=== PATIENT | female | born 1940 | race Caucasian/White ===

== ENCOUNTER → 2016-11-13 | Outpatient (REF) | payer MEDICARE, MEDICAID ==
[~2016-11-13] MED LIST: ASPI81TA45 PO; CARV6.25 PO; CRES20TA PO; DOCQ100C PO; IRON65TA PO; LISI10TA4 PO; LORA10TA2 PO; METF1000 PO; NAPR500T2 PO; PANT40TA2 PO; PERCOCET PO; SERT50TA PO; TYLE325T5 PO; advair INH; albuterol INH; lantus insulin SC; vicodin OR
[2016-11-13 12:13] LABS: MEAN CORPUSCULAR HEMOGLOBIN 24.1 pg (27.0-33.0); MEAN CORPUSCULAR HGB CONC 30.7 g/dl (32.0-36.5); MEAN CORPUSCULAR VOLUME 78.6 fl (80.0-96.0); RED CELL DISTRIBUTION WIDTH 16.3 % (11.5-14.5); WHITE BLOOD COUNT 8.8 K/mm3 (4.0-10.0)
[2016-11-13 12:26] LABS: FOLATE > 24.0 NG/ML (>5.4); VITAMIN B12 LEVEL 852 PG/ML (247-911)
[2016-11-13 12:37] LABS: ALBUMIN 3.9 GM/DL (3.2-5.2); ALBUMIN/GLOBULIN RATIO 1.05 (1.00-1.93); ALKALINE PHOSPHATASE 55 U/L (45-117); ALT/SGPT 26 U/L (12-78); ANION GAP 7 MEQ/L (8-16); AST/SGOT 16 U/L (15-37); BILIRUBIN,TOTAL 0.3 MG/DL (0.2-1.0); BLOOD UREA NITROGEN 24 MG/DL (7-18); CARBON DIOXIDE LEVEL 30 MEQ/L (21-32); CHLORIDE LEVEL 104 MEQ/L (98-107); CHOLESTEROL LEVEL 314 MG/DL (<200); CREATININE FOR GFR 0.71 MG/DL (0.55-1.02); GLOMERULAR FILTRATION RATE > 60.0 (>39); GLUCOSE, FASTING 104 MG/DL (83-110); POTASSIUM SERUM 4.8 MEQ/L (3.5-5.1); SODIUM LEVEL 141 MEQ/L (136-145); TOTAL PROTEIN 7.6 GM/DL (6.4-8.2); TRIGLYCERIDES LEVEL 207 MG/DL (<150)
== END ==
LOC: M LABDRAW1 11:32
PROVIDERS: ATTEND Internal Medicine Cardiovascular Disease
DX: E78.5 Hyperlipidemia, unspecified (principal); K51.90 Ulcerative colitis, unspecified, without complications; E10.9 Type 1 diabetes mellitus without complications; I10 Essential (primary) hypertension

== ENCOUNTER → 2016-11-18 | Outpatient (REF) | payer MEDICARE, MEDICAID | LOC: M LABDRAW1 17:04 | PROVIDERS: ATTEND Internal Medicine Cardiovascular Disease | DX: E78.5 Hyperlipidemia, unspecified (principal); E11.9 Type 2 diabetes mellitus without complications; I10 Essential (primary) hypertension; N39.0 Urinary tract infection, site not specified; Z79.899 Other long term (current) drug therapy ==

== ENCOUNTER → 2016-11-23 | Outpatient (REF) | payer MEDICARE, MEDICAID | LOC: M LAB REF 17:05 | PROVIDERS: ATTEND Internal Medicine Cardiovascular Disease | DX: E78.5 Hyperlipidemia, unspecified (principal); I10 Essential (primary) hypertension; E11.9 Type 2 diabetes mellitus without complications; N39.0 Urinary tract infection, site not specified ==

== ENCOUNTER → 2017-02-04 | Outpatient (REF) | payer MEDICARE, MEDICAID ==
[~2017-02-04] MED LIST changes: -METF1000 PO; +METF10004 PO; -NAPR500T2 PO; +NAPR500T3 PO
[2017-02-04 14:03] LABS: MEAN CORPUSCULAR HEMOGLOBIN 24.4 pg (27.0-33.0); MEAN CORPUSCULAR VOLUME 76.3 fl (80.0-96.0); RED CELL DISTRIBUTION WIDTH 17.6 % (11.5-14.5); WHITE BLOOD COUNT 8.9 K/mm3 (4.0-10.0)
[2017-02-04 14:16] LABS: FOLATE > 24.0 NG/ML; VITAMIN B12 LEVEL 1339 PG/ML
[2017-02-04 16:01] LABS: ALBUMIN 4.1 GM/DL (3.2-5.2); ALBUMIN/GLOBULIN RATIO 1.28 (1.00-1.93); ALKALINE PHOSPHATASE 39 U/L (45-117); ALT/SGPT 14 U/L (12-78); ANION GAP 8 MEQ/L (8-16); AST/SGOT 19 U/L (15-37); BILIRUBIN,TOTAL 0.5 MG/DL (0.2-1.0); BLOOD UREA NITROGEN 22 MG/DL (7-18); CALCIUM LEVEL 8.8 MG/DL (8.8-10.2); CARBON DIOXIDE LEVEL 26 MEQ/L (21-32); CHLORIDE LEVEL 105 MEQ/L (98-107); CREATININE FOR GFR 0.81 MG/DL (0.55-1.02); FREE T4 1.24 NG/DL (0.76-1.46); GLOMERULAR FILTRATION RATE > 60.0 (>39); GLUCOSE, FASTING 70 MG/DL (83-110); POTASSIUM SERUM 4.7 MEQ/L (3.5-5.1); SODIUM LEVEL 139 MEQ/L (136-145); TOTAL PROTEIN 7.3 GM/DL (6.4-8.2)
[2017-02-10 00:09] LABS: Chitobioside Carbohydrat (ACCA 19 units (0-90); Laminaribioside Carbohyd (ALCA 4 units (0-60); Mannobioside Carbohydrat (AMCA 18 units (0-100); Saccharomyces cerevisiae IgG A 12 units (0-50)
== END ==
LOC: M LABDRAW1 13:27
PROVIDERS: ATTEND Internal Medicine Cardiovascular Disease
DX: D64.9 Anemia, unspecified (principal); J44.0 Chronic obstructive pulmonary disease with (acute) lower respiratory infection; K21.9 Gastro-esophageal reflux disease without esophagitis; I10 Essential (primary) hypertension; E11.9 Type 2 diabetes mellitus without complications; I25.10 Atherosclerotic heart disease of native coronary artery without angina pectoris

== ENCOUNTER → 2017-02-06 | Outpatient (REF) | payer MEDICARE, MEDICAID | LOC: M LAB REF 16:20 | PROVIDERS: ATTEND Internal Medicine Cardiovascular Disease | DX: D64.9 Anemia, unspecified (principal); J44.0 Chronic obstructive pulmonary disease with (acute) lower respiratory infection; K21.9 Gastro-esophageal reflux disease without esophagitis ==

== ENCOUNTER → 2017-02-08 | Outpatient (REF) | payer MEDICARE, MEDICAID | LOC: M LAB REF 16:17 | PROVIDERS: ATTEND Internal Medicine Cardiovascular Disease | DX: D64.9 Anemia, unspecified (principal); J44.0 Chronic obstructive pulmonary disease with (acute) lower respiratory infection; K21.9 Gastro-esophageal reflux disease without esophagitis ==

== ENCOUNTER → 2017-04-14 | Outpatient (CLI) | payer MEDICARE, MEDICAID ==
--- NOTE | 2017-04-14 14:10 | REP ---
UNILATERAL RIGHT RIBS, PA CHEST, FIVE VIEWS: HISTORY: Pain. COMPARISON: 06/10/2016. A minimal increase in interstitial markings is present in the lungs. Linear density is present in the left lower lobe consistent with scar. The heart is normal in size. The pulmonary vasculature is normal in appearance. The bony structure is intact. Surgical clips are present overlying the left lung apex. IMPRESSION: Findings consistent with COPD. Signed by Sean Gaines MD 04/14/2017 02:16 P
== END ==
LOC: M WUC 11:02
PROVIDERS: ATTEND Physician Assistant
DX: S29.011A Strain of muscle and tendon of front wall of thorax, initial encounter (principal); X58.XXXA Exposure to other specified factors, initial encounter; Y93.9 Activity, unspecified; Y92.9 Unspecified place or not applicable; Y99.8 Other external cause status; J44.9 Chronic obstructive pulmonary disease, unspecified

== ENCOUNTER → 2017-08-20 | Outpatient (CLI) | payer MEDICARE, MEDICAID ==
[2017-08-20 11:29] LABS: HEMATOCRIT 29.4 % (36.0-47.0); HEMOGLOBIN 8.8 g/dl (12.0-16.0); MEAN CORPUSCULAR HEMOGLOBIN 23.2 pg (27.0-33.0); MEAN CORPUSCULAR HGB CONC 29.9 g/dl (32.0-36.5); MEAN CORPUSCULAR VOLUME 77.4 fl (80.0-96.0); PLATELET COUNT, AUTOMATED 117 10^3/uL (150-450); RED CELL DISTRIBUTION WIDTH 18.5 % (11.5-14.5); WHITE BLOOD COUNT 7.9 10^3/uL (4.0-10.0)
[2017-08-20 11:35] LABS: INR 0.99; PROTHROMBIN TIME 13.2 SECONDS (12.4-14.5)
[2017-08-20 11:51] LABS: ALBUMIN 3.9 GM/DL (3.2-5.2); ALBUMIN/GLOBULIN RATIO 1.11 (1.00-1.93); ALKALINE PHOSPHATASE 40 U/L (45-117); ALT/SGPT 13 U/L (12-78); ANION GAP 8 MEQ/L (8-16); AST/SGOT 20 U/L (7-37); BILIRUBIN,TOTAL 0.6 MG/DL (0.2-1.0); BLOOD UREA NITROGEN 16 MG/DL (7-18); CALCIUM LEVEL 8.9 MG/DL (8.8-10.2); CARBON DIOXIDE LEVEL 27 MEQ/L (21-32); CHLORIDE LEVEL 107 MEQ/L (98-107); CREATININE FOR GFR 0.64 MG/DL (0.55-1.30); GLOMERULAR FILTRATION RATE > 60.0 (>39); GLUCOSE, FASTING 66 MG/DL (70-100); POTASSIUM SERUM 4.2 MEQ/L (3.5-5.1); SODIUM LEVEL 142 MEQ/L (136-145); TOTAL PROTEIN 7.4 GM/DL (6.4-8.2)
[2017-08-20 11:53] LABS: APPEARANCE, URINE MANUAL CLEAR (CLEAR); BILIRUBIN, URINE MANUAL NEGATIVE (NEGATIVE); BLOOD URINE MANUAL TRACE (NEGATIVE); COLOR, URINE MANUAL YELLOW (YELLOW); GLUCOSE, URINE (UA) MANUAL NEGATIVE (NEGATIVE); KETONE, URINE MANUAL NEGATIVE (NEGATIVE); LEUKOCYTE ESTERASE, URINE MAN TRACE (NEGATIVE); MICROSCOPIC INDICATED? MAN YES (NO); NITRITE, URINE MANUAL NEGATIVE (NEGATIVE); PROTEIN, URINE MANUAL 1+ mg/dL (NEGATIVE); SPECIFIC GRAVITY,URINE MANUAL 1.025 (1.002-1.035); UROBILINOGEN, URINE MANUAL NORMAL (NORMAL)
[2017-08-20 11:56] LABS: ERYTHROCYTE SEDIMENTATION RATE 59 mm/hr (0-30)
[2017-08-20 11:58] LABS: BACTERIA, URINE SMALL AMOUNT; HYALINE CAST, URINE NONE SEEN /lpf (0-1); MICROSCOPIC EXAM PERFORMED; RBC, URINE 0-1 /hpf (0-3); SQUAMOUS EPITHELIAL CELL URINE SMALL AMOUNT /hpf (SMALL AMT)
== END ==
LOC: M ADMPAT 09:13
DX: Z01.818 Encounter for other preprocedural examination (principal); M17.12 Unilateral primary osteoarthritis, left knee; I10 Essential (primary) hypertension; R01.1 Cardiac murmur, unspecified; E11.9 Type 2 diabetes mellitus without complications
CPT/HCPCS: 71046

== ENCOUNTER → 2017-09-23 | Outpatient (CLI) | payer MEDICARE, MEDICAID ==
[2017-09-23 14:10] LABS: HEMATOCRIT 31.4 % (36.0-47.0); HEMOGLOBIN 9.1 g/dl (12.0-16.0); MEAN CORPUSCULAR HEMOGLOBIN 23.2 pg (27.0-33.0); MEAN CORPUSCULAR VOLUME 79.9 fl (80.0-96.0); PLATELET COUNT, AUTOMATED 105 10^3/uL (150-450); RED BLOOD COUNT 3.93 10^6/uL (4.00-5.40); RED CELL DISTRIBUTION WIDTH 18.4 % (11.5-14.5); WHITE BLOOD COUNT 7.3 10^3/uL (4.0-10.0)
== END ==
LOC: M SMT 08:33
DX: Z01.82 Encounter for allergy testing (principal); M17.12 Unilateral primary osteoarthritis, left knee; Z79.899 Other long term (current) drug therapy
CPT/HCPCS: 85027

== ENCOUNTER → 2017-12-29 | Outpatient (CLI) | payer MEDICARE, MEDICAID ==
[2017-12-29 11:35] LABS: HEMATOCRIT 33.6 % (36.0-47.0); HEMOGLOBIN 10.2 g/dl (12.0-15.5); MEAN CORPUSCULAR HEMOGLOBIN 24.1 pg (27.0-33.0); MEAN CORPUSCULAR HGB CONC 30.4 g/dl (32.0-36.5); MEAN CORPUSCULAR VOLUME 79.2 fl (80.0-96.0); PLATELET COUNT, AUTOMATED 108 10^3/uL (150-450); RED BLOOD COUNT 4.24 10^6/uL (4.00-5.40); RED CELL DISTRIBUTION WIDTH 16.9 % (11.5-14.5); WHITE BLOOD COUNT 6.9 10^3/uL (4.0-10.0)
[2017-12-29 11:45] LABS: INR 0.88
[2017-12-29 12:04] LABS: ERYTHROCYTE SEDIMENTATION RATE 35 mm/hr (0-30)
[2017-12-29 12:33] LABS: ALBUMIN 3.9 GM/DL (3.2-5.2); ALBUMIN/GLOBULIN RATIO 1.08 (1.00-1.93); ALKALINE PHOSPHATASE 37 U/L (45-117); ALT/SGPT 14 U/L (12-78); ANION GAP 7 MEQ/L (8-16); AST/SGOT 19 U/L (7-37); BILIRUBIN,TOTAL 0.5 MG/DL (0.2-1.0); BLOOD UREA NITROGEN 16 MG/DL (7-18); CALCIUM LEVEL 9.2 MG/DL (8.8-10.2); CARBON DIOXIDE LEVEL 27 MEQ/L (21-32); CHLORIDE LEVEL 108 MEQ/L (98-107); CREATININE FOR GFR 0.77 MG/DL (0.55-1.30); GLOMERULAR FILTRATION RATE > 60.0 (>39); GLUCOSE, FASTING 114 MG/DL (70-100); POTASSIUM SERUM 4.8 MEQ/L (3.5-5.1); SODIUM LEVEL 142 MEQ/L (136-145); TOTAL PROTEIN 7.5 GM/DL (6.4-8.2)
== END ==
LOC: M ADMPAT 10:21
DX: M17.12 Unilateral primary osteoarthritis, left knee (principal); Z79.01 Long term (current) use of anticoagulants
CPT/HCPCS: 80053

== ENCOUNTER 2018-01-25 09:43 | Inpatient (IN) | payer MEDICARE, MEDICAID ==
[2018-01-25] MEDS ORDERED: LR 1,000 ML IV (10:00)
[2018-01-25 10:46] LABS: GLUCOSE, FASTING 79 MG/DL (70-100)
[2018-01-25] MEDS ORDERED: ACETAMINOPHEN 500 MG TAB As Ordered (10:50)
[2018-01-25 10:54] LABS: BEDSIDE GLUCOSE 74 MG/DL (83-110)
[2018-01-25] MEDS ORDERED: CARVedilol 6.25 MG TAB As Ordered (11:03)
[2018-01-25] MEDS: CARVedilol 6.25 MG TAB PO ×2 (11:08→21:28)
[2018-01-25] MEDS: ACETAMINOPHEN 500 MG TAB PO (11:08)
[2018-01-25] MEDS ORDERED: fentaNYL 100 MCG/2 ML INJECTION (J3010) As Ordered ×2 (11:40→12:36)
[2018-01-25] MEDS ORDERED: MIDAZOLAM INJ 2 MG/2 ML VIAL (J2250) As Ordered ×2 (11:40→12:36)
[2018-01-25] MEDS: MIDAZOLAM INJ 2 MG/2 ML VIAL (J2250) IV (11:49)
[2018-01-25] MEDS: fentaNYL 100 MCG/2 ML INJECTION (J3010) IV (11:49)
[2018-01-25] MEDS ORDERED: PROPOFOL 200 MG/20 ML VIAL As Ordered (12:36)
[2018-01-25] MEDS ORDERED: BUPIVACAINE/DEXTROSE 0.75% 2 ML AMP As Ordered (12:36)
[2018-01-25] MEDS: ceFAZolin 1GM INJ (J0690 PER 500MG) As Ordered (12:59)
[2018-01-25] MEDS: EPINEPHrine INJ 1 MG/ML 1ML AMP As Ordered (13:15)
[2018-01-25] MEDS: BUPIVACAINE LIPOSOME/PF 1.3% 20 ML VIAL (13.3MG/ML)(EXPAREL) As Ordered (13:15)
[2018-01-25] MEDS: BUPIVACAINE HCL 0.25% 10 ML VIAL As Ordered (13:15)
[2018-01-25] MEDS: TRANEXAMIC ACID 100 MG/ML 10ML VIAL As Ordered (13:15)
[2018-01-25] MEDS ORDERED: MORPHINE 1MG/ML IN 0.9% NACL 100ML IV BAG As Ordered (13:36)
[2018-01-25] MEDS ORDERED: MORPHINE 1MG/ML IN 0.9% NACL 100ML IV BAG IV (14:30)
[2018-01-25] MEDS ORDERED: diphenhydrAMINE INJ 50MG/ML VIAL (J1200) IV (14:30)
[2018-01-25] MEDS ORDERED: NALBUPHINE HCL 10 MG/ML AMP (J2300) IV (14:30)
[2018-01-25] MEDS ORDERED: ACETAMINOPHEN TAB 650MG DOSE (2X325MG) PO (14:30)
[2018-01-25] MEDS: LR 1,000 ML IV ×2 (14:30→15:30)
[2018-01-25] MEDS ORDERED: EPIDURAL/PCA KEYS XX (14:30)
[2018-01-25] MEDS ORDERED: FLEET ENEMA PR (14:30)
[2018-01-25] MEDS ORDERED: NALOXONE INJ 0.4 MG/1 ML VIAL (J2310) IV (14:30)
[2018-01-25] MEDS ORDERED: fentaNYL 100 MCG/2 ML INJECTION (J3010) IV (14:30)
[2018-01-25] MEDS: ONDANSETRON 4MG/2ML VIAL (J2405) IV ×2 (14:33→20:30)
[2018-01-25] MEDS ORDERED: EPINEPHrine INJ 1 MG/ML 1ML AMP (15:22)
[2018-01-25] MEDS ORDERED: ROPIvacaine 0.5% 30 ML INJECTION (J2795 PER 1MG) (15:22)
[2018-01-25] MEDS ORDERED: dexameTHASONE 10 MG/1 ML VIAL PRES.FREE (J1100) (15:22)
[2018-01-25 21:03] LABS: BEDSIDE GLUCOSE 167 MG/DL (83-110)
[2018-01-25] MEDS: LEVEMIR (INSULIN DETEMIR) 1 UNITS/0.01ML SC (21:28)
[2018-01-25] MEDS ORDERED: DEXTROSE 50% 50 ML SYRINGE IV (21:30)
[2018-01-25] MEDS ORDERED: GLUCAGON FOR INJ 1 MG VIAL (J1610) SC (21:30)
[2018-01-25] MEDS ORDERED: GLUCOSE 4 GM CHEW TABLET PO (21:30)
[2018-01-25] MEDS: ROSUVASTATIN 10 MG TAB (CRESTOR) PO (21:31)
[2018-01-25] MEDS: GABAPENTIN 300 MG CAP PO (21:31)
[2018-01-26] MEDS: LR 1,000 ML IV (04:14)
[2018-01-26 07:38] LABS: HEMATOCRIT 27.5 % (36.0-47.0); HEMOGLOBIN 8.4 g/dl (12.0-15.5); MEAN CORPUSCULAR HEMOGLOBIN 24.6 pg (27.0-33.0); MEAN CORPUSCULAR HGB CONC 30.5 g/dl (32.0-36.5); MEAN CORPUSCULAR VOLUME 80.6 fl (80.0-96.0); RED BLOOD COUNT 3.41 10^6/uL (4.00-5.40); RED CELL DISTRIBUTION WIDTH 16.5 % (11.5-14.5)
[2018-01-26 07:43] LABS: PLATELET COUNT, AUTOMATED 89 10^3/uL (150-450); POS COUNT POS FLAG; POSITIVE MORPH POS FLAG; WHITE BLOOD COUNT 36.1 10^3/uL (4.0-10.0)
[2018-01-26 07:44] LABS: IMMATURE PLATELET FRACTION % 14.5 % (0.0-9.6)
[2018-01-26 07:50] LABS: ANION GAP 6 MEQ/L (8-16); BLOOD UREA NITROGEN 18 MG/DL (7-18); CALCIUM LEVEL 8.1 MG/DL (8.8-10.2); CARBON DIOXIDE LEVEL 28 MEQ/L (21-32); CHLORIDE LEVEL 104 MEQ/L (98-107); CREATININE FOR GFR 0.69 MG/DL (0.55-1.30); GLOMERULAR FILTRATION RATE > 60.0 (>39); GLUCOSE, FASTING 163 MG/DL (70-100); POTASSIUM SERUM 4.1 MEQ/L (3.5-5.1); SODIUM LEVEL 138 MEQ/L (136-145)
[2018-01-26 08:17] LABS: HEMATOCRIT 26.7 % (36.0-47.0); HEMOGLOBIN 8.3 g/dl (12.0-15.5); MEAN CORPUSCULAR HEMOGLOBIN 24.6 pg (27.0-33.0); MEAN CORPUSCULAR HGB CONC 31.1 g/dl (32.0-36.5); MEAN CORPUSCULAR VOLUME 79.2 fl (80.0-96.0); RED BLOOD COUNT 3.37 10^6/uL (4.00-5.40); RED CELL DISTRIBUTION WIDTH 16.4 % (11.5-14.5)
[2018-01-26 08:25] LABS: PLATELET COUNT, AUTOMATED 96 10^3/uL (150-450); POS COUNT POS FLAG; POSITIVE MORPH POS FLAG; WHITE BLOOD COUNT 41.1 10^3/uL (4.0-10.0)
[2018-01-26] MEDS: MOM 30ML SUSPENSION UDC PO (08:36)
[2018-01-26] MEDS: SERTRALINE HCL 50 MG TAB PO (08:36)
[2018-01-26] MEDS: MIRALAX *UNIT DOSE* 17GM PACKET PO ×2 (08:36→09:00)
[2018-01-26] MEDS: SENOKOT S TAB PO ×2 (08:36→20:28)
[2018-01-26] MEDS: GABAPENTIN 300 MG CAP PO ×2 (08:39→20:28)
[2018-01-26] MEDS: CARVedilol 6.25 MG TAB PO ×2 (08:39→20:29)
[2018-01-26] MEDS: CYANOCOBALAMIN 500 MCG TAB PO (08:39)
[2018-01-26] MEDS: PERCOCET 5MG/325MG TAB PO ×3 (08:39→23:33)
[2018-01-26] MEDS: PANTOPRAZOLE 40MG TAB (PROTONIX) PO (08:39)
[2018-01-26] MEDS: HumaLOG INSULIN (NovoLOG) PER UNIT SC ×4 (08:40→20:29)
[2018-01-26] MEDS ORDERED: CARVedilol 6.25 MG TAB PO (09:00)
[2018-01-26 09:33] LABS: ERYTHROCYTE SEDIMENTATION RATE 49 mm/hr (0-30)
[2018-01-26 09:34] LABS: REASON FOR REVIEW WBC/LEUKEMIA/BLAST; SLIDE REVIEW Report; SOURCE PERIPHERAL SMEAR
[2018-01-26 10:25] LABS: INR 1.06; PARTIAL THROMBOPLASTIN TIME 27.6 SECONDS (25.4-37.6); PROTHROMBIN TIME 13.9 SECONDS (12.1-14.4)
[2018-01-26 10:29] LABS: C REACTIVE PROTEIN QUANTITATIV 5.58 MG/DL (0.00-0.30)
[2018-01-26 11:15] LABS: BEDSIDE GLUCOSE 129 MG/DL (83-110)
[2018-01-26 15:45] LABS: ERYTHROCYTE SEDIMENTATION RATE 53 mm/hr (0-30)
[2018-01-26 17:46] LABS: BEDSIDE GLUCOSE 144 MG/DL (83-110)
[2018-01-26] MEDS: RIVAROXABAN 10 MG TAB (XARELTO) PO (18:28)
[2018-01-26 20:25] LABS: BEDSIDE GLUCOSE 161 MG/DL (83-110)
[2018-01-26] MEDS: BACLOFEN 10 MG TAB PO (20:28)
[2018-01-26] MEDS: ROSUVASTATIN 10 MG TAB (CRESTOR) PO (20:28)
[2018-01-26] MEDS: LEVEMIR (INSULIN DETEMIR) 1 UNITS/0.01ML SC (20:29)
[2018-01-27] MEDS: HumaLOG INSULIN (NovoLOG) PER UNIT SC ×4 (07:30→21:00)
[2018-01-27 07:33] LABS: HEMATOCRIT 24.4 % (36.0-47.0); HEMOGLOBIN 7.5 g/dl (12.0-15.5); MEAN CORPUSCULAR HEMOGLOBIN 24.6 pg (27.0-33.0); MEAN CORPUSCULAR HGB CONC 30.7 g/dl (32.0-36.5); RED BLOOD COUNT 3.05 10^6/uL (4.00-5.40); RED CELL DISTRIBUTION WIDTH 16.3 % (11.5-14.5); WHITE BLOOD COUNT 29.5 10^3/uL (4.0-10.0)
[2018-01-27 07:40] LABS: ADD MANUAL DIFFER YES; DIFF SLIDE NUMBER 97; PLATELET COUNT, AUTOMATED 73 10^3/uL (150-450); POSITIVE DIFF POS FLAG; POSITIVE MORPH POS FLAG
[2018-01-27 07:41] LABS: IMMATURE PLATELET FRACTION % 12.8 % (0.0-9.6)
[2018-01-27 08:02] LABS: ALBUMIN 2.9 GM/DL (3.2-5.2); ALBUMIN/GLOBULIN RATIO 0.78 (1.00-1.93); ALKALINE PHOSPHATASE 40 U/L (45-117); ALT/SGPT 12 U/L (12-78); ANION GAP 7 MEQ/L (8-16); AST/SGOT 19 U/L (7-37); BILIRUBIN,TOTAL 0.6 MG/DL (0.2-1.0); BLOOD UREA NITROGEN 18 MG/DL (7-18); CALCIUM LEVEL 8.5 MG/DL (8.8-10.2); CARBON DIOXIDE LEVEL 29 MEQ/L (21-32); CHLORIDE LEVEL 102 MEQ/L (98-107); CREATININE FOR GFR 0.65 MG/DL (0.55-1.30); GLOMERULAR FILTRATION RATE > 60.0 (>39); GLUCOSE, FASTING 138 MG/DL (70-100); POTASSIUM SERUM 4.1 MEQ/L (3.5-5.1); SODIUM LEVEL 138 MEQ/L (136-145); TOTAL PROTEIN 6.6 GM/DL (6.4-8.2)
[2018-01-27] MEDS: ONDANSETRON 4 MG TAB (S0181) PO ×2 (08:30→17:08)
[2018-01-27] MEDS: GABAPENTIN 300 MG CAP PO ×2 (08:31→21:21)
[2018-01-27] MEDS: SENOKOT S TAB PO ×2 (08:31→21:21)
[2018-01-27] MEDS: CYANOCOBALAMIN 500 MCG TAB PO (08:31)
[2018-01-27] MEDS: CARVedilol 6.25 MG TAB PO ×2 (08:31→21:21)
[2018-01-27] MEDS: PANTOPRAZOLE 40MG TAB (PROTONIX) PO (08:31)
[2018-01-27 08:55] LABS: ATYPICAL LYMPH 7 % (0-5); BANDS 7 % (< 11); LYMPHOCYTES 14 % (16-52); MONOCYTES 17 % (0-8); NEUTROPHILS 55 % (35-75); PLATELET ESTIMATE DECREASED (NORMAL); POIKILOCYTOSIS 1+
[2018-01-27 08:56] LABS: ANISOCYTOSIS 1+; MICROCYTOSIS 1+
[2018-01-27] MEDS: SERTRALINE HCL 50 MG TAB PO (09:00)
[2018-01-27] MEDS: MIRALAX *UNIT DOSE* 17GM PACKET PO (09:00)
[2018-01-27] MEDS: MOM 30ML SUSPENSION UDC PO (09:00)
[2018-01-27 11:49] LABS: BEDSIDE GLUCOSE 129 MG/DL (83-110)
[2018-01-27] MEDS: FUROSEMIDE 20 MG/2 ML VIAL (J1940) IV (12:17)
[2018-01-27 13:06] LABS: APPEARANCE, URINE CLEAR (CLEAR); BACTERIA, URINE AUTO NEGATIVE (NEGATIVE); BILIRUBIN, URINE AUTO NEGATIVE (NEGATIVE); BLOOD, URINE BLOOD 1+ (NEGATIVE); COLOR, URINE YELLOW (YELLOW); GLUCOSE, URINE (UA) AUTO NEGATIVE (NEGATIVE); KETONE, URINE AUTO NEGATIVE (NEGATIVE); LEUKOCYTE ESTERASE, URINE AUTO NEGATIVE (NEGATIVE); MUCUS, URINE SMALL (NEGATIVE); NITRITE, URINE AUTO NEGATIVE (NEGATIVE); PROTEIN, URINE AUTO 1+ mg/dL (NEGATIVE); RBC, URINE AUTO 1 /HPF (0-3); SPECIFIC GRAVITY URINE AUTO 1.009 (1.002-1.035); SQUAMOUS EPITHELIAL CELL UR AU 0 /HPF (0-6); UROBILINOGEN, URINE AUTO 0.2 mg/dL (0.0-2.0); WBC, URINE AUTO 0 /HPF (0-3)
[2018-01-27 17:06] LABS: BEDSIDE GLUCOSE 123 MG/DL (83-110)
[2018-01-27] MEDS: RIVAROXABAN 10 MG TAB (XARELTO) PO (17:08)
[2018-01-27] MEDS: PERCOCET 5MG/325MG TAB PO ×2 (17:08→21:23)
[2018-01-27 20:33] LABS: BEDSIDE GLUCOSE 194 MG/DL (83-110)
[2018-01-27] MEDS: BACLOFEN 10 MG TAB PO (21:21)
[2018-01-27] MEDS: ROSUVASTATIN 10 MG TAB (CRESTOR) PO (21:21)
[2018-01-27] MEDS: LEVEMIR (INSULIN DETEMIR) 1 UNITS/0.01ML SC (21:22)
[2018-01-28] MEDS: PERCOCET 5MG/325MG TAB PO ×3 (05:38→20:40)
[2018-01-28 07:38] LABS: HEMOGLOBIN 7.2 g/dl (12.0-15.5); MEAN CORPUSCULAR HEMOGLOBIN 24.2 pg (27.0-33.0); MEAN CORPUSCULAR HGB CONC 31.3 g/dl (32.0-36.5); MEAN CORPUSCULAR VOLUME 77.2 fl (80.0-96.0); RED BLOOD COUNT 2.98 10^6/uL (4.00-5.40); RED CELL DISTRIBUTION WIDTH 16.2 % (11.5-14.5)
[2018-01-28 07:41] LABS: ADD MANUAL DIFFER YES; DIFF SLIDE NUMBER 58; PLATELET COUNT, AUTOMATED 74 10^3/uL (150-450); POSITIVE DIFF POS FLAG; POSITIVE MORPH POS FLAG
[2018-01-28 07:48] LABS: ALBUMIN 2.8 GM/DL (3.2-5.2); ALBUMIN/GLOBULIN RATIO 0.72 (1.00-1.93); ALKALINE PHOSPHATASE 44 U/L (45-117); ALT/SGPT 13 U/L (12-78); ANION GAP 7 MEQ/L (8-16); AST/SGOT 15 U/L (7-37); BILIRUBIN,TOTAL 0.8 MG/DL (0.2-1.0); BLOOD UREA NITROGEN 16 MG/DL (7-18); CALCIUM LEVEL 8.4 MG/DL (8.8-10.2); CARBON DIOXIDE LEVEL 32 MEQ/L (21-32); CHLORIDE LEVEL 104 MEQ/L (98-107); CREATININE FOR GFR 0.63 MG/DL (0.55-1.30); GLOMERULAR FILTRATION RATE > 60.0 (>39); GLUCOSE, FASTING 119 MG/DL (70-100); POTASSIUM SERUM 3.3 MEQ/L (3.5-5.1); SODIUM LEVEL 143 MEQ/L (136-145); TOTAL PROTEIN 6.7 GM/DL (6.4-8.2)
[2018-01-28] MEDS: HumaLOG INSULIN (NovoLOG) PER UNIT SC ×4 (08:01→20:38)
[2018-01-28] MEDS: SERTRALINE HCL 50 MG TAB PO (08:01)
[2018-01-28] MEDS: CARVedilol 6.25 MG TAB PO ×2 (08:02→20:39)
[2018-01-28] MEDS: CYANOCOBALAMIN 500 MCG TAB PO (08:02)
[2018-01-28] MEDS: PANTOPRAZOLE 40MG TAB (PROTONIX) PO (08:02)
[2018-01-28] MEDS: SENOKOT S TAB PO ×2 (08:02→20:38)
[2018-01-28] MEDS: MIRALAX *UNIT DOSE* 17GM PACKET PO (08:02)
[2018-01-28] MEDS: MOM 30ML SUSPENSION UDC PO (08:02)
[2018-01-28] MEDS: GABAPENTIN 300 MG CAP PO ×2 (08:02→20:38)
[2018-01-28 08:07] LABS: ANISOCYTOSIS 1+; LYMPHOCYTES 6 % (16-52); MONOCYTES 38 % (0-8); NEUTROPHILS 56 % (35-75); PLATELET ESTIMATE DECREASED (NORMAL); POIKILOCYTOSIS 1+
[2018-01-28 08:08] LABS: MICROCYTOSIS 1+; OVALOCYTES 1+
[2018-01-28] MEDS: POTASSIUM CHLORIDE 10 MEQ SR TABLET PO (09:33)
[2018-01-28 11:32] LABS: BEDSIDE GLUCOSE 169 MG/DL (83-110)
[2018-01-28 12:26] LABS: IMMEDIATE SPIN CROSSMATCH 1 1
[2018-01-28 16:56] LABS: BEDSIDE GLUCOSE 126 MG/DL (83-110)
[2018-01-28] MEDS: RIVAROXABAN 10 MG TAB (XARELTO) PO (17:35)
[2018-01-28 20:34] LABS: BEDSIDE GLUCOSE 143 MG/DL (83-110)
[2018-01-28] MEDS: BACLOFEN 10 MG TAB PO (20:37)
[2018-01-28] MEDS: ROSUVASTATIN 10 MG TAB (CRESTOR) PO (20:38)
[2018-01-28] MEDS: LEVEMIR (INSULIN DETEMIR) 1 UNITS/0.01ML SC (20:38)
[2018-01-29 06:46] LABS: BASO % 0.2 % (0.0-1.0); EOS % 0.1 % (0.0-3.0); HEMOGLOBIN 8.7 g/dl (12.0-15.5); IMMATURE GRANULOCYTE % 1.8 % (0-3.0); LYMPH % 5.9 % (24.0-44.0); MEAN CORPUSCULAR HEMOGLOBIN 24.8 pg (27.0-33.0); MEAN CORPUSCULAR HGB CONC 31.1 g/dl (32.0-36.5); MEAN CORPUSCULAR VOLUME 79.8 fl (80.0-96.0); MONO # 6.9 10^3/uL (0.0-0.8); MONO % 42.4 % (0.0-5.0); NEUTROPHILS # 8.1 10^3/uL (1.8-7.7); NEUTROPHILS % 49.6 % (36.0-66.0); PLATELET COUNT, AUTOMATED 84 10^3/uL (150-450); POSITIVE DIFF POS FLAG; RED BLOOD COUNT 3.51 10^6/uL (4.00-5.40); RED CELL DISTRIBUTION WIDTH 16.3 % (11.5-14.5); WHITE BLOOD COUNT 16.3 10^3/uL (4.0-10.0)
[2018-01-29 06:48] LABS: IMMATURE PLATELET FRACTION % 14.9 % (0.0-9.6)
[2018-01-29 07:09] LABS: ALBUMIN 2.8 GM/DL (3.2-5.2); ALBUMIN/GLOBULIN RATIO 0.67 (1.00-1.93); ALKALINE PHOSPHATASE 47 U/L (45-117); ALT/SGPT 14 U/L (12-78); ANION GAP 5 MEQ/L (8-16); AST/SGOT 19 U/L (7-37); BILIRUBIN,TOTAL 1.3 MG/DL (0.2-1.0); BLOOD UREA NITROGEN 15 MG/DL (7-18); CALCIUM LEVEL 8.6 MG/DL (8.8-10.2); CARBON DIOXIDE LEVEL 33 MEQ/L (21-32); CHLORIDE LEVEL 104 MEQ/L (98-107); CREATININE FOR GFR 0.56 MG/DL (0.55-1.30); GLOMERULAR FILTRATION RATE > 60.0 (>39); GLUCOSE, FASTING 123 MG/DL (70-100); SODIUM LEVEL 142 MEQ/L (136-145)
[2018-01-29] MEDS: PERCOCET 5MG/325MG TAB PO ×4 (08:40→22:28)
[2018-01-29] MEDS: HumaLOG INSULIN (NovoLOG) PER UNIT SC ×4 (08:40→21:00)
[2018-01-29] MEDS: CYANOCOBALAMIN 500 MCG TAB PO (09:07)
[2018-01-29] MEDS: SENOKOT S TAB PO ×2 (09:07→22:27)
[2018-01-29] MEDS: GABAPENTIN 300 MG CAP PO ×2 (09:07→22:26)
[2018-01-29] MEDS: MOM 30ML SUSPENSION UDC PO (09:07)
[2018-01-29] MEDS: SERTRALINE HCL 50 MG TAB PO (09:07)
[2018-01-29] MEDS: MIRALAX *UNIT DOSE* 17GM PACKET PO (09:07)
[2018-01-29] MEDS: PANTOPRAZOLE 40MG TAB (PROTONIX) PO (09:08)
[2018-01-29] MEDS: CARVedilol 6.25 MG TAB PO ×2 (09:08→22:27)
[2018-01-29] MEDS: FUROSEMIDE 40 MG/4 ML VIAL (J1940) IV (11:43)
[2018-01-29 11:53] LABS: BEDSIDE GLUCOSE 117 MG/DL (83-110)
[2018-01-29 16:52] LABS: BEDSIDE GLUCOSE 133 MG/DL (83-110)
[2018-01-29] MEDS: RIVAROXABAN 10 MG TAB (XARELTO) PO (17:16)
[2018-01-29] MEDS: FUROSEMIDE 20 MG/2 ML VIAL (J1940) IV (18:51)
[2018-01-29 21:48] LABS: BEDSIDE GLUCOSE 139 MG/DL (83-110)
[2018-01-29] MEDS: ROSUVASTATIN 10 MG TAB (CRESTOR) PO (22:26)
[2018-01-29] MEDS: BACLOFEN 10 MG TAB PO (22:27)
[2018-01-29] MEDS: LEVEMIR (INSULIN DETEMIR) 1 UNITS/0.01ML SC (22:28)
[2018-01-30] MEDS: PERCOCET 5MG/325MG TAB PO ×3 (05:55→21:28)
[2018-01-30 06:53] LABS: BASO % 0.1 % (0.0-1.0); EOS % 0.2 % (0.0-3.0); HEMATOCRIT 25.7 % (36.0-47.0); HEMOGLOBIN 8.1 g/dl (12.0-15.5); IMMATURE GRANULOCYTE % 1.3 % (0-3.0); LYMPH # 1.2 10^3/uL (1.5-4.5); LYMPH % 9.8 % (24.0-44.0); MEAN CORPUSCULAR HEMOGLOBIN 24.5 pg (27.0-33.0); MEAN CORPUSCULAR HGB CONC 31.5 g/dl (32.0-36.5); MEAN CORPUSCULAR VOLUME 77.9 fl (80.0-96.0); MONO % 46.2 % (0.0-5.0); NEUTROPHILS # 5.3 10^3/uL (1.8-7.7); NEUTROPHILS % 42.4 % (36.0-66.0); PLATELET COUNT, AUTOMATED 107 10^3/uL (150-450); RED CELL DISTRIBUTION WIDTH 16.2 % (11.5-14.5); WHITE BLOOD COUNT 12.5 10^3/uL (4.0-10.0)
[2018-01-30 07:08] LABS: ALBUMIN 2.7 GM/DL (3.2-5.2); ALBUMIN/GLOBULIN RATIO 0.64 (1.00-1.93); ALKALINE PHOSPHATASE 49 U/L (45-117); ALT/SGPT 18 U/L (12-78); ANION GAP 7 MEQ/L (8-16); AST/SGOT 24 U/L (7-37); BLOOD UREA NITROGEN 17 MG/DL (7-18); CALCIUM LEVEL 8.3 MG/DL (8.8-10.2); CARBON DIOXIDE LEVEL 33 MEQ/L (21-32); CHLORIDE LEVEL 100 MEQ/L (98-107); CREATININE FOR GFR 0.61 MG/DL (0.55-1.30); GLOMERULAR FILTRATION RATE > 60.0 (>39); GLUCOSE, FASTING 112 MG/DL (70-100); POTASSIUM SERUM 3.5 MEQ/L (3.5-5.1); SODIUM LEVEL 140 MEQ/L (136-145); TOTAL PROTEIN 6.9 GM/DL (6.4-8.2)
[2018-01-30 08:08] LABS: MONO # 5.8 10^3/uL (0.0-0.8); POSITIVE DIFF POS FLAG
[2018-01-30] MEDS: SERTRALINE HCL 50 MG TAB PO (08:50)
[2018-01-30] MEDS: CYANOCOBALAMIN 500 MCG TAB PO (08:50)
[2018-01-30] MEDS: MOM 30ML SUSPENSION UDC PO (08:50)
[2018-01-30] MEDS: SENOKOT S TAB PO ×2 (08:50→21:27)
[2018-01-30] MEDS: GABAPENTIN 300 MG CAP PO ×2 (08:51→21:27)
[2018-01-30] MEDS: CARVedilol 6.25 MG TAB PO ×2 (08:51→21:27)
[2018-01-30] MEDS: PANTOPRAZOLE 40MG TAB (PROTONIX) PO (08:51)
[2018-01-30] MEDS: FUROSEMIDE 40 MG/4 ML VIAL (J1940) IV ×2 (08:52→15:05)
[2018-01-30] MEDS: MIRALAX *UNIT DOSE* 17GM PACKET PO (08:53)
[2018-01-30] MEDS: HumaLOG INSULIN (NovoLOG) PER UNIT SC ×4 (08:53→21:00)
[2018-01-30 11:39] LABS: BEDSIDE GLUCOSE 161 MG/DL (83-110)
[2018-01-30 17:18] LABS: BEDSIDE GLUCOSE 105 MG/DL (83-110)
[2018-01-30] MEDS: RIVAROXABAN 10 MG TAB (XARELTO) PO (17:39)
[2018-01-30 21:04] LABS: BEDSIDE GLUCOSE 136 MG/DL (83-110)
[2018-01-30] MEDS: BACLOFEN 10 MG TAB PO (21:27)
[2018-01-30] MEDS: ROSUVASTATIN 10 MG TAB (CRESTOR) PO (21:27)
[2018-01-30] MEDS: LEVEMIR (INSULIN DETEMIR) 1 UNITS/0.01ML SC (21:36)
[2018-01-31] MEDS: PERCOCET 5MG/325MG TAB PO ×2 (05:19→10:14)
[2018-01-31 07:22] LABS: BASO % 0.1 % (0.0-1.0); EOS % 0.1 % (0.0-3.0); HEMATOCRIT 27.6 % (36.0-47.0); HEMOGLOBIN 8.6 g/dl (12.0-15.5); IMMATURE GRANULOCYTE % 1.3 % (0-3.0); LYMPH # 1.3 10^3/uL (1.5-4.5); LYMPH % 9.3 % (24.0-44.0); MEAN CORPUSCULAR HEMOGLOBIN 24.4 pg (27.0-33.0); MEAN CORPUSCULAR HGB CONC 31.2 g/dl (32.0-36.5); MEAN CORPUSCULAR VOLUME 78.4 fl (80.0-96.0); MONO % 56.5 % (0.0-5.0); NEUTROPHILS # 4.4 10^3/uL (1.8-7.7); NEUTROPHILS % 32.7 % (36.0-66.0); PLATELET COUNT, AUTOMATED 129 10^3/uL (150-450); RED BLOOD COUNT 3.52 10^6/uL (4.00-5.40); RED CELL DISTRIBUTION WIDTH 16.3 % (11.5-14.5); WHITE BLOOD COUNT 13.6 10^3/uL (4.0-10.0)
[2018-01-31 07:41] LABS: ALBUMIN 2.7 GM/DL (3.2-5.2); ALBUMIN/GLOBULIN RATIO 0.61 (1.00-1.93); ALKALINE PHOSPHATASE 50 U/L (45-117); ALT/SGPT 22 U/L (12-78); ANION GAP 7 MEQ/L (8-16); AST/SGOT 27 U/L (7-37); BILIRUBIN,TOTAL 0.8 MG/DL (0.2-1.0); BLOOD UREA NITROGEN 19 MG/DL (7-18); CALCIUM LEVEL 8.4 MG/DL (8.8-10.2); CARBON DIOXIDE LEVEL 36 MEQ/L (21-32); CHLORIDE LEVEL 98 MEQ/L (98-107); CREATININE FOR GFR 0.66 MG/DL (0.55-1.30); GLOMERULAR FILTRATION RATE > 60.0 (>39); GLUCOSE, FASTING 119 MG/DL (70-100); POTASSIUM SERUM 3.3 MEQ/L (3.5-5.1); SODIUM LEVEL 141 MEQ/L (136-145); TOTAL PROTEIN 7.1 GM/DL (6.4-8.2)
[2018-01-31 07:47] LABS: MONO # 7.7 10^3/uL (0.0-0.8); POSITIVE DIFF POS FLAG
[2018-01-31] MEDS: HumaLOG INSULIN (NovoLOG) PER UNIT SC ×2 (09:35→11:55)
[2018-01-31] MEDS: MOM 30ML SUSPENSION UDC PO (09:35)
[2018-01-31] MEDS: MIRALAX *UNIT DOSE* 17GM PACKET PO (09:36)
[2018-01-31] MEDS: POTASSIUM CHLORIDE 10 MEQ SR TABLET PO (09:37)
[2018-01-31] MEDS: GABAPENTIN 300 MG CAP PO (09:38)
[2018-01-31] MEDS: SERTRALINE HCL 50 MG TAB PO (09:38)
[2018-01-31] MEDS: CARVedilol 6.25 MG TAB PO (09:38)
[2018-01-31] MEDS: SENOKOT S TAB PO (09:39)
[2018-01-31] MEDS: PANTOPRAZOLE 40MG TAB (PROTONIX) PO (09:39)
[2018-01-31] MEDS: CYANOCOBALAMIN 500 MCG TAB PO (09:39)
[2018-01-31 11:43] LABS: BEDSIDE GLUCOSE 158 MG/DL (83-110)
== END 2018-01-31 13:50 | disposition home health service (06) | DRG 470 ==
LOC: M OR 09:43 → M MS5PR 15:19
PROVIDERS: Orthopaedic Surgery
PROC: 0SRD0J9 Replacement of Left Knee Joint with Synthetic Substitute, Cemented, Open Approach (ICD-10-PCS; principal; 2018-01-25 12:05)
PROC: 30233N1 Transfusion of Nonautologous Red Blood Cells into Peripheral Vein, Percutaneous Approach (ICD-10-PCS; 2018-01-25 12:05)
DX: M17.12 Unilateral primary osteoarthritis, left knee (principal); I50.20 Unspecified systolic (congestive) heart failure; E11.40 Type 2 diabetes mellitus with diabetic neuropathy, unspecified; D50.9 Iron deficiency anemia, unspecified; F32.9 Major depressive disorder, single episode, unspecified; R09.02 Hypoxemia; D72.829 Elevated white blood cell count, unspecified; I25.10 Atherosclerotic heart disease of native coronary artery without angina pectoris; I11.0 Hypertensive heart disease with heart failure; E78.5 Hyperlipidemia, unspecified; Z96.651 Presence of right artificial knee joint; Z87.891 Personal history of nicotine dependence; Z79.4 Long term (current) use of insulin; Z79.899 Other long term (current) drug therapy; Z95.9 Presence of cardiac and vascular implant and graft, unspecified; Z90.49 Acquired absence of other specified parts of digestive tract; Z98.62 Peripheral vascular angioplasty status

== ENCOUNTER → 2018-06-07 | Outpatient (CLI) | payer MEDICARE, MEDICAID | LOC: M WUC 14:29 | DX: S20.212A Contusion of left front wall of thorax, initial encounter (principal); X58.XXXA Exposure to other specified factors, initial encounter; Y92.9 Unspecified place or not applicable; Y93.9 Activity, unspecified; Y99.9 Unspecified external cause status | CPT/HCPCS: 71101 ==

== ENCOUNTER 2018-07-06 05:54 | Day surgery (SDC) | payer MEDICARE, MEDICAID ==
[2018-07-06] MEDS ORDERED: ACETAMINOPHEN 325 MG TAB PO (06:00)
[2018-07-06] MEDS: LIDOCAINE 3.5 % 1ML OPHTH TOPICAL GEL OU (06:25)
[2018-07-06] MEDS: OFLOXACIN 0.3 % (OCUFLOX) OPTH SOL 5ML OS (06:30)
[2018-07-06] MEDS: CYCLOPENTOLATE 2% OPHTH SOLN 2ML BTL OS (06:30)
[2018-07-06] MEDS: TROPICAMIDE 1% OPHTH SOLN 2ML OS (06:30)
[2018-07-06] MEDS: PHENYLEPHRINE 2.5% OPHTH SOL 2ML OS (06:30)
[2018-07-06] MEDS ORDERED: ACETYLCHOLINE OPHTH SOLN 1% 2ML (MIOCHOL-E) As Ordered (06:52)
[2018-07-06] MEDS ORDERED: PHENYLEPHRINE HCL 10 % OPHTH. SOL 5ML OS (07:00)
[2018-07-06] MEDS ORDERED: PROPARACAINE 0.5% OPHTH SOL 15ML OS (07:01)
[2018-07-06 07:09] LABS: BEDSIDE GLUCOSE 96 MG/DL (83-110)
[2018-07-06] MEDS ORDERED: fentaNYL 100 MCG/2 ML INJECTION (J3010) As Ordered (07:10)
[2018-07-06] MEDS ORDERED: MIDAZOLAM INJ 2 MG/2 ML VIAL (J2250) As Ordered (07:10)
[2018-07-06] MEDS: POVIDONE-IODINE 5% OPHTH PREP SOL 30ML As Ordered (07:47)
[2018-07-06] MEDS: LIDOCAINE 1% SDV 5 ML VIAL As Ordered (07:49)
[2018-07-06] MEDS: BALANCED SALT IRRIGATION SOLUTION 500ML BAG (FOR OR EYE MACHINE) As Ordered (07:50)
[2018-07-06] MEDS: CEFUROXIME 1MG/0.1ML INTRACAMERAL INJ As Ordered (07:50)
[2018-07-06] MEDS: HEALON DUET PRO(HEALON 10MG/ML 0.55ML & HEALON ENDOCOAT 30MG/ML 0.85ML) As Ordered (07:50)
[2018-07-06] MEDS ORDERED: AcetaZOLAMIDE 500 MG ER CAP As Ordered (08:19)
[2018-07-06] MEDS ORDERED: TRIMETHOBENZAMIDE 300 MG CAP PO (08:30)
[2018-07-06] MEDS: AcetaZOLAMIDE 500 MG ER CAP PO (08:30)
[2018-07-06] MEDS ORDERED: KETOROLAC 0.5% OPHTH SOLN OS (08:30)
== END 2018-07-06 08:40 | disposition home or self-care (01) ==
LOC: M SDC 05:54
DX: H25.12 Age-related nuclear cataract, left eye (principal); I10 Essential (primary) hypertension; E11.9 Type 2 diabetes mellitus without complications; E78.00 Pure hypercholesterolemia, unspecified; R01.1 Cardiac murmur, unspecified; K21.9 Gastro-esophageal reflux disease without esophagitis; M12.9 Arthropathy, unspecified; F41.9 Anxiety disorder, unspecified; I69.998 Other sequelae following unspecified cerebrovascular disease; J45.909 Unspecified asthma, uncomplicated; R06.83 Snoring; T88.59XD Other complications of anesthesia, subsequent encounter; Z79.899 Other long term (current) drug therapy; Z79.4 Long term (current) use of insulin; Z79.84 Long term (current) use of oral hypoglycemic drugs; Z90.710 Acquired absence of both cervix and uterus; Z78.0 Asymptomatic menopausal state; Z96.653 Presence of artificial knee joint, bilateral
CPT/HCPCS: 66984

== ENCOUNTER → 2018-08-10 | Outpatient (CLI) | payer MEDICARE, MEDICAID ==
[~2018-08-10] MED LIST changes: +BACL10TA2 PO; -DOCQ100C PO; +DOCQ100C5 PO; +EZET10TA; +FOLI20CA; +FOLI400T PO; +GABA-843; +LORA-243 PO; -LORA10TA2 PO; +MAGN1TAB25 PO; +NAPR-885 PO; -NAPR500T3 PO; -PANT40TA2 PO; +PANT40TA3 PO; +PERC5TAB12 PO; +ROSU10TA5; +SLOW142T PO; +TRAM50TA2; +TRES1INJ2 SC; +VITA10002 PO; +XARE10TA PO
--- NOTE | 2018-08-23 15:34 | REPMRS ---
Patient History The patient states she has not had a clinical breast exam in over a year. Family history of liver cancer at age 50 in mother. Digital Mammo Screening Bilat: August 10, 2018 - Exam #: [id number] Bilateral CC and MLO view(s) were taken. Technologist: Sravani Barfield, Technologist No prior studies available for comparison. FINDINGS: The breast tissue is heterogeneously dense. This may lower the sensitivity of mammography. There is no evidence of dominant mass, architectural distortion, or clustered microcalcification typical of malignancy. 3-D tomosynthesis shows no additional findings. Assessment: BI-RADS/ACR category 1 mammogram. Negative Mammogram. Recommendation Routine screening mammogram of both breasts in 1 year (for women over age 40). This patient's Lifetime Breast Cancer RIsk is estimated at 1.6 %. This mammogram was interpreted with the aid of an FDA-approved computer-aided dectection system. Electronically Signed By: Jasmeet Pablo MD 08/23/18 0660
== END ==
LOC: M RAD 13:57
PROVIDERS: ATTEND Internal Medicine Cardiovascular Disease
DX: Z12.31 Encounter for screening mammogram for malignant neoplasm of breast (principal); Z80.0 Family history of malignant neoplasm of digestive organs

== ENCOUNTER 2018-10-09 10:19 | Inpatient (IN) | payer MEDICARE, MEDICAID ==
[~2018-10-09] VITALS: Ht 144.8 cm; Wt 69.3 kg
[~2018-10-09 10:19] MED LIST changes: -EZET10TA; +EZET10TA PO; -GABA-843; +GABA-843 PO
[2018-10-09 11:09] LABS: BASO % 0.3 % (0.0-1.0); EOS % 0.1 % (0.0-3.0); HEMATOCRIT 32.8 % (36.0-47.0); HEMOGLOBIN 9.8 g/dl (12.0-15.5); LYMPH # 1.3 10^3/uL (1.5-4.5); LYMPH % 18.9 % (24.0-44.0); MEAN CORPUSCULAR HEMOGLOBIN 23.7 pg (27.0-33.0); MEAN CORPUSCULAR HGB CONC 29.9 g/dl (32.0-36.5); MEAN CORPUSCULAR VOLUME 79.2 fl (80.0-96.0); MONO % 45.6 % (0.0-5.0); NEUTROPHILS # 2.4 10^3/uL (1.8-7.7); NEUTROPHILS % 34.3 % (36.0-66.0); RED BLOOD COUNT 4.14 10^6/uL (4.00-5.40); WHITE BLOOD COUNT 7.1 10^3/uL (4.0-10.0)
[2018-10-09 11:19] LABS: INR 0.99; PROTHROMBIN TIME 13.2 SECONDS (12.1-14.4)
[2018-10-09 11:40] LABS: MONO # 3.2 10^3/uL (0.0-0.8); PLATELET COUNT, AUTOMATED 91 10^3/uL (150-450)
[2018-10-09 11:43] LABS: ALBUMIN 4.2 GM/DL (3.2-5.2); ALT/SGPT 13 U/L (12-78); BILIRUBIN,DIRECT 0.2 MG/DL (0.0-0.2); BLOOD UREA NITROGEN 26 MG/DL (7-18); CALCIUM LEVEL 8.8 MG/DL (8.8-10.2); CARBON DIOXIDE LEVEL 25 MEQ/L (21-32); CHLORIDE LEVEL 109 MEQ/L (98-107); CPK CREATINE PHOSPHOKINASE 94 U/L (26-192); CREATININE FOR GFR 0.87 MG/DL (0.55-1.30); GLOMERULAR FILTRATION RATE > 60.0 (>32); GLUCOSE, FASTING 80 MG/DL (70-100); MB/CK RELATIVE INDEX 1.81 (< OR =4); NT-PRO BNP 1147 PG/ML (<450); POTASSIUM SERUM 5.2 MEQ/L (3.5-5.1); SODIUM LEVEL 141 MEQ/L (136-145); TOTAL PROTEIN 7.4 GM/DL (6.4-8.2); TROPONIN I < 0.02 NG/ML (< 0.10)
[2018-10-09 11:45] LABS: INFLUENZA A AMPLIFICATION NEGATIVE (NEGATIVE); INFLUENZA B AMPLIFICATION NEGATIVE (NEGATIVE)
[2018-10-09] MEDS ORDERED: FUROSEMIDE 40 MG/4 ML VIAL (J1940) IV ONE (12:45)
[2018-10-09] MEDS ORDERED: ACETAMINOPHEN TAB 650MG DOSE (2X325MG) PO ONE (12:45)
[2018-10-09] MEDS ORDERED: ACET1TAB55 PO (12:58)
--- NOTE | 2018-10-09 13:35 | REP ---
CHEST, TWO VIES: Two views of the chest are performed and compared to a prior study of 08/20/2017 as well other prior exams. There is mild cardiomegaly. There is vascular congestion. There is interstitial edema with tiny effusions. There is calcification of the thoracic aorta. The mediastinal silhouette is unchanged. Multiple metallic clips are again seen overlying the left superior medial hemithorax. There are degenerative changes of the spine with an old compression deformity of a mid thoracic vertebral body. IMPRESSION: Findings compatible with cardiomegaly, CHF, interstitial edema and small effusions. Electronically Signed by Madhu Everett MD 10/09/2018 06:13 P
[2018-10-09] MEDS ORDERED: hydrALAZINE INJ 20 MG/ML VIAL IV STA (14:41)
[2018-10-09] MEDS ORDERED: DEXTROSE 50% 50 ML SYRINGE IV PRN (15:00)
[2018-10-09] MEDS ORDERED: amLODIPine 5 MG TAB PO SCH (15:00)
[2018-10-09] MEDS ORDERED: GLUCAGON FOR INJ 1 MG VIAL (J1610) SC PRN (15:00)
[2018-10-09] MEDS: BENAZEPRIL 5 MG TAB PO SCH (15:00)
[2018-10-09] MEDS ORDERED: GLUCOSE 4 GM CHEW TABLET PO PRN (15:00)
[2018-10-09 17:23] LABS: TROPONIN I < 0.02 NG/ML (< 0.10)
[2018-10-09 17:25] VITALS: BP 152/58
[2018-10-09] MEDS: HumaLOG INSULIN (NovoLOG) PER UNIT SC SCH ×2 (17:30→21:00)
--- NOTE | 2018-10-09 17:40 | HPE ---
DATE OF ADMISSION: 10/09/2018 CHIEF COMPLAINT: Shortness of breath. HISTORY OF PRESENT ILLNESS: This is an 78-year-old female with past medical history of diabetes, hypertension, hyperlipidemia, a systolic ejection murmur, who presents with chief complaint of shortness of breath for 3 days. Patient reports she has been feeling short of breath for the last 3 days, more so with exertion than at rest. She can hardly walk to the bathroom without feeling short of breath. She denies any chest pain at all. She denies any lower extremity. She denies any recent change in her medications. She does report that she has been taking her pressure with her lately and it has been elevated to the 170s. She came here for further evaluation of the shortness of breath. EMERGENCY (ER) COURSE: Patient in the ER was noted to have evidence of congestive heart failure (CHF). Her blood pressures were as high as 219/93 and she had evidence of overload on her chest x-ray as well as a BNP that was elevated to 1147. Patient was given one dose of Lasix 40 mg times one with improvement in her symptoms. She feels significantly better after receiving the Lasix. REVIEW OF SYSTEMS: Negative in 14 out of 14 systems except as noted above. PAST MEDICAL HISTORY: As noted above in history of present illness (HPI). PAST SURGICAL HISTORY: Patient's surgeries are she has had a tubular , gallbladder surgery, left carotid endarterectomy, right trigger finger surgery, right rotator cuff surgery, left carpal tunnel surgery, bilateral knee replacements, right carpal tunnel surgery, left knee meniscal surgery. MEDICATIONS: Patient's home medications are: - Tylenol as needed - metformin 1 gram twice a day - folic acid 400 mcg by mouth nightly - baclofen 10 mg by mouth at bedtime - Coreg 6.25 mg by mouth twice a day - vitamin B12 1000 mcg by mouth nightly - ezetimibe 10 mg by mouth nightly - gabapentin 300 mg by mouth twice a day - Protonix 40 mg by mouth daily - Crestor 20 mg by mouth nightly - sertraline 50 mg by mouth daily - Tresiba 30 units subcutaneous nightly ALLERGIES: No known drug allergies. SOCIAL HISTORY: Patient currently lives with her first who she but got back together with. She is retired. No smoking, alcohol, or drugs. She has one adult daughter who helps take care of her. FAMILY HISTORY: Her father had diabetes and had a heart attack at 68. Her mother of cancer in her 60s. PHYSICAL EXAMINATION: On exam, she is currently hypertensive with blood pressures up to 219/93. Her pulse is 69, respiratory rate 16, saturating 95% on 2 liters. Repeat blood pressure has improved to 174/77. GENERAL: She is no acute distress and breathing much more comfortably. She is a pleasant, elderly female. HEENT EXAM: Oropharynx clear. CARDIOVASCULAR: She is regular rate and rhythm. She has a loud systolic ejection murmur. LUNGS: Clear to auscultation bilaterally. ABDOMEN: Soft, nontender, nondistended. EXTREMITIES: No clubbing, cyanosis, or edema. NEUROLOGIC: She is alert and oriented times three, follows simple commands. No focal neurologic deficit. SKIN: Intact. PSYCHIATRIC: Mood stable. LABORATORY DATA: Reveal a potassium to 5.2, creatinine of 0.8. CBC shows a white count of 7, hemoglobin 9.8, platelets of 91. Patient had an elevated BNP to 1147 and her troponin was negative. TSH is elevated to 4.5. IMAGING: Reveals a chest x-ray with findings compatible with cardiomegaly, CHF, interstitial edema, and small effusions. ASSESSMENT AND PLAN: This is an 78-year-old female with past medical history of diabetes, hypertension, hyperlipidemia, systolic ejection murmur who presents with chief complaint of shortness of breath with findings consistent with congestive heart failure (CHF) likely secondary to hypertension. 1. Congestive heart failure exacerbation likely secondary to uncontrolled hypertension. At this time, it is unclear whether patient has any history of congestive heart failure (CHF). I do not see an echo in the system to see whether she has systolic or diastolic dysfunction. I am ordering an echo. I suspect that she has some evidence of overload secondary to her high blood pressures. I am giving her a one time dose of IV hydralazine now and starting her on benazepril 10 mg which would be beneficial for her anyway given she has a history of diabetes. This can be up titrated by the team tomorrow. I am also going to put her on Lasix 40 mg IV daily. She already received one dose in the emergency room (ER), so her next dose will be tomorrow. I suspect that hopefully she will not need to go home on diuretics once we control her pressures and if her echocardiogram is acceptable. We can also discuss the plan with her primary care physician, Dr. Ramirez, tomorrow. At this time, she feels significantly more improved after the Lasix she received in the emergency room (ER). We will place her on oxygen supplemental therapy and I will admit her to the progressive care unit (PCU) given she did have some quite elevated blood pressures. She will be placed on telemetry. I will check two more troponins. 2. Hypertensive emergency. She did have blood pressures up to systolics of 219. She obviously has some end organ damage from this given she is in heart failure. I am treating the high blood pressure by giving a one time dose of IV hydralazine and starting her on benazepril. We will add additional medications as needed. She will also receive Lasix 40 mg IV daily which should also help improve her pressures. 3. History of diabetes. She is on home Tresiba and I have converted that to Levemir. I have slightly reduced her dose from 30 units to 20 units given she may not be eating as well in the hospital. I have placed her on a sliding scale. I have held her home metformin for now. 4. History of hyperlipidemia. Continue her home Zetia. 5. Patient's thyroid stimulating hormone (TSH) is elevated to 4.5 so I will check a T4 and T3 tomorrow. 6. TCP- platelets to 91 appear to be near baseline. Outpatient followup/ 7. Deep venous thrombosis (DVT) prophylaxis. will hold given thrombocytopenia to 91. SCDs/TEDs MTDD
[2018-10-09] MEDS ORDERED: SLF 3 ML SYR IV PRN (18:15)
[2018-10-09 20:00] VITALS: BP 158/62
--- NOTE | 2018-10-09 20:02 | ECGEPIP ---
Stationary ECG Study [facility] - ED Test Date: 2018-10-09 Pat Name: BENSON NAZARIO Department: Room: - Gender: F Field Auditor: JT : 1940 Requested By: JERRY Diaz Order Number: [id number] Reading MD: Darnell Christina Measurements Intervals [place] Rate: 79 P: 54 CO: 169 QRS: 62 QRSD: 77 T: 25 QT: 359 QTc: 412 Interpretive Statements SINUS RHYTHM SIMILAR TO 08/20/17 Electronically Signed On 10-09-2018 20:01:51 EDT by Darnell Christina
[2018-10-09] MEDS: EZETIMIBE 10 MG TAB (ZETIA) PO SCH (20:42)
[2018-10-09] MEDS: BACLOFEN 10 MG TAB PO SCH (20:42)
[2018-10-09] MEDS: CYANOCOBALAMIN 500 MCG TAB PO SCH (20:42)
[2018-10-09] MEDS: ROSUVASTATIN 10 MG TAB (CRESTOR) PO SCH (20:42)
[2018-10-09] MEDS: GABAPENTIN 300 MG CAP PO SCH (20:43)
[2018-10-09] MEDS: CARVedilol 6.25 MG TAB PO SCH (20:43)
[2018-10-09 20:55] LABS: FREE T4 1.13 NG/DL (0.76-1.46)
[2018-10-09] MEDS ORDERED: HEPARIN SOD (PORCINE) 5000 UNITS/ML VIAL SC SCH (21:00)
[2018-10-09] MEDS: SLF 3 ML SYR IV SCH (21:57)
[2018-10-09] MEDS: LEVEMIR (INSULIN DETEMIR) 1 UNITS/0.01ML SC SCH (22:01)
[2018-10-09 23:59] VITALS: BP 147/65
[2018-10-10 04:00] VITALS: BP 121/52
[2018-10-10] MEDS: SLF 3 ML SYR IV SCH ×3 (06:00→21:11)
[2018-10-10 07:07] LABS: HEMATOCRIT 31.7 % (36.0-47.0); HEMOGLOBIN 9.6 g/dl (12.0-15.5); MEAN CORPUSCULAR HEMOGLOBIN 23.6 pg (27.0-33.0); MEAN CORPUSCULAR HGB CONC 30.3 g/dl (32.0-36.5); MEAN CORPUSCULAR VOLUME 78.1 fl (80.0-96.0); RED BLOOD COUNT 4.06 10^6/uL (4.00-5.40); WHITE BLOOD COUNT 7.9 10^3/uL (4.0-10.0)
[2018-10-10 07:13] LABS: PLATELET COUNT, AUTOMATED 99 10^3/uL (150-450)
[2018-10-10 07:29] LABS: CALCIUM LEVEL 9.3 MG/DL (8.8-10.2); CREATININE FOR GFR 0.96 MG/DL (0.55-1.30); GLOMERULAR FILTRATION RATE 59.5 (>32); POTASSIUM SERUM 4.4 MEQ/L (3.5-5.1)
[2018-10-10] MEDS: HumaLOG INSULIN (NovoLOG) PER UNIT SC SCH ×4 (07:34→20:58)
[2018-10-10 08:00] VITALS: BP 127/59
[2018-10-10] MEDS ORDERED: amLODIPine 5 MG TAB PO SCH (09:00)
[2018-10-10] MEDS ORDERED: FUROSEMIDE 40 MG/4 ML VIAL (J1940) IV SCH (09:00)
[2018-10-10] MEDS: GABAPENTIN 300 MG CAP PO SCH ×2 (09:03→21:12)
[2018-10-10] MEDS: PANTOPRAZOLE 40MG TAB (PROTONIX) PO SCH (09:03)
[2018-10-10] MEDS: SERTRALINE HCL 50 MG TAB PO SCH (09:03)
[2018-10-10] MEDS: CARVedilol 6.25 MG TAB PO SCH ×2 (09:03→21:28)
[2018-10-10] MEDS: BENAZEPRIL 5 MG TAB PO SCH (10:25)
[2018-10-10 10:35] LABS: TOTAL T3 109.3 NG/DL (60.0-181.0)
[2018-10-10 12:00] VITALS: BP 138/64
--- NOTE | 2018-10-10 12:55 | IPNPDOC ---
Date Seen The patient was seen on 10/10/18. Progress Note SUBJECTIVE: Patient tells me she is feeling better at this time she tells me that her shortness of breath is improved she doesn't she didn't P quite a bit yesterday she has no specific complaints at this time OBJECTIVE PHYSICAL EXAMINATION: VITAL SIGNS: Please see below. GENERAL: Pleasant elderly female sitting up in bed awake alert oriented 3 speaking in complete sentences HEENT: Cranial nerves II through XII grossly intact CARDIOVASCULAR: S1-S2 regular. Late peaking crescendo decrescendo 3/6 systolic ejection murmur RESPIRATORY: Scattered bibasilar rales. ABDOMINAL: Bowel sounds present abdomen soft and nontender EXTREMITIES: No clubbing cyanosis or edema LABORATORY DATA, IMAGING STUDIES, MICROBIOLOGY: Please see below. Echocardiogram: Ordered. DVT prophylaxis ordered?: teds and sequentials, no pharmacological agents secondary to thrombocytopenia ASSESSMENT AND PLAN: This is a 78 year-old female with decompensated congestive heart failure. PROBLEMS: 1. Decompensated congestive heart failure: My suspicion based on her physical exam is likely diastolic dysfunction we are awaiting an echocardiogram will continue with 40 of IV Lasix daily while monitoring her renal function and respiratory status continued monitor I's and O's and daily weights closely. We'll attempt to ensure her blood pressure is well-controlled she is currently on carvedilol and benazepril 2. Hypertensive emergency: Patient presented hypertensive tells me she had been compliant with all her medications however she tells me she has not been compliant with salt restricted diet.. We did speak at length regarding salt restricted diet and its importance and related to her diagnosis of congestive heart failure. She did present significantly hypertensive and in CHF myoclonus suspicion is that the pulmonary edema with the etiology for her hypertension which diuresis she did improve rather than vice versa 3. Dyslipidemia: Continue with Crestor and Zetia 4. Diabetes: Continue with insulin sliding scale and Neurontin 5. Mood disorder: Continue with Zoloft. 6. Vitamin B-12 deficiency: Continue with supplementation 7. Thrombocytopenia: This appears to be stable for the last 2 years she would benefit from further outpatient workup regarding it and continue monitoring while in hospital DISPOSITION: Pending echo and clinical improvement. VS, I&O, 24H, Fishbone Vital Signs/I&O Vital Signs Date Time Temp Pulse Resp B/P (MAP) Pulse Ox O2 Delivery O2 Flow Rate FiO2 10/10/18 12:15 2.0 10/10/18 12:00 96.7 63 17 138/64 (88) 95 10/09/18 16:15 Nasal Cannula I&O- Last 24 Hours up to 6 AM 10/10/18 06:00 Intake Total 180 ml Output Total 2350 ml Balance -2170 ml Laboratory Data 24H LABS Laboratory Tests 2 10/09/18 16:36: Troponin I < 0.02, Free Thyroxine 1.13 10/09/18 17:50: Bedside Glucose (Misc Panel) 88 10/09/18 21:55: Bedside Glucose (Misc Panel) 156H 10/09/18 23:00: Troponin I < 0.02 10/10/18 06:49: Nucleated Red Blood Cells % (auto) 0.0, Anion Gap 8, Glomerular Filtration Rate 59.5, Blood Urea Nitrogen 25H, Creatinine 0.96, Sodium Level 140, Potassium Level 4.4, Chloride Level 106, Carbon Dioxide Level 26, Calcium Level 9.3, FL-Zav-W-Type Natriuretic Peptide 1196H 10/10/18 11:29: Bedside Glucose (Misc Panel) 135H CBC/BMP Laboratory Tests 10/10/18 06:49 Red Blood Count 4.06, Mean Corpuscular Volume 78.1 L, Mean Corpuscular Hemoglobin 23.6 L, Mean Corpuscular Hemoglobin Concent 30.3 L, Red Cell Distribution Width 18.6 H, Calcium Level 9.3 JACITNO SOLANO MD Oct 10, 2018 12:55
[2018-10-10 16:10] VITALS: BP 115/56
--- NOTE | 2018-10-10 19:12 | ECHO ---
DATE OF PROCEDURE: 10/10/2018 REFERRING PHYSICIAN: Dr. Estephanie Townsend INDICATION: Dyspnea. Height 145 cm, weight 69 kg. DIMENSIONS: IVS: 1.2 LV: 3.7 LVPW: 1.2 LA: 3.8 Aorta: 2.6 IVC: 1.4 Mitral E wave velocity: 84 A-wave: 78 E prime septal: 5.2 E prime lateral: 8.6. Left atrial volume index: 45 FINDINGS: The study is of acceptable technical quality. The patient is in sinus rhythm. Left ventricle is of normal size and has normal systolic function, I estimate left ventricular ejection fraction (LVEF) 60-65%. Mild left ventricular hypertrophy is noted. Right ventricle does not appear grossly enlarged. Left atrium is severely enlarged. Right atrium is probably normal size based on fair visualization. Aortic valve is most likely trileaflet. It is heavily calcified and there is severe restriction of leaflet mobility. Based on 2D imaging, I assume at least moderately severe aortic stenosis. Mitral valve also exhibits degenerative abnormalities with mitral annular calcifications but mobility of mitral leaflets is preserved. Tricuspid valve appears normal. Pulmonic valve also appears normal. There is no pericardial effusion. Inferior vena cava is normal size and appropriately collapses with respiration indicative of normal central venous pressure. Aortic root is normal. Aortic arch and abdominal aorta were not well seen. Doppler interrogation of aortic valve reveals mild insufficiency and probably severe stenosis, mean gradient across the valve was 33 and peak gradient 61 mmHg with calculated aortic valve area 1.1 sq cm. There is mild mitral insufficiency and mild tricuspid insufficiency. Calculated pulmonary artery pressure is within normal limits. Mitral inflow pattern and tissue Doppler imaging of mitral annulus revealed grade 2 diastolic dysfunction. CONCLUSIONS: 1. Study is of acceptable technical quality. 2. Normal left ventricular (LV) size with mild left ventricular hypertrophy (LVH) and preserved LV systolic function. Grade 2 diastolic dysfunction. 3. Calcific aortic stenosis, very likely severe (mean gradient 33 mmHg, calculated aortic valve area 1.1sq cm). Calculated AARON likely underestimates its severity. 4. Mild mitral and tricuspid insufficiency. 5. Normal central venous pressure and likely normal pulmonary artery pressure. COMMENT: Subacute bacterial endocarditis (SBE) prophylaxis is not recommended. If the patient is very symptomatic, then consideration should be given to possibility of aortic valve replacement either surgically or percutaneously. [facility]
[2018-10-10 20:00] VITALS: BP 97/44
[2018-10-10] MEDS: BACLOFEN 10 MG TAB PO SCH (21:11)
[2018-10-10] MEDS: ROSUVASTATIN 10 MG TAB (CRESTOR) PO SCH (21:11)
[2018-10-10] MEDS: LEVEMIR (INSULIN DETEMIR) 1 UNITS/0.01ML SC SCH (21:11)
[2018-10-10] MEDS: EZETIMIBE 10 MG TAB (ZETIA) PO SCH (21:11)
[2018-10-10] MEDS: CYANOCOBALAMIN 500 MCG TAB PO SCH (21:12)
[2018-10-11] VITALS (11 sets, daily range): BP systolic 78–127; BP diastolic 44–78
[2018-10-11] MEDS: SLF 3 ML SYR IV SCH ×3 (05:23→20:30)
[2018-10-11 05:58] LABS: BASO % 0.2 % (0.0-1.0); EOS % 0.1 % (0.0-3.0); HEMOGLOBIN 8.8 g/dl (12.0-15.5); LYMPH # 2.2 10^3/uL (1.5-4.5); LYMPH % 24.1 % (24.0-44.0); MEAN CORPUSCULAR HEMOGLOBIN 23.8 pg (27.0-33.0); MEAN CORPUSCULAR HGB CONC 30.3 g/dl (32.0-36.5); MEAN CORPUSCULAR VOLUME 78.4 fl (80.0-96.0); MONO % 54.9 % (0.0-5.0); NEUTROPHILS # 1.9 10^3/uL (1.8-7.7); NEUTROPHILS % 20.3 % (36.0-66.0); WHITE BLOOD COUNT 9.2 10^3/uL (4.0-10.0)
[2018-10-11 05:59] LABS: MONO # 5.1 10^3/uL (0.0-0.8); PLATELET COUNT, AUTOMATED 93 10^3/uL (150-450)
[2018-10-11 06:17] LABS: CALCIUM LEVEL 8.6 MG/DL (8.8-10.2); CREATININE FOR GFR 2.68 MG/DL (0.55-1.30); GLOMERULAR FILTRATION RATE 18.2 (>32); MAGNESIUM LEVEL 2.3 MG/DL (1.8-2.4); POTASSIUM SERUM 4.5 MEQ/L (3.5-5.1)
[2018-10-11] MEDS ORDERED: FLUBLOK(EGG FREE)(QUAD)INFLUENZA VACC 0.5ML SYRINGE (90682)18YRS&OLDER IM ONE (09:00)
[2018-10-11] MEDS: SERTRALINE HCL 50 MG TAB PO SCH (09:29)
[2018-10-11] MEDS: PANTOPRAZOLE 40MG TAB (PROTONIX) PO SCH (09:29)
[2018-10-11] MEDS: HumaLOG INSULIN (NovoLOG) PER UNIT SC SCH ×4 (09:29→20:29)
[2018-10-11] MEDS: CARVedilol 6.25 MG TAB PO SCH ×2 (09:29→20:27)
[2018-10-11] MEDS: GABAPENTIN 300 MG CAP PO SCH ×2 (09:30→20:29)
[2018-10-11] MEDS ORDERED: NS 500 ML IV ONE ×3 (12:45→17:00)
[2018-10-11 13:04] LABS: CALCIUM LEVEL 8.7 MG/DL (8.8-10.2); CREATININE FOR GFR 2.75 MG/DL (0.55-1.30); GLOMERULAR FILTRATION RATE 17.7 (>32); POTASSIUM SERUM 4.8 MEQ/L (3.5-5.1)
--- NOTE | 2018-10-11 16:58 | IPNPDOC ---
Text Note Date of Service The patient was seen on 10/11/18. NOTE Subjective: Patient was seen and examined at the bedside. Patient reports that she experiences dizziness upon standing. She denies any chest pain or palpitations. Denies any significant shortness of breath or cough. She denies nausea, vomiting, abdominal pain, constipation, diarrhea or discomfort with urination. Patient has noted that her urine output has begun to decrease. Objective: Vitals (See below) General: Lying in bed, no acute distress, comfortable, AAOx3 HEENT: NC, AT CVS: RRR, +S1S2 Lungs: Fair air entry b/l, -w/r/r Abdomen: Soft, ND, NT Extremities: - Edema, - Calf tenderness Assessment and plan: s/p Decompensated Diastolic CHF - ECHO 10/10: Preserved LV systolic function, G2DD, calcified aortic stenosis - very likely severe, mild MR & TR - She has been diuresed; over the last 2 days patient has had an output of approximately 2000cc - Will discontinue diuresis - Will provide IV fluid hydration at this point Severe Aortic stenosis - Will avoid over diuresis / hypovolemia - Will continue with IV fluid hydration Acute kidney injury - possibly 2/2 pre-renal etiology, possibly 2/2 intra-renal etiology - Creatinine has spiked this morning - Will hold nephrotoxic medications - Will discontinue diuretics and provide IV fluid hydration Hypertensive emergency - Patient has indicated that she has been compliant with her medications; however may not have been compliant with her salt restrictions - BP appears well controlled - Will DC Benazapril - c/w Carvedilol; hold for SBP < 110 / HR < 60 DLP - c/w Rosuvastatin and Ezetimibe DM2 - c/w ISS Neuropathy - c/w Gabapentin Mood Disorder - c/w Sertraline B12 deficiency - c/w supplementation Thrombocytopenia - Review the record indicates the patient's low platelet count has been present since 2011 - No evidence of bleeding - Recommend outpatient follow-up with primary care provider GI prophylaxis - c/w Protonix DVT prophylaxis - c/w TEDs (re: Thrombocytopenia) VS,Fishbone, I+O VS, Fishbone, I+O Laboratory Tests 10/11/18 05:24 Red Blood Count 3.70 L, Mean Corpuscular Volume 78.4 L, Mean Corpuscular Hemoglobin 23.8 L, Mean Corpuscular Hemoglobin Concent 30.3 L, Red Cell Distribution Width 18.6 H, Neutrophils (%) (Auto) 20.3 L, Lymphocytes (%) (Auto) 24.1, Monocytes (%) (Auto) 54.9 H, Eosinophils (%) (Auto) 0.1, Basophils (%) (Auto) 0.2, Neutrophils # (Auto) 1.9, Lymphocytes # (Auto) 2.2, Monocytes # (Auto) 5.1 H, Eosinophils # (Auto) 0.0, Basophils # (Auto) 0.0, Calcium Level 8.6 L 10/11/18 12:24 Calcium Level 8.7 L Vital Signs Date Time Temp Pulse Resp B/P (MAP) Pulse Ox O2 Delivery O2 Flow Rate FiO2 10/11/18 16:07 69 102/58 (73) 69 90/60 (70) 74 102/50 (67) 10/11/18 15:57 97.4 16 95 1.0 10/09/18 16:15 Nasal Cannula I&O- Last 24 Hours up to 6 AM 10/11/18 06:00 Intake Total 1438 ml Output Total 1250 ml Balance 188 ml CHERYL KNOWLES MD Oct 11, 2018 16:58
[2018-10-11] MEDS: ROSUVASTATIN 10 MG TAB (CRESTOR) PO SCH (20:26)
[2018-10-11] MEDS: BACLOFEN 10 MG TAB PO SCH (20:27)
[2018-10-11] MEDS: ACETAMINOPHEN TAB 650MG DOSE (2X325MG) PO PRN (20:27)
[2018-10-11] MEDS: CYANOCOBALAMIN 500 MCG TAB PO SCH (20:29)
[2018-10-11] MEDS: EZETIMIBE 10 MG TAB (ZETIA) PO SCH (20:29)
[2018-10-11] MEDS: LEVEMIR (INSULIN DETEMIR) 1 UNITS/0.01ML SC SCH (20:31)
[2018-10-12] VITALS: BP 101/54
[2018-10-12 04:00] VITALS: BP 94/43
[2018-10-12] MEDS: SLF 3 ML SYR IV SCH ×3 (06:00→20:36)
[2018-10-12 06:14] LABS: EOS % 0.3 % (0.0-3.0); HEMATOCRIT 25.9 % (36.0-47.0); HEMOGLOBIN 7.8 g/dl (12.0-15.5); LYMPH # 1.6 10^3/uL (1.5-4.5); LYMPH % 23.6 % (24.0-44.0); MEAN CORPUSCULAR HEMOGLOBIN 23.9 pg (27.0-33.0); MEAN CORPUSCULAR HGB CONC 30.1 g/dl (32.0-36.5); MEAN CORPUSCULAR VOLUME 79.4 fl (80.0-96.0); MONO % 53.2 % (0.0-5.0); NEUTROPHILS # 1.6 10^3/uL (1.8-7.7); NEUTROPHILS % 22.5 % (36.0-66.0); RED BLOOD COUNT 3.26 10^6/uL (4.00-5.40); WHITE BLOOD COUNT 6.9 10^3/uL (4.0-10.0)
[2018-10-12 06:40] LABS: CALCIUM LEVEL 8.3 MG/DL (8.8-10.2); CREATININE FOR GFR 1.65 MG/DL (0.55-1.30); GLOMERULAR FILTRATION RATE 31.9 (>32); MAGNESIUM LEVEL 2.4 MG/DL (1.8-2.4); POTASSIUM SERUM 4.5 MEQ/L (3.5-5.1)
[2018-10-12 07:00] LABS: MONO # 3.7 10^3/uL (0.0-0.8); PLATELET COUNT, AUTOMATED 84 10^3/uL (150-450)
[2018-10-12 08:00] VITALS: BP 124/50
[2018-10-12] MEDS: HumaLOG INSULIN (NovoLOG) PER UNIT SC SCH ×5 (08:22→20:37)
[2018-10-12] MEDS: CARVedilol 6.25 MG TAB PO SCH ×2 (08:23→20:34)
[2018-10-12] MEDS: PANTOPRAZOLE 40MG TAB (PROTONIX) PO SCH (08:23)
[2018-10-12] MEDS: GABAPENTIN 300 MG CAP PO SCH ×2 (08:23→20:35)
[2018-10-12] MEDS: SERTRALINE HCL 50 MG TAB PO SCH (08:23)
[2018-10-12] MEDS ORDERED: FLUBLOK(EGG FREE)(QUAD)INFLUENZA VACC 0.5ML SYRINGE (90682)18YRS&OLDER IM ONE (09:00)
[2018-10-12] MEDS ORDERED: NS 500 ML IV ONE (09:00)
[2018-10-12 12:00] VITALS: BP 120/56
[2018-10-12 16:00] VITALS: BP 138/59
--- NOTE | 2018-10-12 17:56 | IPNPDOC ---
Text Note Date of Service The patient was seen on 10/12/18. NOTE Subjective: Patient was seen and examined at the bedside. Currently patient denies any CP, SOB, palpitations. No evidence of light-headedness. No N/V, abdominal pain, C/D, or dysuria. Objective: Vitals (See below) General: Lying in bed, no acute distress, comfortable, AAOx3 HEENT: NC, AT CVS: RRR, +S1S2 Lungs: Fair air entry b/l, no noticeable wheezing, rales or rhonchi Abdomen: Soft, no distention or tenderness Extremities: No evidence of edema, - Calf tenderness Assessment and plan: s/p Decompensated Diastolic CHF - ECHO 10/10: Preserved LV systolic function, G2DD, calcified aortic stenosis - very likely severe, mild MR & TR - She has been diuresed; over the last 2 days patient has had an output of approximately 2000cc - s/p Diuresis - s/p IV fluid hydration Severe Aortic stenosis - s/p diuresis / hypovolemia - s/p IV fluid hydration - Will consult Cardiology for further evaluation; possible TAVR evaluation as outpatient Acute kidney injury - possibly 2/2 pre-renal etiology, possibly 2/2 intra-renal etiology - Creatinine has spiked this morning - Will hold nephrotoxic medications - s/p Diuresis - Will provide 500cc IV fluid hydration today Hypertensive emergency - Patient has indicated that she has been compliant with her medications; however may not have been compliant with her salt restrictions - BP appears well controlled - Will DC Benazepril - c/w Carvedilol; hold for SBP < 110 / HR < 60 DLP - c/w Rosuvastatin and Ezetimibe DM2 - c/w ISS Neuropathy - c/w Gabapentin Mood Disorder - c/w Sertraline B12 deficiency - c/w supplementation Thrombocytopenia - Review the record indicates the patient's low platelet count has been present since 2011 - No evidence of bleeding - Recommend outpatient follow-up with primary care provider GI prophylaxis - c/w Protonix DVT prophylaxis - c/w TEDs (re: Thrombocytopenia) Disposition: - Awaiting Cardiology input - Awaiting renal function to normalize VS,Fishbone, I+O VS, Fishbone, I+O Laboratory Tests 10/12/18 05:55 Red Blood Count 3.26 L, Mean Corpuscular Volume 79.4 L, Mean Corpuscular Hemoglobin 23.9 L, Mean Corpuscular Hemoglobin Concent 30.1 L, Red Cell Distribution Width 18.6 H, Neutrophils (%) (Auto) 22.5 L, Lymphocytes (%) (Auto) 23.6 L, Monocytes (%) (Auto) 53.2 H, Eosinophils (%) (Auto) 0.3, Basophils (%) (Auto) 0.0, Neutrophils # (Auto) 1.6 L, Lymphocytes # (Auto) 1.6, Monocytes # (Auto) 3.7 H, Eosinophils # (Auto) 0.0, Basophils # (Auto) 0.0, Calcium Level 8.3 L Vital Signs Date Time Temp Pulse Resp B/P (MAP) Pulse Ox O2 Delivery O2 Flow Rate FiO2 10/12/18 16:00 1.0 10/12/18 16:00 97.6 66 16 138/59 (85) 98 10/09/18 16:15 Nasal Cannula I&O- Last 24 Hours up to 6 AM 10/12/18 05:59 Intake Total 2560 ml Output Total 1600 ml Balance 960 ml CHERYL KNOWLES MD Oct 12, 2018 17:56
[2018-10-12 20:00] VITALS: BP_SYST 157; BP_SYST 159; BP_DIAS 62; BP_DIAS 66
[2018-10-12] MEDS: ROSUVASTATIN 10 MG TAB (CRESTOR) PO SCH (20:32)
[2018-10-12] MEDS: CYANOCOBALAMIN 500 MCG TAB PO SCH (20:33)
[2018-10-12] MEDS: BACLOFEN 10 MG TAB PO SCH (20:34)
[2018-10-12] MEDS: EZETIMIBE 10 MG TAB (ZETIA) PO SCH (20:35)
[2018-10-12] MEDS: LEVEMIR (INSULIN DETEMIR) 1 UNITS/0.01ML SC SCH (20:36)
[2018-10-13] VITALS: BP 134/63
[2018-10-13 04:00] VITALS: BP 125/56
[2018-10-13] MEDS: SLF 3 ML SYR IV SCH ×3 (05:55→21:30)
[2018-10-13 06:11] LABS: BASO % 0.2 % (0.0-1.0); EOS % 0.3 % (0.0-3.0); HEMATOCRIT 26.3 % (36.0-47.0); HEMOGLOBIN 7.9 g/dl (12.0-15.5); LYMPH # 0.7 10^3/uL (1.5-4.5); MEAN CORPUSCULAR HEMOGLOBIN 24.2 pg (27.0-33.0); MEAN CORPUSCULAR VOLUME 80.7 fl (80.0-96.0); NEUTROPHILS # 1.9 10^3/uL (1.8-7.7); NEUTROPHILS % 30.5 % (36.0-66.0); RED BLOOD COUNT 3.26 10^6/uL (4.00-5.40); WHITE BLOOD COUNT 6.1 10^3/uL (4.0-10.0)
[2018-10-13 06:25] LABS: MAGNESIUM LEVEL 2.2 MG/DL (1.8-2.4)
[2018-10-13 06:36] LABS: MONO # 3.4 10^3/uL (0.0-0.8); PLATELET COUNT, AUTOMATED 79 10^3/uL (150-450)
[2018-10-13 07:59] LABS: BLOOD UREA NITROGEN 37 MG/DL (7-18); CARBON DIOXIDE LEVEL 25 MEQ/L (21-32); CHLORIDE LEVEL 111 MEQ/L (98-107); CREATININE FOR GFR 0.95 MG/DL (0.55-1.30); GLOMERULAR FILTRATION RATE > 60.0 (>32); GLUCOSE, FASTING 98 MG/DL (70-100); POTASSIUM SERUM 4.8 MEQ/L (3.5-5.1); SODIUM LEVEL 142 MEQ/L (136-145)
[2018-10-13 08:00] VITALS: BP 127/56
[2018-10-13] MEDS: SERTRALINE HCL 50 MG TAB PO SCH (08:49)
[2018-10-13] MEDS: PANTOPRAZOLE 40MG TAB (PROTONIX) PO SCH (08:49)
[2018-10-13] MEDS: GABAPENTIN 300 MG CAP PO SCH ×2 (08:49→21:30)
[2018-10-13] MEDS: CARVedilol 6.25 MG TAB PO SCH ×2 (08:49→21:30)
[2018-10-13] MEDS: HumaLOG INSULIN (NovoLOG) PER UNIT SC SCH ×3 (11:50→21:00)
[2018-10-13 12:00] VITALS: BP 121/56
--- NOTE | 2018-10-13 12:15 | IPNPDOC ---
Text Note Date of Service The patient was seen on 10/13/18. NOTE Subjective: Patient was seen and examined at the bedside. Patient has no complaints of CP, SOB or palpitations. She denies any recent history of passing out. Does report some light-headedness. Denies any N/V, abdominal pain, C/D or urinary discomfort. Objective: Vitals (See below) General: Lying in bed, no acute distress, comfortable, AAOx3 HEENT: NC, AT CVS: RRR, +S1S2 Lungs: Fair air entry b/l, auscultation without any wheezing, rhonchi or rales Abdomen: Soft, no evidence of distention or tenderness Extremities: Lower extremities are free of any edema, - Calf tenderness Assessment and plan: s/p Decompensated Diastolic CHF - ECHO 10/10: Preserved LV systolic function, G2DD, calcified aortic stenosis - very likely severe, mild MR & TR - She has been diuresed; over the last 2 days patient has had an output of approximately 2000cc - s/p Diuresis - s/p IV fluid hydration Severe Aortic stenosis - s/p diuresis / hypovolemia - s/p IV fluid hydration - Cardiology on consultation for further evaluation of possible TAVR; will discuss with cardiology about next steps s/p Acute kidney injury - possibly 2/2 pre-renal etiology, possibly 2/2 intra- renal etiology - Creatinine has spiked this morning - Will hold nephrotoxic medications - s/p Diuresis - s/p IV fluid hydration today Hypertensive emergency - Patient has indicated that she has been compliant with her medications; however may not have been compliant with her salt restrictions - BP appears well controlled - Will DC Benazepril - c/w Carvedilol; hold for SBP < 110 / HR < 60 DLP - c/w Rosuvastatin and Ezetimibe DM2 - c/w ISS Neuropathy - c/w Gabapentin Mood Disorder - c/w Sertraline B12 deficiency - c/w supplementation Thrombocytopenia - Review the record indicates the patient's low platelet count has been present since 2011 - No evidence of bleeding - Recommend outpatient follow-up with primary care provider GI prophylaxis - c/w Protonix DVT prophylaxis - c/w TEDs (re: Thrombocytopenia) Disposition: - Cardiology input for possible TAVR; transfer vs. outpatient followup - c/w PT VS,[place], I+O VS, Fishbone, I+O Laboratory Tests 10/13/18 05:16 Red Blood Count 3.26 L, Mean Corpuscular Volume 80.7, Mean Corpuscular Hemoglobin 24.2 L, Mean Corpuscular Hemoglobin Concent 30.0 L, Red Cell Distribution Width 18.6 H, Neutrophils (%) (Auto) 30.5 L, Lymphocytes (%) (Auto) 12.0 L, Monocytes (%) (Auto) 56.0 H, Eosinophils (%) (Auto) 0.3, Basophils (%) (Auto) 0.2, Neutrophils # (Auto) 1.9, Lymphocytes # (Auto) 0.7 L, Monocytes # (Auto) 3.4 H, Eosinophils # (Auto) 0.0, Basophils # (Auto) 0.0, Calcium Level 9.0 Vital Signs Date Time Temp Pulse Resp B/P (MAP) Pulse Ox O2 Delivery O2 Flow Rate FiO2 10/13/18 12:00 97.3 63 17 121/56 (77) 91 1.0 10/09/18 16:15 Nasal Cannula I&O- Last 24 Hours up to 6 AM 10/13/18 06:00 Intake Total 1390 ml Output Total 2550 ml Balance -1160 ml CHERYL KNOWLES MD Oct 13, 2018 12:13
[2018-10-13 16:00] VITALS: BP 169/68
[2018-10-13 20:00] VITALS: BP 178/74
[2018-10-13] MEDS: LEVEMIR (INSULIN DETEMIR) 1 UNITS/0.01ML SC SCH (21:29)
[2018-10-13] MEDS: EZETIMIBE 10 MG TAB (ZETIA) PO SCH (21:30)
[2018-10-13] MEDS: CYANOCOBALAMIN 500 MCG TAB PO SCH (21:30)
[2018-10-13] MEDS: BACLOFEN 10 MG TAB PO SCH (21:30)
[2018-10-13] MEDS: ROSUVASTATIN 10 MG TAB (CRESTOR) PO SCH (21:30)
[2018-10-14] VITALS (8 sets, daily range): BP systolic 138–198; BP diastolic 57–71
[2018-10-14] MEDS: SLF 3 ML SYR IV SCH ×3 (05:37→20:26)
[2018-10-14 05:48] LABS: BASO % 0.1 % (0.0-1.0); EOS % 0.3 % (0.0-3.0); HEMATOCRIT 25.8 % (36.0-47.0); HEMOGLOBIN 7.9 g/dl (12.0-15.5); LYMPH # 1.2 10^3/uL (1.5-4.5); LYMPH % 17.3 % (24.0-44.0); MEAN CORPUSCULAR HEMOGLOBIN 23.9 pg (27.0-33.0); MEAN CORPUSCULAR HGB CONC 30.6 g/dl (32.0-36.5); MEAN CORPUSCULAR VOLUME 77.9 fl (80.0-96.0); MONO % 61.9 % (0.0-5.0); NEUTROPHILS # 1.4 10^3/uL (1.8-7.7); NEUTROPHILS % 19.5 % (36.0-66.0); RED BLOOD COUNT 3.31 10^6/uL (4.00-5.40)
[2018-10-14 05:52] LABS: MONO # 4.4 10^3/uL (0.0-0.8); PLATELET COUNT, AUTOMATED 91 10^3/uL (150-450)
[2018-10-14 06:08] LABS: BLOOD UREA NITROGEN 29 MG/DL (7-18); CALCIUM LEVEL 8.9 MG/DL (8.8-10.2); CARBON DIOXIDE LEVEL 27 MEQ/L (21-32); CHLORIDE LEVEL 110 MEQ/L (98-107); CREATININE FOR GFR 0.87 MG/DL (0.55-1.30); GLOMERULAR FILTRATION RATE > 60.0 (>32); GLUCOSE, FASTING 101 MG/DL (70-100); MAGNESIUM LEVEL 1.8 MG/DL (1.8-2.4); POTASSIUM SERUM 4.5 MEQ/L (3.5-5.1); SODIUM LEVEL 144 MEQ/L (136-145)
[2018-10-14] MEDS: CARVedilol 6.25 MG TAB PO SCH ×2 (08:46→20:20)
[2018-10-14] MEDS: SERTRALINE HCL 50 MG TAB PO SCH (08:46)
[2018-10-14] MEDS: GABAPENTIN 300 MG CAP PO SCH ×2 (08:46→20:20)
[2018-10-14] MEDS: PANTOPRAZOLE 40MG TAB (PROTONIX) PO SCH (08:47)
[2018-10-14] MEDS: HumaLOG INSULIN (NovoLOG) PER UNIT SC SCH ×4 (08:47→20:22)
[2018-10-14] MEDS: ACETAMINOPHEN TAB 650MG DOSE (2X325MG) PO PRN ×2 (08:56→22:45)
[2018-10-14] MEDS ORDERED: amLODIPine 5 MG TAB PO ONE (10:00)
[2018-10-14 10:09] LABS: CPK CREATINE PHOSPHOKINASE 78 U/L (26-192); MB/CK RELATIVE INDEX 1.92 (< OR =4); TROPONIN I < 0.02 NG/ML (< 0.10)
[2018-10-14 12:14] LABS: CPK CREATINE PHOSPHOKINASE 72 U/L (26-192); MB/CK RELATIVE INDEX 1.53 (< OR =4); TROPONIN I < 0.02 NG/ML (< 0.10)
--- NOTE | 2018-10-14 14:11 | IPNPDOC ---
Text Note Date of Service The patient was seen on 10/14/18. NOTE Subjective: Patient was seen and examined at the bedside. Currently, patient reports that she has mild headache. She denies chest pain or shortness of breath. Denies palpitation. Denies any nausea, vomiting, abdominal pain, constipation, diarrhea or discomfort with urination. Patient denies any lower extremity swelling. Objective: Vitals (See below) General: Lying in bed, no acute distress, comfortable, AAOx3 HEENT: NC, AT CVS: RRR, +S1S2 Lungs: Fair air entry b/l, does not appear to be any wheezing, rhonchi or rales on auscultation Abdomen: Soft, without any distention or tenderness Extremities: No edema. Lower extremities, - Calf tenderness Assessment and plan: s/p Decompensated Diastolic CHF - ECHO 10/10: Preserved LV systolic function, G2DD, calcified aortic stenosis - very likely severe, mild MR & TR - She has been diuresed; over the last 2 days patient has had an output of approximately 2000cc - s/p Diuresis - s/p IV fluid hydration Severe Aortic stenosis - s/p diuresis / hypovolemia - s/p IV fluid hydration - Cardiology on consultation - discussed with Dr. Scanlon and Dr. Ramirez - will have outpatient f/u with Dr. Ramirez for TAVR referral s/p Acute kidney injury - possibly 2/2 pre-renal etiology, possibly 2/2 intra- renal etiology - Creatinine has spiked this morning - Will hold nephrotoxic medications - s/p Diuresis - s/p IV fluid hydration today Hypertensive emergency - Patient has indicated that she has been compliant with her medications; however may not have been compliant with her salt restrictions - BP appears well controlled - s/p Benazepril - c/w Carvedilol and Amlodipine; hold for SBP < 110 / HR < 60 DLP - c/w Rosuvastatin and Ezetimibe DM2 - c/w ISS Neuropathy - c/w Gabapentin Mood Disorder - c/w Sertraline B12 deficiency - c/w supplementation Thrombocytopenia - Review the record indicates the patient's low platelet count has been present since 2011 - No evidence of bleeding - Recommend outpatient follow-up with primary care provider GI prophylaxis - c/w Protonix DVT prophylaxis - c/w TEDs (re: Thrombocytopenia) Disposition: - Cardiology input for possible TAVR; Transfer vs. Outpatient followup - c/w PT VS,Lurdes, I+O VS, [place], I+O Laboratory Tests 10/14/18 05:03 Red Blood Count 3.31 L, Mean Corpuscular Volume 77.9 L, Mean Corpuscular Hemoglobin 23.9 L, Mean Corpuscular Hemoglobin Concent 30.6 L, Red Cell Distribution Width 18.9 H, Neutrophils (%) (Auto) 19.5 L, Lymphocytes (%) (Auto) 17.3 L, Monocytes (%) (Auto) 61.9 H, Eosinophils (%) (Auto) 0.3, Basophils (%) (Auto) 0.1, Neutrophils # (Auto) 1.4 L, Lymphocytes # (Auto) 1.2 L, Monocytes # (Auto) 4.4 H, Eosinophils # (Auto) 0.0, Basophils # (Auto) 0.0, Calcium Level 8.9, Total Creatine Kinase 78 Vital Signs Date Time Temp Pulse Resp B/P (MAP) Pulse Ox O2 Delivery O2 Flow Rate FiO2 10/14/18 12:00 98.0 66 16 140/58 (85) 94 10/13/18 12:00 1.0 10/09/18 16:15 Nasal Cannula I&O- Last 24 Hours up to 6 AM 10/14/18 06:00 Intake Total 600 ml Output Total 1825 ml Balance -1225 ml CHERYL KNOWLES MD Oct 14, 2018 14:11
[2018-10-14] MEDS: ROSUVASTATIN 10 MG TAB (CRESTOR) PO SCH (20:20)
[2018-10-14] MEDS: CYANOCOBALAMIN 500 MCG TAB PO SCH (20:20)
[2018-10-14] MEDS: BACLOFEN 10 MG TAB PO SCH (20:20)
[2018-10-14] MEDS: EZETIMIBE 10 MG TAB (ZETIA) PO SCH (20:21)
[2018-10-14] MEDS: LEVEMIR (INSULIN DETEMIR) 1 UNITS/0.01ML SC SCH (20:22)
[2018-10-15] VITALS: BP 158/72
[2018-10-15 04:35] VITALS: BP 115/61
[2018-10-15] MEDS: SLF 3 ML SYR IV SCH ×2 (05:24→13:27)
[2018-10-15 05:38] LABS: BASO % 0.1 % (0.0-1.0); EOS % 0.3 % (0.0-3.0); HEMATOCRIT 27.1 % (36.0-47.0); HEMOGLOBIN 8.1 g/dl (12.0-15.5); LYMPH # 1.4 10^3/uL (1.5-4.5); LYMPH % 20.7 % (24.0-44.0); MEAN CORPUSCULAR HEMOGLOBIN 23.5 pg (27.0-33.0); MEAN CORPUSCULAR HGB CONC 29.9 g/dl (32.0-36.5); MEAN CORPUSCULAR VOLUME 78.6 fl (80.0-96.0); MONO % 59.5 % (0.0-5.0); NEUTROPHILS # 1.2 10^3/uL (1.8-7.7); NEUTROPHILS % 17.9 % (36.0-66.0); RED BLOOD COUNT 3.45 10^6/uL (4.00-5.40); WHITE BLOOD COUNT 6.9 10^3/uL (4.0-10.0)
[2018-10-15 05:45] LABS: MONO # 4.1 10^3/uL (0.0-0.8); PLATELET COUNT, AUTOMATED 75 10^3/uL (150-450)
[2018-10-15 06:00] LABS: BLOOD UREA NITROGEN 30 MG/DL (7-18); CALCIUM LEVEL 9.3 MG/DL (8.8-10.2); CARBON DIOXIDE LEVEL 24 MEQ/L (21-32); CHLORIDE LEVEL 110 MEQ/L (98-107); CREATININE FOR GFR 0.71 MG/DL (0.55-1.30); GLOMERULAR FILTRATION RATE > 60.0 (>32); GLUCOSE, FASTING 107 MG/DL (70-100); MAGNESIUM LEVEL 1.7 MG/DL (1.8-2.4); POTASSIUM SERUM 4.1 MEQ/L (3.5-5.1); SODIUM LEVEL 143 MEQ/L (136-145)
--- NOTE | 2018-10-15 07:56 | CR ---
DATE OF CONSULTATION: 10/12/2018 REFERRING PROVIDER: Cady Carson MD REASON FOR CONSULTATION: Heart failure, aortic stenosis. PRIMARY EDITOR SOUND: Dr. Ramirez HISTORY OF PRESENT ILLNESS: 81-year-old woman with a history of heart failure, hypertension, hyperlipidemia, diabetes mellitus, peripheral artery disease, and also coronary artery disease, has been having shortness of breath with activities, got worse in the last three days prior to coming to the hospital. She was not having any shortness of breath at rest. She denies any chest pain. She has developed some increased pedal edema. She was checking her blood pressure at home and it was reading around 170-180 beats per minute. Because she was getting worse, she came to the emergency room for further evaluation and upon arrival her blood pressure was reported to be as high as 220/90. She was found to be in heart failure and admitted for further management and monitoring. She was started on IV furosemide/Lasix and for the congestive heart failure (CHF) and for blood pressure, she was started on an angiotension-converting enzyme (JAYY) inhibitor/benazepril. She developed deterioration in her kidney function and the JAYY inhibitor/benazepril was discontinued. She had an echocardiogram on 10/10/2018 and it revealed a normal global left ventricular systolic function, grade 2 left ventricular diastolic dysfunction and findings consistent with severe aortic stenosis. A cardiology consult was called in view of the aortic stenosis. When I saw Mrs. Jen Zepeda on the floor on 10/12/2018, she was laying supine in bed in no acute distress at rest and she stated that she feels much better. We have discussed about her diagnostic and to have a treatment plan. The case was also discussed with her hospitalist. She was not having any chest pain, orthopnea or paroxysmal nocturnal dyspnea (PND), or shortness of breath. Her pedal edema has improved significantly. Her blood pressure also has improved. She denies any bleeding. She was coughing prior to coming to the hospital with activities and this has improved. There is no focal manifestation. There is no dysuria, polyuria or hematuria. There is no active swelling or redness of the joints. PAST MEDICAL HISTORY: She has a past medical history positive for peripheral artery disease with history of left carotid end arterectomy, hypertension, hyperlipidemia, diabetes mellitus, coronary artery disease, which she could not elaborate and now diagnosed with severe aortic stenosis. She is also being treated for arthritis and anxiety/depression. There is no history of myocardial infarction, transient ischemic attack (TIA), cerebrovascular accident (CVA), thyroid disorders, cardiomyopathy or sudden cardiac . PAST SURGICAL HISTORY: Positive for ectopic tubular , cholecystectomy, left carotid endarterectomy, right trigger finger surgery, right rotator cuff surgery, left carpal tunnel surgery, bilateral knee replacement, left knee meniscal surgery, and right carpal tunnel surgery. FAMILY HISTORY: Noncontributory. MEDICATIONS AT HOME: - metformin 1 gram twice a day - folic acid 400 mg by mouth daily - Tylenol as needed - Coreg 6.25 mg by mouth twice a day - vitamin B12 1000 mcg by mouth daily - ezetimibe/Zetia 10 mg by mouth daily - gabapentin 300 mg by mouth twice a day - Protonix 40 mg by mouth daily - Crestor 20 mg by mouth daily - sertraline 50 mg by mouth daily - Tresiba 30 units subcu daily - baclofen 10 mg daily as needed q. hour of sleep CURRENT MEDICATIONS: - pantoprazole 40 mg by mouth daily - Tylenol 60 mg every 6 hours as needed for mild pain or fever - sertraline 50 mg by mouth daily - baclofen 10 mg by mouth q. hour of sleep - carvedilol 6.25 mg by mouth twice a day - vitamin B12 - gabapentin 300 mg by mouth twice a day - rosuvastatin 20 mg by mouth q. hour of sleep - Zetia 10 mg by mouth daily - regular insulin coverage - Levemir 20 units subcu q. hour of sleep She is also on D50, glucose tablets, glucagon subcu for episodes of hypoglycemia. SOCIAL HISTORY: Patient lives with her and she denies any smoking, EtOH abuse or illicit drugs. ALLERGIES: She has no known drug allergies. PHYSICAL EXAMINATION: Patient is alert and oriented, in no acute distress at rest. Vital signs when I saw her revealed a blood pressure of 138/59 with a pulse of 66, respirations 16 and her maximum temperature is 97.6 degrees Fahrenheit, with an oxygen saturation of 98% on 1 liter nasal cannula. She had a positive fluid balance for 1.2 liters for 10/11/2018. Examination of the head atraumatic. Neck is supple. No jugular venous distention (JVD) appreciated. The lungs did not reveal any wheezing or crackles. The heart examination revealed irregular heart sounds without gallops. The PMI is not displaced. There is no rub. There is a systolic murmur grade 2-3/6 over the precordium, loudest at the base of the heart/aortic valve area with some minimal radiation to the neck. Abdomen is unremarkable. Extremities reveal trace bilateral ankle edema. Neurological examination grossly is negative for focal deficit. LABS: CBC on 10/12/2018 revealed a WBC of 6.9, hemoglobin 7.8, hematocrit 25.9, and platelets 84,000. BMP revealed a sodium of 140, potassium 4.5, chloride 108, CO2 24, BUN 55, creatinine 1.65, GFR 31.9, fasting glucose 122, calcium 8.3, and magnesium 2.4. PT on admission was 13.2, with an INR of 0.99. BUN and creatinine on admission were 26 and 0.87, respectively. Hemoglobin and hematocrit on admission were 9.8 and 32.8 respectively with a platelet count of 91,000. Influenza A and B were negative. Electrocardiogram on admission revealed normal sinus rhythm and nonspecific STT abnormalities. Thought also to be similar to prior electrocardiogram on 08/20/2017. Echocardiogram on 10/10/2018 revealed a normal global left ventricular systolic function, estimated at 60-65% with grade 1 left ventricular diastolic dysfunction, severe calcific aortic stenosis, mild mitral and tricuspid regurgitation. Central venous pressure was normal. Chest x-ray on 10/09/2018 revealed findings compatible with congestive heart failure (CHF) and small effusions bilaterally. IMPRESSION: 1. Decompensated congestive heart failure, acute secondary to left ventricular diastolic dysfunction. 2. Aortic stenosis, severe. 3. History of coronary artery disease. Details are not available at his present time. 4. History of PAD with left carotid endarterectomy. 5. Hypertension. 6. Hyperlipidemia. 7. Diabetes mellitus. 8. Thrombocytopenia. 9. Status post acute kidney injury. Mrs. Jen Zepeda is doing much better, her heart failure has improved significantly. Her kidney function also after deteriorating has been improving. This was probably related to the combination of the furosemide and the JAYY inhibitor. We shall stay away at this present time from any JAYY inhibitor, particularly if we are planning to proceed with a cardiac catheterization. There is indication for aortic valve replacement. She was admitted with heart failure and this was discussed with her. This also was discussed with her hospitalist who will be in touch with Dr. Ramirez trying to get more information about her underlying CAD. Her blood pressure now seems to be stable and if needed, I will recommend to start her on amlodipine and it can be increased as needed in order to control her blood pressure. After talking to her, it seems that she is willing to proceed with aortic valve replacement, but as an outpatient. I believe her is planning to have abdominal surgery in the near future. It was a please to participate in the care of Mrs. Jen Zepeda for her underlying cardiac condition. I will continue to monitor along with you while in the hospital. Please do not hesitate to call if you have any questions.
[2018-10-15 08:00] VITALS: BP 182/72
[2018-10-15] MEDS: GABAPENTIN 300 MG CAP PO SCH (08:08)
[2018-10-15] MEDS: HumaLOG INSULIN (NovoLOG) PER UNIT SC SCH ×2 (08:08→13:12)
[2018-10-15] MEDS: PANTOPRAZOLE 40MG TAB (PROTONIX) PO SCH (08:09)
[2018-10-15] MEDS: SERTRALINE HCL 50 MG TAB PO SCH (08:09)
[2018-10-15] MEDS: ACETAMINOPHEN TAB 650MG DOSE (2X325MG) PO PRN (08:11)
[2018-10-15] MEDS: CARVedilol 6.25 MG TAB PO SCH (08:12)
[2018-10-15 08:13] VITALS: BP 182/72
[2018-10-15] MEDS ORDERED: MAG SULF 1GM/100ML (MAG RUN) 1 GM in APPROPRIATE DILUENT 1 EA IV ONE (09:00)
[2018-10-15] MEDS ORDERED: amLODIPine 5 MG TAB PO SCH ×2 (09:00)
[2018-10-15] MEDS ORDERED: AMLO5TAB6 PO (09:17)
--- NOTE | 2018-10-15 10:09 | ECGEPIP ---
Stationary ECG Study [facility] Test Date: 2018-10-14 Pat Name: BENSON NAZARIO Department: Room: [place] [address] Gender: F [employer] Att[employer]: MARCO : 1940 Requested By: CHERYL KNOWLES Order Number: [id number] Reading MD: Jorge Chu Measurements Intervals [place] Rate: 69 P: 72 SC: 175 QRS: 65 QRSD: 91 T: 45 QT: 381 QTc: 408 Interpretive Statements SINUS RHYTHM NO CHANGE SINCE 10/09/18 Electronically Signed On 10-15-2018 10:08:53 EDT by Jorge Chu
[2018-10-15 12:00] VITALS: BP 146/85
--- NOTE | 2018-10-15 13:30 | DS.PDOC ---
Discharge Summary General Date of Admission Oct 09, 2018 at 14:47 Date of Discharge 10/15/2018 Discharge Summary PROCEDURES PERFORMED DURING STAY: [None]. ADMITTING DIAGNOSES / DISCHARGE DIAGNOSES: s/p Decompensated Diastolic CHF Severe Aortic stenosis s/p Acute kidney injury - possibly 2/2 pre-renal etiology, possibly 2/2 intra- renal etiology Hypertensive emergency DLP DM2 Neuropathy Mood Disorder B12 deficiency Thrombocytopenia GI prophylaxis DVT prophylaxis COMPLICATIONS/CHIEF COMPLAINT: Elevated blood pressure and shortness of breath HISTORY OF PRESENT ILLNESS: Patient is an 78-year-old female with a PMHx of HTN, Diastolic CHF, DM2, DLP who presented to the ER with complaints of shortness of breath. In the emergency room, patient was found to have a significantly elevated systolic blood pressure of 200s. Patient was admitted to hospitalist service for suspected fluid overload from congestive heart failure and hypertensive urgency. HOSPITAL COURSE: s/p Decompensated Diastolic CHF - ECHO 10/10: Preserved LV systolic function, G2DD, calcified aortic stenosis - very likely severe, mild MR & TR - She has been diuresed; over the last 2 days patient has had an output of ap proximately 2000cc - s/p Diuresis - s/p IV fluid hydration Severe Aortic stenosis - s/p diuresis / hypovolemia - s/p IV fluid hydration - Cardiology on consultation; Dr. Scanlon - Discussed with Dr. Scanoln and Dr. Ramirez - will have outpatient f/u with Dr. Ramirez for TAVR referral s/p Acute kidney injury - possibly 2/2 pre-renal etiology, possibly 2/2 intra- renal etiology - Creatinine has spiked this morning - Will hold nephrotoxic medications - s/p Diuresis - s/p IV fluid hydration today Hypertensive emergency - Patient has indicated that she has been compliant with her medications; however may not have been compliant with her salt restrictions - BP appears well controlled with adjustment - s/p Benazepril - c/w Carvedilol and Amlodipine - will increase frequency for better blood pressure control - Will have outpatient follow-up with Dr. Ramirez for adjustment of blood pressure medications as required DLP - c/w Rosuvastatin and Ezetimibe DM2 - c/w ISS Neuropathy - c/w Gabapentin Mood Disorder - c/w Sertraline B12 deficiency - c/w supplementation Thrombocytopenia - Review the record indicates the patient's low platelet count has been present since 2011 - No evidence of bleeding - Recommend outpatient follow-up with primary care provider GI prophylaxis - c/w Protonix DVT prophylaxis - c/w TEDs (re: Thrombocytopenia) DISCHARGE MEDICATIONS: Please see below. ALLERGIES: Please see below. PHYSICAL EXAMINATION ON DISCHARGE: Vitals (See below) General: Lying in bed, no acute distress, comfortable, AAOx3 HEENT: NC, AT CVS: RRR, +S1S2 Lungs: Fair air entry b/l, no evidence of wheezing / rhonchi / rales Abdomen: Remains non-distended, non-tender, and soft Extremities: No evidence of LE edema, - Calf tenderness LABORATORY DATA: Please see below. ACTIVITY: [As tolerated]. DISCHARGE PLAN: Follow up with Dr. Ramirez within 7 days Remain compliant with treatment plan and medications Return to the ER if you experience any problems DISPOSITION: Home DISCHARGE CONDITION: [Stable]. TIME SPENT ON DISCHARGE: Greater than [25] minutes. Vital Signs/I&Os Vital Signs Date Time Temp Pulse Resp B/P (MAP) Pulse Ox O2 Delivery O2 Flow Rate FiO2 10/15/18 12:00 98.2 59 18 146/85 (105) 94 10/13/18 12:00 1.0 10/09/18 16:15 Nasal Cannula I&O- Last 24 Hours up to 6 AM 10/15/18 05:59 Intake Total 1200 ml Output Total 1325 ml Balance -125 ml Laboratory Data Labs 24H Laboratory Tests 2 10/14/18 18:12: Bedside Glucose (Misc Panel) 126H 10/14/18 20:06: Bedside Glucose (Misc Panel) 163H 10/15/18 05:11: Immature Granulocyte % (Auto) 1.5, White Blood Count 6.9, Red Blood Count 3.45L, Hemoglobin 8.1L, Hematocrit 27.1L, Mean Corpuscular Volume 78.6L, Mean C orpuscular Hemoglobin 23.5L, Mean Corpuscular Hemoglobin Concent 29.9L, Red Cell Distribution Width 18.7H, Platelet Count 75L, Neutrophils (%) (Auto) 17.9L, Lymphocytes (%) (Auto) 20.7L, Monocytes (%) (Auto) 59.5H, Eosinophils (%) (Auto) 0.3, Basophils (%) (Auto) 0.1, Neutrophils # (Auto) 1.2L, Lymphocytes # (Auto) 1.4L, Monocytes # (Auto) 4.1H, Eosinophils # (Auto) 0.0, Basophils # (Auto) 0.0, Nucleated Red Blood Cells % (auto) 0.0, Immature Platelet Fraction 7.9, Anion Gap 9, Glomerular Filtration Rate > 60.0, Blood Urea Nitrogen 30H, Creatinine 0.71, Sodium Level 143, Potassium Level 4.1, Chloride Level 110H, Carbon Dioxide Level 24, Calcium Level 9.3, Magnesium Level 1.7L 10/15/18 12:12: Bedside Glucose (Misc Panel) 102 CBC/BMP Laboratory Tests 10/15/18 05:11 Red Blood Count 3.45 L, Mean Corpuscular Volume 78.6 L, Mean Corpuscular Hemoglobin 23.5 L, Mean Corpuscular Hemoglobin Concent 29.9 L, Red Cell Distribution Width 18.7 H, Neutrophils (%) (Auto) 17.9 L, Lymphocytes (%) (Auto) 20.7 L, Monocytes (%) (Auto) 59.5 H, Eosinophils (%) (Auto) 0.3, Basophils (%) (Auto) 0.1, Neutrophils # (Auto) 1.2 L, Lymphocytes # (Auto) 1.4 L, Monocytes # (Auto) 4.1 H, Eosinophils # (Auto) 0.0, Basophils # (Auto) 0.0, Calcium Level 9.3 FSBS Laboratory Tests Test 10/14/18 18:12 10/14/18 20:06 10/15/18 12:12 Range/Units Bedside Glucose (Misc Panel) 126 163 102 83-110 MG/DL Discharge Medications Scheduled (Tresiba Flextouch) 100 Unit/Ml Inj, 30 UNIT SC QHS, (Reported) Amlodipine Besylate (Amlodipine Besylate) 5 Mg Tab, 5 MG PO BID Baclofen (Baclofen) 10 Mg Tab, 10 MG PO QHS, (Reported) Carvedilol (Carvedilol) 6.25 Mg Tab, 6.25 MG PO BID, (Reported) Cyanocobalamin (Vitamin B-12) 1,000 Mcg Tab, 1,000 MCG PO QHS, (Reported) Ezetimibe (Ezetimibe) 10 Mg Tab, 10 MG PO QHS, (Reported) Folic Acid (Folic Acid) 400 Mcg Tab, 400 MCG PO QHS, (Reported) Gabapentin (Gabapentin) 300 Mg Cap, 300 MG PO BID, (Reported) Metformin Hydrochloride (Metformin HCl) 1,000 Mg Tab, 1,000 MG PO BID, (Reported) Pantoprazole Sodium (Pantoprazole Sodium) 40 Mg Tab, 40 MG PO DAILY, (Reported) Rosuvastatin Calcium (Crestor) 20 Mg Tab, 20 MG PO QHS, (Reported) Sertraline Hcl (Sertraline HCl) 50 Mg Tab, 50 MG PO DAILY, (Reported) Scheduled PRN Acetaminophen (Acetaminophen) 325 Mg Tab, 650 MG PO Q4H PRN for PAIN, (Reported) Allergies Coded Allergies: No Known Allergies (Unverified , 06/27/18) CHERYL KNOWLES MD Oct 15, 2018 13:29
== END 2018-10-15 13:31 | disposition home or self-care (01) | DRG 292 ==
LOC: M ED 10:19 → M ED INP 14:47 → M PCU 17:23
PROVIDERS: ADMIT Internal Medicine; ATTEND Internal Medicine
DX: I11.0 Hypertensive heart disease with heart failure (principal); I16.1 Hypertensive emergency; N17.9 Acute kidney failure, unspecified; I50.33 Acute on chronic diastolic (congestive) heart failure; E11.40 Type 2 diabetes mellitus with diabetic neuropathy, unspecified; E78.5 Hyperlipidemia, unspecified; F39 Unspecified mood [affective] disorder; D69.6 Thrombocytopenia, unspecified; I35.0 Nonrheumatic aortic (valve) stenosis; E53.8 Deficiency of other specified B group vitamins; E11.51 Type 2 diabetes mellitus with diabetic peripheral angiopathy without gangrene; I25.10 Atherosclerotic heart disease of native coronary artery without angina pectoris; Z96.653 Presence of artificial knee joint, bilateral; Z90.49 Acquired absence of other specified parts of digestive tract; Z79.4 Long term (current) use of insulin; Z79.899 Other long term (current) drug therapy

== ENCOUNTER 2018-12-31 09:12 | Inpatient (IN) | payer MEDICARE, MEDICAID ==
[~2018-12-31] VITALS: Ht 144.8 cm; Wt 58.1 kg
[~2018-12-31 09:12] MED LIST changes: +ACET1TAB55 PO; +AMLO5TAB6 PO; -CRES20TA PO; +CRES20TA2 PO; -EZET10TA PO; +EZET10TA21 PO; -MAGN1TAB25 PO; +MAGN1TAB26 PO; +SERT-141 PO; -SERT50TA PO
[2018-12-31 10:28] LABS: BASO % 0.1 % (0.0-1.0); EOS % 0.1 % (0.0-3.0); HEMATOCRIT 26.7 % (36.0-47.0); HEMOGLOBIN 8.2 g/dl (12.0-15.5); LYMPH # 0.5 10^3/uL (1.5-4.5); LYMPH % 3.5 % (24.0-44.0); MEAN CORPUSCULAR HEMOGLOBIN 26.8 pg (27.0-33.0); MEAN CORPUSCULAR HGB CONC 30.7 g/dl (32.0-36.5); MEAN CORPUSCULAR VOLUME 87.3 fl (80.0-96.0); MONO % 49.9 % (0.0-5.0); NEUTROPHILS # 6.9 10^3/uL (1.8-7.7); NEUTROPHILS % 45.2 % (36.0-66.0); RED BLOOD COUNT 3.06 10^6/uL (4.00-5.40); WHITE BLOOD COUNT 15.2 10^3/uL (4.0-10.0)
[2018-12-31 10:40] LABS: INR 1.82; PROTHROMBIN TIME 21.4 SECONDS (12.1-14.4)
[2018-12-31 10:41] LABS: PARTIAL THROMBOPLASTIN TIME 22.4 SECONDS (25.4-37.6)
--- NOTE | 2018-12-31 10:43 | REP ---
CHEST, PORTABLE: AP portable view of the chest is performed and compared to a prior study of the 10/09/2018. There is cardiomegaly. There is vascular congestion and interstitial edema. Small bilateral pleural effusions are seen right greater than left with mild adjacent bibasilar atelectasis/infiltrate. There is calcification of the thoracic aorta. Multiple metallic clips are seen overlying the left superior thorax. There are new sternal wires present. There is a prosthetic heart valve. Electronically Signed by Madhu Everett MD 12/31/2018 07:25 P
[2018-12-31 11:03] LABS: CALCIUM LEVEL 8.7 MG/DL (8.8-10.2); CK-MB VALUE MASS 1.2 NG/ML (<3.6); CREATININE FOR GFR 1.03 MG/DL (0.55-1.30); GLOMERULAR FILTRATION RATE 54.9 (>32); MAGNESIUM LEVEL 1.5 MG/DL (1.8-2.4); MB/CK RELATIVE INDEX 1.56 (< OR =4); POTASSIUM SERUM 3.4 MEQ/L (3.5-5.1); THYROID STIMULATING HORMONE 5.15 uIU/ML (0.358-3.740); TROPONIN I 0.03 NG/ML (< 0.10)
[2018-12-31 11:25] LABS: PLATELET COUNT, AUTOMATED 83 10^3/uL (150-450)
[2018-12-31 11:26] LABS: MONO # 7.6 10^3/uL (0.0-0.8)
[2018-12-31] MEDS ORDERED: ASPI81TA26 PO (11:29)
[2018-12-31] MEDS ORDERED: HYDR-3713 PO (11:29)
[2018-12-31] MEDS ORDERED: VITA500T9 PO (11:29)
[2018-12-31] MEDS ORDERED: MAGN250T6 PO (11:29)
[2018-12-31] MEDS ORDERED: AMIO200T PO (11:29)
[2018-12-31] MEDS ORDERED: WARF4TAB51 PO (11:29)
[2018-12-31] MEDS ORDERED: FURO40TA2 PO (11:29)
[2018-12-31] MEDS ORDERED: METO1TAB87 PO (11:29)
[2018-12-31] MEDS ORDERED: FERR32TA PO (11:29)
[2018-12-31] MEDS ORDERED: POTA1TAB23 PO (11:29)
[2018-12-31] MEDS ORDERED: FUROSEMIDE 40 MG/4 ML VIAL (J1940) IV ONE (12:00)
[2018-12-31] MEDS ORDERED: DOCU100C17 PO (12:28)
[2018-12-31] MEDS ORDERED: DAILTAB51 PO (12:28)
[2018-12-31] MEDS ORDERED: POTASSIUM CHLORIDE 10 MEQ SR TABLET PO ONE (12:30)
[2018-12-31] MEDS ORDERED: MAG SULF 1GM/100ML (MAG RUN) 1 GM in APPROPRIATE DILUENT 1 EA IV ONE (12:30)
[2018-12-31] MEDS ORDERED: B-121TAB3 PO (12:53)
[2018-12-31] MEDS ORDERED: cefTRIAXone SOD 1 GM in D5W MINI-BAG PLUS 50 ML IV ONE (13:15)
[2018-12-31 14:05] VITALS: BP 112/54
--- NOTE | 2018-12-31 14:22 | REP ---
CT CHEST WITHOUT IV CONTRAST: CT CHEST was performed without IV contrast. Sagittal and coronal reconstruction images are performed. There is mild cardiomegaly. There appears to have been recent anterior sternotomy and thoracotomy with mild edema in the anterior mediastinum. There is no pericardial effusion. There is a mild to moderate right effusion and a mild left effusion. There is patchy bibasilar atelectasis / infiltrate right greater than left. There appear to be mild diffuse interstitial edema. I do not see a significant axillary or mediastinal adenopathy. There is moderate atherosclerotic calcification of the thoracic aorta without aneurysm. There are degenerative changes of the spine. Adrenal glands are normal. There are degenerative changes of the spine with a compression deformity of a mid thoracic vertebral body, which has undergone prior kyphoplasty, stable. IMPRESSION: Cardiomegaly with findings compatible with CHF and interstitial edema. Mild to moderate right effusion. Mild left effusion. Bibasilar atelectasis /infiltrate right greater than left. Electronically Signed by Madhu Everett MD 12/31/2018 07:39 P
[2018-12-31] MEDS: cefTRIAXone SOD 1 GM in D5W MINI-BAG PLUS 50 ML IV SCH (14:58)
[2018-12-31] MEDS ORDERED: GLUCOSE 4 GM CHEW TABLET PO PRN (15:30)
[2018-12-31] MEDS ORDERED: GLUCAGON FOR INJ 1 MG VIAL (J1610) SC PRN (15:30)
[2018-12-31] MEDS ORDERED: DEXTROSE 50% 50 ML SYRINGE IV PRN (15:30)
--- NOTE | 2018-12-31 15:40 | HPEPDOC ---
General Date of Admission Dec 31, 2018 at 12:50 Date of Service: Dec 31, 2018 Chief Complaint The patient is a 78-year-old female admitted with a reason for visit of CHF. History of Present Illness 78-year-old female with past medical history of hypertension, dyslipidemia, diabetes mellitus, peripheral neuropathy, atrial fibrillation, chronic myelomonocytic leukemia, grade 2 diastolic congestive heart failure, aortic stenosis status post recent aortic valve replacement, and right carotid artery stenosis status post carotid enterectomy at [facility] on 12/08/18. The patient's hospital course as [facility] was complicated by recurrent pleural effusions requiring multiple thoracentesis. The patient was recently discharged from [facility] on 12/26/18 after being readmitted on 12/23/18 from [facility]. At this time, the patient presented to the ER with a chief complaint of increased cough productive of yellowish sputum, and associated shortness of breath. The patient states that her symptoms started 3 days ago, and she followed up with her local endless bed drum sander Dr. Ramirez, who prescribed her antitussives and increased her Lasix dose to 40 mg by mouth twice a day. The patient states that her symptoms did not improve and she subsequently came to the ER for further evaluation and management. During this time, she denies any fevers, chills, chest pain, palpitations, abdominal pain, or any nausea/vomiting/diarrhea. Of note, the patient did state that she has several family members who have been having similar symptoms of cough. She denies any worsening of her lower extremity edema, PND, orthopnea. In the ER, chest x-ray/CT chest imaging was notable for bilateral pleural effusions suggestive of decompensated congestive heart failure. In addition, the patient was also noted to have patchy infiltrates at the bases suggestive of possible pneumonia. The patient will be admitted under the hospitalist service for further evaluation and management. Home Medications Scheduled Amiodarone HCl (Amiodarone HCl) 200 Mg Tablet, 200 MG PO BID, (Reported) Ascorbic Acid (Vitamin C) 500 Mg Tablet, 500 MG PO DAILY, (Reported) Aspirin (Aspirin EC) 81 Mg Tablet.dr, 81 MG PO DAILY, (Reported) Baclofen (Baclofen) 10 Mg Tab, 10 MG PO QHS, (Reported) Cyanocobalamin (Vitamin B-12) (B-12) 500 Mcg Tablet, 500 MCG PO BID, (Reported) Ezetimibe (Ezetimibe) 10 Mg Tab, 10 MG PO QHS, (Reported) Ferrous Gluconate (Ferrous Gluconate) 324 Mg Tablet, 324 MG PO BID, (Reported) Folic Acid (Folic Acid) 400 Mcg Tab, 400 MCG PO QHS, (Reported) Furosemide (Furosemide) 40 Mg Tablet, 40 MG PO BID, (Reported) Gabapentin (Gabapentin) 300 Mg Cap, 300 MG PO BID, (Reported) Magnesium Oxide (Magnesium Oxide) 250 Mg Tablet, 250 MG PO QHS, (Reported) Metformin HCl (Metformin HCl) 1,000 Mg Tab, 1,000 MG PO BID, (Reported) Metoprolol Tartrate (Metoprolol Tartrate) 25 Mg Tablet, 25 MG PO BID, (Reported) Multivitamin (Daily Octavia) 1 Each Tablet, 1 TAB PO DAILY, (Reported) Pantoprazole Sodium (Pantoprazole Sodium) 40 Mg Tab, 40 MG PO DAILY, (Reported) Potassium Chloride (Potassium Chloride) 10 Meq Tablet.er, 10 MEQ PO BID, (Reported) Rosuvastatin Calcium (Crestor) 20 Mg Tab, 20 MG PO QHS, (Reported) Sertraline Hcl (Sertraline HCl) 50 Mg Tab, 50 MG PO QPM, (Reported) Warfarin Sodium (Warfarin Sodium) 2 Mg Tablet, 2 MG PO QPM, (Reported) Scheduled PRN Docusate Sodium (Docusate Sodium) 100 Mg Capsule, 100 MG PO BID PRN for CONSTIPATION, (Reported) Hydrocodone/Acetaminophen (Hydrocodone-Acetamin 5-325 mg) 1 Each Tablet, 1 TAB PO Q4H PRN for PAIN, (Reported) Allergies Coded Allergies: No Known Allergies (Unverified , 06/27/18) Past Medical History Medical History As noted in HPI. Surgical History Appendectomy, breast biopsy in 1972, cardiac catheterization in October 2018, aortic valve replacement in November 2018, right sided carotid endarterectomy in November 2018, bilateral carpal tunnel release, cataract surgery, cholecystectomy, bilateral knee replacement, right rotator cuff repair Review of Systems Other systems 10 point review of systems negative unless otherwise specified in HPI. Physical Examination General Exam: Positive: Alert, Cooperative, No Acute Distress ENT Exam: Positive: Atraumatic, Mucous membr. moist/pink Neck Exam: Positive: Other (CEA scar noted on the right side of the neck. Clean, dry, and intact) Chest Exam: Positive: Rales (bibasilar rales noted on auscultation), Diminished Heart Exam: Positive: Rate Normal, Normal S1, Normal S2 Abdomen Exam: Positive: Soft; Negative: Tenderness Extremity Exam: Positive: Edema (2+ pitting edema of the lower extremity's bilaterally); Negative: Tenderness Skin Exam: Positive: Other skin issue (sternotomy scar noted. Clean, dry, and intact with no erythema, drainage noted.) Psych Exam: Positive: Oriented x 3 Vital Signs Vital Signs Date Time Temp Pulse Resp B/P (MAP) Pulse Ox O2 Delivery O2 Flow Rate FiO2 12/31/18 14:05 99.0 93 22 112/54 (73) 97 4.0 12/31/18 13:46 Nasal Cannula Laboratory Data Labs 24H Laboratory Tests 2 12/31/18 10:09: Immature Granulocyte % (Auto) 1.2, White Blood Count 15.2H, Red Blood Count 3.06L, Hemoglobin 8.2L, Hematocrit 26.7L, Mean Corpuscular Volume 87.3, Mean Corpuscular Hemoglobin 26.8L, Mean Corpuscular Hemoglobin Concent 30.7L, Red Cell Distribution Width 21.8H, Platelet Count 83L, Neutrophils (%) (Auto) 45.2, Lymphocytes (%) (Auto) 3.5L, Monocytes (%) (Auto) 49.9H, Eosinophils (%) (Auto) 0.1, Basophils (%) (Auto) 0.1, Neutrophils # (Auto) 6.9, Lymphocytes # (Auto) 0.5L, Monocytes # (Auto) 7.6H, Eosinophils # (Auto) 0.0, Basophils # (Auto) 0.0, Nucleated Red Blood Cells % (auto) 0.0, Immature Platelet Fraction 11.7H, Prothrombin Time 21.4H, Prothromb Time International Ratio 1.82, Activated Partial Thromboplast Time 22.4L, Anion Gap 6L, Glomerular Filtration Rate 54.9, Lactic Acid Level 2.3*H, Blood Urea Nitrogen 19H, Creatinine 1.03, Sodium Level 139, Potassium Level 3.4L, Chloride Level 95L, Carbon Dioxide Level 38H, Calcium Level 8.7L, Total Creatine Kinase 77, Magnesium Level 1.5L, Creatine Kinase MB 1.2, Creatine Kinase MB Relative Index 1.56, Troponin I 0.03, FM-Iuc-U-Type Natriuretic Peptide 7677H, Thyroid Stimulating Hormone (TSH) 5.150H 12/31/18 14:44: Lactic Acid Followup at 4 Hours 2.4*H CBC/BMP Laboratory Tests 12/31/18 10:09 Red Blood Count 3.06 L, Mean Corpuscular Volume 87.3, Mean Corpuscular Hemoglobin 26.8 L, Mean Corpuscular Hemoglobin Concent 30.7 L, Red Cell Distribution Width 21.8 H, Neutrophils (%) (Auto) 45.2, Lymphocytes (%) (Auto) 3.5 L, Monocytes (%) (Auto) 49.9 H, Eosinophils (%) (Auto) 0.1, Basophils (%) (Auto) 0.1, Neutrophils # (Auto) 6.9, Lymphocytes # (Auto) 0.5 L, Monocytes # (Auto) 7.6 H, Eosinophils # (Auto) 0.0, Basophils # (Auto) 0.0, Calcium Level 8.7 L, Total Creatine Kinase 77 Microbiology Microbiology 12/31/18 Blood Culture, Received Pending 12/31/18 Blood Culture, Received Pending 12/31/18 Gram Stain, Received Pending 12/31/18 Sputum Culture, Received Pending 12/31/18 Respiratory Virus Panel (PCR) (DAMARI), Received Pending Plan / VTE VTE Prophylaxis Ordered?: Yes Plan Plan Dyspnea 2/2 Decompensated Diastolic CHF, PNA CXR/CT Chest noted Sputum Culture, Procalcitonin level ordered Rocephin ordered IV Lasix 40mg BID Monitor I/Os Fluid restriction Daily Weights We will cont to monitor the patients volume/respiratory status Hypoxia 2/2 Above We will continue to down titrate supplemental oxygen as tolerated Aortic Stenosis s/p AVR, Right Carotid Artery Stenosis s/p CEA on 12/08/18 Cont ASA, Metoprolol, Statin Follow-up with cardiology/cardiothoracic surgery as an outpatient for monitoring Atrial Fibrillation Cont Metoprolol, Amiodarone, Coumadin Chronic myelomonocytic leukemia Diagnosed at [facility] on most recent admission Patient scheduled to f/u with Dr. Baldwin of Heme/Onc as an outpatient Diabetes Mellitus ISS ordered Peripheral neuropathy Continue gabapentin Iron deficiency anemia Continue ferrous gluconate Dyslipidemia Continue statin Anxiety/depression Continue Zoloft GERD Continue PPI DVT prophylaxis On Coumadin CODE STATUS: DNR/DNI--goals of care discussed with patient and daughterChelsea at the bedside. MOLST form signed, dated, and placed in the chart. RIVER JORDAN MD Dec 31, 2018 15:39
[2018-12-31 16:00] VITALS: BP 116/54
[2018-12-31] MEDS ORDERED: WARFARIN SOD 2 MG TAB PO SCH (17:00)
[2018-12-31 17:23] VITALS: BP 139/61
[2018-12-31] MEDS: FUROSEMIDE 40 MG/4 ML VIAL (J1940) IV SCH (17:30)
[2018-12-31] MEDS: ACETAMINOPHEN TAB 650MG DOSE (2X325MG) PO PRN (17:31)
[2018-12-31] MEDS: HumaLOG INSULIN (NovoLOG) PER UNIT SC SCH ×2 (18:29→21:00)
[2018-12-31 20:00] VITALS: BP 109/50
[2018-12-31] MEDS: GABAPENTIN 300 MG CAP PO SCH (20:24)
[2018-12-31] MEDS: SERTRALINE HCL 50 MG TAB PO SCH (20:24)
[2018-12-31] MEDS: ROSUVASTATIN 10 MG TAB (CRESTOR) PO SCH (20:24)
[2018-12-31] MEDS: FOLIC ACID 1 MG TAB PO SCH (20:25)
[2018-12-31] MEDS: BACLOFEN 10 MG TAB PO SCH (20:25)
[2018-12-31] MEDS: FERROUS GLUCONATE 324 MG TAB PO SCH (20:25)
[2018-12-31] MEDS: POTASSIUM CHLORIDE 10 MEQ SR TABLET PO SCH (20:25)
[2018-12-31] MEDS: METOPROLOL TART 25 MG TABLET PO SCH (20:29)
[2018-12-31] MEDS: AMIODARONE 200 MG TAB (PACERONE) PO SCH (20:29)
[2018-12-31 23:59] VITALS: BP 117/57
[2019-01-01 04:00] VITALS: BP 144/63
[2019-01-01] MEDS ORDERED: FUROSEMIDE 40 MG/4 ML VIAL (J1940) IV ONE (05:00)
[2019-01-01 06:20] LABS: BASO % 0.1 % (0.0-1.0); EOS % 0.1 % (0.0-3.0); HEMATOCRIT 28.1 % (36.0-47.0); HEMOGLOBIN 8.3 g/dl (12.0-15.5); LYMPH # 0.7 10^3/uL (1.5-4.5); LYMPH % 5.1 % (24.0-44.0); MEAN CORPUSCULAR HEMOGLOBIN 25.9 pg (27.0-33.0); MEAN CORPUSCULAR HGB CONC 29.5 g/dl (32.0-36.5); MEAN CORPUSCULAR VOLUME 87.8 fl (80.0-96.0); MONO % 52.6 % (0.0-5.0); NEUTROPHILS # 5.9 10^3/uL (1.8-7.7); WHITE BLOOD COUNT 14.4 10^3/uL (4.0-10.0)
[2019-01-01 06:37] LABS: INR 2.42; PROTHROMBIN TIME 26.8 SECONDS (12.1-14.4)
[2019-01-01 06:39] LABS: BLOOD UREA NITROGEN 19 MG/DL (7-18); CALCIUM LEVEL 8.6 MG/DL (8.8-10.2); CARBON DIOXIDE LEVEL 39 MEQ/L (21-32); CHLORIDE LEVEL 95 MEQ/L (98-107); CREATININE FOR GFR 0.88 MG/DL (0.55-1.30); GLOMERULAR FILTRATION RATE > 60.0 (>32); GLUCOSE, FASTING 120 MG/DL (70-100); MAGNESIUM LEVEL 1.7 MG/DL (1.8-2.4); POTASSIUM SERUM 3.3 MEQ/L (3.5-5.1); SODIUM LEVEL 142 MEQ/L (136-145)
[2019-01-01 07:08] LABS: PLATELET COUNT, AUTOMATED 84 10^3/uL (150-450)
[2019-01-01 07:09] LABS: MONO # 7.6 10^3/uL (0.0-0.8)
[2019-01-01] MEDS ORDERED: POTASSIUM CHLORIDE 10 MEQ SR TABLET PO ONE (07:45)
[2019-01-01] MEDS ORDERED: MAGNESIUM OXIDE 400 MG TAB (MAG-OX) PO ONE (07:45)
[2019-01-01 08:00] VITALS: BP 145/65
[2019-01-01] MEDS: HumaLOG INSULIN (NovoLOG) PER UNIT SC SCH ×4 (08:42→20:32)
[2019-01-01] MEDS: FUROSEMIDE 40 MG/4 ML VIAL (J1940) IV SCH ×2 (08:43→17:31)
[2019-01-01] MEDS: AMIODARONE 200 MG TAB (PACERONE) PO SCH ×2 (08:43→21:05)
[2019-01-01] MEDS: ASPIRIN 81 MG ENTERIC TAB PO SCH (08:43)
[2019-01-01] MEDS: POTASSIUM CHLORIDE 10 MEQ SR TABLET PO SCH ×2 (08:44→21:04)
[2019-01-01] MEDS: FERROUS GLUCONATE 324 MG TAB PO SCH ×2 (08:44→21:05)
[2019-01-01] MEDS: GABAPENTIN 300 MG CAP PO SCH ×2 (08:45→21:05)
[2019-01-01] MEDS: PANTOPRAZOLE 40MG TAB (PROTONIX) PO SCH (08:45)
[2019-01-01] MEDS: MULTIVITAMINS/MINERALS THERAP 1 TAB PO SCH (08:46)
[2019-01-01] MEDS: METOPROLOL TART 25 MG TABLET PO SCH ×2 (08:46→21:04)
[2019-01-01] MEDS ORDERED: PREVNAR 13 VACCINE SYRINGE (CPT CODE:90670) IM ONE (09:00)
[2019-01-01] MEDS: MAGNESIUM OXIDE 400 MG TAB (MAG-OX) PO SCH (10:09)
[2019-01-01] MEDS: DOCUSATE SODIUM 100 MG CAP PO PRN (10:10)
[2019-01-01] MEDS ORDERED: SLF 3 ML SYR IV PRN (10:30)
[2019-01-01 12:00] VITALS: BP 135/61
[2019-01-01] MEDS: SLF 3 ML SYR IV SCH ×2 (13:06→21:05)
--- NOTE | 2019-01-01 13:35 | IPNPDOC ---
Subjective Date Seen The patient was seen on 01/01/19. Subjective Chief Complaint/HPI Patient seen and examined at the bedside. Patient reports that she still has some shortness of breath, and was given a dose of IV Lasix this morning. Imaging consistent with a right sided pleural effusion. Patient denies any worsening of her shortness of breath. Objective Physical Examination General Exam: Positive: Alert, Cooperative, No Acute Distress ENT Exam: Positive: Atraumatic, Mucous membr. moist/pink Neck Exam: Positive: Other (CEA scar noted on the right side of the neck. Clean, dry, and intact) Chest Exam: Positive: Rales (bibasilar rales noted on auscultation), Diminished Heart Exam: Positive: Rate Normal, Normal S1, Normal S2 Abdomen Exam: Positive: Soft; Negative: Tenderness Extremity Exam: Positive: Edema (2+ pitting edema of the lower extremity's bilaterally); Negative: Tenderness Skin Exam: Positive: Other skin issue (sternotomy scar noted. Clean, dry, and intact with no erythema, drainage noted.) Psych Exam: Positive: Oriented x 3 Assessment /Plan Plan/VTE VTE Prophylaxis Ordered?: Yes Plan Dyspnea 2/2 Decompensated Diastolic CHF, PNA CXR/CT Chest noted Sputum Culture, Procalcitonin level pending Cont Rocephin Cont IV Lasix 40mg BID Monitor I/Os Fluid restriction Daily Weights We will cont to monitor the patients volume/respiratory status The patient has had a net negative of 2 L of fluid balance since starting IV diuretic therapy We will consider a thoracentesis tomorrow if the patient's volume status does not significantly improve, or if her renal function does not tolerate continue diuresis Hypoxia 2/2 Above We will continue to down titrate supplemental oxygen as tolerated Aortic Stenosis s/p AVR, Right Carotid Artery Stenosis s/p CEA on 12/08/18 Cont ASA, Metoprolol, Statin Follow-up with cardiology/cardiothoracic surgery as an outpatient for monitoring Atrial Fibrillation Cont Metoprolol, Amiodarone, Coumadin Chronic myelomonocytic leukemia Diagnosed at [facility] on most recent admission Patient scheduled to f/u with Dr. Baldwin of Heme/Onc as an outpatient Diabetes Mellitus ISS ordered Peripheral neuropathy Continue gabapentin Iron deficiency anemia Continue ferrous gluconate Dyslipidemia Continue statin Anxiety/depression Continue Zoloft GERD Continue PPI DVT prophylaxis On Coumadin CODE STATUS: DNR/DNI Disposition--pending continued clinical improvement. VS, I&O, 24H, [place] Vital Signs/I&O Vital Signs Date Time Temp Pulse Resp B/P (MAP) Pulse Ox O2 Delivery O2 Flow Rate FiO2 01/01/19 12:00 4.0 01/01/19 08:46 98 145/65 01/01/19 08:00 99.0 22 95 12/31/18 13:46 Nasal Cannula I&O- Last 24 Hours up to 6 AM 01/01/19 06:00 Intake Total 400 ml Output Total 2375 ml Balance -1975 ml Laboratory Data 24H LABS Laboratory Tests 2 12/31/18 14:44: Lactic Acid Followup at 4 Hours 2.4*H 12/31/18 16:51: Bedside Glucose (Misc Panel) 121H 12/31/18 20:22: Bedside Glucose (Misc Panel) 125H 12/31/18 21:06: Lactic Acid Level 1.5 01/01/19 05:54: Immature Granulocyte % (Auto) 1.1, White Blood Count 14.4H, Red Blood Count 3.20L, Hemoglobin 8.3L, Hematocrit 28.1L, Mean Corpuscular Volume 87.8, Mean Corpuscular Hemoglobin 25.9L, Mean Corpuscular Hemoglobin Concent 29.5L, Red Cell Distribution Width 21.4H, Platelet Count 84L, Neutrophils (%) (Auto) 41.0, Lymphocytes (%) (Auto) 5.1L, Monocytes (%) (Auto) 52.6H, Eosinophils (%) (Auto) 0.1, Basophils (%) (Auto) 0.1, Neutrophils # (Auto) 5.9, Lymphocytes # (Auto) 0.7L, Monocytes # (Auto) 7.6H, Eosinophils # (Auto) 0.0, Basophils # (Auto) 0.0, Nucleated Red Blood Cells % (auto) 0.0, Prothrombin Time 26.8H, Prothromb Time International Ratio 2.42, Anion Gap 8, Glomerular Filtration Rate > 60.0, Blood Urea Nitrogen 19H, Creatinine 0.88, Sodium Level 142, Potassium Level 3.3L, Chloride Level 95L, Carbon Dioxide Level 39H, Calcium Level 8.6L, Magnesium Level 1.7L 01/01/19 11:38: Bedside Glucose (Misc Panel) 132H CBC/BMP Laboratory Tests 01/01/19 05:54 Red Blood Count 3.20 L, Mean Corpuscular Volume 87.8, Mean Corpuscular Hemoglobin 25.9 L, Mean Corpuscular Hemoglobin Concent 29.5 L, Red Cell Distribution Width 21.4 H, Neutrophils (%) (Auto) 41.0, Lymphocytes (%) (Auto) 5.1 L, Monocytes (%) (Auto) 52.6 H, Eosinophils (%) (Auto) 0.1, Basophils (%) (Auto) 0.1, Neutrophils # (Auto) 5.9, Lymphocytes # (Auto) 0.7 L, Monocytes # (Auto) 7.6 H, Eosinophils # (Auto) 0.0, Basophils # (Auto) 0.0, Calcium Level 8.6 L Microbiology Microbiology 12/31/18 Blood Culture - Preliminary, Resulted No growth after 24 hours . All specim... 12/31/18 Blood Culture - Preliminary, Resulted No growth after 24 hours . All specim... 12/31/18 Gram Stain - Final, Resulted 12/31/18 Sputum Culture, Resulted Pending 12/31/18 Respiratory Virus Panel (PCR) (DAMARI) - Final, Complete RIVER JORDAN MD Jan 01, 2019 13:35
[2019-01-01] MEDS: cefTRIAXone SOD 1 GM in D5W MINI-BAG PLUS 50 ML IV SCH (15:43)
[2019-01-01] MEDS: NORCO, ANEXSIA 5/325MG TABLET (HYDROcodone/ACETAMINOPHEN) PO PRN (15:46)
[2019-01-01 16:00] VITALS: BP 111/55
--- NOTE | 2019-01-01 18:45 | ECGEPIP ---
[facility] - ED Test Date: 2018-12-31 Pat Name: BENSON NAZARIO Department: Room: [place] [address] Gender: Female Legislators: JUDI : 1940 Requested By: Darnell Peterson Order Number: [id number] Reading MD: Denisa Gil Measurements Intervals [place] Rate: 90 P: IN: -1 QRS: 44 QRSD: 86 T: 240 QT: 352 QTc: 432 Interpretive Statements ATRIAL FIBRILLATION NONSPECIFIC ST & T-WAVE ABNORMALITY 10/14/18 SINUS RHYTHM Electronically Signed on 01-01-2019 18:44:51 EDT by Denisa Gil
[2019-01-01 20:00] VITALS: BP 122/54
[2019-01-01] MEDS: ROSUVASTATIN 10 MG TAB (CRESTOR) PO SCH (21:04)
[2019-01-01] MEDS: SERTRALINE HCL 50 MG TAB PO SCH (21:04)
[2019-01-01] MEDS: BACLOFEN 10 MG TAB PO SCH (21:04)
[2019-01-01] MEDS: FOLIC ACID 1 MG TAB PO SCH (21:04)
[2019-01-01 23:59] VITALS: BP 135/59
[2019-01-02] VITALS (7 sets, daily range): BP systolic 110–137; BP diastolic 53–74
[2019-01-02 04:31] LABS: BASO % 0.1 % (0.0-1.0); EOS % 0.1 % (0.0-3.0); HEMATOCRIT 25.1 % (36.0-47.0); HEMOGLOBIN 7.5 g/dl (12.0-15.5); LYMPH # 0.6 10^3/uL (1.5-4.5); LYMPH % 3.5 % (24.0-44.0); MEAN CORPUSCULAR HEMOGLOBIN 26.2 pg (27.0-33.0); MEAN CORPUSCULAR HGB CONC 29.9 g/dl (32.0-36.5); MEAN CORPUSCULAR VOLUME 87.8 fl (80.0-96.0); NEUTROPHILS # 6.6 10^3/uL (1.8-7.7); NEUTROPHILS % 42.1 % (36.0-66.0); RED BLOOD COUNT 2.86 10^6/uL (4.00-5.40); WHITE BLOOD COUNT 15.6 10^3/uL (4.0-10.0)
[2019-01-02 04:39] LABS: INR 2.38; PROTHROMBIN TIME 26.5 SECONDS (12.1-14.4)
[2019-01-02 04:40] LABS: CALCIUM LEVEL 8.7 MG/DL (8.8-10.2); CREATININE FOR GFR 0.99 MG/DL (0.55-1.30); GLOMERULAR FILTRATION RATE 57.5 (>32); POTASSIUM SERUM 3.9 MEQ/L (3.5-5.1)
[2019-01-02 04:51] LABS: MONO # 8.2 10^3/uL (0.0-0.8); PLATELET COUNT, AUTOMATED 71 10^3/uL (150-450)
[2019-01-02] MEDS: NORCO, ANEXSIA 5/325MG TABLET (HYDROcodone/ACETAMINOPHEN) PO PRN ×2 (05:11→20:38)
[2019-01-02] MEDS: SLF 3 ML SYR IV SCH ×3 (06:00→20:40)
--- NOTE | 2019-01-02 07:21 | REP ---
CHEST, TWO VIEWS: Two views of the chest are performed and are compared to prior study of 12/31/2018. There is cardiomegaly and there is interstitial edema which appears essentially unchanged. Bilateral effusions and bibasilar atelectasis/infiltrate is also stable. There is cardiomegaly. There mediastinal silhouette is unchanged. IMPRESSION: No significant changes compared to prior study. Electronically Signed by Madhu Everett MD 01/02/2019 08:29 A
[2019-01-02] MEDS: POTASSIUM CHLORIDE 10 MEQ SR TABLET PO SCH ×2 (08:17→20:39)
[2019-01-02] MEDS: FERROUS GLUCONATE 324 MG TAB PO SCH ×2 (08:17→20:39)
[2019-01-02] MEDS: ASPIRIN 81 MG ENTERIC TAB PO SCH (08:17)
[2019-01-02] MEDS: GABAPENTIN 300 MG CAP PO SCH ×2 (08:17→20:39)
[2019-01-02] MEDS: FUROSEMIDE 40 MG/4 ML VIAL (J1940) IV SCH ×2 (08:17→18:06)
[2019-01-02] MEDS: MULTIVITAMINS/MINERALS THERAP 1 TAB PO SCH (08:17)
[2019-01-02] MEDS: AMIODARONE 200 MG TAB (PACERONE) PO SCH ×2 (08:18→20:39)
[2019-01-02] MEDS: PANTOPRAZOLE 40MG TAB (PROTONIX) PO SCH (08:18)
[2019-01-02] MEDS: MAGNESIUM OXIDE 400 MG TAB (MAG-OX) PO SCH (08:18)
[2019-01-02] MEDS: METOPROLOL TART 25 MG TABLET PO SCH ×2 (08:20→20:39)
[2019-01-02] MEDS: HumaLOG INSULIN (NovoLOG) PER UNIT SC SCH ×4 (08:21→21:00)
[2019-01-02 08:55] LABS: FERRITIN 241 NG/ML (8-252); IRON (FE) 18 UG/DL (50-170); PERCENT SATURATION 5.5 % (13.2-45.0); TOTAL IRON BINDING CAPACITY 330 UG/DL (250-450)
[2019-01-02 09:04] LABS: FOLATE > 24.0 NG/ML (>5.4)
[2019-01-02 09:28] LABS: VITAMIN B12 LEVEL 1010 PG/ML (247-911)
--- NOTE | 2019-01-02 11:05 | IPNPDOC ---
Subjective Date Seen The patient was seen on 01/02/19. Subjective Chief Complaint/HPI Patient seen and examined at the bedside. Reports that her respiratory status is slowly improving. She has diuresed a net -3.6 L since admission. Otherwise, denies any acute complaints of chest pain, palpitations, abdominal pain, or nausea/vomiting/diarrhea. Objective Physical Examination General Exam: Positive: Alert, Cooperative, No Acute Distress ENT Exam: Positive: Atraumatic, Mucous membr. moist/pink Neck Exam: Positive: Other (CEA scar noted on the right side of the neck. Clean, dry, and intact) Chest Exam: Positive: Rales (Rales greater on right vs left), Diminished Heart Exam: Positive: Rate Normal, Normal S1, Normal S2 Abdomen Exam: Positive: Soft; Negative: Tenderness Extremity Exam: Positive: Edema (2+ pitting edema of the lower extremity's juan manuel aterally); Negative: Tenderness Skin Exam: Positive: Other skin issue (sternotomy scar noted. Clean, dry, and intact with no erythema, drainage noted.) Psych Exam: Positive: Oriented x 3 Assessment /Plan Plan/VTE VTE Prophylaxis Ordered?: Yes Plan Dyspnea 2/2 Decompensated Diastolic CHF, PNA CXR/CT Chest noted Sputum Culture notable for Klebsiella--Cont Rocephin Cont IV Lasix 40mg BID Monitor I/Os Fluid restriction Daily Weights We will cont to monitor the patients volume/respiratory status The patient has had a net negative of 3.6 L of fluid balance since starting IV diuretic therapy--and has been diuresing quite adequately The patient may be a candidate for another thoracentesis if her volume status does not continue to improve. However, her INR will need to be 1.5 or less for that (currently 2.3). Will continue to hold Coumadin at this time, in case she needs thoracentesis. Hypoxia 2/2 Above We will continue to down titrate supplemental oxygen as tolerated Aortic Stenosis s/p AVR, Right Carotid Artery Stenosis s/p CEA on 12/08/18 Cont ASA, Metoprolol, Statin Follow-up with cardiology/cardiothoracic surgery as an outpatient for monitoring Atrial Fibrillation Cont Metoprolol, Amiodarone, Coumadin Chronic myelomonocytic leukemia Hgb noted to be 7.5 this AM--no active/overt bleeding. We will repeat H&H this afternoon and transfuse for a Hgb <8.0 Diagnosed with above at [facility] on most recent admission Patient scheduled to f/u with Dr. Baldwin of Heme/Onc as an outpatient Diabetes Mellitus ISS ordered Peripheral neuropathy Continue gabapentin Iron deficiency anemia Continue ferrous gluconate Dyslipidemia Continue statin Anxiety/depression Continue Zoloft GERD Continue PPI DVT prophylaxis On Coumadin CODE STATUS: DNR/DNI Disposition--pending continued clinical improvement. VS, I&O, 24H, Fishbone Vital Signs/I&O Vital Signs Date Time Temp Pulse Resp B/P (MAP) Pulse Ox O2 Delivery O2 Flow Rate FiO2 01/02/19 08:24 120/60 (80) 01/02/19 08:20 89 01/02/19 08:00 97.7 18 96 4.0 12/31/18 13:46 Nasal Cannula I&O- Last 24 Hours up to 6 AM 01/02/19 06:00 Intake Total 830 ml Output Total 2275 ml Balance -1445 ml Laboratory Data 24H LABS Laboratory Tests 2 01/01/19 11:38: Bedside Glucose (Misc Panel) 132H 01/01/19 17:38: Bedside Glucose (Misc Panel) 105 01/01/19 20:18: Bedside Glucose (Misc Panel) 144H 01/02/19 03:49: Immature Granulocyte % (Auto) 1.2, White Blood Count 15.6H, Red Blood Count 2.86L, Hemoglobin 7.5L, Hematocrit 25.1L, Mean Corpuscular Volume 87.8, Mean Corpuscular Hemoglobin 26.2L, Mean Corpuscular Hemoglobin Concent 29.9L, Red Cell Distribution Width 21.1H, Platelet Count 71L, Neutrophils (%) (Auto) 42.1, Lymphocytes (%) (Auto) 3.5L, Monocytes (%) (Auto) 53.0H, Eosinophils (%) (Auto) 0.1, Basophils (%) (Auto) 0.1, Neutrophils # (Auto) 6.6, Lymphocytes # (Auto) 0.6L, Monocytes # (Auto) 8.2H, Eosinophils # (Auto) 0.0, Basophils # (Auto) 0.0, Nucleated Red Blood Cells % (auto) 0.1H, Immature Platelet Fraction 12.4H, Prothrombin Time 26.5H, Prothromb Time International Ratio 2.38, Anion Gap 4L, Glomerular Filtration Rate 57.5, Blood Urea Nitrogen 25H, Creatinine 0.99, Sodium Level 140, Potassium Level 3.9, Chloride Level 96L, Carbon Dioxide Level 40H, Calcium Level 8.7L 01/02/19 08:10: Iron Level 18L, Total Iron Binding Capacity 330, Transferrin % Saturation 5.5L, Ferritin 241, Vitamin B12 Level 1010H, Folate > 24.0 CBC/BMP Laboratory Tests 01/02/19 03:49 Red Blood Count 2.86 L, Mean Corpuscular Volume 87.8, Mean Corpuscular Hemoglobin 26.2 L, Mean Corpuscular Hemoglobin Concent 29.9 L, Red Cell Distribution Width 21.1 H, Neutrophils (%) (Auto) 42.1, Lymphocytes (%) (Auto) 3.5 L, Monocytes (%) (Auto) 53.0 H, Eosinophils (%) (Auto) 0.1, Basophils (%) (Auto) 0.1, Neutrophils # (Auto) 6.6, Lymphocytes # (Auto) 0.6 L, Monocytes # (Auto) 8.2 H, Eosinophils # (Auto) 0.0, Basophils # (Auto) 0.0, Calcium Level 8.7 L Microbiology Microbiology 12/31/18 Blood Culture - Preliminary, Resulted No Growth after 48 hours. All Specime... 12/31/18 Blood Culture - Preliminary, Resulted No Growth after 48 hours. All Specime... 12/31/18 Gram Stain - Final, Complete 12/31/18 Sputum Culture - Final, Complete Klebsiella Pneumoniae 12/31/18 Respiratory Virus Panel (PCR) (DAMARI) - Final, Complete RIVER JORDAN MD Jan 02, 2019 11:05
[2019-01-02 12:20] LABS: HEMATOCRIT 25.1 % (36.0-47.0); HEMOGLOBIN 7.5 g/dl (12.0-15.5)
[2019-01-02] MEDS: DOCUSATE SODIUM 100 MG CAP PO PRN (12:59)
[2019-01-02] MEDS ORDERED: ALBUTEROL SULFATE 2.5 MG/0.5 ML INH NEB SOLN NEB ONE (16:15)
[2019-01-02] MEDS: cefTRIAXone SOD 1 GM in D5W MINI-BAG PLUS 50 ML IV SCH (18:06)
[2019-01-02] MEDS: FOLIC ACID 1 MG TAB PO SCH (20:39)
[2019-01-02] MEDS: ROSUVASTATIN 10 MG TAB (CRESTOR) PO SCH (20:39)
[2019-01-02] MEDS: BACLOFEN 10 MG TAB PO SCH (20:39)
[2019-01-02] MEDS: SERTRALINE HCL 50 MG TAB PO SCH (20:39)
[2019-01-03 04:00] VITALS: BP 142/70
[2019-01-03] MEDS: SLF 3 ML SYR IV SCH ×3 (04:10→22:28)
[2019-01-03 05:55] LABS: BASO % 0.1 % (0.0-1.0); EOS % 0.2 % (0.0-3.0); HEMATOCRIT 27.2 % (36.0-47.0); HEMOGLOBIN 8.2 g/dl (12.0-15.5); LYMPH # 0.7 10^3/uL (1.5-4.5); LYMPH % 6.1 % (24.0-44.0); MEAN CORPUSCULAR HEMOGLOBIN 26.6 pg (27.0-33.0); MEAN CORPUSCULAR HGB CONC 30.1 g/dl (32.0-36.5); MEAN CORPUSCULAR VOLUME 88.3 fl (80.0-96.0); MONO % 52.3 % (0.0-5.0); NEUTROPHILS # 4.3 10^3/uL (1.8-7.7); NEUTROPHILS % 40.2 % (36.0-66.0); RED BLOOD COUNT 3.08 10^6/uL (4.00-5.40); WHITE BLOOD COUNT 10.6 10^3/uL (4.0-10.0)
[2019-01-03 05:58] LABS: MONO # 5.5 10^3/uL (0.0-0.8); PLATELET COUNT, AUTOMATED 64 10^3/uL (150-450)
[2019-01-03 06:03] LABS: INR 2.24; PROTHROMBIN TIME 25.2 SECONDS (12.1-14.4)
[2019-01-03 06:13] LABS: BLOOD UREA NITROGEN 25 MG/DL (7-18); CALCIUM LEVEL 8.8 MG/DL (8.8-10.2); CARBON DIOXIDE LEVEL 40 MEQ/L (21-32); CHLORIDE LEVEL 96 MEQ/L (98-107); CREATININE FOR GFR 0.75 MG/DL (0.55-1.30); GLOMERULAR FILTRATION RATE > 60.0 (>32); GLUCOSE, FASTING 111 MG/DL (70-100); POTASSIUM SERUM 3.2 MEQ/L (3.5-5.1); SODIUM LEVEL 140 MEQ/L (136-145)
[2019-01-03 08:00] VITALS: BP 126/59
[2019-01-03] MEDS: HumaLOG INSULIN (NovoLOG) PER UNIT SC SCH ×4 (08:06→21:00)
[2019-01-03] MEDS: AMIODARONE 200 MG TAB (PACERONE) PO SCH ×2 (08:06→20:41)
[2019-01-03] MEDS: FERROUS GLUCONATE 324 MG TAB PO SCH ×2 (08:06→20:41)
[2019-01-03] MEDS: FUROSEMIDE 40 MG/4 ML VIAL (J1940) IV SCH ×2 (08:06→18:06)
[2019-01-03] MEDS: MULTIVITAMINS/MINERALS THERAP 1 TAB PO SCH (08:07)
[2019-01-03] MEDS: MAGNESIUM OXIDE 400 MG TAB (MAG-OX) PO SCH (08:07)
[2019-01-03] MEDS: PANTOPRAZOLE 40MG TAB (PROTONIX) PO SCH (08:07)
[2019-01-03] MEDS: POTASSIUM CHLORIDE 10 MEQ SR TABLET PO SCH ×2 (08:07→20:41)
[2019-01-03] MEDS: METOPROLOL TART 25 MG TABLET PO SCH ×2 (08:07→20:42)
[2019-01-03] MEDS: GABAPENTIN 300 MG CAP PO SCH ×2 (08:07→20:40)
[2019-01-03] MEDS: ASPIRIN 81 MG ENTERIC TAB PO SCH (08:08)
[2019-01-03] MEDS: NORCO, ANEXSIA 5/325MG TABLET (HYDROcodone/ACETAMINOPHEN) PO PRN ×2 (08:12→20:43)
[2019-01-03] MEDS ORDERED: POTASSIUM CHLORIDE 10 MEQ SR TABLET PO ONE (10:00)
[2019-01-03 12:00] VITALS: BP 122/58
[2019-01-03] MEDS ORDERED: PILL CUTTER 1 EACH XX PRN ×2 (12:45→13:15)
[2019-01-03] MEDS ORDERED: PHYTONADIONE 2.5 MG **1/2 TAB PO ONE (13:00)
[2019-01-03] MEDS: cefTRIAXone SOD 1 GM in D5W MINI-BAG PLUS 50 ML IV SCH (15:26)
[2019-01-03 16:00] VITALS: BP 148/65
--- NOTE | 2019-01-03 19:20 | IPNPDOC ---
Text Note Date of Service The patient was seen on 01/03/19. NOTE Subjective: This is an 78-year-old female admitted with acute on chronic resp iratory failure. She is quite frail. She complains of shortness of breath. She is currently on O2 at 4 L/m. She does have a right-sided pleural effusion. Patient relates she has undergone multiple thoracentesis procedures in the past. The patient is also noted to have presence of infiltrate consistent with pneumonia. Subjective: The patient is afebrile. Systolic blood pressures range from 122-148 . O2 sats are 92-95% on 4 L/m. HENT: Her neck is supple, her dentition is moderately poor, her oral mucosa is tacky. Cardiovascular: Heart rhythm is irregular, rate is generally controlled. Respiratory: Patient has bilateral coarse breath sounds, she has intermittent cough productive of thick, discolored sputum. Abdomen: Her abdomen is soft with moderate central obesity, but is otherwise benign to exam. Extremities: The patient does have 1-2+ pitting edema to her feet. Neuro exam. She has not exhibited focal neuromotor or sensory deficit. Psych: The patient does demonstrate mild depression. Assessment/plan: 1. Atrial fibrillation-patient's rate is reasonably controlled. She is normally anticoagulated with Coumadin. Her INR today is 2.24. We continue to hold her Coumadin. We will need to partially reverse it in order for her to be able to undergo thoracentesis. 2. Right pleural effusion-the patient has recurrent right pleural effusion. She's undergone multiple thoracentesis procedures. She feels strongly that she needs thoracentesis again to get respiratory relief. We will arrange to have this done once we have reverse her Coumadin sufficiently with vitamin K. 3. Probable pneumonia-the patient appears to have some other adjacent infiltrate as well to her pleural effusion. Concern is raised for pneumonia. Sputum cultures positive for Klebsiella. Patient is currently on empiric IV antibiotics, but could be transitioned to oral Ceftin or Levaquin per sensitivities. 4. The patient has CML. This is to be managed by her curtain mender/oncologist. VS,Fishbone, I+O VS, Fishbone, I+O Laboratory Tests 01/03/19 05:32 Red Blood Count 3.08 L, Mean Corpuscular Volume 88.3, Mean Corpuscular Hemoglobin 26.6 L, Mean Corpuscular Hemoglobin Concent 30.1 L, Red Cell Distribution Width 19.5 H, Neutrophils (%) (Auto) 40.2, Lymphocytes (%) (Auto) 6.1 L, Monocytes (%) (Auto) 52.3 H, Eosinophils (%) (Auto) 0.2, Basophils (%) (Auto) 0.1, Neutrophils # (Auto) 4.3, Lymphocytes # (Auto) 0.7 L, Monocytes # (Auto) 5.5 H, Eosinophils # (Auto) 0.0, Basophils # (Auto) 0.0, Calcium Level 8.8 Vital Signs Date Time Temp Pulse Resp B/P (MAP) Pulse Ox O2 Delivery O2 Flow Rate FiO2 01/03/19 16:00 97.6 87 18 148/65 (92) 98 4.0 12/31/18 13:46 Nasal Cannula I&O- Last 24 Hours up to 6 AM 01/03/19 05:59 Intake Total 1040 ml Output Total 2100 ml Balance -1060 ml NGUYEN WYATT MD Jan 03, 2019 19:20
[2019-01-03 20:00] VITALS: BP 138/64
[2019-01-03] MEDS: ROSUVASTATIN 10 MG TAB (CRESTOR) PO SCH (20:41)
[2019-01-03] MEDS: SERTRALINE HCL 50 MG TAB PO SCH (20:41)
[2019-01-03] MEDS: FOLIC ACID 1 MG TAB PO SCH (20:41)
[2019-01-03] MEDS: BACLOFEN 10 MG TAB PO SCH (20:41)
[2019-01-03 23:59] VITALS: BP 111/79
[2019-01-04] VITALS (7 sets, daily range): BP systolic 109–144; BP diastolic 55–66
[2019-01-04] MEDS: SLF 3 ML SYR IV SCH ×3 (05:20→22:00)
[2019-01-04 06:18] LABS: HEMATOCRIT 27.1 % (36.0-47.0); HEMOGLOBIN 8.3 g/dl (12.0-15.5); MEAN CORPUSCULAR HEMOGLOBIN 26.9 pg (27.0-33.0); MEAN CORPUSCULAR HGB CONC 30.6 g/dl (32.0-36.5); RED BLOOD COUNT 3.08 10^6/uL (4.00-5.40)
[2019-01-04 06:20] LABS: PLATELET COUNT, AUTOMATED 68 10^3/uL (150-450)
[2019-01-04 06:27] LABS: BLOOD UREA NITROGEN 26 MG/DL (7-18); CALCIUM LEVEL 8.3 MG/DL (8.8-10.2); CARBON DIOXIDE LEVEL 38 MEQ/L (21-32); CHLORIDE LEVEL 98 MEQ/L (98-107); CREATININE FOR GFR 0.85 MG/DL (0.55-1.30); GLOMERULAR FILTRATION RATE > 60.0 (>32); GLUCOSE, FASTING 99 MG/DL (70-100); POTASSIUM SERUM 3.7 MEQ/L (3.5-5.1); SODIUM LEVEL 140 MEQ/L (136-145)
[2019-01-04 06:28] LABS: INR 1.55; PROTHROMBIN TIME 18.8 SECONDS (12.1-14.4)
[2019-01-04 06:39] LABS: EOSINOPHILS 1 % (0-5); LYMPHOCYTES 23 % (16-52); MONOCYTES 25 % (0-8); NEUTROPHILS 51 % (35-75); PLATELET ESTIMATE MARKED DECREASE (NORMAL)
[2019-01-04] MEDS: HumaLOG INSULIN (NovoLOG) PER UNIT SC SCH ×4 (07:30→21:00)
[2019-01-04] MEDS: MAGNESIUM OXIDE 400 MG TAB (MAG-OX) PO SCH (08:33)
[2019-01-04] MEDS: METOPROLOL TART 25 MG TABLET PO SCH ×2 (08:34→20:41)
[2019-01-04] MEDS: ASPIRIN 81 MG ENTERIC TAB PO SCH (08:35)
[2019-01-04] MEDS: FERROUS GLUCONATE 324 MG TAB PO SCH ×2 (08:35→20:40)
[2019-01-04] MEDS: GABAPENTIN 300 MG CAP PO SCH ×2 (08:35→20:41)
[2019-01-04] MEDS: NORCO, ANEXSIA 5/325MG TABLET (HYDROcodone/ACETAMINOPHEN) PO PRN ×2 (08:35→20:43)
[2019-01-04] MEDS: MULTIVITAMINS/MINERALS THERAP 1 TAB PO SCH (08:36)
[2019-01-04] MEDS: FUROSEMIDE 40 MG/4 ML VIAL (J1940) IV SCH ×2 (08:36→17:13)
[2019-01-04] MEDS: AMIODARONE 200 MG TAB (PACERONE) PO SCH ×2 (08:36→20:40)
[2019-01-04] MEDS: POTASSIUM CHLORIDE 10 MEQ SR TABLET PO SCH ×2 (08:36→20:40)
[2019-01-04] MEDS: PANTOPRAZOLE 40MG TAB (PROTONIX) PO SCH (08:36)
[2019-01-04] MEDS: cefTRIAXone SOD 1 GM in D5W MINI-BAG PLUS 50 ML IV SCH (16:01)
--- NOTE | 2019-01-04 16:50 | REP ---
Ultrasound-guided thoracentesis The procedure was performed by BIJAN Smith, under the personal supervision of Dr. Everett. The risks and benefits of the procedure were explained to the patient and informed consent was obtained both verbally and written. Directly prior to the start of the procedure, a formal timeout was completed in the exam room. Pleural fluid in the right lung zone was localized using ultrasound guidance. The skin was prepped and draped in a sterile fashion. 14 ml of 1% lidocaine was used as a local anesthetic. Using ultrasound guidance, an 8-Vietnamese multiphase side-hole catheter was inserted and advanced into the fluid. 490 ml of blood tinged colored fluid was withdrawn and discarded. The patient tolerated the procedure well and there were no immediate complications. Reviewed by BIJAN Mora 01/04/2019 04:13 P Electronically Signed by Madhu Everett MD 01/04/2019 04:42 P
--- NOTE | 2019-01-04 18:40 | REP ---
Chest x-ray: Two views. History: Post thoracentesis evaluation. Comparison is made with chest CT findings from December 31, 2018 and chest x-ray from January 01, 2019. The patient is status post right thoracentesis procedure. Findings: There is no evidence of pneumothorax or other complication. The right pleural effusion is improved compared to the prior study. Cardiomegaly persists and the lungs overall are hyperinflated. The patient is status post aortic valve replacement. A wedge compression deformity is seen in the mid thoracic spine as before. Impression: Improved right pleural effusion. Electronically Signed by Ton Pablo MD 01/05/2019 10:05 A
--- NOTE | 2019-01-04 18:56 | IPNPDOC ---
Text Note Date of Service The patient was seen on 01/04/19. NOTE SUBJECTIVE: This is an 78-year-old female with acute on chronic respiratory failure. She is quite frail with shortness of breath. She continues on oxygen at 4 L/m. She has a recurrent right-sided pleural effusion. She has undergone multiple thoracentesis procedures in the past and we have made arrangements for her to undergo this today. We have held her Coumadin and she received a dose of vitamin K yesterday to bring her INR down to procedure range. OBJECTIVE: HENT: Her neck is supple, her dentition is moderately poor, her oral mucosa is tacky. Cardiovascular: Heart rhythm is irregular, rate is generally controlled. Respiratory: Patient has bilateral coarse breath sounds, she has intermittent cough productive of thick, discolored sputum. Abdomen: Her abdomen is soft with moderate central obesity, but is otherwise benign to exam. Extremities: The patient does have 1-2+ pitting edema to her feet. Neuro exam. She has not exhibited focal neuromotor or sensory deficit. Psych: The patient does demonstrate mild depression. ASSESSMENT/PLAN: 1. Atrial fibrillation--the patient's rate remains controlled. We have gotten her INR down to 1.55 today in preparation for thoracentesis. We can resume her Coumadin afterwards. 2. Right pleural effusion--the patient has recurrent right pleural effusion. She is feeling. She again needs thoracentesis to obtain respiratory relief. Patient received vitamin K to partially reverse her Coumadin so that she can have thor acentesis. She is expected of it today. 3. Probable pneumonia--on radiological review the patient also has other adjacent infiltrate consistent with pneumonia. Sputum cultures are positive for Klebsiella. The organism is fairly pansensitive except to ampicillin. The patient is on empiric IV antibiotics; ideally could be transitioned to oral Ceftin or Levaquin. 4. 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 She does not have an acute need during this hospital stay. VS,Fishbone, I+O VS, Fishbone, I+O Laboratory Tests 01/04/19 05:55 Red Blood Count 3.08 L, Mean Corpuscular Volume 88.0, Mean Corpuscular Hemoglobin 26.9 L, Mean Corpuscular Hemoglobin Concent 30.6 L, Red Cell Distribution Width 19.9 H, Monocytes # (Auto) , Calcium Level 8.3 L Vital Signs Date Time Temp Pulse Resp B/P (MAP) Pulse Ox O2 Delivery O2 Flow Rate FiO2 01/04/19 16:30 98.0 101 20 119/59 (79) 96 4.0 12/31/18 13:46 Nasal Cannula I&O- Last 24 Hours up to 6 AM 01/04/19 05:59 Intake Total 990 ml Output Total 1450 ml Balance -460 ml NGUYEN WYATT MD Jan 04, 2019 18:56
[2019-01-04] MEDS: FOLIC ACID 1 MG TAB PO SCH (20:40)
[2019-01-04] MEDS: SERTRALINE HCL 50 MG TAB PO SCH (20:40)
[2019-01-04] MEDS: ROSUVASTATIN 10 MG TAB (CRESTOR) PO SCH (20:41)
[2019-01-04] MEDS: BACLOFEN 10 MG TAB PO SCH (20:41)
[2019-01-05 04:00] VITALS: BP 126/60
[2019-01-05 05:18] LABS: BASO % 0.2 % (0.0-1.0); EOS % 0.4 % (0.0-3.0); HEMATOCRIT 29.4 % (36.0-47.0); HEMOGLOBIN 8.9 g/dl (12.0-15.5); LYMPH # 0.8 10^3/uL (1.5-4.5); LYMPH % 7.1 % (24.0-44.0); MEAN CORPUSCULAR HGB CONC 30.3 g/dl (32.0-36.5); MEAN CORPUSCULAR VOLUME 89.1 fl (80.0-96.0); MONO % 49.9 % (0.0-5.0); NEUTROPHILS # 4.4 10^3/uL (1.8-7.7); NEUTROPHILS % 41.6 % (36.0-66.0); WHITE BLOOD COUNT 10.6 10^3/uL (4.0-10.0)
[2019-01-05 05:29] LABS: INR 1.37; PROTHROMBIN TIME 16.6 SECONDS (11.8-14.0)
[2019-01-05 05:37] LABS: BLOOD UREA NITROGEN 28 MG/DL (7-18); CALCIUM LEVEL 8.8 MG/DL (8.8-10.2); CARBON DIOXIDE LEVEL 38 MEQ/L (21-32); CHLORIDE LEVEL 96 MEQ/L (98-107); CREATININE FOR GFR 0.87 MG/DL (0.55-1.30); GLOMERULAR FILTRATION RATE > 60.0 (>32); GLUCOSE, FASTING 100 MG/DL (70-100); POTASSIUM SERUM 3.4 MEQ/L (3.5-5.1); SODIUM LEVEL 140 MEQ/L (136-145)
[2019-01-05 06:06] LABS: MONO # 5.3 10^3/uL (0.0-0.8); PLATELET COUNT, AUTOMATED 78 10^3/uL (150-450)
[2019-01-05] MEDS: SLF 3 ML SYR IV SCH ×3 (06:18→20:11)
[2019-01-05] MEDS: HumaLOG INSULIN (NovoLOG) PER UNIT SC SCH ×4 (07:30→19:48)
[2019-01-05 08:00] VITALS: BP 133/94
[2019-01-05] MEDS: FUROSEMIDE 40 MG/4 ML VIAL (J1940) IV SCH ×2 (09:05→16:58)
[2019-01-05] MEDS: GABAPENTIN 300 MG CAP PO SCH ×2 (09:06→20:09)
[2019-01-05] MEDS: POTASSIUM CHLORIDE 10 MEQ SR TABLET PO SCH ×2 (09:07→20:11)
[2019-01-05] MEDS: MULTIVITAMINS/MINERALS THERAP 1 TAB PO SCH (09:07)
[2019-01-05] MEDS: METOPROLOL TART 25 MG TABLET PO SCH ×2 (09:07→20:10)
[2019-01-05] MEDS: PANTOPRAZOLE 40MG TAB (PROTONIX) PO SCH (09:08)
[2019-01-05] MEDS: FERROUS GLUCONATE 324 MG TAB PO SCH ×2 (09:08→20:10)
[2019-01-05] MEDS: MAGNESIUM OXIDE 400 MG TAB (MAG-OX) PO SCH (09:08)
[2019-01-05] MEDS: ASPIRIN 81 MG ENTERIC TAB PO SCH (09:08)
[2019-01-05] MEDS: AMIODARONE 200 MG TAB (PACERONE) PO SCH ×2 (09:08→20:11)
[2019-01-05] MEDS: DOCUSATE SODIUM 100 MG CAP PO PRN (09:10)
[2019-01-05] MEDS: NORCO, ANEXSIA 5/325MG TABLET (HYDROcodone/ACETAMINOPHEN) PO PRN ×2 (10:34→23:22)
[2019-01-05] MEDS: guaiFENesin SYRUP 200 MG/10 ML UDC PO PRN ×2 (11:43→20:09)
[2019-01-05 12:00] VITALS: BP 108/60
--- NOTE | 2019-01-05 14:54 | IPNPDOC ---
Text Note Date of Service The patient was seen on 01/05/19. NOTE SUBJECTIVE: This is an 78-year-old female with acute on chronic respiratory failure. She has been on O2 at 4 L/m. She has a recurrent right-sided pleural effusion. She has had it intermittently since undergoing valve replacement surgery in November. She has again undergone thoracentesis with removal of 490 mL. She is breathing much better and is intolerant to ambulation. Her FiO2 has been weaned down to 3 L/m. Of interest, at baseline, she is not on oxygen at home at all. OBJECTIVE: HENT: Her neck is supple, her dentition is moderately poor, her oral mucosa is moist. Cardiovascular: Heart rhythm is irregular, rate is generally controlled. Respiratory: Patient course breath sounds on the left, but minimal coarse breath sounds with good air movement on the right, she has minimally productive cough. Abdomen: Her abdomen is soft with moderate central obesity, but is otherwise benign to exam. Extremities: The patient does have 1-2+ pitting edema to her feet. Neuro exam. She has not exhibited focal neuromotor or sensory deficit, she has been ambulatory Psych: The patient does demonstrate mild depression. ASSESSMENT/PLAN: 1. Atrial fibrillation--the patient's rate remains controlled. We have gotten her INR down to 1.55 today in preparation for thoracentesis. We can resume her Coumadin afterwards. 2. Right pleural effusion--the patient has recurrent right pleural effusion. She again needed thoracentesis to obtain respiratory relief. 490 mL was removed. As this is a recurrent event. Postoperatively, patient may need other interventions such as chest tube, Pleurx catheter, or pleurodesis. Recommendations are that she return to her cardiothoracic surgeon to address this issue. 3. Probable pneumonia--on radiological review the patient also has other adjacent infiltrate consistent with pneumonia. Sputum cultures are positive for Klebsiella. The organism is fairly pansensitive except to ampicillin. The patient is on empiric IV antibiotics; ideally could be transitioned to oral Ceftin or Levaquin. 4. The patient has CML--this is being managed by her slasher operator/oncologist. She does not have an acute need during this hospital stay. 5. Patient does have persistent hypoxemia--patient will need assessment for home O2 prior to discharge. VS,Fishbone, I+O VS, Fishbone, I+O Laboratory Tests 01/05/19 04:49 Red Blood Count 3.30 L, Mean Corpuscular Volume 89.1, Mean Corpuscular Hemoglobin 27.0, Mean Corpuscular Hemoglobin Concent 30.3 L, Red Cell Distribution Width 20.0 H, Neutrophils (%) (Auto) 41.6, Lymphocytes (%) (Auto) 7.1 L, Monocytes (%) (Auto) 49.9 H, Eosinophils (%) (Auto) 0.4, Basophils (%) (Auto) 0.2, Neutrophils # (Auto) 4.4, Lymphocytes # (Auto) 0.8 L, Monocytes # (Auto) 5.3 H, Eosinophils # (Auto) 0.0, Basophils # (Auto) 0.0, Calcium Level 8.8 Vital Signs Date Time Temp Pulse Resp B/P (MAP) Pulse Ox O2 Delivery O2 Flow Rate FiO2 01/05/19 12:00 98.1 76 16 108/60 (76) 94 01/05/19 11:05 3.0 12/31/18 13:46 Nasal Cannula I&O- Last 24 Hours up to 6 AM 01/05/19 06:00 Intake Total 1740 ml Output Total 1400 ml Balance 340 ml NGUYEN WYATT MD Jan 05, 2019 14:54
[2019-01-05] MEDS: cefTRIAXone SOD 1 GM in D5W MINI-BAG PLUS 50 ML IV SCH (15:00)
[2019-01-05 16:00] VITALS: BP 112/62
[2019-01-05] MEDS ORDERED: WARFARIN SOD 2 MG TAB PO SCH (17:00)
[2019-01-05 20:00] VITALS: BP 139/65
[2019-01-05] MEDS: ROSUVASTATIN 10 MG TAB (CRESTOR) PO SCH (20:09)
[2019-01-05] MEDS: BACLOFEN 10 MG TAB PO SCH (20:10)
[2019-01-05] MEDS: FOLIC ACID 1 MG TAB PO SCH (20:10)
[2019-01-05] MEDS: SERTRALINE HCL 50 MG TAB PO SCH (20:11)
[2019-01-05 23:17] VITALS: BP 131/60
[2019-01-06] VITALS (11 sets, daily range): BP systolic 112–142; BP diastolic 54–67
[2019-01-06] MEDS: SLF 3 ML SYR IV SCH ×3 (05:25→21:46)
[2019-01-06 06:13] LABS: BASO % 0.1 % (0.0-1.0); EOS % 0.3 % (0.0-3.0); HEMATOCRIT 24.5 % (36.0-47.0); HEMOGLOBIN 7.6 g/dl (12.0-15.5); LYMPH # 0.7 10^3/uL (1.5-4.5); LYMPH % 7.5 % (24.0-44.0); MEAN CORPUSCULAR HEMOGLOBIN 26.6 pg (27.0-33.0); MEAN CORPUSCULAR VOLUME 85.7 fl (80.0-96.0); NEUTROPHILS # 3.7 10^3/uL (1.8-7.7); NEUTROPHILS % 42.5 % (36.0-66.0); RED BLOOD COUNT 2.86 10^6/uL (4.00-5.40); WHITE BLOOD COUNT 8.8 10^3/uL (4.0-10.0)
[2019-01-06 06:28] LABS: INR 1.41
[2019-01-06 06:32] LABS: BLOOD UREA NITROGEN 26 MG/DL (7-18); CALCIUM LEVEL 8.4 MG/DL (8.8-10.2); CARBON DIOXIDE LEVEL 37 MEQ/L (21-32); CHLORIDE LEVEL 96 MEQ/L (98-107); CREATININE FOR GFR 0.81 MG/DL (0.55-1.30); GLOMERULAR FILTRATION RATE > 60.0 (>32); GLUCOSE, FASTING 100 MG/DL (70-100); SODIUM LEVEL 141 MEQ/L (136-145)
[2019-01-06 06:52] LABS: MONO # 4.3 10^3/uL (0.0-0.8); MONO % 48.9 % (0.0-5.0); PLATELET COUNT, AUTOMATED 77 10^3/uL (150-450)
[2019-01-06] MEDS: HumaLOG INSULIN (NovoLOG) PER UNIT SC SCH ×4 (07:30→21:00)
[2019-01-06] MEDS ORDERED: NS 1,000 ML IV SCH (07:45)
[2019-01-06] MEDS ORDERED: FUROSEMIDE 40 MG/4 ML VIAL (J1940) IV ONE (07:45)
[2019-01-06] MEDS ORDERED: POTASSIUM CHLORIDE 10 MEQ SR TABLET PO ONE (08:00)
[2019-01-06] MEDS: PANTOPRAZOLE 40MG TAB (PROTONIX) PO SCH (08:25)
[2019-01-06] MEDS: METOPROLOL TART 25 MG TABLET PO SCH ×2 (08:26→21:31)
[2019-01-06] MEDS: POTASSIUM CHLORIDE 10 MEQ SR TABLET PO SCH ×2 (08:26→21:30)
[2019-01-06] MEDS: AMIODARONE 200 MG TAB (PACERONE) PO SCH ×2 (08:27→21:30)
[2019-01-06] MEDS: GABAPENTIN 300 MG CAP PO SCH ×2 (08:27→21:30)
[2019-01-06] MEDS: FERROUS GLUCONATE 324 MG TAB PO SCH ×2 (08:27→21:31)
[2019-01-06] MEDS: MULTIVITAMINS/MINERALS THERAP 1 TAB PO SCH (08:27)
[2019-01-06] MEDS: MAGNESIUM OXIDE 400 MG TAB (MAG-OX) PO SCH (08:27)
[2019-01-06] MEDS: ASPIRIN 81 MG ENTERIC TAB PO SCH (08:28)
[2019-01-06] MEDS: FUROSEMIDE 40 MG/4 ML VIAL (J1940) IV SCH ×2 (08:29→17:34)
[2019-01-06 13:47] LABS: HEMATOCRIT 31.7 % (36.0-47.0); HEMOGLOBIN 9.9 g/dl (12.0-15.5)
[2019-01-06] MEDS: guaiFENesin SYRUP 200 MG/10 ML UDC PO PRN ×2 (15:25→21:37)
--- NOTE | 2019-01-06 16:25 | IPNPDOC ---
Text Note Date of Service The patient was seen on 01/06/19. NOTE SUBJECTIVE: Ms. Zepeda continues to do well. She is status post thoracentesis of a right-sided pleural effusion. 490 mL were removed. She has increased tolerance for ambulation and her FiO2 has been weaned down to 3 L/m. She was admitted with acute respiratory failure. She has had recent valve replacement surgery and right carotid endarterectomy. She has had recurrent right pleural effusion requiring thoracentesis since then. OBJECTIVE: HENT: Her neck is supple, her dentition is moderately poor, her oral mucosa is moist. Cardiovascular: Heart rhythm is irregular, rate is generally controlled. Respiratory: Patient course breath sounds on the left, but minimal coarse breath sounds with good air movement on the right, she has minimally productive cough. Abdomen: Her abdomen is soft with moderate central obesity, but is otherwise benign to exam. Extremities: The patient does have 1+ pitting edema to her feet. Neuro exam. She has not exhibited focal neuromotor or sensory deficit, she has been ambulatory Psych: The patient does demonstrate mild depression. ASSESSMENT/PLAN: 1. Atrial fibrillation--the patient's rate remains controlled. We have gotten her INR down to 1.55 today in preparation for thoracentesis. We can resume her Coumadin afterwards. 2. Right pleural effusion--the patient has recurrent right pleural effusion. She again needed thoracentesis to obtain respiratory relief. 490 mL was removed. As this is a recurrent event since her aortic valve replacement one month ago this is considered a postop complication. Patient may need other interventions such as chest tube, Pleurx catheter, or pleurodesis. Recommendations from our cardiothoracic surgery service are that she return to her cardiothoracic surgeon to address this issue. 3. Probable pneumonia--on radiological review the patient also has other adjacent infiltrate consistent with pneumonia. Sputum cultures are positive for Klebsiella. The organism is fairly pansensitive except to ampicillin. The patient was on empiric IV antibiotics; she has been transitioned to oral Ceftin. 4. The patient has CML--this is being managed by her breast worker/oncologist. She does not have an acute need during this hospital stay. 5. Patient does have persistent hypoxemia--patient will need assessment for home O2 prior to discharge. 6. Patient's hemoglobin today is now down to 7.6. I have decided to transfuse her with 1 unit of packed red blood cells given her persistent hypoxia. 7. In the process of preparing this note I received notification that the patient has developed mild nose bleeding. She does not require packing at this time. Patient had been restored to her aspirin and Coumadin after her thoracentesis. Although she has coronary artery disease, vascular disease and recent valve replacement, I am concerned about doing this in the presence of her CML with chronic thrombocytopenia. These medications are now back on hold. VS,Fishbone, I+O VS, Fishbone, I+O Laboratory Tests 01/06/19 05:43 Red Blood Count 2.86 L, Mean Corpuscular Volume 85.7, Mean Corpuscular Hemoglobin 26.6 L, Mean Corpuscular Hemoglobin Concent 31.0 L, Red Cell Distribution Width 19.9 H, Neutrophils (%) (Auto) 42.5, Lymphocytes (%) (Auto) 7.5 L, Monocytes (%) (Auto) 48.9 H, Eosinophils (%) (Auto) 0.3, Basophils (%) (Auto) 0.1, Neutrophils # (Auto) 3.7, Lymphocytes # (Auto) 0.7 L, Monocytes # (Auto) 4.3 H, Eosinophils # (Auto) 0.0, Basophils # (Auto) 0.0, Calcium Level 8.4 L 01/06/19 13:25 Vital Signs Date Time Temp Pulse Resp B/P (MAP) Pulse Ox O2 Delivery O2 Flow Rate FiO2 01/06/19 12:00 2.0 01/06/19 11:50 97.1 75 16 112/56 (74) 93 12/31/18 13:46 Nasal Cannula I&O- Last 24 Hours up to 6 AM 01/06/19 06:00 Intake Total 380 ml Output Total 1925 ml Balance -1545 ml NGUYEN WYATT MD Jan 06, 2019 16:24
[2019-01-06] MEDS: OXYMETAZOLINE NASAL SPRAY (AFRIN) SCH (17:36)
[2019-01-06] MEDS: ONDANSETRON 4MG/2ML VIAL (J2405) IV PRN (18:40)
[2019-01-06] MEDS: NS 1,000 ML IV SCH (19:15)
[2019-01-06] MEDS ORDERED: PHYTONADIONE 1.25 MG 1/4 TAB PO ONE (19:30)
[2019-01-06] MEDS ORDERED: OXYMETAZOLINE NASAL SPRAY (AFRIN) SCH (21:00)
[2019-01-06] MEDS: BACLOFEN 10 MG TAB PO SCH (21:30)
[2019-01-06] MEDS: CEFUROXIME 250 MG TAB PO SCH (21:30)
[2019-01-06] MEDS: ROSUVASTATIN 10 MG TAB (CRESTOR) PO SCH (21:30)
[2019-01-06] MEDS: FOLIC ACID 1 MG TAB PO SCH (21:30)
[2019-01-06] MEDS: SERTRALINE HCL 50 MG TAB PO SCH (21:31)
[2019-01-06] MEDS ORDERED: FUROSEMIDE 20 MG/2 ML VIAL (J1940) IV ONE (22:00)
[2019-01-06] MEDS ORDERED: DEXTROMETHORPHAN 5 ML SYRUP (ROBITUSSIN PEDIATRIC COUGH) PO PRN (23:00)
[2019-01-07] VITALS (23 sets, daily range): BP systolic 105–143; BP diastolic 55–69; O2SAT 85–98
[2019-01-07] MEDS ORDERED: FUROSEMIDE 40 MG/4 ML VIAL (J1940) IV ONE (03:30)
[2019-01-07] MEDS: SLF 3 ML SYR IV SCH ×3 (04:28→21:48)
[2019-01-07 05:54] LABS: BASO % 0.1 % (0.0-1.0); EOS % 0.4 % (0.0-3.0); HEMATOCRIT 28.3 % (36.0-47.0); HEMOGLOBIN 8.9 g/dl (12.0-15.5); LYMPH # 1.1 10^3/uL (1.5-4.5); LYMPH % 9.8 % (24.0-44.0); MEAN CORPUSCULAR HGB CONC 31.4 g/dl (32.0-36.5); MEAN CORPUSCULAR VOLUME 85.8 fl (80.0-96.0); MONO % 46.1 % (0.0-5.0); NEUTROPHILS # 4.6 10^3/uL (1.8-7.7); NEUTROPHILS % 42.5 % (36.0-66.0); WHITE BLOOD COUNT 10.8 10^3/uL (4.0-10.0)
[2019-01-07 05:59] LABS: PLATELET COUNT, AUTOMATED 78 10^3/uL (150-450)
[2019-01-07 06:06] LABS: INR 1.23; PROTHROMBIN TIME 15.2 SECONDS (11.8-14.0)
[2019-01-07 06:23] LABS: BLOOD UREA NITROGEN 21 MG/DL (7-18); CALCIUM LEVEL 8.8 MG/DL (8.8-10.2); CARBON DIOXIDE LEVEL 39 MEQ/L (21-32); CHLORIDE LEVEL 96 MEQ/L (98-107); CREATININE FOR GFR 0.78 MG/DL (0.55-1.30); GLOMERULAR FILTRATION RATE > 60.0 (>32); GLUCOSE, FASTING 109 MG/DL (70-100); POTASSIUM SERUM 3.3 MEQ/L (3.5-5.1); SODIUM LEVEL 140 MEQ/L (136-145)
[2019-01-07] MEDS: HumaLOG INSULIN (NovoLOG) PER UNIT SC SCH ×4 (08:27→21:00)
[2019-01-07] MEDS: FUROSEMIDE 40 MG/4 ML VIAL (J1940) IV SCH ×2 (08:27→18:48)
[2019-01-07] MEDS: FERROUS GLUCONATE 324 MG TAB PO SCH ×2 (08:28→21:45)
[2019-01-07] MEDS: PANTOPRAZOLE 40MG TAB (PROTONIX) PO SCH (08:28)
[2019-01-07] MEDS: AMIODARONE 200 MG TAB (PACERONE) PO SCH ×2 (08:28→21:44)
[2019-01-07] MEDS: MULTIVITAMINS/MINERALS THERAP 1 TAB PO SCH (08:28)
[2019-01-07] MEDS: MAGNESIUM OXIDE 400 MG TAB (MAG-OX) PO SCH (08:28)
[2019-01-07] MEDS: CEFUROXIME 250 MG TAB PO SCH ×2 (08:28→21:44)
[2019-01-07] MEDS: GABAPENTIN 300 MG CAP PO SCH ×2 (08:28→21:45)
[2019-01-07] MEDS: METOPROLOL TART 25 MG TABLET PO SCH ×2 (08:29→21:45)
[2019-01-07] MEDS: POTASSIUM CHLORIDE 10 MEQ SR TABLET PO SCH ×2 (08:29→21:44)
[2019-01-07] MEDS: OXYMETAZOLINE NASAL SPRAY (AFRIN) SCH ×2 (08:29→21:41)
[2019-01-07] MEDS: SODIUM CHLORIDE 0.9% NASAL GEL 15GM (AYR) SCH ×2 (12:29→21:41)
--- NOTE | 2019-01-07 16:54 | IPNPDOC ---
Date Seen The patient was seen on 01/07/19. Progress Note SUBJECTIVE: Events of overnight are that the patient developed a [id number] nosebleed. The patient had been restored to her aspirin and Coumadin out of concern for her recent valve replacement and carotid endarterectomy surgery. These agents have been held in order for her to undergo thoracentesis of her right pleural effusion. A Rhino jet was placed to her left nare. Her Coumadin and aspirin were stopped and she was given low-dose vitamin K and 2 units of FFP. The bleeding stopped and did not recur. The Rhino jet was safely removed without recurrent bleeding this morning. OBJECTIVE PHYSICAL EXAMINATION: VITAL SIGNS: Please see below. GENERAL: Awake, alert, conversant HEENT: Neck is supple, no adenopathy or thyromegaly, there is no active bleeding from her nasal passages, there is also no blood seen to her posterior pharynx, Oral mucosa is moist CARDIOVASCULAR: Regular rate and rhythm, mild systolic murmur. RESPIRATORY: Breath sounds continue to be good to the right side where she had her thoracentesis, breath sounds continue coarse on the left, she is not coughing currently. ABDOMINAL: Soft, mild central obesity, nontender, nondistended, bowel tones are present EXTREMITIES: . Extremities show trace to 1+ pitting edema to both feet and ankles. NEUROLOGICAL: , Otherwise no focal neuromotor or sensory deficit PSYCHOLOGICAL: Patient expressing appropriate cognition and insight for her age LABORATORY DATA, IMAGING STUDIES, MICROBIOLOGY: Please see below. Echocardiogram: . DVT prophylaxis ordered?: Coumadin will be stopped due to bleeding episode. We'll place serial compression devices instead. ASSESSMENT/PLAN: ASSESSMENT/PLAN: 1. Atrial fibrillation--the patient's rate remains controlled. Her anticoagulation is held due to bleeding episode and thrombocytopenia. 2. Right pleural effusion--the patient has recurrent right pleural effusion. She again needed thoracentesis to obtain respiratory relief. 490 mL was removed. As this is a recurrent event since her aortic valve replacement one month ago this is considered a postop complication. Patient may need other interventions such as chest tube, Pleurx catheter, or pleurodesis. Recommendations from our cardiothoracic surgery service are that she return to her cardiothoracic surgeon to address this issue. 3. Probable pneumonia--on radiological review the patient also has other adjacent infiltrate consistent with pneumonia. Sputum cultures are positive for Klebsiella. The organism is fairly pansensitive except to ampicillin. The patient was on empiric IV antibiotics; she has been transitioned to oral Ceftin. 4. The patient has CML--this is being managed by her heat treat puller/oncologist. Concern is raised that her chronic thrombocytopenia is a relative contraindication given her recent bleeding episode while even subtherapeutic on Coumadin. 5. Patient does have persistent hypoxemia--patient will need assessment for home O2 prior to discharge. 6. Patient's hemoglobin today is now 8.9 after receiving 1 unit of packed red blood cells. I had decided to transfuse her with 1 unit of packed red blood cells given her persistent hypoxia. Hopefully we will be able to wean her FiO2. DISPOSITION: . [facility]I&O Vital Signs Date Time Temp Pulse Resp B/P (MAP) Pulse Ox O2 Delivery O2 Flow Rate FiO2 01/07/19 16:00 97.9 83 18 117/55 (75) 92 3.0 01/07/19 14:00 Nasal Cannula 01/07/19 12:00 40 I&O- Last 24 Hours up to 6 AM 01/07/19 06:00 Intake Total 1383 ml Output Total 1650 ml Balance -267 ml Laboratory Data 24H LABS Laboratory Tests 2 01/06/19 17:11: Bedside Glucose (Misc Panel) 135H 01/06/19 21:21: Bedside Glucose (Misc Panel) 129H 01/07/19 05:37: Immature Granulocyte % (Auto) 1.1, White Blood Count 10.8H, Red Blood Count 3.30 L, Hemoglobin 8.9L, Hematocrit 28.3L, Mean Corpuscular Volume 85.8, Mean Corpuscular Hemoglobin 27.0, Mean Corpuscular Hemoglobin Concent 31.4L, Red Cell Distribution Width 19.2H, Platelet Count 78L, Neutrophils (%) (Auto) 42.5, Lymphocytes (%) (Auto) 9.8L, Monocytes (%) (Auto) 46.1H, Eosinophils (%) (Auto) 0.4, Basophils (%) (Auto) 0.1, Neutrophils # (Auto) 4.6, Lymphocytes # (Auto) 1.1L, Monocytes # (Auto) 5.0H, Eosinophils # (Auto) 0.0, Basophils # (Auto) 0.0, Nucleated Red Blood Cells % (auto) 0.0, Prothrombin Time 15.2H, Prothromb Time International Ratio 1.23, Anion Gap 5L, Glomerular Filtration Rate > 60.0, Blood Urea Nitrogen 21H, Creatinine 0.78, Sodium Level 140, Potassium Level 3.3L, Chloride Level 96L, Carbon Dioxide Level 39H, Calcium Level 8.8 01/07/19 12:19: Bedside Glucose (Misc Panel) 117H CBC/BMP Laboratory Tests 01/07/19 05:37 Red Blood Count 3.30 L, Mean Corpuscular Volume 85.8, Mean Corpuscular Hemoglobin 27.0, Mean Corpuscular Hemoglobin Concent 31.4 L, Red Cell Distribution Width 19.2 H, Neutrophils (%) (Auto) 42.5, Lymphocytes (%) (Auto) 9.8 L, Monocytes (%) (Auto) 46.1 H, Eosinophils (%) (Auto) 0.4, Basophils (%) (A uto) 0.1, Neutrophils # (Auto) 4.6, Lymphocytes # (Auto) 1.1 L, Monocytes # (Auto) 5.0 H, Eosinophils # (Auto) 0.0, Basophils # (Auto) 0.0, Calcium Level 8.8 Microbiology Microbiology 12/31/18 Blood Culture - Final, Complete NO GROWTH AFTER 5 DAYS 12/31/18 Blood Culture - Final, Complete NO GROWTH AFTER 5 DAYS 12/31/18 Gram Stain - Final, Complete 12/31/18 Sputum Culture - Final, Complete Klebsiella Pneumoniae 12/31/18 Respiratory Virus Panel (PCR) ([facility]I) - Final, Complete NGUYEN WYATT MD Jan 07, 2019 16:54
[2019-01-07] MEDS: FOLIC ACID 1 MG TAB PO SCH (21:44)
[2019-01-07] MEDS: ROSUVASTATIN 10 MG TAB (CRESTOR) PO SCH (21:44)
[2019-01-07] MEDS: SERTRALINE HCL 50 MG TAB PO SCH (21:45)
[2019-01-07] MEDS: BACLOFEN 10 MG TAB PO SCH (21:45)
[2019-01-07] MEDS: NS 1,000 ML IV SCH (21:48)
[2019-01-08] VITALS (27 sets, daily range): BP systolic 115–132; BP diastolic 57–62; O2SAT 84–96
[2019-01-08] MEDS: ONDANSETRON 4MG/2ML VIAL (J2405) IV PRN (03:24)
[2019-01-08] MEDS: DEXTROMETHORPHAN 60MG/10ML SUSP 90ML BTL(DELSYM) PO PRN ×2 (04:09→12:38)
[2019-01-08] MEDS: SLF 3 ML SYR IV SCH ×3 (05:01→20:37)
[2019-01-08 05:50] LABS: BASO % 0.1 % (0.0-1.0); EOS % 0.3 % (0.0-3.0); HEMATOCRIT 28.3 % (36.0-47.0); HEMOGLOBIN 8.6 g/dl (12.0-15.5); LYMPH # 0.8 10^3/uL (1.5-4.5); LYMPH % 7.4 % (24.0-44.0); MEAN CORPUSCULAR HEMOGLOBIN 26.5 pg (27.0-33.0); MEAN CORPUSCULAR HGB CONC 30.4 g/dl (32.0-36.5); MEAN CORPUSCULAR VOLUME 87.3 fl (80.0-96.0); MONO % 48.6 % (0.0-5.0); NEUTROPHILS # 4.5 10^3/uL (1.8-7.7); NEUTROPHILS % 42.5 % (36.0-66.0); PLATELET COUNT, AUTOMATED 86 10^3/uL (150-450); RED BLOOD COUNT 3.24 10^6/uL (4.00-5.40); WHITE BLOOD COUNT 10.5 10^3/uL (4.0-10.0)
[2019-01-08 05:52] LABS: MONO # 5.1 10^3/uL (0.0-0.8)
[2019-01-08 06:12] LABS: BLOOD UREA NITROGEN 24 MG/DL (7-18); CALCIUM LEVEL 8.9 MG/DL (8.8-10.2); CARBON DIOXIDE LEVEL 37 MEQ/L (21-32); CHLORIDE LEVEL 95 MEQ/L (98-107); CREATININE FOR GFR 0.88 MG/DL (0.55-1.30); GLOMERULAR FILTRATION RATE > 60.0 (>32); GLUCOSE, FASTING 118 MG/DL (70-100); POTASSIUM SERUM 3.3 MEQ/L (3.5-5.1); SODIUM LEVEL 139 MEQ/L (136-145)
[2019-01-08] MEDS ORDERED: POTASSIUM CHLORIDE 10 MEQ SR TABLET PO ONE (08:00)
[2019-01-08] MEDS: FUROSEMIDE 40 MG/4 ML VIAL (J1940) IV SCH ×2 (09:26→17:14)
[2019-01-08] MEDS: HumaLOG INSULIN (NovoLOG) PER UNIT SC SCH ×4 (09:26→20:37)
[2019-01-08] MEDS: FERROUS GLUCONATE 324 MG TAB PO SCH ×2 (09:27→20:36)
[2019-01-08] MEDS: PANTOPRAZOLE 40MG TAB (PROTONIX) PO SCH (09:27)
[2019-01-08] MEDS: METOPROLOL TART 25 MG TABLET PO SCH ×2 (09:27→20:36)
[2019-01-08] MEDS: CEFUROXIME 250 MG TAB PO SCH ×2 (09:27→20:36)
[2019-01-08] MEDS: AMIODARONE 200 MG TAB (PACERONE) PO SCH ×2 (09:27→20:36)
[2019-01-08] MEDS: MULTIVITAMINS/MINERALS THERAP 1 TAB PO SCH (09:28)
[2019-01-08] MEDS: POTASSIUM CHLORIDE 10 MEQ SR TABLET PO SCH ×2 (09:28→20:35)
[2019-01-08] MEDS: MAGNESIUM OXIDE 400 MG TAB (MAG-OX) PO SCH (09:28)
[2019-01-08] MEDS: GABAPENTIN 300 MG CAP PO SCH ×2 (09:28→20:36)
[2019-01-08] MEDS: OXYMETAZOLINE NASAL SPRAY (AFRIN) SCH ×2 (09:29→20:37)
[2019-01-08] MEDS: SODIUM CHLORIDE 0.9% NASAL GEL 15GM (AYR) SCH ×2 (09:29→20:38)
[2019-01-08] MEDS: DOCUSATE SODIUM 100 MG CAP PO PRN (09:52)
--- NOTE | 2019-01-08 15:21 | IPNPDOC ---
Text Note Date of Service The patient was seen on 01/08/19. NOTE SUBJECTIVE: Ms. Zepeda continues to do well. She has not had any other bleeding episodes overnight. She has not had any additional respiratory distress and we have now weaned her FiO2 down to 2 L/m. OBJECTIVE: PHYSICAL EXAMINATION: VITAL SIGNS: Please see below. GENERAL: Awake, alert, conversant HEENT: Neck is supple, no adenopathy or thyromegaly, there is no active bleeding from her nasal passages, there is also no blood seen to her posterior pharynx, Oral mucosa is moist CARDIOVASCULAR: Regular rate and rhythm, mild systolic murmur. RESPIRATORY: Breath sounds continue to be good to the right side where she had her thoracentesis, breath sounds continue mildly coarse on the left, she is not coughing currently. ABDOMINAL: Soft, mild central obesity, nontender, nondistended, bowel tones are present EXTREMITIES: . Extremities show trace to 1+ pitting edema to both feet and ankles. NEUROLOGICAL: , Otherwise no focal neuromotor or sensory deficit PSYCHOLOGICAL: Patient expressing appropriate cognition and insight for her age ASSESSMENT/PLAN: ASSESSMENT/PLAN: 1. Atrial fibrillation--the patient's rate remains controlled. Her anticoagulation is held due to bleeding episode and thrombocytopenia. 2. Right pleural effusion--the patient has recurrent right pleural effusion. She again needed thoracentesis to obtain respiratory relief. 490 mL was removed. As this is a recurrent event since her aortic valve replacement one month ago this is considered a postop complication. Patient may need other interventions such as chest tube, Pleurx catheter, or pleurodesis. Recommendations from our cardiothoracic surgery service are that she return to her cardiothoracic surgeon to address this issue. 3. Probable pneumonia--on radiological review the patient also has other adjacent infiltrate consistent with pneumonia. Sputum cultures are positive for Klebsiella. The organism is fairly pansensitive except to ampicillin. The patient was on empiric IV antibiotics; she has been transitioned to oral Ceftin. 4. The patient has CML--this is being managed by her golf sales associate/oncologist. Concern is raised that her chronic thrombocytopenia is a relative contraindicat ion for anticoagulation given her recent bleeding episode while even subtherapeutic on Coumadin. 5. Patient does have persistent hypoxemia--patient will need assessment for home O2 prior to discharge. 6. Patient's hemoglobin today is now 8.9 after receiving 1 unit of packed red blood cells. I had decided to transfuse her with 1 unit of packed red blood cells given her persistent hypoxia. We have been able to wean her FiO2 down to 2 L/m. The patient could be discharged to home with home health or preferably to [facility] prior to transitioning to home. Daughter has been fully updated on the patient's condition, especially regarding the fact the patient must follow up with her cardiothoracic surgeon regarding these recurrent pleural effusions that required thoracentesis. We have also discussed the difficulty of anticoagulating this patient. The daughter gives additional information that the patient apparently had an episode of bleeding behind her valve prior to valve replacement surgery surgery. VS,Fishbone, I+O VS, Fishbone, I+O Laboratory Tests 01/08/19 05:15 Red Blood Count 3.24 L, Mean Corpuscular Volume 87.3, Mean Corpuscular H emoglobin 26.5 L, Mean Corpuscular Hemoglobin Concent 30.4 L, Red Cell Distribution Width 19.5 H, Neutrophils (%) (Auto) 42.5, Lymphocytes (%) (Auto) 7.4 L, Monocytes (%) (Auto) 48.6 H, Eosinophils (%) (Auto) 0.3, Basophils (%) (Auto) 0.1, Neutrophils # (Auto) 4.5, Lymphocytes # (Auto) 0.8 L, Monocytes # (Auto) 5.1 H, Eosinophils # (Auto) 0.0, Basophils # (Auto) 0.0, Calcium Level 8.9 Vital Signs Date Time Temp Pulse Resp B/P (MAP) Pulse Ox O2 Delivery O2 Flow Rate FiO2 01/08/19 13:00 93 Nasal Cannula 2.0 01/08/19 11:52 97.0 94 18 122/60 (80) 01/07/19 12:00 I&O- Last 24 Hours up to 6 AM 01/08/19 06:00 Intake Total 390 ml Output Total 1225 ml Balance -835 ml NGUYEN WYATT MD Jan 08, 2019 15:21
[2019-01-08] MEDS: ACETAMINOPHEN TAB 650MG DOSE (2X325MG) PO PRN (17:15)
[2019-01-08] MEDS: FOLIC ACID 1 MG TAB PO SCH (20:36)
[2019-01-08] MEDS: SERTRALINE HCL 50 MG TAB PO SCH (20:36)
[2019-01-08] MEDS: ROSUVASTATIN 10 MG TAB (CRESTOR) PO SCH (20:36)
[2019-01-08] MEDS: BACLOFEN 10 MG TAB PO SCH (20:36)
[2019-01-08] MEDS: NS 1,000 ML IV SCH (22:32)
[2019-01-09] VITALS (26 sets, daily range): BP systolic 113–147; BP diastolic 56–70; O2SAT 82–98
[2019-01-09] MEDS: SLF 3 ML SYR IV SCH ×3 (05:04→20:19)
[2019-01-09 05:47] LABS: BASO % 0.1 % (0.0-1.0); EOS % 0.4 % (0.0-3.0); HEMATOCRIT 28.9 % (36.0-47.0); HEMOGLOBIN 8.7 g/dl (12.0-15.5); LYMPH # 0.9 10^3/uL (1.5-4.5); LYMPH % 9.6 % (24.0-44.0); MEAN CORPUSCULAR HEMOGLOBIN 26.5 pg (27.0-33.0); MEAN CORPUSCULAR HGB CONC 30.1 g/dl (32.0-36.5); MEAN CORPUSCULAR VOLUME 88.1 fl (80.0-96.0); MONO % 50.2 % (0.0-5.0); NEUTROPHILS # 3.6 10^3/uL (1.8-7.7); NEUTROPHILS % 38.4 % (36.0-66.0); RED BLOOD COUNT 3.28 10^6/uL (4.00-5.40); WHITE BLOOD COUNT 9.3 10^3/uL (4.0-10.0)
[2019-01-09 06:12] LABS: MONO # 4.7 10^3/uL (0.0-0.8); PLATELET COUNT, AUTOMATED 95 10^3/uL (150-450)
[2019-01-09 06:13] LABS: BLOOD UREA NITROGEN 30 MG/DL (7-18); CALCIUM LEVEL 8.7 MG/DL (8.8-10.2); CARBON DIOXIDE LEVEL 34 MEQ/L (21-32); CHLORIDE LEVEL 101 MEQ/L (98-107); GLOMERULAR FILTRATION RATE > 60.0 (>32); GLUCOSE, FASTING 116 MG/DL (70-100); POTASSIUM SERUM 3.7 MEQ/L (3.5-5.1); SODIUM LEVEL 140 MEQ/L (136-145)
[2019-01-09] MEDS: HumaLOG INSULIN (NovoLOG) PER UNIT SC SCH ×4 (07:36→20:19)
[2019-01-09 07:48] LABS: INR 1.24; PROTHROMBIN TIME 15.3 SECONDS (11.8-14.0)
[2019-01-09] MEDS: PANTOPRAZOLE 40MG TAB (PROTONIX) PO SCH (09:01)
[2019-01-09] MEDS: FERROUS GLUCONATE 324 MG TAB PO SCH ×2 (09:02→20:17)
[2019-01-09] MEDS: CEFUROXIME 250 MG TAB PO SCH ×2 (09:02→20:17)
[2019-01-09] MEDS: MULTIVITAMINS/MINERALS THERAP 1 TAB PO SCH (09:02)
[2019-01-09] MEDS: GABAPENTIN 300 MG CAP PO SCH ×2 (09:02→20:17)
[2019-01-09] MEDS: METOPROLOL TART 25 MG TABLET PO SCH ×2 (09:02→20:18)
[2019-01-09] MEDS: MAGNESIUM OXIDE 400 MG TAB (MAG-OX) PO SCH (09:02)
[2019-01-09] MEDS: POTASSIUM CHLORIDE 10 MEQ SR TABLET PO SCH ×2 (09:02→20:17)
[2019-01-09] MEDS: AMIODARONE 200 MG TAB (PACERONE) PO SCH ×2 (09:02→20:17)
[2019-01-09] MEDS: FUROSEMIDE 40 MG/4 ML VIAL (J1940) IV SCH ×2 (09:03→16:27)
[2019-01-09] MEDS: OXYMETAZOLINE NASAL SPRAY (AFRIN) SCH ×2 (09:03→20:18)
[2019-01-09] MEDS: SODIUM CHLORIDE 0.9% NASAL GEL 15GM (AYR) SCH ×2 (09:04→20:18)
[2019-01-09] MEDS: ASPIRIN 81 MG ENTERIC TAB PO SCH (15:03)
[2019-01-09] MEDS: ACETAMINOPHEN TAB 650MG DOSE (2X325MG) PO PRN (15:03)
[2019-01-09] MEDS: WARFARIN SOD 2 MG TAB PO SCH (16:27)
--- NOTE | 2019-01-09 17:21 | IPNPDOC ---
Text Note Date of Service The patient was seen on 01/09/19. NOTE SUBJECTIVE: Ms. Zepeda continues to do well. She has not had any other bleeding episodes overnight. She has not had any additional respiratory distress and she remains on FiO2 of 2 L/m. OBJECTIVE: PHYSICAL EXAMINATION: VITAL SIGNS: Please see below. GENERAL: Awake, alert, conversant HEENT: Neck is supple, no adenopathy or thyromegaly, there is no active bleeding from her nasal passages, there is also no blood seen to her posterior pharynx, Oral mucosa is moist CARDIOVASCULAR: Regular rate and rhythm, mild systolic murmur. RESPIRATORY: Breath sounds continue to be good to the right side where she had her thoracentesis, breath sounds continue mildly coarse on the left, she is not coughing currently. ABDOMINAL: Soft, mild central obesity, nontender, nondistended, bowel tones are present EXTREMITIES: . Extremities show trace to 1+ pitting edema to both feet and ankles. NEUROLOGICAL: , Otherwise no focal neuromotor or sensory deficit PSYCHOLOGICAL: Patient expressing appropriate cognition and insight for her age ASSESSMENT/PLAN: ASSESSMENT/PLAN: 1. Atrial fibrillation--the patient's rate remains controlled. Her anticoagulation is held due to bleeding episode and thrombocytopenia. 2. Right pleural effusion--the patient has recurrent right pleural effusion. She again needed thoracentesis to obtain respiratory relief. 490 mL was removed. As this is a recurrent event since her aortic valve replacement one month ago this is considered a postop complication. Patient may need other interventions such as chest tube, Pleurx catheter, or pleurodesis. Recommendations from our cardiothoracic surgery service are that she return to her cardiothoracic surgeon to address this issue. 3. Probable pneumonia--on radiological review the patient also has other rachelle cent infiltrate consistent with pneumonia. Sputum cultures are positive for Klebsiella. The organism is fairly pansensitive except to ampicillin. The patient was on empiric IV antibiotics; she has been transitioned to oral Ceftin. 4. The patient has CML--she will need to follow-up with her hematolog ist/oncologist. Concern is raised that her chronic thrombocytopenia is a relative contraindication for anticoagulation given her recent bleeding episode while even subtherapeutic on Coumadin. 5. Patient does have persistent hypoxemia--patient will need assessment for home O2 prior to discharge. 6. Patient's hemoglobin today is now 8.9 after receiving 1 unit of packed red blood cells. I had decided to transfuse her with 1 unit of packed red blood cells given her persistent hypoxia. We have been able to wean her FiO2 down to 2 L/m. 7. Please note the patient has also had right carotid endarterectomy. This warrants at least antiplatelet therapy. This had been held due to her bleeding episodes and thrombocytopenia. Although guidelines state that patient should be maintained on her aspirin and Coumadin given her valve replacement and vascular surgery it needs to be determined what amount of bleeding is acceptable. The patient could be discharged to home with home health or preferably to [facility] prior to transitioning to home. Daughter has been fully updated on the patient's condition, especially regarding the fact the patient must follow up with her cardiothoracic surgeon regarding these recurrent pleural effusions that required thoracentesis. We have also discussed the difficulty of anticoagulating this patient. The daughter gives additional information that the patient apparently had an episode of bleeding behind her valve prior to valve replacement surgery surgery. VS,Fishbone, I+O VS, Fishbone, I+O Laboratory Tests 01/09/19 05:26 Red Blood Count 3.28 L, Mean Corpuscular Volume 88.1, Mean Corpuscular Hemoglobin 26.5 L, Mean Corpuscular Hemoglobin Concent 30.1 L, Red Cell Distribution Width 19.6 H, Neutrophils (%) (Auto) 38.4, Lymphocytes (%) (Auto) 9.6 L, Monocytes (%) (Auto) 50.2 H, Eosinophils (%) (Auto) 0.4, Basophils (%) (Auto) 0.1, Neutrophils # (Auto) 3.6, Lymphocytes # (Auto) 0.9 L, Monocytes # (Auto) 4.7 H, Eosinophils # (Auto) 0.0, Basophils # (Auto) 0.0, Calcium Level 8.7 L Vital Signs Date Time Temp Pulse Resp B/P (MAP) Pulse Ox O2 Delivery O2 Flow Rate FiO2 01/09/19 16:00 97.9 94 18 113/56 (75) 95 2.0 01/09/19 11:00 Nasal Cannula 01/07/19 12:00 l I&O- Last 24 Hours up to 6 AM 01/09/19 06:00 Intake Total 1240 ml Output Total 1300 ml Balance -60 ml NGUYEN WYATT MD Jan 09, 2019 17:21
[2019-01-09] MEDS: NS 1,000 ML IV SCH (19:15)
[2019-01-09] MEDS: BACLOFEN 10 MG TAB PO SCH (20:17)
[2019-01-09] MEDS: FOLIC ACID 1 MG TAB PO SCH (20:17)
[2019-01-09] MEDS: SERTRALINE HCL 50 MG TAB PO SCH (20:18)
[2019-01-09] MEDS: ROSUVASTATIN 10 MG TAB (CRESTOR) PO SCH (20:18)
[2019-01-10] VITALS (11 sets, daily range): BP systolic 114–143; BP diastolic 56–69; O2SAT 91–96
[2019-01-10] MEDS: SLF 3 ML SYR IV SCH ×3 (05:49→21:33)
[2019-01-10 05:59] LABS: BASO % 0.1 % (0.0-1.0); EOS % 0.3 % (0.0-3.0); HEMATOCRIT 28.2 % (36.0-47.0); HEMOGLOBIN 8.6 g/dl (12.0-15.5); LYMPH # 0.9 10^3/uL (1.5-4.5); LYMPH % 10.6 % (24.0-44.0); MEAN CORPUSCULAR HEMOGLOBIN 27.3 pg (27.0-33.0); MEAN CORPUSCULAR HGB CONC 30.5 g/dl (32.0-36.5); MEAN CORPUSCULAR VOLUME 89.5 fl (80.0-96.0); MONO % 52.2 % (0.0-5.0); NEUTROPHILS % 35.5 % (36.0-66.0); PLATELET COUNT, AUTOMATED 108 10^3/uL (150-450); RED BLOOD COUNT 3.15 10^6/uL (4.00-5.40); WHITE BLOOD COUNT 8.6 10^3/uL (4.0-10.0)
[2019-01-10 06:05] LABS: MONO # 4.5 10^3/uL (0.0-0.8)
[2019-01-10 06:30] LABS: BLOOD UREA NITROGEN 29 MG/DL (7-18); CARBON DIOXIDE LEVEL 33 MEQ/L (21-32); CHLORIDE LEVEL 101 MEQ/L (98-107); CREATININE FOR GFR 0.86 MG/DL (0.55-1.30); GLOMERULAR FILTRATION RATE > 60.0 (>32); GLUCOSE, FASTING 103 MG/DL (70-100); POTASSIUM SERUM 3.7 MEQ/L (3.5-5.1); SODIUM LEVEL 140 MEQ/L (136-145)
[2019-01-10] MEDS: MAGNESIUM OXIDE 400 MG TAB (MAG-OX) PO SCH (09:22)
[2019-01-10] MEDS: GABAPENTIN 300 MG CAP PO SCH ×2 (09:22→20:42)
[2019-01-10] MEDS: CEFUROXIME 250 MG TAB PO SCH ×2 (09:22→21:29)
[2019-01-10] MEDS: AMIODARONE 200 MG TAB (PACERONE) PO SCH ×2 (09:23→20:42)
[2019-01-10] MEDS: POTASSIUM CHLORIDE 10 MEQ SR TABLET PO SCH ×2 (09:23→20:41)
[2019-01-10] MEDS: MULTIVITAMINS/MINERALS THERAP 1 TAB PO SCH (09:23)
[2019-01-10] MEDS: FERROUS GLUCONATE 324 MG TAB PO SCH ×2 (09:23→20:42)
[2019-01-10] MEDS: METOPROLOL TART 25 MG TABLET PO SCH ×2 (09:23→20:47)
[2019-01-10] MEDS: ASPIRIN 81 MG ENTERIC TAB PO SCH (09:23)
[2019-01-10] MEDS: SODIUM CHLORIDE 0.9% NASAL GEL 15GM (AYR) SCH ×2 (09:24→21:32)
[2019-01-10] MEDS: OXYMETAZOLINE NASAL SPRAY (AFRIN) SCH ×2 (09:24→21:32)
[2019-01-10] MEDS: PANTOPRAZOLE 40MG TAB (PROTONIX) PO SCH (09:24)
[2019-01-10] MEDS: HumaLOG INSULIN (NovoLOG) PER UNIT SC SCH ×4 (09:25→21:00)
[2019-01-10] MEDS: FUROSEMIDE 40 MG/4 ML VIAL (J1940) IV SCH ×2 (09:25→17:36)
[2019-01-10] MEDS: DOCUSATE SODIUM 100 MG CAP PO PRN (09:34)
--- NOTE | 2019-01-10 11:58 | IPNPDOC ---
Text Note Date of Service The patient was seen on 01/10/19. NOTE Pt was seen and examined at bedside. Pt is pleasant lady sitting in bed in no acute distress. Denies any episode of bleeding. Denies any respiratory distress. Pt tolerates po intake well. PHE: GENERAL: AAOx3, speech memory intact HEENT:no epistaxis , nasal packing has been removed, no jaundice CARDIOVASCULAR: S1 S2 systolic murmur RESPIRATORY: bilateral bases no breath sound ABDOMINAL: Soft, nontender, nondistended, EXTREMITIES: no cyanosis no tenderness NEUROLOGICAL: intact PSYCHOLOGICAL: mood affect appropriate Vital Signs Date Time Temp Pulse Resp B/P (MAP) Pulse Ox O2 Delivery O2 Flow Rate FiO2 01/10/19 11:36 96.9 60 20 125/57 (79) 93 2.0 01/10/19 09:23 56 114/69 01/10/19 09:00 2.0 01/10/19 07:36 98.3 56 19 114/69 (84) 94 2.0 01/10/19 06:00 94 Nasal Cannula 2.0 01/10/19 05:00 92 Nasal Cannula 2.0 01/10/19 04:00 91 Nasal Cannula 2.0 01/10/19 04:00 2.0 01/10/19 04:00 96.5 91 18 137/60 (85) 96 2.0 01/10/19 03:00 94 Nasal Cannula 2.0 01/10/19 02:00 95 Nasal Cannula 2.0 01/10/19 01:00 96 Nasal Cannula 2.0 01/10/19 00:00 2.0 01/10/19 00:00 96 Nasal Cannula 2.0 01/09/19 23:59 96.1 97 20 126/57 (80) 95 2.0 01/09/19 23:00 97 Nasal Cannula 2.0 01/09/19 22:00 95 Nasal Cannula 2.0 01/09/19 21:00 96 Nasal Cannula 2.0 01/09/19 20:18 116/63 01/09/19 20:00 95 Nasal Cannula 2.0 01/09/19 20:00 97.6 115 20 116/63 (80) 94 2.0 01/09/19 20:00 2.0 01/09/19 19:00 94 Nasal Cannula 2.0 01/09/19 18:00 92 Nasal Cannula 2.0 01/09/19 17:00 92 Nasal Cannula 2.0 01/09/19 16:20 116/64 (81) Intake & Output 01/10/19 05:59 Intake Total 900 ml Output Total 1375 ml Balance -475 ml Laboratory Tests 01/09/19 17:30: Bedside Glucose (Misc Panel) 115H 01/09/19 20:10: Bedside Glucose (Misc Panel) 122H 01/10/19 05:26: White Blood Count 8.6, Red Blood Count 3.15L, Hemoglobin 8.6L, Hematocrit 28.2L, Mean Corpuscular Volume 89.5, Mean Corpuscular Hemoglobin 27.3, Mean Corpuscular Hemoglobin Concent 30.5L, Red Cell Distribution Width 19.7H, Platelet Count 108L, Neutrophils (%) (Auto) 35.5L, Lymphocytes (%) (Auto) 10.6L, Monocytes (%) (Auto) 52.2H, Eosinophils (%) (Auto) 0.3, Basophils (%) (Auto) 0.1, Neutrophils # (Auto) 3.0, Lymphocytes # (Auto) 0.9L, Monocytes # (Auto) 4.5H, Eosinophils # (Auto) 0.0, Basophils # (Auto) 0.0, Immature Granulocyte % (Auto) 1.3, Nucleated Red Blood Cells % (auto) 0.0, Blood Urea Nitrogen 29H, Creatinine 0.86, Sodium Level 140, Potassium Level 3.7, Chloride Level 101, Carbon Dioxide Level 33H, Calcium Level 9.0, Anion Gap 6L, Glomerular Filtration Rate > 60.0, Fasting Glucose 103H 01/10/19 11:24: Bedside Glucose (Misc Panel) 134H Microbiology 12/31/18 Blood Culture - Final, Complete NO GROWTH AFTER 5 DAYS 12/31/18 Blood Culture - Final, Complete NO GROWTH AFTER 5 DAYS 12/31/18 Gram Stain - Final, Complete 12/31/18 Sputum Culture - Final, Complete Klebsiella Pneumoniae 12/31/18 Respiratory Virus Panel (PCR) (DAMARI) - Final, Complete Current Medications Medications (Trade) Dose Ordered Sig/Maury Route PRN Reason Start Time Stop Time Status Last Admin Dose Admin Acetaminophen (Tylenol Tab) 650 mg Q4H PRN PO PAIN OR FEVER 12/31/18 13:00 01/10/19 12:04 650 MG Acetaminophen/ Hydrocodone Bitart ([place], [place] 5/325) 1 tab Q4H PRN PO PAIN 12/31/18 15:30 01/05/19 23:22 1 TAB Amiodarone HCl (Pacerone, Cordarone) 200 mg BID PO 12/31/18 21:00 01/10/19 09:23 200 MG Aspirin (Ecotrin) 81 mg DAILY PO 01/09/19 09:00 01/10/19 09:23 81 MG Baclofen (Lioresal) 10 mg QHS PO 12/31/18 21:00 01/09/19 20:17 10 MG Cefuroxime Axetil (Ceftin) 250 mg BID PO 01/06/19 21:00 01/10/19 09:22 250 MG Dextromethorphan (Delsym Af 12hr Susp) 30 mg Q6HP PRN PO COUGH 01/07/19 08:53 01/08/19 12:38 30 MG Docusate Sodium (Colace) 100 mg BIDP PRN PO CONSTIPATION 12/31/18 15:30 01/10/19 09:34 100 MG Ferrous Gluconate (Fergon) 324 mg BID PO 12/31/18 21:00 01/10/19 09:23 324 MG Folic Acid (Folic Acid) 1 mg QHS PO 12/31/18 21:00 01/09/19 20:17 1 MG Furosemide (LASIX injection) 40 mg BID@09,17 IV 12/31/18 17:00 01/10/19 09:25 40 MG Gabapentin (Neurontin) 300 mg BID PO 12/31/18 21:00 01/10/19 09:22 300 MG Insulin Human Lispro (HumaLOG INSULIN) SEE PROTOCOL TABLE AC SC 12/31/18 17:30 01/10/19 12:02 2 UNITS Magnesium Oxide (Mag-Ox) 400 mg DAILY PO 01/01/19 09:00 01/10/19 09:22 400 MG Metoprolol Tartrate (Lopressor) 25 mg BID PO 12/31/18 21:00 01/10/19 09:23 25 MG Multivitamins (Theragram-M) 1 tab DAILY PO 01/01/19 09:00 01/10/19 09:23 1 TAB Ondansetron HCl (ZOFRAN INJection) 4 mg Q6HP PRN IV NAUSEA OR VOMITING 01/06/19 18:30 01/08/19 03:24 4 MG Oxymetazoline HCl (Afrin) 2 spray BID NA 01/06/19 17:00 01/10/19 09:24 2 SPRAY Pantoprazole Sodium (Protonix) 40 mg DAILY PO 01/01/19 09:00 01/10/19 09:24 40 MG Potassium Chloride (Micro-K Extencaps) 10 meq BID PO 12/31/18 21:00 01/10/19 09:23 10 MEQ Rosuvastatin Calcium (Crestor) 20 mg QHS PO 12/31/18 21:00 01/09/19 20:18 20 MG Sertraline HCl (Zoloft) 50 mg QPM PO 12/31/18 21:00 01/09/19 20:18 50 MG Sodium Chloride ([place] Saline Nasal Gel) 1 dose BID NA 01/07/19 09:00 01/10/19 09:24 1 DOSE Sodium Chloride (Saline Lock Flush) 2 ml SLF IV 01/01/19 14:00 01/10/19 05:49 2 ML Warfarin Sodium (Coumadin) 2 mg DAILY@17 PO 01/09/19 17:00 01/09/19 16:27 2 MG ASSESSMENT/PLAN: 1. Atrial fibrillation- Rate controlled Cont AC 2. Right pleural effusion- s/p thoracentesis 3. 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 Concern is raised that her chronic thrombocytopenia is a relative contraindication for anticoagulation given her recent bleeding episode while even subtherapeutic on Coumadin. 5. Please note the patient has also had right carotid endarterectomy. This warrants at least antiplatelet therapy. This had been held due to her bleeding episodes and thrombocytopenia. Although guidelines state that patient should be maintained on her aspirin and Coumadin given her valve replacement and vascular surgery it needs to be determined what amount of bleeding is acceptable. Per previous note: "The patient could be discharged to home with home health or preferably to long-term prior to transitioning to home. Daughter has been fully updated on the patient's condition, especially regarding the fact the patient must follow up with her cardiothoracic surgeon regarding these recurrent pleural effusions that required thoracentesis. We have also discussed the difficulty of anticoagulating this patient. The daughter gives additional information that the patient apparently had an episode of bleeding behind her valve prior to valve replacement surgery surgery." VS,Jocelynne, I+O VS, [place], I+O Laboratory Tests 01/10/19 05:26 Red Blood Count 3.15 L, Mean Corpuscular Volume 89.5, Mean Corpuscular Hemoglobin 27.3, Mean Corpuscular Hemoglobin Concent 30.5 L, Red Cell Distribution Width 19.7 H, Neutrophils (%) (Auto) 35.5 L, Lymphocytes (%) (Auto) 10.6 L, Monocytes (%) (Auto) 52.2 H, Eosinophils (%) (Auto) 0.3, Basophils (%) (Auto) 0.1, Neutrophils # (Auto) 3.0, Lymphocytes # (Auto) 0.9 L, Monocytes # (Auto) 4.5 H, Eosinophils # (Auto) 0.0, Basophils # (Auto) 0.0, Calcium Level 9.0 Vital Signs Date Time Temp Pulse Resp B/P (MAP) Pulse Ox O2 Delivery O2 Flow Rate FiO2 01/10/19 11:36 96.9 60 20 125/57 (79) 93 2.0 01/10/19 06:00 Nasal Cannula 01/07/19 12:00 I&O- Last 24 Hours up to 6 AM 01/10/19 06:00 Intake Total 1050 ml Output Total 1525 ml Balance -475 ml ALFREDO SAVAGE MD Jan 10, 2019 11:58
[2019-01-10] MEDS: ACETAMINOPHEN TAB 650MG DOSE (2X325MG) PO PRN ×2 (12:04→21:29)
[2019-01-10] MEDS: WARFARIN SOD 2 MG TAB PO SCH (17:36)
[2019-01-10] MEDS: NS 1,000 ML IV SCH (19:15)
[2019-01-10] MEDS: FOLIC ACID 1 MG TAB PO SCH (20:42)
[2019-01-10] MEDS: ROSUVASTATIN 10 MG TAB (CRESTOR) PO SCH (20:42)
[2019-01-10] MEDS: BACLOFEN 10 MG TAB PO SCH (20:42)
[2019-01-10] MEDS: SERTRALINE HCL 50 MG TAB PO SCH (21:29)
[2019-01-11 06:00] VITALS: BP 140/60
[2019-01-11] MEDS: SLF 3 ML SYR IV SCH ×2 (06:09→14:00)
[2019-01-11 06:30] LABS: BASO % 0.1 % (0.0-1.0); EOS % 0.4 % (0.0-3.0); HEMATOCRIT 29.4 % (36.0-47.0); HEMOGLOBIN 8.7 g/dl (12.0-15.5); LYMPH % 11.2 % (24.0-44.0); MEAN CORPUSCULAR HEMOGLOBIN 26.2 pg (27.0-33.0); MEAN CORPUSCULAR HGB CONC 29.6 g/dl (32.0-36.5); MEAN CORPUSCULAR VOLUME 88.6 fl (80.0-96.0); NEUTROPHILS # 2.9 10^3/uL (1.8-7.7); NEUTROPHILS % 33.9 % (36.0-66.0); PLATELET COUNT, AUTOMATED 126 10^3/uL (150-450); RED BLOOD COUNT 3.32 10^6/uL (4.00-5.40); WHITE BLOOD COUNT 8.5 10^3/uL (4.0-10.0)
[2019-01-11 06:48] LABS: BLOOD UREA NITROGEN 26 MG/DL (7-18); CARBON DIOXIDE LEVEL 37 MEQ/L (21-32); CHLORIDE LEVEL 99 MEQ/L (98-107); CREATININE FOR GFR 0.92 MG/DL (0.55-1.30); GLOMERULAR FILTRATION RATE > 60.0 (>32); GLUCOSE, FASTING 110 MG/DL (70-100); POTASSIUM SERUM 3.6 MEQ/L (3.5-5.1); SODIUM LEVEL 142 MEQ/L (136-145)
[2019-01-11 07:20] LABS: MONO # 4.5 10^3/uL (0.0-0.8)
[2019-01-11] MEDS: FERROUS GLUCONATE 324 MG TAB PO SCH (08:19)
[2019-01-11] MEDS: MAGNESIUM OXIDE 400 MG TAB (MAG-OX) PO SCH (08:19)
[2019-01-11 08:20] VITALS: BP 140/60
[2019-01-11] MEDS: AMIODARONE 200 MG TAB (PACERONE) PO SCH (08:20)
[2019-01-11] MEDS: POTASSIUM CHLORIDE 10 MEQ SR TABLET PO SCH (08:20)
[2019-01-11] MEDS: METOPROLOL TART 25 MG TABLET PO SCH (08:20)
[2019-01-11] MEDS: MULTIVITAMINS/MINERALS THERAP 1 TAB PO SCH (08:20)
[2019-01-11] MEDS: PANTOPRAZOLE 40MG TAB (PROTONIX) PO SCH (08:20)
[2019-01-11] MEDS: ASPIRIN 81 MG ENTERIC TAB PO SCH (08:20)
[2019-01-11] MEDS: OXYMETAZOLINE NASAL SPRAY (AFRIN) SCH (08:21)
[2019-01-11] MEDS: FUROSEMIDE 40 MG/4 ML VIAL (J1940) IV SCH (08:21)
[2019-01-11] MEDS: HumaLOG INSULIN (NovoLOG) PER UNIT SC SCH ×2 (08:21→12:33)
[2019-01-11] MEDS: GABAPENTIN 300 MG CAP PO SCH (08:21)
[2019-01-11] MEDS: SODIUM CHLORIDE 0.9% NASAL GEL 15GM (AYR) SCH (08:22)
[2019-01-11] MEDS: ACETAMINOPHEN TAB 650MG DOSE (2X325MG) PO PRN (08:29)
[2019-01-11] MEDS: CEFUROXIME 250 MG TAB PO SCH (08:29)
[2019-01-11 09:40] VITALS: O2SAT 95
[2019-01-11] MEDS ORDERED: WARF-20 PO (12:09)
--- NOTE | 2019-01-15 10:36 | DS.PDOC ---
Discharge Summary General Date of Admission Dec 31, 2018 at 12:50 Date of Discharge 01/11/19 Specialist/Consultants Involve: Madhu Everett MD Specialist/Consultants Involve Ultrasound-guided thoracentesis The procedure was performed by BIJAN Smith, under the personal supervision of Dr. Everett. The risks and benefits of the procedure were explained to the patient and informed consent was obtained both verbally and written. Directly prior to the start of the procedure, a formal timeout was completed in the exam room. Pleural fluid in the right lung zone was localized using ultrasound guidance. The skin was prepped and draped in a sterile fashion. 14 ml of 1% lidocaine was used as a local anesthetic. Using ultrasound guidance, an 8-Romanian multiphase side-hole catheter was inserted and advanced into the fluid. 490 ml of blood tinged colored fluid was withdrawn and discarded. The patient tolerated the procedure well and there were no immediate complications. Reviewed by BIJAN Mora 01/04/2019 04:13 P Electronically Signed by Madhu Everett MD 01/04/2019 04:42 P Discharge Summary PROCEDURES PERFORMED DURING STAY: Ultrasound-guided Right side thoracentesis ADMITTING DIAGNOSES: 1. Chronic Atrial fibrillation 2. Right pleural effusion, recurrent 3. Pneumonia 4. Anemia 5. History of CML 6. History of Carotid stenosis, S/p CEA DISCHARGE DIAGNOSES: 1. As above COMPLICATIONS/CHIEF COMPLAINT: Dyspnea HISTORY OF PRESENT ILLNESS:(as per initial H&P). 78-year-old female with past medical history of hypertension, dyslipidemia, diabetes mellitus, peripheral neuropathy, atrial fibrillation, chronic m yelomonocytic leukemia, grade 2 diastolic congestive heart failure, aortic stenosis status post recent aortic valve replacement, and right carotid artery stenosis status post carotid enterectomy at [facility] on 12/08/18. The patient's hospital course as [facility] was complicated by recurrent pleural effusions requiring multiple thoracentesis. The patient was recently discharged from [facility] on 12/26/18 after being readmitted on 12/23/18 from [facility]. At this time, the patient presented to the ER with a chief complaint of increased cough productive of yellowish sputum, and associated shortness of breath. The patient states that her symptoms started 3 days ago, and she followed up with her local field crops harvest machine operator Dr. Ramirez, who prescribed her antitussives and increased her Lasix dose to 40 mg by mouth twice a day. The patient states that her symptoms did not improve and she subsequently came to the ER for further evaluation and management. During this time, she denies any fevers, chills, chest pain, palpitations, abdominal pain, or any nausea/vomiting/diarrhea. Of note, the patient did state that she has several family members who have been having similar symptoms of cough. She denies any worsening of her lower extremity edema, PND, orthopnea. In the ER, chest x-ray/CT chest imaging was notable for bilateral pleural effusions suggestive of decompensated congestive heart failure. In addition, the patient was also noted to have patchy infiltrates at the bases suggestive of possible pneumonia. The patient will be admitted under the hospitalist service for further evaluation and management. HOSPITAL COURSE: 1. Atrial fibrillation Remained rate control on Amiodarone and Metoprolol. Anticoagulation was held due to thrombocytopenia and need of thoracentesis, lately it was resumed 2. Right pleural effusion-Tolerated thoracentesis with 490 mL was removed. Pt dyspnea improved. In view of her recurrent events, she was advised to follow with CT surgery for further work up 3. Pneumonia, initially on empiric IV antibiotics; was transitioned to oral Ceftin. 4. The patient has CML- was advised to follow with her primary cupola liner/oncologist. 5. Anemia, on B12 and iron supplement, S/P PRBC transfusion in view of symptomatic hypoxia 6. in view of CEA, Chronic Afib and Aortic valve replacement, ASA and Warfain was resumed prior to DC. Pt and her daughter were informed about fall precaution and risk of bleeding DISCHARGE MEDICATIONS: Please see below. ALLERGIES: Please see below. PHYSICAL EXAMINATION ON DISCHARGE: VITAL SIGNS: Please see below. GENERAL: AAOx3, speech memory intact HEENT:no epistaxis , nasal packing has been removed, no jaundice CARDIOVASCULAR: S1 S2 systolic murmur RESPIRATORY: bilateral bases no breath sound ABDOMINAL: Soft, nontender, nondistended, EXTREMITIES: no cyanosis no tenderness NEUROLOGICAL: intact PSYCHOLOGICAL: mood affect appropriate LABORATORY DATA: Please see below. IMAGING: Chest CT 12/31/18: IMPRESSION: Cardiomegaly with findings compatible with CHF and interstitial edema. Mild to moderate right effusion. Mild left effusion. Bibasilar atelectasis /infiltrate right greater than left. PROGNOSIS: Guarded ACTIVITY: Fall precaution, avoid trauma DIET: Low salt, diabetic DISCHARGE PLAN: Follow with PCP, cardiothoracic surgery and oncology DISPOSITION: 01 Home, Self-Care. DISCHARGE INSTRUCTIONS: 1. Fall precaution 2. Fluid restriction, daily weight 3. Return to ED with any warning such as dizziness, chest pain, palpitation, shortness of breath, swelling of the legs, skin bruises or active bleeding ITEMS TO FOLLOWUP ON ON OUTPATIENT: 1. Follow with PCP for INR check and Warfain dose adjustment 2. Follow with Cardiothoracic surgery clinic 3. Follow with Oncology clinic DISCHARGE CONDITION: Stable, was afebrile, had no dyspnea or chest pain. TIME SPENT ON DISCHARGE: Greater than 35 minutes. Vital Signs/I&Os Vital Signs Date Time Temp Pulse Resp B/P (MAP) Pulse Ox O2 Delivery O2 Flow Rate FiO2 01/11/19 09:40 2.0 01/11/19 09:40 95 Nasal Cannula 01/11/19 08:20 80 140/60 01/11/19 06:00 98.0 15 Discharge Medications Scheduled Amiodarone HCl (Amiodarone HCl) 200 Mg Tablet, 200 MG PO BID, (Reported) Ascorbic Acid (Vitamin C) 500 Mg Tablet, 500 MG PO DAILY, (Reported) Aspirin (Aspirin EC) 81 Mg Tablet.dr, 81 MG PO DAILY, (Reported) Baclofen (Baclofen) 10 Mg Tab, 10 MG PO QHS, (Reported) Cyanocobalamin (Vitamin B-12) (B-12) 500 Mcg Tablet, 500 MCG PO BID, (Reported) Ezetimibe (Ezetimibe) 10 Mg Tab, 10 MG PO QHS, (Reported) Ferrous Gluconate (Ferrous Gluconate) 324 Mg Tablet, 324 MG PO BID, (Reported) Folic Acid (Folic Acid) 400 Mcg Tab, 400 MCG PO QHS, (Reported) Furosemide (Furosemide) 40 Mg Tablet, 40 MG PO BID, (Reported) Gabapentin (Gabapentin) 300 Mg Cap, 300 MG PO BID, (Reported) Magnesium Oxide (Magnesium Oxide) 250 Mg Tablet, 250 MG PO QHS, (Reported) Metformin HCl (Metformin HCl) 1,000 Mg Tab, 1,000 MG PO BID, (Reported) Metoprolol Tartrate (Metoprolol Tartrate) 25 Mg Tablet, 25 MG PO BID, (Reported) Multivitamin (Daily Octavia) 1 Each Tablet, 1 TAB PO DAILY, (Reported) Pantoprazole Sodium (Pantoprazole Sodium) 40 Mg Tab, 40 MG PO DAILY, (Reported) Potassium Chloride (Potassium Chloride) 10 Meq Tablet.er, 10 MEQ PO BID, (Reported) Rosuvastatin Calcium (Crestor) 20 Mg Tab, 20 MG PO QHS, (Reported) Sertraline Hcl (Sertraline HCl) 50 Mg Tab, 50 MG PO QPM, (Reported) Warfarin Sodium (Warfarin Sodium) 4 Mg Tablet, 4 MG PO DAILY for s/p AV replacement Scheduled PRN Docusate Sodium (Docusate Sodium) 100 Mg Capsule, 100 MG PO BID PRN for CONSTIPATION, (Reported) Hydrocodone/Acetaminophen (Hydrocodone-Acetamin 5-325 mg) 1 Each Tablet, 1 TAB PO Q4H PRN for PAIN, (Reported) Allergies Coded Allergies: No Known Allergies (Unverified , 06/27/18) ALFREDO SAVAGE MD Jan 15, 2019 09:43
== END 2019-01-11 14:03 | disposition home health service (06) | DRG 177 ==
LOC: M ED 09:12 → EDBD 09:12 → M ED INP 12:50 → M PCU 14:10 → M MSPAV 01-10 16:14
PROVIDERS: ADMIT Internal Medicine; ATTEND Hospitalist
PROC: 30233N1 Transfusion of Nonautologous Red Blood Cells into Peripheral Vein, Percutaneous Approach (ICD-10-PCS; principal; 2019-01-02)
PROC: 30233R1 Transfusion of Nonautologous Platelets into Peripheral Vein, Percutaneous Approach (ICD-10-PCS; 2019-01-02)
PROC: 30233K1 Transfusion of Nonautologous Frozen Plasma into Peripheral Vein, Percutaneous Approach (ICD-10-PCS; 2019-01-02)
PROC: 0W993ZZ Drainage of Right Pleural Cavity, Percutaneous Approach (ICD-10-PCS; 2019-01-04)
DX: J15.0 Pneumonia due to Klebsiella pneumoniae (principal); I50.33 Acute on chronic diastolic (congestive) heart failure; J90 Pleural effusion, not elsewhere classified; C92.10 Chronic myeloid leukemia, BCR/ABL-positive, not having achieved remission; I48.2 Chronic atrial fibrillation; D50.9 Iron deficiency anemia, unspecified; E78.5 Hyperlipidemia, unspecified; E11.51 Type 2 diabetes mellitus with diabetic peripheral angiopathy without gangrene; I11.0 Hypertensive heart disease with heart failure; I35.0 Nonrheumatic aortic (valve) stenosis; Z95.2 Presence of prosthetic heart valve; Z79.899 Other long term (current) drug therapy; Z79.82 Long term (current) use of aspirin; F41.9 Anxiety disorder, unspecified; F32.9 Major depressive disorder, single episode, unspecified; K21.9 Gastro-esophageal reflux disease without esophagitis; Z66 Do not resuscitate

== ENCOUNTER → 2019-02-17 | Outpatient (CLI) | payer MEDICARE, MEDICAID ==
[~2019-02-17] MED LIST changes: +AMIO200T PO; +ASPI81TA26 PO; +B-121TAB3 PO; +CYAN100049 PO; +DAILTAB51 PO; +DOCU100C17 PO; +FERR32TA PO; +FURO40TA2 PO; +HYDR-3713 PO; +MAGN250T6 PO; +METO1TAB87 PO; +POTA1TAB23 PO; -ROSU10TA5; +ROSU10TA6; -VITA10002 PO; +VITA500T9 PO; +WARF-20 PO; +WARF4TAB51 PO
--- NOTE | 2019-02-17 14:12 | REP ---
Clinical: Pleural effusion. Technique: Axial noncontrast images from the thoracic inlet to the upper abdomen with coronal and sagittal re-formations. Comparison: 12/31/2018. Findings: Posteromedial right lower lobe chest tube is identified. The bilateral lung martins demonstrate chronic interstitial changes and the previously noted pleural effusions and bibasilar consolidations/atelectasis have completely resolved. Minimal scattered scarring noted. Tracheobronchial tree is patent. No adenopathy. The mediastinum demonstrates atherosclerotic changes to the thoracic aorta and coronary arteries without aortic aneurysm. Mild cardiomegaly cannot be excluded. No pericardial effusion. Evidence of prior sternotomy, aortic valve repair and degenerative changes to the musculoskeletal structures. Impression: 1. Lung martins demonstrate chronic changes without acute process. Previously noted effusions and atelectasis/infiltrates have resolved. Electronically Signed by Gael Granados MD 02/17/2019 02:02 P
== END ==
LOC: M RAD 13:32
PROVIDERS: ATTEND Thoracic Surgery (Cardiothoracic Vascular Surgery)
DX: J90 Pleural effusion, not elsewhere classified (principal)

== ENCOUNTER → 2019-12-04 | Outpatient (CLI) | payer MEDICARE, MEDICAID ==
[~2019-12-04] MED LIST changes: +XANA0.25 PO
[2019-12-04 13:36] LABS: BASO % 0.1 % (0.0-1.0); EOS % 0.3 % (0.0-3.0); HEMATOCRIT 36.2 % (36.0-47.0); HEMOGLOBIN 11.3 g/dl (12.0-15.5); LYMPH % 13.4 % (24.0-44.0); MEAN CORPUSCULAR HEMOGLOBIN 25.4 pg (27.0-33.0); MEAN CORPUSCULAR HGB CONC 31.2 g/dl (32.0-36.5); MEAN CORPUSCULAR VOLUME 81.3 fl (80.0-96.0); MONO # 3.7 10^3/uL (0.0-0.8); MONO % 51.7 % (0.0-5.0); NEUTROPHILS # 2.4 10^3/uL (1.5-8.5); NEUTROPHILS % 33.5 % (36.0-66.0); RED BLOOD COUNT 4.45 10^6/uL (4.00-5.40); WHITE BLOOD COUNT 7.1 10^3/uL (4.0-10.0)
[2019-12-04 13:56] LABS: ALBUMIN 3.9 GM/DL (3.2-5.2); BILIRUBIN,TOTAL 0.7 MG/DL (0.2-1.0); CALCIUM LEVEL 9.1 MG/DL (8.8-10.2); CREATININE FOR GFR 1.44 MG/DL (0.55-1.30); GLOMERULAR FILTRATION RATE 37.2 (>32); POTASSIUM SERUM 4.8 MEQ/L (3.5-5.1); TOTAL PROTEIN 7.7 GM/DL (6.4-8.2)
[2019-12-04 14:10] LABS: PLATELET COUNT, AUTOMATED 90 10^3/uL (150-450)
== END ==
LOC: M WUC 11:36
PROVIDERS: ATTEND Internal Medicine Medical Oncology
DX: D69.6 Thrombocytopenia, unspecified (principal)

== ENCOUNTER → 2020-01-18 | Outpatient (CLI) | payer MEDICARE, MEDICAID ==
--- NOTE | 2020-01-18 09:24 | REP ---
Clinical: Abnormal liver function tests. Technique: Real time taylor scale and color Doppler evaluation using curved array transducer. Findings: Liver and visualized pancreas are normal in contour, size, echogenicity and vascularity. No focal hepatic or pancreatic lesion identified. Evidence of prior cholecystectomy. Spleen is normal in appearance, vascularity and size measuring 8.7 x 3.2 x 7.7 cm. No focal splenic lesion identified. Kidneys demonstrate age-related changes (right greater than left) without hydronephrosis. Right kidney measures 9.1 x 4.5 x 3.8 cm. Left kidney measures 10.6 x 4.8 x 5.5 cm. Atherosclerotic changes to the aorta noted. No ascites. Doppler interrogation of the portal and hepatic veins demonstrate normal wave patterns, velocities, and flow direction is. Hepatic artery is normal in appearance and velocity with resistive index of 0.77. Main portal vein: 13.3 mm diameter at 22.7 cm/sec. Impression: Normal complete abdominal ultrasound. Normal hepatic venous, arterial and portal vasculature. Electronically Signed by Gael Granados MD 01/18/2020 09:16 A
== END ==
LOC: M RAD 08:22
PROVIDERS: ATTEND Internal Medicine Medical Oncology
DX: D72.821 Monocytosis (symptomatic) (principal); R94.5 Abnormal results of liver function studies; I70.0 Atherosclerosis of aorta

== ENCOUNTER 2020-02-17 13:19 | Emergency (ER) | payer MEDICARE, MEDICAID, OTHER ==
[~2020-02-17 13:19] MED LIST changes: +ACETAMINOPHEN TAB 650MG DOSE (2X325MG) ONE; -AMIO200T PO; +AMIO200T3 PO; +AMLO1TAB24 PO; -AMLO5TAB6 PO; +LIDOCAINE 2% W/EPINEPHRINE 20ML VIAL **PRES FREE As Ordered ONE; +LIDOCAINE 2% W/EPINEPHRINE 20ML VIAL **PRES FREE ONE; +PANT40TA29 PO; -PANT40TA3 PO
[2020-02-17] MEDS ORDERED: ACETAMINOPHEN TAB 650MG DOSE (2X325MG) As Ordered ONE (13:31)
--- NOTE | 2020-04-10 09:49 | REP ---
LEFT HAND SERIES: 4-VIEWS HISTORY: Injury. This report was delayed due to a malware attack on this facility. FINDINGS: 4-views of the left hand demonstrate diffuse osteopenia. Vascular calcification is noted. There are mild osteoarthritic changes at the first carpometacarpal articulation and at PIP and DIP joints. No fracture or subluxation is seen. IMPRESSION: No acute bony abnormality. MTDD
== END 2020-02-17 15:00 | disposition home or self-care (01) ==
LOC: M ED 13:19
DX: S12.600A Unspecified displaced fracture of seventh cervical vertebra, initial encounter for closed fracture (principal); S02.2XXA Fracture of nasal bones, initial encounter for closed fracture; S60.222A Contusion of left hand, initial encounter; S01.01XA Laceration without foreign body of scalp, initial encounter; W01.198A Fall on same level from slipping, tripping and stumbling with subsequent striking against other object, initial encounter; Y92.511 Restaurant or cafe as the place of occurrence of the external cause; Y93.9 Activity, unspecified; Y99.9 Unspecified external cause status; M85.842 Other specified disorders of bone density and structure, left hand; Z98.1 Arthrodesis status; Z79.84 Long term (current) use of oral hypoglycemic drugs; Z79.899 Other long term (current) drug therapy

== ENCOUNTER → 2020-03-08 | Outpatient (CLI) | payer MEDICARE, MEDICAID ==
[~2020-03-08] MED LIST changes: -ACETAMINOPHEN TAB 650MG DOSE (2X325MG) ONE; -LIDOCAINE 2% W/EPINEPHRINE 20ML VIAL **PRES FREE As Ordered ONE; -LIDOCAINE 2% W/EPINEPHRINE 20ML VIAL **PRES FREE ONE
[2020-03-08 15:18] LABS: HEMATOCRIT 43.4 % (36.0-47.0); HEMOGLOBIN 13.5 g/dl (12.0-15.5); MEAN CORPUSCULAR HEMOGLOBIN 25.2 pg (27.0-33.0); MEAN CORPUSCULAR HGB CONC 31.1 g/dl (32.0-36.5); MEAN CORPUSCULAR VOLUME 81.1 fl (80.0-96.0); PLATELET COUNT, AUTOMATED 172 10^3/uL (150-450); RED BLOOD COUNT 5.35 10^6/uL (4.00-5.40); WHITE BLOOD COUNT 12.1 10^3/uL (4.0-10.0)
[2020-03-08 15:29] LABS: ALBUMIN 4.4 GM/DL (3.2-5.2); BILIRUBIN,DIRECT 0.2 MG/DL (0.0-0.2); BILIRUBIN,TOTAL 0.7 MG/DL (0.2-1.0); CALCIUM LEVEL 10.1 MG/DL (8.8-10.2); CREATININE FOR GFR 1.29 MG/DL (0.55-1.30); GLOMERULAR FILTRATION RATE 42.1 (>32); POTASSIUM SERUM 5.3 MEQ/L (3.5-5.1); TOTAL PROTEIN 8.8 GM/DL (6.4-8.2)
[2020-03-08 15:50] LABS: ERYTHROCYTE SEDIMENTATION RATE 43 mm/hr (0-30)
[2020-03-08 16:14] LABS: HEPATITIS A ANTIBODY IGM NEGATIVE (NEGATIVE); HEPATITIS B CORE ANTIBODY IGM NEGATIVE (NEGATIVE); HEPATITIS B SURFACE ANTIGEN NEGATIVE (NEGATIVE); HEPATITIS C VIRUS ABY INDEX 0.2 INDEX (<0.8)
== END ==
LOC: M PLALAB 10:43
PROVIDERS: ATTEND Internal Medicine Cardiovascular Disease
DX: D64.9 Anemia, unspecified (principal); Z11.59 Encounter for screening for other viral diseases

== ENCOUNTER → 2020-09-17 | Outpatient (CLI) | payer MEDICARE, MEDICAID ==
[~2020-09-17] MED LIST changes: +BACT800T5 PO; -FOLI400T PO; +FOLI400T13 PO; +GABA-282 PO; -GABA-843 PO; +LISI10TA22 PO; -LISI10TA4 PO; +METF500T13 PO
--- NOTE | 2020-09-17 11:19 | REP ---
INDICATION: H/O MONOCYTOSIS URINARY URGENCY. COMPARISON: None. TECHNIQUE: Real-time sonographic evaluation of urinary bladder performed. FINDINGS: The bladder measures 5.3 x 4.8 x 3.1 cm, total volume 78.9 cc. Patient states she cannot fill the bladder any further. No gross mass is seen. No bladder calculus is seen. There is no bladder wall thickening. There is no postvoid residual after voiding. Ureteral jets are seen in the urinary bladder with Doppler color evaluation. IMPRESSION: Suboptimal distention as discussed above. Otherwise essentially unremarkable bladder ultrasound. <Electronically signed by Madhu Everett > 09/17/20 [id number]
--- NOTE | 2020-09-17 11:20 | REP ---
INDICATION: H/O MONOCYTOSIS URINARY URGENCY. COMPARISON: None. TECHNIQUE: Real-time sonographic evaluation of the kidneys is performed. FINDINGS: Renal cortical echogenicity pattern is normal bilaterally and contours are smooth. There is no hydronephrosis bilaterally. There is a simple cyst in the mid right kidney 1.0 cm in diameter. No large calcifications are seen bilaterally. The right kidney measures 9.6 x 5.2 x 4.7 cm. Left renal dimensions are 9.7 x 4.5 x 5.1 cm. The urinary bladder is unremarkable. IMPRESSION: No hydronephrosis. There is a 1 cm cyst mid right kidney. <Electronically signed by Madhu Everett > 09/17/20 [id number]
--- NOTE | 2020-09-17 11:51 | REP ---
INDICATION: H/O MONOCYTOSIS URINARY URGANCY, US 1ST THEN XR COMPARISON: None. TECHNIQUE: AP, lateral, bilateral oblique, and coned-down views of the lumbar spine. FINDINGS: Generalized age-related osteopenia is appreciated without evidence for acute fracture/compression injury or subluxation. Endplate sclerosis, marginal spurring, disc space narrowing, and facet arthropathy primarily involves L4-5 and L5-S1. Atherosclerotic changes to the aorta and vasculature noted. IMPRESSION: Osteopenia and early advanced degenerative changes at L4-5 and L5-S1. <Electronically signed by Gael Granados > 09/17/20 [id number]
== END ==
LOC: M RAD 10:34
PROVIDERS: ATTEND Internal Medicine Medical Oncology
DX: D72.821 Monocytosis (symptomatic) (principal); R39.15 Urgency of urination

== ENCOUNTER → 2021-04-01 | Outpatient (CLI) | payer MEDICARE, MEDICAID ==
[2021-04-01 16:24] LABS: APPEARANCE, URINE CLEAR (CLEAR); BACTERIA, URINE AUTO NEGATIVE (NEGATIVE); BILIRUBIN, URINE AUTO NEGATIVE (NEGATIVE); BLOOD, URINE BLOOD NEGATIVE (NEGATIVE); COLOR, URINE YELLOW (YELLOW); GLUCOSE, URINE (UA) AUTO NEGATIVE (NEGATIVE); KETONE, URINE AUTO NEGATIVE (NEGATIVE); LEUKOCYTE ESTERASE, URINE AUTO NEGATIVE (NEGATIVE); MUCUS, URINE SMALL (NEGATIVE); NITRITE, URINE AUTO NEGATIVE (NEGATIVE); PROTEIN, URINE AUTO 2+ mg/dL (NEGATIVE); RBC, URINE AUTO 0 /HPF (0-3); SPECIFIC GRAVITY URINE AUTO 1.006 (1.002-1.035); SQUAMOUS EPITHELIAL CELL UR AU 0 /HPF (0-6); UROBILINOGEN, URINE AUTO 0.2 mg/dL (0.0-2.0); WBC, URINE AUTO 0 /HPF (0-3)
[2021-04-01 16:39] LABS: HEMATOCRIT 38.8 % (36.0-47.0); HEMOGLOBIN 12.4 g/dl (12.0-15.5); MEAN CORPUSCULAR HEMOGLOBIN 25.7 pg (27.0-33.0); MEAN CORPUSCULAR VOLUME 80.5 fl (80.0-96.0); PLATELET COUNT, AUTOMATED 110 10^3/uL (150-450); RED BLOOD COUNT 4.82 10^6/uL (4.00-5.40); WHITE BLOOD COUNT 9.4 10^3/uL (4.0-10.0)
[2021-04-01 16:58] LABS: ALBUMIN 4.3 GM/DL (3.2-5.2); BILIRUBIN,TOTAL 0.6 MG/DL (0.2-1.0); CALCIUM LEVEL 9.7 MG/DL (8.8-10.2); CHOLESTEROL RISK RATIO 5.375 (<5); CREATININE FOR GFR 1.54 MG/DL (0.55-1.30); GLOMERULAR FILTRATION RATE 34.2 (>32); POTASSIUM SERUM 3.8 MEQ/L (3.5-5.1); TOTAL PROTEIN 7.9 GM/DL (6.4-8.2)
[2021-04-01 19:38] LABS: HEMOGLOBIN A1c 5.5 %
== END ==
LOC: M LAB 14:53
PROVIDERS: ATTEND Internal Medicine Cardiovascular Disease
DX: E78.5 Hyperlipidemia, unspecified (principal); E11.65 Type 2 diabetes mellitus with hyperglycemia; D50.9 Iron deficiency anemia, unspecified

== ENCOUNTER → 2021-04-08 | Outpatient (CLI) | payer MEDICARE, MEDICAID ==
--- NOTE | 2021-04-08 12:00 | REP ---
INDICATION: SOB, ? FLUID ON LUNGS COMPARISON: Multiple the latest 02/17/2019 also without contrast TECHNIQUE: Standard helical technique without intravenous contrast administration. FINDINGS: The mediastinum and pulmonary olivia are stable. No mass or adenopathy has developed. There are no pleural or pericardial effusions. Stable appearing calcific atherosclerotic changes are seen in the thoracic aorta. The imaged upper abdomen is unchanged. There is an unchanged grade 3/4 T8 vertebral body compression fracture. Since the last examination a grade 4 T4 compression fracture has developed. That also represents a change compared to the CT of the thoracic spine 02/17/2020. Evaluation of the lung martins shows no new abnormal nodules, masses, or opacities. There is basilar fibrotic change status quo. There is a stable 5 mm sized nodule in the right middle lobe. IMPRESSION: 1. No new lung field findings as described above. 2. Thoracic spine compression fractures as described above. The age of the T4 compression fracture cannot be determined by this exam. <Electronically signed by Sidney Ross > 04/08/21 [id number]
== END ==
LOC: M PLAIMG 09:25
PROVIDERS: ATTEND Internal Medicine Cardiovascular Disease
DX: R06.02 Shortness of breath (principal); I50.20 Unspecified systolic (congestive) heart failure; I70.0 Atherosclerosis of aorta; M48.54XA Collapsed vertebra, not elsewhere classified, thoracic region, initial encounter for fracture

== ENCOUNTER → 2021-05-15 | Outpatient (CLI) | payer MEDICARE, MEDICAID ==
[~2021-05-15] MED LIST changes: +ATOR1TAB21; +HYDR-3910; +JANU100T; +K-TA10TA2 PO; +LABE200T32 PO; +LEVO100T5; +OZEM2INJ; +RANO500T7 PO; +TORS20TA2 PO; +VERI2.5T PO
--- NOTE | 2021-05-15 16:55 | REP ---
INDICATION: LEFT NECK LUMP. COMPARISON: None. TECHNIQUE: Real-time sonographic evaluation of the thyroid gland with Doppler FINDINGS: The right lobe of the thyroid gland measures 3.5 x 1.2 x 1.5 cm and the left lobe measures 3.8 x 1.3 x 1.4 cm. The isthmus measures 2 mm. In the left lobe of the thyroid gland there is a 1 cm sized solid nodule. Scanning the area of a palpable abnormality in the left lateral neck showed a submandibular gland which was mildly prominent and possibly with duct ectasia. IMPRESSION: 1. Solid nodule left lobe of the thyroid gland as described above. Follow-up is recommended. 2. Left submandibular gland as described above. The gold standard for imaging neck masses remains contrast-enhanced CT which should be considered for further evaluation. <Electronically signed by Sidney Ross > 05/15/21 [id number]
== END ==
LOC: M RAD 12:45
PROVIDERS: ATTEND Internal Medicine Medical Oncology
DX: E04.1 Nontoxic single thyroid nodule (principal); R22.1 Localized swelling, mass and lump, neck

== ENCOUNTER → 2021-05-15 | Outpatient (CLI) | payer MEDICARE, MEDICAID ==
[2021-05-15 13:50] LABS: HEMATOCRIT 34.8 % (36.0-47.0); HEMOGLOBIN 11.1 g/dl (12.0-15.5); MEAN CORPUSCULAR HEMOGLOBIN 25.5 pg (27.0-33.0); MEAN CORPUSCULAR HGB CONC 31.9 g/dl (32.0-36.5); MEAN CORPUSCULAR VOLUME 79.8 fl (80.0-96.0); RED BLOOD COUNT 4.36 10^6/uL (4.00-5.40); WHITE BLOOD COUNT 5.7 10^3/uL (4.0-10.0)
[2021-05-15 14:19] LABS: ALBUMIN 3.9 GM/DL (3.2-5.2); BILIRUBIN,TOTAL 0.5 MG/DL (0.2-1.0); CALCIUM LEVEL 9.1 MG/DL (8.8-10.2); CHOLESTEROL RISK RATIO 3.553 (<5); CREATININE FOR GFR 1.47 MG/DL (0.55-1.30); GLOMERULAR FILTRATION RATE 36.1 (>32); PLATELET COUNT, AUTOMATED 82 10^3/uL (150-450); POTASSIUM SERUM 3.9 MEQ/L (3.5-5.1); TOTAL PROTEIN 7.3 GM/DL (6.4-8.2)
[2021-05-15 14:44] LABS: HEMOGLOBIN A1c 5.6 %
== END ==
LOC: M LAB 12:49
PROVIDERS: ATTEND Internal Medicine Cardiovascular Disease
DX: E07.9 Disorder of thyroid, unspecified (principal); E11.9 Type 2 diabetes mellitus without complications

== ENCOUNTER → 2021-05-21 | Outpatient (CLI) | payer MEDICARE, MEDICAID ==
--- NOTE | 2021-05-21 15:13 | REPVR ---
PROCEDURE INFORMATION: Exam: CT Neck Without Contrast Exam date and time: 05/21/2021 2:23 PM Age: 81 years old Clinical indication: Mass, lump, or swelling in neck; Left; Additional info: Neck lump TECHNIQUE: Imaging protocol: Computed tomography images of the neck without contrast. Radiation optimization: All CT scans at this facility use at least one of these dose optimization techniques: automated exposure control; mA and/or kV adjustment per patient size (includes targeted exams where dose is matched to clinical indication); or iterative reconstruction. COMPARISON: Thyroid, ST head+neck US 05/15/2021 12:58 PM The report from the previous exam was not immediately available. FINDINGS: Limitations: Evaluation of the neck is limited without IV contrast. Nasopharynx: Unremarkable. Oropharynx: Unremarkable. No significant tonsillar enlargement. Hypopharynx: Unremarkable. Larynx: Unremarkable. Normal epiglottis. Retropharyngeal space: Unremarkable. Submandibular/Parotid glands: A skin marker is present over the left submandibular gland. The gland appears unremarkable. No surrounding inflammation is seen. The right submandibular gland and bilateral parotid glands also appear within normal limits. Thyroid: Normal. No enlarged or calcified nodules. Lymph nodes: Unremarkable. No lymphadenopathy. Trachea: Visualized trachea is unremarkable. Lungs: Unremarkable as visualized. Bones/joints: The patient is status post sternotomy. Bone mineralization is decreased, suggestive of osteoporosis. A chronic appearing T4 compression fracture is present. There is moderate/severe T4 vertebral body height loss. Vasculature: Significant calcified plaque is noted in the aortic arch. Numerous surgical clips are seen near the proximal left common carotid artery. Atherosclerotic calcifications are present at the left carotid bifurcation and within the proximal left internal carotid artery. A right carotid endarterectomy has likely been performed. Soft tissues: Unremarkable. No significant soft tissue swelling. IMPRESSION: 1. Evaluation of the neck is limited without IV contrast. 2. No acute abnormality. 3. Chronic findings as discussed above. Electronically signed by: eLw Schafer On 05/21/2021 15:12:55 PM
== END ==
LOC: M RAD 14:06
PROVIDERS: ATTEND Internal Medicine Medical Oncology
DX: R22.1 Localized swelling, mass and lump, neck (principal)

== ENCOUNTER 2021-05-30 08:27 | Outpatient (CLI) | payer MEDICARE, MEDICAID ==
[~2021-05-30] VITALS: Ht 144.8 cm; Wt 52.0 kg
[~2021-05-30 08:27] MED LIST changes: +ALBUTEROL 90 MCG/ACT 8GM HFA INHALER INH PRN; +ALBUTEROL SULFATE 2.5 MG/0.5 ML INH NEB SOLN INH PRN; +EPINEPHrine INJ 1 MG/ML 1ML AMP IM PRN; +NS 1,000 ML IV SCH; +diphenhydrAMINE 50MG/ML VIAL (J1200) IV PRN; +methylPREDNISolone 125MG 2ML VIAL IV PRN
[2021-05-30] MEDS ORDERED: CASIRIVIMAB (REGN10933) 600 MG, IMDEVIMAB (REGN10987) 600 MG in NS 250 ML IV ONE (09:00)
[2021-05-30 09:50] VITALS: BP 142/65
[2021-05-30 10:20] VITALS: BP 134/60
[2021-05-30 10:50] VITALS: BP 151/65
[2021-05-30 11:50] VITALS: BP 137/64
== END 2021-05-30 11:50 | disposition home or self-care (01) ==
LOC: M OPCLI4PR 08:27
PROVIDERS: ATTEND Internal Medicine Cardiovascular Disease
DX: U07.1 COVID-19 (principal)

== ENCOUNTER 2021-06-25 10:20 | Emergency (ER) | payer MEDICARE, MEDICAID ==
[~2021-06-25] VITALS: Ht 142.2 cm; Wt 72.7 kg
[~2021-06-25 10:20] MED LIST changes: -ALBUTEROL 90 MCG/ACT 8GM HFA INHALER INH PRN; -ALBUTEROL SULFATE 2.5 MG/0.5 ML INH NEB SOLN INH PRN; -AMIO200T3 PO; +AMIO200T49 PO; -EPINEPHrine INJ 1 MG/ML 1ML AMP IM PRN; -NS 1,000 ML IV SCH; -diphenhydrAMINE 50MG/ML VIAL (J1200) IV PRN; -methylPREDNISolone 125MG 2ML VIAL IV PRN
[2021-06-25 15:27] VITALS: BP 138/76
== END 2021-06-25 15:42 | disposition home or self-care (01) ==
LOC: M ED 10:20
DX: S93.402A Sprain of unspecified ligament of left ankle, initial encounter (principal); M25.562 Pain in left knee; W19.XXXA Unspecified fall, initial encounter; Y92.009 Unspecified place in unspecified non-institutional (private) residence as the place of occurrence of the external cause; Y93.89 Activity, other specified; Y99.9 Unspecified external cause status; Z85.6 Personal history of leukemia; J45.909 Unspecified asthma, uncomplicated; F41.9 Anxiety disorder, unspecified; I50.9 Heart failure, unspecified; I10 Essential (primary) hypertension; E78.5 Hyperlipidemia, unspecified; Z79.899 Other long term (current) drug therapy

== ENCOUNTER → 2021-07-16 | Outpatient (CLI) | payer MEDICARE, MEDICAID ==
[~2021-07-16] MED LIST changes: +AMIO200T3 PO; -AMIO200T49 PO
--- NOTE | 2021-07-16 12:13 | REP ---
INDICATION: SPRAIN OF LT KNEE R/O FX. COMPARISON: None. TECHNIQUE: 2 x 2 mm increments using helical technique and reconstructed in both sagittal and coronal planes. 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 No gross fracture, dislocation, or subluxation is identified. There is no gross joint effusion. The femoral and tibial components of the arthroplasty appear well seated and well approximated. The alignment appears near anatomical. IMPRESSION: Findings and limitations as described above. No definite evidence of an acute abnormality is identified. If loosening is of clinical concern then a triple phase bone scan would be in order. <Electronically signed by Sidney Ross > 07/16/21 [id number]
== END ==
LOC: M PLAIMG 11:17
PROVIDERS: ATTEND Physician Assistant Surgical
DX: S83.92XA Sprain of unspecified site of left knee, initial encounter (principal); Y99.8 Other external cause status; Y93.89 Activity, other specified; Y92.89 Other specified places as the place of occurrence of the external cause; X58.XXXA Exposure to other specified factors, initial encounter

== ENCOUNTER 2021-10-03 01:12 | Inpatient (IN) | payer MEDICARE, MEDICAID ==
[~2021-10-03] VITALS: Ht 144.8 cm; Wt 50.0 kg
[~2021-10-03 01:12] MED LIST changes: -AMIO200T3 PO; +AMIO200T49 PO; -ATOR1TAB21; +ATOR1TAB21 PO; -HYDR-3910; +HYDR-3910 PO; +LABE200T3 PO; -LABE200T32 PO; -LEVO100T5; +LEVO100T5 PO; -OZEM2INJ; +OZEM2INJ SC
[2021-10-03 02:33] LABS: BASO % 0.2 % (0.0-1.0); EOS % 0.2 % (0.0-3.0); HEMATOCRIT 34.7 % (36.0-47.0); HEMOGLOBIN 11.1 g/dl (12.0-15.5); LYMPH # 0.8 10^3/uL (1.5-5.0); MEAN CORPUSCULAR HEMOGLOBIN 25.8 pg (27.0-33.0); MEAN CORPUSCULAR VOLUME 80.5 fl (80.0-96.0); MONO % 40.5 % (2.0-8.0); NEUTROPHILS # 6.8 10^3/uL (1.5-8.5); NEUTROPHILS % 51.9 % (36.0-66.0); PLATELET COUNT, AUTOMATED 115 10^3/uL (150-450); RED BLOOD COUNT 4.31 10^6/uL (4.00-5.40); WHITE BLOOD COUNT 13.2 10^3/uL (4.0-10.0)
[2021-10-03 02:55] LABS: CALCIUM LEVEL 8.9 MG/DL (8.8-10.2); CREATININE FOR GFR 1.37 MG/DL (0.55-1.30); GLOMERULAR FILTRATION RATE 39.2 (>32); POTASSIUM SERUM 3.8 MEQ/L (3.5-5.1)
[2021-10-03 02:58] LABS: MONO # 5.3 10^3/uL (0.0-0.8)
[2021-10-03 03:01] LABS: MB/CK RELATIVE INDEX 2.9 (< OR =4)
[2021-10-03 04:48] LABS: CK-MB VALUE MASS 1.7 NG/ML (<3.6); MB/CK RELATIVE INDEX 2.43 (< OR =4)
[2021-10-03] MEDS ORDERED: ISOVUE-370 76% 100ML VIAL As Ordered ONE (05:46)
[2021-10-03] MEDS: LEVOTHYROXINE 100MCG TABLET (0.1MG) PO SCH (06:00)
[2021-10-03] MEDS ORDERED: AZITHROMYCIN 250MG TABLET PO ONE (06:50)
[2021-10-03] MEDS ORDERED: cefTRIAXone SOD 1 GM in D5W MINI-BAG PLUS 50 ML IV ONE (06:50)
[2021-10-03 08:17] LABS: RSV AMPLIFICATION NEGATIVE (NEGATIVE)
[2021-10-03] MEDS ORDERED: FOLI1TAB11 PO (08:29)
[2021-10-03] MEDS ORDERED: ESTR0.1C5 VG (08:38)
[2021-10-03] MEDS ORDERED: AMLO1TAB24 PO (08:38)
[2021-10-03] MEDS ORDERED: HOME MED LIST COMPLETE! XX SCH (08:40)
[2021-10-03] MEDS ORDERED: ACETAMINOPHEN TAB 650MG DOSE (2X325MG) PO PRN (09:50)
[2021-10-03] MEDS ORDERED: MOM 30ML SUSPENSION UDC PO PRN (09:50)
[2021-10-03] MEDS ORDERED: IPRATROPIUM 0.5MG/ALBUTEROL 2.5MG INH SOL UD 3ML (DUONEB) INH PRN (09:50)
[2021-10-03] MEDS: ASCORBIC ACID 500 MG TAB PO SCH (11:53)
[2021-10-03] MEDS: MAGNESIUM OXIDE 400MG TAB (MAG-OX) PO SCH (11:53)
[2021-10-03] MEDS: PANTOPRAZOLE 40MG TAB (PROTONIX) PO SCH (11:53)
[2021-10-03] MEDS: HEPARIN SOD (PORCINE) 5000UNITS/ML 1ML VIAL/SYRINGE SC SCH ×2 (11:53→21:38)
[2021-10-03] MEDS: MULTIVITAMINS/MINERALS THERAP 1 TAB PO SCH (11:53)
[2021-10-03] MEDS: FOLIC ACID 1 MG TAB PO SCH (11:54)
[2021-10-03] MEDS: FERROUS GLUCONATE 324 MG TAB PO SCH (11:54)
[2021-10-03] MEDS: **hydrALAZINE HCL** 25 MG TAB PO SCH ×4 (12:01→21:34)
[2021-10-03] MEDS: LABETALOL 200 MG TAB PO SCH ×2 (12:01→21:33)
[2021-10-03 12:44] VITALS: BP 129/62
[2021-10-03 14:00] VITALS: BP 135/63
[2021-10-03] MEDS: cefTRIAXone SOD 2 GM in D5W MINI-BAG PLUS 50 ML IV SCH (18:15)
[2021-10-03] MEDS: SERTRALINE HCL 25 MG TABLET PO SCH (21:31)
[2021-10-03] MEDS: ATORVASTATIN 20 MG TAB PO SCH (21:31)
[2021-10-03] MEDS: EZETIMIBE 10MG TABLET (ZETIA) PO SCH (21:32)
[2021-10-03] MEDS: RANOLAZINE 500 MG ER TAB PO SCH (21:33)
[2021-10-03] MEDS: POTASSIUM CHLORIDE 10MEQ SR TABLET PO SCH (21:33)
[2021-10-03] MEDS: GABAPENTIN 300 MG CAP PO SCH (21:33)
[2021-10-03] MEDS: CYANOCOBALAMIN 500 MCG TAB PO SCH (21:33)
[2021-10-03] MEDS: amLODIPine 5 MG TAB PO SCH (21:33)
[2021-10-03] MEDS: ESTROGENS VAGINAL CREAM 30GM TOP SCH (21:38)
[2021-10-03 22:00] VITALS: BP 145/57
[2021-10-04] MEDS: LEVOTHYROXINE 100MCG TABLET (0.1MG) PO SCH (05:51)
[2021-10-04 06:00] VITALS: BP 148/60
[2021-10-04 06:21] LABS: HEMATOCRIT 30.4 % (36.0-47.0); HEMOGLOBIN 9.8 g/dl (12.0-15.5); MEAN CORPUSCULAR HEMOGLOBIN 26.3 pg (27.0-33.0); MEAN CORPUSCULAR HGB CONC 32.2 g/dl (32.0-36.5); MEAN CORPUSCULAR VOLUME 81.7 fl (80.0-96.0); RED BLOOD COUNT 3.72 10^6/uL (4.00-5.40); WHITE BLOOD COUNT 11.4 10^3/uL (4.0-10.0)
[2021-10-04 06:23] LABS: PLATELET COUNT, AUTOMATED 97 10^3/uL (150-450)
[2021-10-04 06:43] LABS: CALCIUM LEVEL 8.5 MG/DL (8.8-10.2); CREATININE FOR GFR 1.25 MG/DL (0.55-1.30); GLOMERULAR FILTRATION RATE 43.6 (>32); MAGNESIUM LEVEL 2.3 MG/DL (1.8-2.4); POTASSIUM SERUM 3.5 MEQ/L (3.5-5.1)
[2021-10-04] MEDS: AZITHROMYCIN INJ 500 MG, VIAL MATE ADAPTER 1 EACH in NS 250 ML IV SCH (08:37)
[2021-10-04] MEDS: FOLIC ACID 1 MG TAB PO SCH (08:41)
[2021-10-04] MEDS: MULTIVITAMINS/MINERALS THERAP 1 TAB PO SCH (08:41)
[2021-10-04] MEDS: PANTOPRAZOLE 40MG TAB (PROTONIX) PO SCH (08:41)
[2021-10-04] MEDS: FERROUS GLUCONATE 324 MG TAB PO SCH (08:41)
[2021-10-04] MEDS: MAGNESIUM OXIDE 400MG TAB (MAG-OX) PO SCH (08:41)
[2021-10-04] MEDS: POTASSIUM CHLORIDE 10MEQ SR TABLET PO SCH ×2 (08:41→21:14)
[2021-10-04] MEDS: ASCORBIC ACID 500 MG TAB PO SCH (08:41)
[2021-10-04] MEDS: **hydrALAZINE HCL** 25 MG TAB PO SCH ×3 (08:42→21:16)
[2021-10-04] MEDS: HEPARIN SOD (PORCINE) 5000UNITS/ML 1ML VIAL/SYRINGE SC SCH (08:43)
[2021-10-04] MEDS ORDERED: FUROSEMIDE 40MG/4ML VIAL (J1940) IV ONE (08:45)
[2021-10-04] MEDS: LABETALOL 200 MG TAB PO SCH ×2 (09:01→21:16)
[2021-10-04 14:00] VITALS: BP 147/61
[2021-10-04 15:06] LABS: MYCOPLASMA PNEUMONIAE IgG 186 U/mL (0-99); MYCOPLASMA PNEUMONIAE IgM <770 U/mL (0-769)
[2021-10-04] MEDS: DOCUSATE SODIUM 100MG CAPSULE PO PRN (18:18)
[2021-10-04] MEDS: cefTRIAXone SOD 2 GM in D5W MINI-BAG PLUS 50 ML IV SCH (18:19)
[2021-10-04] MEDS: RANOLAZINE 500 MG ER TAB PO SCH (21:14)
[2021-10-04] MEDS: GABAPENTIN 300 MG CAP PO SCH (21:14)
[2021-10-04] MEDS: ATORVASTATIN 20 MG TAB PO SCH (21:14)
[2021-10-04] MEDS: EZETIMIBE 10MG TABLET (ZETIA) PO SCH (21:15)
[2021-10-04] MEDS: SERTRALINE HCL 25 MG TABLET PO SCH (21:15)
[2021-10-04] MEDS: amLODIPine 5 MG TAB PO SCH (21:16)
[2021-10-04] MEDS: CYANOCOBALAMIN 500 MCG TAB PO SCH (21:16)
[2021-10-04] MEDS: ESTROGENS VAGINAL CREAM 30GM TOP SCH (21:17)
[2021-10-04 22:00] VITALS: BP 147/60
[2021-10-05] MEDS: LEVOTHYROXINE 100MCG TABLET (0.1MG) PO SCH (05:42)
[2021-10-05 06:00] VITALS: BP 132/57
[2021-10-05 06:52] LABS: HEMATOCRIT 30.3 % (36.0-47.0); HEMOGLOBIN 9.9 g/dl (12.0-15.5); MEAN CORPUSCULAR HEMOGLOBIN 26.5 pg (27.0-33.0); MEAN CORPUSCULAR HGB CONC 32.7 g/dl (32.0-36.5); MEAN CORPUSCULAR VOLUME 81.2 fl (80.0-96.0); PLATELET COUNT, AUTOMATED 102 10^3/uL (150-450); RED BLOOD COUNT 3.73 10^6/uL (4.00-5.40); WHITE BLOOD COUNT 8.8 10^3/uL (4.0-10.0)
[2021-10-05 07:01] LABS: INR 0.9; PROTHROMBIN TIME 12.6 SECONDS (12.7-14.5)
[2021-10-05 07:02] LABS: PARTIAL THROMBOPLASTIN TIME 29.5 SECONDS (25.9-37.0)
[2021-10-05 07:20] LABS: CALCIUM LEVEL 8.6 MG/DL (8.8-10.2); CREATININE FOR GFR 1.3 MG/DL (0.55-1.30); GLOMERULAR FILTRATION RATE 41.6 (>32); POTASSIUM SERUM 3.5 MEQ/L (3.5-5.1)
[2021-10-05] MEDS: FERROUS GLUCONATE 324 MG TAB PO SCH (08:33)
[2021-10-05] MEDS: AZITHROMYCIN INJ 500 MG, VIAL MATE ADAPTER 1 EACH in NS 250 ML IV SCH (08:33)
[2021-10-05] MEDS: MAGNESIUM OXIDE 400MG TAB (MAG-OX) PO SCH (08:34)
[2021-10-05] MEDS: **hydrALAZINE HCL** 25 MG TAB PO SCH ×3 (08:34→20:25)
[2021-10-05] MEDS: POTASSIUM CHLORIDE 10MEQ SR TABLET PO SCH ×2 (08:34→20:25)
[2021-10-05] MEDS: LABETALOL 200 MG TAB PO SCH ×2 (08:34→20:24)
[2021-10-05] MEDS: MULTIVITAMINS/MINERALS THERAP 1 TAB PO SCH (08:34)
[2021-10-05] MEDS: ASCORBIC ACID 500 MG TAB PO SCH (08:34)
[2021-10-05] MEDS: FOLIC ACID 1 MG TAB PO SCH (08:34)
[2021-10-05] MEDS: PANTOPRAZOLE 40MG TAB (PROTONIX) PO SCH (08:34)
[2021-10-05 14:00] VITALS: BP 135/60
[2021-10-05] MEDS: cefTRIAXone SOD 2 GM in D5W MINI-BAG PLUS 50 ML IV SCH (18:23)
[2021-10-05] MEDS ORDERED: CETIRIZINE (ZyrTEC) 10 MG TAB PO ONE (19:55)
[2021-10-05] MEDS: SERTRALINE HCL 25 MG TABLET PO SCH (20:24)
[2021-10-05] MEDS: amLODIPine 5 MG TAB PO SCH (20:24)
[2021-10-05] MEDS: EZETIMIBE 10MG TABLET (ZETIA) PO SCH (20:25)
[2021-10-05] MEDS: GABAPENTIN 300 MG CAP PO SCH (20:25)
[2021-10-05] MEDS: CYANOCOBALAMIN 500 MCG TAB PO SCH (20:25)
[2021-10-05] MEDS: ATORVASTATIN 20 MG TAB PO SCH (20:25)
[2021-10-05] MEDS: ESTROGENS VAGINAL CREAM 30GM TOP SCH (20:26)
[2021-10-05] MEDS: RANOLAZINE 500 MG ER TAB PO SCH (20:26)
[2021-10-05 22:00] VITALS: BP 158/69
[2021-10-06] MEDS: LEVOTHYROXINE 100MCG TABLET (0.1MG) PO SCH (05:17)
[2021-10-06 06:00] VITALS: BP 133/77
[2021-10-06 06:39] LABS: HEMATOCRIT 31.2 % (36.0-47.0); HEMOGLOBIN 9.9 g/dl (12.0-15.5); MEAN CORPUSCULAR HEMOGLOBIN 26.1 pg (27.0-33.0); MEAN CORPUSCULAR HGB CONC 31.7 g/dl (32.0-36.5); MEAN CORPUSCULAR VOLUME 82.1 fl (80.0-96.0); PLATELET COUNT, AUTOMATED 109 10^3/uL (150-450); WHITE BLOOD COUNT 9.8 10^3/uL (4.0-10.0)
[2021-10-06 07:12] LABS: CALCIUM LEVEL 8.8 MG/DL (8.8-10.2); CREATININE FOR GFR 1.21 MG/DL (0.55-1.30); GLOMERULAR FILTRATION RATE 45.2 (>32); POTASSIUM SERUM 3.8 MEQ/L (3.5-5.1)
[2021-10-06] MEDS: AZITHROMYCIN INJ 500 MG, VIAL MATE ADAPTER 1 EACH in NS 250 ML IV SCH (08:20)
[2021-10-06] MEDS: MAGNESIUM OXIDE 400MG TAB (MAG-OX) PO SCH (08:21)
[2021-10-06] MEDS: POTASSIUM CHLORIDE 10MEQ SR TABLET PO SCH ×2 (08:21→20:54)
[2021-10-06] MEDS: FOLIC ACID 1 MG TAB PO SCH (08:21)
[2021-10-06] MEDS: MULTIVITAMINS/MINERALS THERAP 1 TAB PO SCH (08:21)
[2021-10-06] MEDS: ASCORBIC ACID 500 MG TAB PO SCH (08:21)
[2021-10-06] MEDS: PANTOPRAZOLE 40MG TAB (PROTONIX) PO SCH (08:21)
[2021-10-06] MEDS: FERROUS GLUCONATE 324 MG TAB PO SCH (08:21)
[2021-10-06] MEDS: LABETALOL 200 MG TAB PO SCH ×2 (08:22→20:53)
[2021-10-06] MEDS: **hydrALAZINE HCL** 25 MG TAB PO SCH ×3 (08:22→20:53)
[2021-10-06] MEDS ORDERED: FURO40TA2 PO (08:37)
[2021-10-06 14:00] VITALS: BP_SYST 124; BP_SYST 139; BP_DIAS 67; BP_DIAS 76
[2021-10-06] MEDS: DOCUSATE SODIUM 100MG CAPSULE PO PRN (16:34)
[2021-10-06] MEDS: FUROSEMIDE 40 MG TAB PO SCH (18:19)
[2021-10-06 18:49] VITALS: BP 142/63
[2021-10-06] MEDS: ATORVASTATIN 20 MG TAB PO SCH (20:51)
[2021-10-06] MEDS: SERTRALINE HCL 25 MG TABLET PO SCH (20:51)
[2021-10-06] MEDS: amLODIPine 5 MG TAB PO SCH (20:52)
[2021-10-06] MEDS: RANOLAZINE 500 MG ER TAB PO SCH (20:53)
[2021-10-06] MEDS: CYANOCOBALAMIN 500 MCG TAB PO SCH (20:53)
[2021-10-06] MEDS: GABAPENTIN 300 MG CAP PO SCH (20:53)
[2021-10-06] MEDS: CEFDINIR 300 MG CAP (OMNICEF) PO SCH (20:54)
[2021-10-06] MEDS: ESTROGENS VAGINAL CREAM 30GM TOP SCH (20:54)
[2021-10-06] MEDS: EZETIMIBE 10MG TABLET (ZETIA) PO SCH (20:54)
[2021-10-07] MEDS: LEVOTHYROXINE 100MCG TABLET (0.1MG) PO SCH (05:41)
[2021-10-07 06:00] VITALS: BP 149/74
[2021-10-07 07:07] LABS: HEMATOCRIT 29.1 % (36.0-47.0); HEMOGLOBIN 9.3 g/dl (12.0-15.5); MEAN CORPUSCULAR HEMOGLOBIN 26.3 pg (27.0-33.0); MEAN CORPUSCULAR VOLUME 82.2 fl (80.0-96.0); PLATELET COUNT, AUTOMATED 109 10^3/uL (150-450); RED BLOOD COUNT 3.54 10^6/uL (4.00-5.40); WHITE BLOOD COUNT 8.5 10^3/uL (4.0-10.0)
[2021-10-07 07:29] LABS: CALCIUM LEVEL 8.3 MG/DL (8.8-10.2); CREATININE FOR GFR 1.25 MG/DL (0.55-1.30); GLOMERULAR FILTRATION RATE 43.6 (>32); POTASSIUM SERUM 3.8 MEQ/L (3.5-5.1)
[2021-10-07] MEDS: FERROUS GLUCONATE 324 MG TAB PO SCH (09:56)
[2021-10-07] MEDS: PANTOPRAZOLE 40MG TAB (PROTONIX) PO SCH (09:56)
[2021-10-07] MEDS: LABETALOL 200 MG TAB PO SCH ×2 (09:57→20:30)
[2021-10-07] MEDS: FUROSEMIDE 40 MG TAB PO SCH ×2 (09:58→16:40)
[2021-10-07] MEDS: POTASSIUM CHLORIDE 10MEQ SR TABLET PO SCH ×2 (09:58→20:31)
[2021-10-07] MEDS: AZITHROMYCIN 250MG TABLET PO SCH (09:58)
[2021-10-07] MEDS: FOLIC ACID 1 MG TAB PO SCH (09:58)
[2021-10-07] MEDS: MAGNESIUM OXIDE 400MG TAB (MAG-OX) PO SCH (09:59)
[2021-10-07] MEDS: ASCORBIC ACID 500 MG TAB PO SCH (09:59)
[2021-10-07] MEDS: MULTIVITAMINS/MINERALS THERAP 1 TAB PO SCH (09:59)
[2021-10-07] MEDS: **hydrALAZINE HCL** 25 MG TAB PO SCH ×3 (09:59→20:31)
[2021-10-07 14:00] VITALS: BP 147/69
[2021-10-07 17:09] LABS: BODY FLUID CULTURE Not indicated. (.); LEGIONELLA ANTIGEN URINE Negative (Negative); ORGANISM ID Not indicated. (.); SPECIMEN SOURCE Urine (.); URINE STREP PNEUMONIAE ANTIGEN Negative (Negative)
[2021-10-07] MEDS: RANOLAZINE 500 MG ER TAB PO SCH (20:31)
[2021-10-07] MEDS: SERTRALINE HCL 25 MG TABLET PO SCH (20:31)
[2021-10-07] MEDS: ATORVASTATIN 20 MG TAB PO SCH (20:31)
[2021-10-07] MEDS: GABAPENTIN 300 MG CAP PO SCH (20:31)
[2021-10-07] MEDS: EZETIMIBE 10MG TABLET (ZETIA) PO SCH (20:31)
[2021-10-07] MEDS: amLODIPine 5 MG TAB PO SCH (20:31)
[2021-10-07] MEDS: CYANOCOBALAMIN 500 MCG TAB PO SCH (20:32)
[2021-10-07] MEDS: CEFDINIR 300 MG CAP (OMNICEF) PO SCH (20:32)
[2021-10-07] MEDS: ESTROGENS VAGINAL CREAM 30GM TOP SCH (20:32)
[2021-10-07 22:00] VITALS: BP 152/54
[2021-10-08] MEDS: LEVOTHYROXINE 100MCG TABLET (0.1MG) PO SCH (05:32)
[2021-10-08 06:00] VITALS: BP 137/49
[2021-10-08 07:27] LABS: HEMATOCRIT 28.1 % (36.0-47.0); HEMOGLOBIN 9.1 g/dl (12.0-15.5); MEAN CORPUSCULAR HEMOGLOBIN 26.4 pg (27.0-33.0); MEAN CORPUSCULAR HGB CONC 32.4 g/dl (32.0-36.5); MEAN CORPUSCULAR VOLUME 81.4 fl (80.0-96.0); PLATELET COUNT, AUTOMATED 115 10^3/uL (150-450); RED BLOOD COUNT 3.45 10^6/uL (4.00-5.40); WHITE BLOOD COUNT 8.2 10^3/uL (4.0-10.0)
[2021-10-08 07:50] LABS: CALCIUM LEVEL 8.7 MG/DL (8.8-10.2); CREATININE FOR GFR 1.35 MG/DL (0.55-1.30); GLOMERULAR FILTRATION RATE 39.9 (>32); POTASSIUM SERUM 3.4 MEQ/L (3.5-5.1)
[2021-10-08] MEDS ORDERED: POTASSIUM CHLORIDE 10MEQ SR TABLET PO ONE (09:05)
[2021-10-08] MEDS: DOCUSATE SODIUM 100MG CAPSULE PO PRN (10:31)
[2021-10-08] MEDS: MULTIVITAMINS/MINERALS THERAP 1 TAB PO SCH (10:32)
[2021-10-08] MEDS: MAGNESIUM OXIDE 400MG TAB (MAG-OX) PO SCH (10:32)
[2021-10-08] MEDS: PANTOPRAZOLE 40MG TAB (PROTONIX) PO SCH (10:32)
[2021-10-08] MEDS: FERROUS GLUCONATE 324 MG TAB PO SCH (10:32)
[2021-10-08] MEDS: FOLIC ACID 1 MG TAB PO SCH (10:32)
[2021-10-08] MEDS: FUROSEMIDE 40 MG TAB PO SCH ×2 (10:32→16:00)
[2021-10-08] MEDS: AZITHROMYCIN 250MG TABLET PO SCH (10:32)
[2021-10-08] MEDS: **hydrALAZINE HCL** 25 MG TAB PO SCH ×3 (10:34→21:53)
[2021-10-08] MEDS: ASCORBIC ACID 500 MG TAB PO SCH (10:35)
[2021-10-08] MEDS: POTASSIUM CHLORIDE 10MEQ SR TABLET PO SCH ×2 (10:43→21:52)
[2021-10-08] MEDS: LABETALOL 200 MG TAB PO SCH ×2 (10:44→21:52)
[2021-10-08 12:00] VITALS: BP 159/59
[2021-10-08 14:00] VITALS: BP 153/57
[2021-10-08] MEDS: CYANOCOBALAMIN 500 MCG TAB PO SCH (21:49)
[2021-10-08] MEDS: amLODIPine 5 MG TAB PO SCH (21:50)
[2021-10-08] MEDS: GABAPENTIN 300 MG CAP PO SCH (21:51)
[2021-10-08] MEDS: EZETIMIBE 10MG TABLET (ZETIA) PO SCH (21:52)
[2021-10-08] MEDS: CEFDINIR 300 MG CAP (OMNICEF) PO SCH (21:52)
[2021-10-08] MEDS: ATORVASTATIN 20 MG TAB PO SCH (21:52)
[2021-10-08] MEDS: SERTRALINE HCL 25 MG TABLET PO SCH (21:53)
[2021-10-08] MEDS: ESTROGENS VAGINAL CREAM 30GM TOP SCH (21:53)
[2021-10-08] MEDS: RANOLAZINE 500 MG ER TAB PO SCH (21:54)
[2021-10-08 22:00] VITALS: BP 142/60
[2021-10-09] VITALS (10 sets, daily range): BP systolic 129–155; BP diastolic 47–54; O2SAT 88–96
[2021-10-09] MEDS: LEVOTHYROXINE 100MCG TABLET (0.1MG) PO SCH (05:38)
[2021-10-09] MEDS: **hydrALAZINE HCL** 25 MG TAB PO SCH ×3 (09:37→20:44)
[2021-10-09] MEDS: ASCORBIC ACID 500 MG TAB PO SCH (09:37)
[2021-10-09] MEDS: FERROUS GLUCONATE 324 MG TAB PO SCH (09:37)
[2021-10-09] MEDS: LABETALOL 200 MG TAB PO SCH ×2 (09:37→20:44)
[2021-10-09] MEDS: MULTIVITAMINS/MINERALS THERAP 1 TAB PO SCH (09:37)
[2021-10-09] MEDS: PANTOPRAZOLE 40MG TAB (PROTONIX) PO SCH (09:37)
[2021-10-09] MEDS: AZITHROMYCIN 250MG TABLET PO SCH (09:37)
[2021-10-09] MEDS: MAGNESIUM OXIDE 400MG TAB (MAG-OX) PO SCH (09:37)
[2021-10-09] MEDS: FOLIC ACID 1 MG TAB PO SCH (09:38)
[2021-10-09] MEDS: POTASSIUM CHLORIDE 10MEQ SR TABLET PO SCH ×2 (09:38→20:43)
[2021-10-09] MEDS: FUROSEMIDE 40 MG TAB PO SCH ×2 (09:38→16:44)
[2021-10-09 11:26] LABS: HEMATOCRIT 32.1 % (36.0-47.0); HEMOGLOBIN 10.3 g/dl (12.0-15.5); MEAN CORPUSCULAR HEMOGLOBIN 26.1 pg (27.0-33.0); MEAN CORPUSCULAR HGB CONC 32.1 g/dl (32.0-36.5); MEAN CORPUSCULAR VOLUME 81.3 fl (80.0-96.0); PLATELET COUNT, AUTOMATED 143 10^3/uL (150-450); RED BLOOD COUNT 3.95 10^6/uL (4.00-5.40); WHITE BLOOD COUNT 8.4 10^3/uL (4.0-10.0)
[2021-10-09 11:48] LABS: CALCIUM LEVEL 9.3 MG/DL (8.8-10.2); CREATININE FOR GFR 1.33 MG/DL (0.55-1.30); GLOMERULAR FILTRATION RATE 40.6 (>32); POTASSIUM SERUM 3.7 MEQ/L (3.5-5.1)
[2021-10-09] MEDS: RANOLAZINE 500 MG ER TAB PO SCH (20:43)
[2021-10-09] MEDS: EZETIMIBE 10MG TABLET (ZETIA) PO SCH (20:43)
[2021-10-09] MEDS: ATORVASTATIN 20 MG TAB PO SCH (20:43)
[2021-10-09] MEDS: GABAPENTIN 300 MG CAP PO SCH (20:43)
[2021-10-09] MEDS: SERTRALINE HCL 25 MG TABLET PO SCH (20:44)
[2021-10-09] MEDS: amLODIPine 5 MG TAB PO SCH (20:44)
[2021-10-09] MEDS: CYANOCOBALAMIN 500 MCG TAB PO SCH (20:44)
[2021-10-09] MEDS: ESTROGENS VAGINAL CREAM 30GM TOP SCH (20:50)
[2021-10-10] VITALS (8 sets, daily range): BP systolic 136–147; BP diastolic 47–56; O2SAT 89–96
[2021-10-10] MEDS: LEVOTHYROXINE 100MCG TABLET (0.1MG) PO SCH (05:29)
[2021-10-10 06:19] LABS: HEMATOCRIT 27.9 % (36.0-47.0); HEMOGLOBIN 8.9 g/dl (12.0-15.5); MEAN CORPUSCULAR HGB CONC 31.9 g/dl (32.0-36.5); MEAN CORPUSCULAR VOLUME 81.6 fl (80.0-96.0); PLATELET COUNT, AUTOMATED 119 10^3/uL (150-450); RED BLOOD COUNT 3.42 10^6/uL (4.00-5.40); WHITE BLOOD COUNT 8.7 10^3/uL (4.0-10.0)
[2021-10-10 06:44] LABS: CALCIUM LEVEL 8.7 MG/DL (8.8-10.2); CREATININE FOR GFR 1.39 MG/DL (0.55-1.30); GLOMERULAR FILTRATION RATE 38.5 (>32); POTASSIUM SERUM 3.6 MEQ/L (3.5-5.1)
[2021-10-10] MEDS: MAGNESIUM OXIDE 400MG TAB (MAG-OX) PO SCH (09:00)
[2021-10-10] MEDS: MULTIVITAMINS/MINERALS THERAP 1 TAB PO SCH (09:49)
[2021-10-10] MEDS: POTASSIUM CHLORIDE 10MEQ SR TABLET PO SCH ×2 (09:49→20:28)
[2021-10-10] MEDS: LABETALOL 200 MG TAB PO SCH ×2 (09:50→20:28)
[2021-10-10] MEDS: FUROSEMIDE 40 MG TAB PO SCH ×2 (09:50→16:14)
[2021-10-10] MEDS: FERROUS GLUCONATE 324 MG TAB PO SCH (09:51)
[2021-10-10] MEDS: FOLIC ACID 1 MG TAB PO SCH (09:51)
[2021-10-10] MEDS: PANTOPRAZOLE 40MG TAB (PROTONIX) PO SCH (09:51)
[2021-10-10] MEDS: **hydrALAZINE HCL** 25 MG TAB PO SCH ×3 (09:51→20:29)
[2021-10-10] MEDS: ASCORBIC ACID 500 MG TAB PO SCH (09:51)
[2021-10-10] MEDS: ESTROGENS VAGINAL CREAM 30GM TOP SCH (20:17)
[2021-10-10] MEDS: SERTRALINE HCL 25 MG TABLET PO SCH (20:27)
[2021-10-10] MEDS: EZETIMIBE 10MG TABLET (ZETIA) PO SCH (20:27)
[2021-10-10] MEDS: GABAPENTIN 300 MG CAP PO SCH (20:27)
[2021-10-10] MEDS: CYANOCOBALAMIN 500 MCG TAB PO SCH (20:28)
[2021-10-10] MEDS: amLODIPine 5 MG TAB PO SCH (20:28)
[2021-10-10] MEDS: RANOLAZINE 500 MG ER TAB PO SCH (20:28)
[2021-10-10] MEDS: ATORVASTATIN 20 MG TAB PO SCH (20:29)
[2021-10-11] MEDS: LEVOTHYROXINE 100MCG TABLET (0.1MG) PO SCH (05:36)
[2021-10-11 06:16] LABS: HEMATOCRIT 28.9 % (36.0-47.0); HEMOGLOBIN 9.3 g/dl (12.0-15.5); MEAN CORPUSCULAR HEMOGLOBIN 25.8 pg (27.0-33.0); MEAN CORPUSCULAR HGB CONC 32.2 g/dl (32.0-36.5); MEAN CORPUSCULAR VOLUME 80.3 fl (80.0-96.0); PLATELET COUNT, AUTOMATED 127 10^3/uL (150-450); WHITE BLOOD COUNT 8.6 10^3/uL (4.0-10.0)
[2021-10-11 06:35] LABS: CALCIUM LEVEL 8.8 MG/DL (8.8-10.2); CREATININE FOR GFR 1.45 MG/DL (0.55-1.30); GLOMERULAR FILTRATION RATE 36.7 (>32); POTASSIUM SERUM 3.2 MEQ/L (3.5-5.1)
[2021-10-11] MEDS ORDERED: POTASSIUM CHLORIDE 10MEQ SR TABLET PO ONE (08:00)
[2021-10-11] MEDS: FOLIC ACID 1 MG TAB PO SCH (08:59)
[2021-10-11] MEDS: MULTIVITAMINS/MINERALS THERAP 1 TAB PO SCH (08:59)
[2021-10-11] MEDS: MAGNESIUM OXIDE 400MG TAB (MAG-OX) PO SCH (09:00)
[2021-10-11] MEDS: ASCORBIC ACID 500 MG TAB PO SCH (09:00)
[2021-10-11] MEDS: PANTOPRAZOLE 40MG TAB (PROTONIX) PO SCH (09:00)
[2021-10-11] MEDS: **hydrALAZINE HCL** 25 MG TAB PO SCH ×3 (09:02→20:23)
[2021-10-11] MEDS: FUROSEMIDE 40 MG TAB PO SCH ×2 (09:02→16:25)
[2021-10-11] MEDS: FERROUS GLUCONATE 324 MG TAB PO SCH (09:22)
[2021-10-11] MEDS: POTASSIUM CHLORIDE 10MEQ SR TABLET PO SCH ×2 (09:22→20:23)
[2021-10-11] MEDS: LABETALOL 200 MG TAB PO SCH ×2 (09:22→20:22)
[2021-10-11 14:00] VITALS: BP 140/55; O2SAT 92
[2021-10-11] MEDS: EZETIMIBE 10MG TABLET (ZETIA) PO SCH (20:21)
[2021-10-11] MEDS: amLODIPine 5 MG TAB PO SCH (20:21)
[2021-10-11] MEDS: ATORVASTATIN 20 MG TAB PO SCH (20:22)
[2021-10-11] MEDS: CYANOCOBALAMIN 500 MCG TAB PO SCH (20:22)
[2021-10-11] MEDS: RANOLAZINE 500 MG ER TAB PO SCH (20:22)
[2021-10-11] MEDS: SERTRALINE HCL 25 MG TABLET PO SCH (20:22)
[2021-10-11] MEDS: GABAPENTIN 300 MG CAP PO SCH (20:22)
[2021-10-11] MEDS: ESTROGENS VAGINAL CREAM 30GM TOP SCH (20:24)
[2021-10-11 22:00] VITALS: O2SAT 92
[2021-10-12 06:00] VITALS: BP 118/45
[2021-10-12] MEDS: LEVOTHYROXINE 100MCG TABLET (0.1MG) PO SCH (06:04)
[2021-10-12 06:42] LABS: HEMATOCRIT 28.2 % (36.0-47.0); HEMOGLOBIN 9.1 g/dl (12.0-15.5); MEAN CORPUSCULAR HEMOGLOBIN 25.9 pg (27.0-33.0); MEAN CORPUSCULAR HGB CONC 32.3 g/dl (32.0-36.5); MEAN CORPUSCULAR VOLUME 80.1 fl (80.0-96.0); PLATELET COUNT, AUTOMATED 132 10^3/uL (150-450); RED BLOOD COUNT 3.52 10^6/uL (4.00-5.40); WHITE BLOOD COUNT 7.9 10^3/uL (4.0-10.0)
[2021-10-12 07:10] LABS: CREATININE FOR GFR 1.4 MG/DL (0.55-1.30); GLOMERULAR FILTRATION RATE 38.2 (>32); MAGNESIUM LEVEL 2.2 MG/DL (1.8-2.4); POTASSIUM SERUM 3.6 MEQ/L (3.5-5.1)
[2021-10-12] MEDS: FOLIC ACID 1 MG TAB PO SCH (09:42)
[2021-10-12] MEDS: PANTOPRAZOLE 40MG TAB (PROTONIX) PO SCH (09:42)
[2021-10-12] MEDS: FERROUS GLUCONATE 324 MG TAB PO SCH (09:42)
[2021-10-12] MEDS: MULTIVITAMINS/MINERALS THERAP 1 TAB PO SCH (09:42)
[2021-10-12] MEDS: ASCORBIC ACID 500 MG TAB PO SCH (09:42)
[2021-10-12] MEDS: POTASSIUM CHLORIDE 10MEQ SR TABLET PO SCH ×2 (09:42→22:29)
[2021-10-12] MEDS: **hydrALAZINE HCL** 25 MG TAB PO SCH ×3 (09:42→22:30)
[2021-10-12] MEDS: LABETALOL 200 MG TAB PO SCH ×2 (09:42→22:28)
[2021-10-12] MEDS: FUROSEMIDE 40 MG TAB PO SCH ×2 (09:43→17:42)
[2021-10-12 14:00] VITALS: BP 131/54; O2SAT 92
[2021-10-12 18:31] VITALS: BP 158/62
[2021-10-12 20:07] VITALS: O2SAT 95
[2021-10-12 22:23] VITALS: BP 177/67
[2021-10-12] MEDS: ESTROGENS VAGINAL CREAM 30GM TOP SCH (22:27)
[2021-10-12] MEDS: RANOLAZINE 500 MG ER TAB PO SCH (22:28)
[2021-10-12] MEDS: EZETIMIBE 10MG TABLET (ZETIA) PO SCH (22:28)
[2021-10-12] MEDS: GABAPENTIN 300 MG CAP PO SCH (22:29)
[2021-10-12] MEDS: SERTRALINE HCL 25 MG TABLET PO SCH (22:29)
[2021-10-12] MEDS: ATORVASTATIN 20 MG TAB PO SCH (22:29)
[2021-10-12] MEDS: CYANOCOBALAMIN 500 MCG TAB PO SCH (22:29)
[2021-10-12] MEDS: amLODIPine 5 MG TAB PO SCH (22:30)
[2021-10-13] VITALS: O2SAT 97
[2021-10-13 04:00] VITALS: O2SAT 93
[2021-10-13 06:17] LABS: HEMATOCRIT 28.8 % (36.0-47.0); HEMOGLOBIN 9.4 g/dl (12.0-15.5); MEAN CORPUSCULAR HEMOGLOBIN 26.3 pg (27.0-33.0); MEAN CORPUSCULAR HGB CONC 32.6 g/dl (32.0-36.5); MEAN CORPUSCULAR VOLUME 80.4 fl (80.0-96.0); PLATELET COUNT, AUTOMATED 136 10^3/uL (150-450); RED BLOOD COUNT 3.58 10^6/uL (4.00-5.40); WHITE BLOOD COUNT 9.2 10^3/uL (4.0-10.0)
[2021-10-13] MEDS: LEVOTHYROXINE 100MCG TABLET (0.1MG) PO SCH (06:32)
[2021-10-13 06:39] LABS: CALCIUM LEVEL 8.9 MG/DL (8.8-10.2); CREATININE FOR GFR 1.46 MG/DL (0.55-1.30); GLOMERULAR FILTRATION RATE 36.4 (>32); POTASSIUM SERUM 3.5 MEQ/L (3.5-5.1)
[2021-10-13 07:33] VITALS: BP 127/53
[2021-10-13 09:45] VITALS: BP 153/57
[2021-10-13] MEDS: FUROSEMIDE 40 MG TAB PO SCH (09:45)
[2021-10-13] MEDS: PANTOPRAZOLE 40MG TAB (PROTONIX) PO SCH (09:45)
[2021-10-13] MEDS: MAGNESIUM OXIDE 400MG TAB (MAG-OX) PO SCH (09:45)
[2021-10-13] MEDS: POTASSIUM CHLORIDE 10MEQ SR TABLET PO SCH (09:45)
[2021-10-13] MEDS: MULTIVITAMINS/MINERALS THERAP 1 TAB PO SCH (09:45)
[2021-10-13] MEDS: ASCORBIC ACID 500 MG TAB PO SCH (09:45)
[2021-10-13] MEDS: LABETALOL 200 MG TAB PO SCH (09:45)
[2021-10-13] MEDS: **hydrALAZINE HCL** 25 MG TAB PO SCH (09:46)
[2021-10-13] MEDS: FERROUS GLUCONATE 324 MG TAB PO SCH (09:46)
[2021-10-13] MEDS: FOLIC ACID 1 MG TAB PO SCH (09:46)
== END 2021-10-13 14:57 | disposition home health service (06) | DRG 193 ==
LOC: M ED 01:12 → M ED INP 09:47 → ENRESERV 10:35 → M MSPAV 11:39 → OBSVTOIN 10-05 09:12
PROVIDERS: ADMIT Internal Medicine; ATTEND Internal Medicine
DX: J18.9 Pneumonia, unspecified organism (principal); J96.01 Acute respiratory failure with hypoxia; I50.32 Chronic diastolic (congestive) heart failure; C93.10 Chronic myelomonocytic leukemia not having achieved remission; J98.11 Atelectasis; J90 Pleural effusion, not elsewhere classified; I16.0 Hypertensive urgency; I25.10 Atherosclerotic heart disease of native coronary artery without angina pectoris; K21.9 Gastro-esophageal reflux disease without esophagitis; E11.42 Type 2 diabetes mellitus with diabetic polyneuropathy; E78.5 Hyperlipidemia, unspecified; F32.A Depression, unspecified; I35.0 Nonrheumatic aortic (valve) stenosis; I48.91 Unspecified atrial fibrillation; D50.9 Iron deficiency anemia, unspecified; Z66 Do not resuscitate; I11.0 Hypertensive heart disease with heart failure; Z95.2 Presence of prosthetic heart valve; Z90.49 Acquired absence of other specified parts of digestive tract; Z98.49 Cataract extraction status, unspecified eye; Z96.653 Presence of artificial knee joint, bilateral; F41.9 Anxiety disorder, unspecified; E03.9 Hypothyroidism, unspecified

== ENCOUNTER → 2021-11-21 | Outpatient (CLI) | payer MEDICARE, MEDICAID ==
[~2021-11-21] MED LIST changes: +BUDE10.7 INH; +ESTR0.1C5 VG; +FOLI1TAB11 PO; +MIRA3350 PO
== END ==
LOC: M LABSMTC 10:43
PROVIDERS: ATTEND Anesthesiology
DX: Z01.812 Encounter for preprocedural laboratory examination (principal); Z20.822 Contact with and (suspected) exposure to COVID-19

== ENCOUNTER 2021-11-26 11:15 | Day surgery (SDC) | payer MEDICARE, MEDICAID ==
[~2021-11-26] VITALS: Ht 144.8 cm; Wt 50.9 kg
[~2021-11-26 11:15] MED LIST changes: +LR 1,000 ML IV ONE; +ceFAZolin SOD 2 GM in IV 1 EA IV ONE
[2021-11-26 12:27] LABS: HEMATOCRIT 36.6 % (36.0-47.0); HEMOGLOBIN 11.7 g/dl (12.0-15.5); MEAN CORPUSCULAR HEMOGLOBIN 25.7 pg (27.0-33.0); MEAN CORPUSCULAR VOLUME 80.3 fl (80.0-96.0); PLATELET COUNT, AUTOMATED 115 10^3/uL (150-450); RED BLOOD COUNT 4.56 10^6/uL (4.00-5.40); WHITE BLOOD COUNT 5.6 10^3/uL (4.0-10.0)
[2021-11-26 12:45] LABS: CALCIUM LEVEL 9.5 MG/DL (8.8-10.2); CREATININE FOR GFR 1.74 MG/DL (0.55-1.30); GLOMERULAR FILTRATION RATE 29.7 (>32); POTASSIUM SERUM 4.1 MEQ/L (3.5-5.1)
[2021-11-26] MEDS ORDERED: MIDAZOLAM INJ 2MG/2ML VIAL (J2250 PER 1MG) As Ordered ONE (12:59)
[2021-11-26] MEDS ORDERED: fentaNYL 100 MCG/2 ML INJECTION As Ordered ONE ×2 (12:59→15:25)
[2021-11-26] MEDS ORDERED: propofoL 200 MG/20 ML VIAL As Ordered ONE ×2 (12:59→13:00)
[2021-11-26] MEDS ORDERED: LIDOCAINE 2% 100MG/5ML SDV (FOR ANES.) As Ordered ONE (12:59)
[2021-11-26] MEDS ORDERED: ROCURONIUM BROMIDE 50 MG/5 ML VIAL As Ordered ONE (13:02)
[2021-11-26] MEDS ORDERED: VASOPRESSIN INJ 20 UNITS/ML VIAL As Ordered ONE (13:40)
[2021-11-26] MEDS ORDERED: LIDOCAINE W/EPINEPHRINE 1% 20ML VIAL As Ordered ONE (13:48)
[2021-11-26] MEDS ORDERED: ONDANSETRON 4MG/2ML VIAL As Ordered ONE (14:22)
[2021-11-26] MEDS ORDERED: ACETAMINOPHEN 1000MG 100ML IV BTL (OFIRMEV) (J0131 PER 10MG) As Ordered ONE (14:23)
[2021-11-26] MEDS ORDERED: ESTROGENS VAGINAL CREAM 30GM As Ordered ONE (14:59)
[2021-11-26] MEDS: fentaNYL 100 MCG/2 ML INJECTION IV PRN ×4 (15:27→15:43)
[2021-11-26] MEDS ORDERED: LR 1,000 ML IV SCH ×2 (15:45→18:50)
[2021-11-26] MEDS ORDERED: DOCUSATE SODIUM 100MG CAPSULE PO PRN (15:45)
[2021-11-26] MEDS ORDERED: ONDANSETRON 4MG/2ML VIAL IV PRN (15:45)
[2021-11-26] MEDS: oxyCODONE 5MG TAB PO PRN ×2 (15:52→16:26)
[2021-11-26] MEDS: IBUPROFEN 600MG TAB PO SCH (17:08)
[2021-11-26 18:00] VITALS: BP 155/61
[2021-11-26 18:30] VITALS: BP 153/59
[2021-11-26 19:30] VITALS: BP 132/47
[2021-11-26] MEDS: LABETALOL 200 MG TAB PO SCH (20:08)
[2021-11-26] MEDS: PERCOCET 5MG/325MG TAB PO PRN (20:08)
[2021-11-26 20:30] VITALS: BP 129/62
[2021-11-26] MEDS ORDERED: ATORVASTATIN 20 MG TAB PO SCH (21:00)
[2021-11-26] MEDS ORDERED: GABAPENTIN 300 MG CAP PO SCH (21:00)
[2021-11-26] MEDS ORDERED: EZETIMIBE 10MG TABLET (ZETIA) PO SCH (21:00)
[2021-11-26] MEDS ORDERED: CYANOCOBALAMIN 500 MCG TAB PO SCH (21:00)
[2021-11-26 21:30] VITALS: BP 130/59
[2021-11-26 22:30] VITALS: BP 132/57
[2021-11-27] MEDS: IBUPROFEN 600MG TAB PO SCH ×4 (00:44→12:40)
[2021-11-27 02:00] VITALS: BP 131/56
[2021-11-27] MEDS: PERCOCET 5MG/325MG TAB PO PRN (05:32)
[2021-11-27 06:00] VITALS: BP 106/72
[2021-11-27] MEDS ORDERED: LEVOTHYROXINE 100MCG TABLET (0.1MG) PO SCH (06:00)
[2021-11-27 06:22] LABS: HEMATOCRIT 29.9 % (36.0-47.0); MEAN CORPUSCULAR HGB CONC 31.8 g/dl (32.0-36.5); MEAN CORPUSCULAR VOLUME 81.7 fl (80.0-96.0); RED BLOOD COUNT 3.66 10^6/uL (4.00-5.40); WHITE BLOOD COUNT 14.5 10^3/uL (4.0-10.0)
[2021-11-27 06:25] LABS: PLATELET COUNT, AUTOMATED 95 10^3/uL (150-450)
[2021-11-27 06:26] LABS: HEMOGLOBIN 9.5 g/dl (12.0-15.5)
[2021-11-27 06:47] LABS: CALCIUM LEVEL 8.3 MG/DL (8.8-10.2); CREATININE FOR GFR 1.6 MG/DL (0.55-1.30); GLOMERULAR FILTRATION RATE 32.8 (>32); POTASSIUM SERUM 3.8 MEQ/L (3.5-5.1)
[2021-11-27] MEDS ORDERED: PANTOPRAZOLE 40MG TAB (PROTONIX) PO SCH (09:00)
[2021-11-27] MEDS ORDERED: FERROUS GLUCONATE 324 MG TAB PO SCH (09:00)
[2021-11-27] MEDS ORDERED: FOLIC ACID 1 MG TAB PO SCH (09:00)
[2021-11-27] MEDS ORDERED: ASCORBIC ACID 500 MG TAB PO SCH (09:00)
[2021-11-27 09:48] VITALS: BP 164/70
[2021-11-27] MEDS: LABETALOL 200 MG TAB PO SCH (09:48)
[2021-11-27 10:00] VITALS: BP 164/70
== END 2021-11-27 13:40 | disposition home health service (06) ==
LOC: M SDC 11:15 → M MS5PR 18:00 → M SDC 11-27 13:40
PROVIDERS: ATTEND Obstetrics & Gynecology
DX: N99.3 Prolapse of vaginal vault after hysterectomy (principal); I50.9 Heart failure, unspecified; E03.9 Hypothyroidism, unspecified; E78.5 Hyperlipidemia, unspecified; I11.9 Hypertensive heart disease without heart failure; Z79.899 Other long term (current) drug therapy
CPT/HCPCS: 36415; 57282; 80048; 85027; 85049; 85055; 86850; 86900; 86901; 88302; C1713; J0131; J0690; J2250; J2405; J3010

== ENCOUNTER → 2022-03-04 | Outpatient (CLI) | payer MEDICARE, MEDICAID ==
[~2022-03-04] MED LIST changes: -LABE200T3 PO; +LABE200T5 PO; -LR 1,000 ML IV ONE; -ceFAZolin SOD 2 GM in IV 1 EA IV ONE
[2022-03-04 15:28] LABS: HEMATOCRIT 37.9 % (36.0-47.0); HEMOGLOBIN 11.9 g/dl (12.0-15.5); MEAN CORPUSCULAR HEMOGLOBIN 25.6 pg (27.0-33.0); MEAN CORPUSCULAR HGB CONC 31.4 g/dl (32.0-36.5); MEAN CORPUSCULAR VOLUME 81.5 fl (80.0-96.0); PLATELET COUNT, AUTOMATED 148 10^3/uL (150-450); RED BLOOD COUNT 4.65 10^6/uL (4.00-5.40); WHITE BLOOD COUNT 8.5 10^3/uL (4.0-10.0)
[2022-03-04 16:34] LABS: ALBUMIN 4.1 GM/DL (3.2-5.2); BILIRUBIN,TOTAL 0.5 MG/DL (0.2-1.0); CALCIUM LEVEL 9.5 MG/DL (8.8-10.2); CREATININE FOR GFR 1.74 MG/DL (0.55-1.30); GLOMERULAR FILTRATION RATE 29.7 (>32); POTASSIUM SERUM 3.9 MEQ/L (3.5-5.1); TOTAL PROTEIN 7.7 GM/DL (6.4-8.2)
== END ==
LOC: M PLALAB 08:38
PROVIDERS: ATTEND Internal Medicine Cardiovascular Disease
DX: I20.9 Angina pectoris, unspecified (principal)

== ENCOUNTER → 2022-04-09 | Outpatient (CLI) | payer MEDICARE, MEDICAID | LOC: M WHC 10:59 | PROVIDERS: ATTEND Obstetrics & Gynecology | DX: Z12.31 Encounter for screening mammogram for malignant neoplasm of breast (principal); Z13.820 Encounter for screening for osteoporosis; M85.89 Other specified disorders of bone density and structure, multiple sites ==

== ENCOUNTER 2022-04-25 14:57 | Emergency (ER) | payer MEDICARE, MEDICAID ==
[~2022-04-25] VITALS: Ht 147.3 cm; Wt 53.8 kg
[2022-04-25] MEDS ORDERED: IBUPROFEN 600MG TAB PO ONE (17:40)
[2022-04-25] MEDS ORDERED: traMADol 50 MG TAB (HOME DOSE PACK) PO ONE (18:45)
[2022-04-25] MEDS ORDERED: HYDR-3713 PO (18:48)
[2022-04-25] MEDS ORDERED: NORCO 5/325MG TABLET (HOME DOSE PACK) PO ONE (18:50)
[2022-04-25 20:29] VITALS: BP 190/78
== END 2022-04-25 20:30 | disposition home or self-care (01) ==
LOC: M ED 14:57
DX: R07.82 Intercostal pain (principal); I50.9 Heart failure, unspecified; E11.9 Type 2 diabetes mellitus without complications; I10 Essential (primary) hypertension; E78.5 Hyperlipidemia, unspecified; J44.9 Chronic obstructive pulmonary disease, unspecified; Z87.01 Personal history of pneumonia (recurrent); Z95.4 Presence of other heart-valve replacement; Z98.61 Coronary angioplasty status; I51.7 Cardiomegaly; I27.0 Primary pulmonary hypertension; Z79.4 Long term (current) use of insulin; Z79.84 Long term (current) use of oral hypoglycemic drugs; Z79.899 Other long term (current) drug therapy; Z79.890 Hormone replacement therapy

== ENCOUNTER → 2022-05-08 | Outpatient (CLI) | payer MEDICARE, MEDICAID | LOC: M WUC 13:03 | PROVIDERS: ATTEND Student in an Organized Health Care Education/Training Program | DX: M79.641 Pain in right hand (principal); M85.841 Other specified disorders of bone density and structure, right hand; M79.89 Other specified soft tissue disorders ==

== ENCOUNTER 2022-08-31 10:51 | Inpatient (IN) | payer MEDICARE, MEDICAID ==
[~2022-08-31] VITALS: Ht 144.8 cm; Wt 51.2 kg
[2022-08-31] MEDS ORDERED: ALBUTEROL SULFATE 2.5MG/0.5ML INH NEB SOLN INH ONE (11:30)
[2022-08-31] MEDS ORDERED: methylPREDNISolone 125MG 2ML VIAL IV ONE (11:30)
[2022-08-31] MEDS ORDERED: IPRATROPIUM 0.5MG/ALBUTEROL 2.5MG INH SOL UD 3ML (DUONEB) NEB ONE (11:30)
[2022-08-31 11:44] LABS: ABG BASE EXCESS 4.8 (-2.0-2.0); ABG PARTIAL PRESSURE CO2 36.4 mmHg (35.0-45.0); ABG PARTIAL PRESSURE O2 89.8 mmHg (75.0-100.0); ABG STANDARD HCO3 28.8 MEQ/L (22.0-26.0); ABG TOTAL CO2 29.1 MEQ/L (23.0-31.0); ABG pH (ARTERIAL) 7.504 UNITS (7.350-7.450)
[2022-08-31 12:22] LABS: HEMATOCRIT 34.2 % (36.0-47.0); HEMOGLOBIN 10.7 g/dl (12.0-15.5); MEAN CORPUSCULAR HEMOGLOBIN 23.6 pg (27.0-33.0); MEAN CORPUSCULAR HGB CONC 31.3 g/dl (32.0-36.5); MEAN CORPUSCULAR VOLUME 75.5 fl (80.0-96.0); PLATELET COUNT, AUTOMATED 153 10^3/uL (150-450); RED BLOOD COUNT 4.53 10^6/uL (4.00-5.40); WHITE BLOOD COUNT 10.7 10^3/uL (4.0-10.0)
[2022-08-31] MEDS ORDERED: FUROSEMIDE 100MG/10ML VIAL IV ONE (12:30)
[2022-08-31 12:54] LABS: ALBUMIN 3.8 G/DL (3.2-5.2); BILIRUBIN,DIRECT 0.4 MG/DL (<0.4); BILIRUBIN,TOTAL 1.1 MG/DL (0.3-1.2); CALCIUM LEVEL 9.1 MG/DL (8.3-10.6); CK-MB VALUE MASS 1.9 NG/ML (<3.6); CREATININE FOR GFR 1.39 MG/DL (0.55-1.30); GLOMERULAR FILTRATION RATE 38.5 (>32); MB/CK RELATIVE INDEX 1.59 (< OR =4); POTASSIUM SERUM 3.5 MMOL/L (3.5-5.1); THYROID STIMULATING HORMONE 0.165 uIU/ML (0.55-4.78); THYROXINE (T4) 14.5 UG/DL (4.5-10.9); TOTAL PROTEIN 7.2 G/DL (5.7-8.2)
[2022-08-31 13:24] LABS: BASO % 0.2 % (0.0-1.0); EOS % 0.2 % (0.0-3.0); LYMPH # 1.5 10^3/uL (1.5-5.0); LYMPH % 13.9 % (24.0-44.0); MONO % 39.3 % (2.0-8.0); NEUTROPHILS # 4.8 10^3/uL (1.5-8.5); NEUTROPHILS % 44.9 % (36.0-66.0)
[2022-08-31 13:38] LABS: CK-MB VALUE MASS 1.2 NG/ML (<3.6)
[2022-08-31 13:39] LABS: MB/CK RELATIVE INDEX 1.17 (< OR =4)
[2022-08-31 14:08] LABS: ATYPICAL LYMPH 1 % (0-5); LYMPHOCYTES 9 % (16-44); METAMYELOCYTES 1 % (0-0); MONOCYTES 29 % (0-5); MYELOCYTES 2 % (0-0); NEUTROPHILS 57 % (28-66)
[2022-08-31 14:09] LABS: ANISOCYTOSIS 1+; MICROCYTOSIS 2+; OVALOCYTES 1+
[2022-08-31 14:10] LABS: HELMET CELLS 1+
[2022-08-31 14:12] LABS: PLATELET ESTIMATE NORMAL (NORMAL)
[2022-08-31] MEDS ORDERED: ISOVUE-370 76% 100ML VIAL As Ordered ONE (14:14)
[2022-08-31] MEDS ORDERED: GLUCAGON INJ 1MG VIAL SC PRN (15:00)
[2022-08-31] MEDS ORDERED: DEXTROSE 50% 50ML SYRINGE IV PRN (15:00)
[2022-08-31] MEDS ORDERED: GLUCOSE 4GM CHEW TABLET PO PRN (15:00)
[2022-08-31 16:14] LABS: PARTIAL THROMBOPLASTIN TIME 33.3 SECONDS (24.8-34.2); PROTHROMBIN TIME 13.4 SECONDS (12.5-14.5)
[2022-08-31 16:19] LABS: MAGNESIUM LEVEL 1.9 MG/DL (1.8-2.4); PHOSPHORUS LEVEL 4.2 MG/DL (2.4-5.1)
[2022-08-31] MEDS ORDERED: FURO80TA2 PO (17:10)
[2022-08-31] MEDS ORDERED: ACET-897 PO (17:12)
[2022-08-31] MEDS ORDERED: HOME MED LIST COMPLETE! XX SCH (17:15)
[2022-08-31 17:18] VITALS: BP 182/87
[2022-08-31] MEDS: FUROSEMIDE 40MG/4ML VIAL IV SCH (18:07)
[2022-08-31] MEDS: INSULIN LISPRO (NovoLOG) PER UNIT SC SCH ×2 (18:08→21:00)
[2022-08-31] MEDS ORDERED: DOCUSATE SODIUM 100MG CAPSULE PO PRN (19:40)
[2022-08-31] MEDS: GABAPENTIN 300 MG CAP PO SCH (21:57)
[2022-08-31] MEDS: RANOLAZINE 500MG ER TAB PO SCH (21:57)
[2022-08-31] MEDS: CARBAMIDE PEROXIDE 6.5% OTIC SOLN 15ML AU SCH (21:57)
[2022-08-31] MEDS: EZETIMIBE 10MG TABLET (ZETIA) PO SCH (21:58)
[2022-08-31] MEDS: ATORVASTATIN 20 MG TAB PO SCH (21:58)
[2022-08-31] MEDS: SERTRALINE HCL 25 MG TABLET PO SCH (21:59)
[2022-08-31 22:00] VITALS: BP 153/80
[2022-08-31] MEDS: amLODIPine 5 MG TAB PO SCH (22:01)
[2022-08-31] MEDS: LABETALOL 100MG TAB PO SCH (22:02)
[2022-09-01] MEDS: LEVOTHYROXINE 100MCG TABLET (0.1MG) PO SCH (05:27)
[2022-09-01 05:50] LABS: HEMATOCRIT 32.7 % (36.0-47.0); HEMOGLOBIN 10.3 g/dl (12.0-15.5); MEAN CORPUSCULAR HGB CONC 31.5 g/dl (32.0-36.5); PLATELET COUNT, AUTOMATED 130 10^3/uL (150-450); WHITE BLOOD COUNT 8.9 10^3/uL (4.0-10.0)
[2022-09-01 06:00] VITALS: BP 140/72
[2022-09-01 06:14] LABS: ALBUMIN 3.5 G/DL (3.2-5.2); BILIRUBIN,TOTAL 0.5 MG/DL (0.3-1.2); CALCIUM LEVEL 9.3 MG/DL (8.3-10.6); CREATININE FOR GFR 1.74 MG/DL (0.55-1.30); GLOMERULAR FILTRATION RATE 29.7 (>32); POTASSIUM SERUM 3.7 MMOL/L (3.5-5.1); TOTAL PROTEIN 6.8 G/DL (5.7-8.2)
[2022-09-01] MEDS: FUROSEMIDE 40MG/4ML VIAL IV SCH ×2 (08:51→17:32)
[2022-09-01] MEDS: INSULIN LISPRO (NovoLOG) PER UNIT SC SCH ×4 (08:51→21:00)
[2022-09-01] MEDS: PANTOPRAZOLE 40MG TAB (PROTONIX) PO SCH (08:51)
[2022-09-01] MEDS: LABETALOL 100MG TAB PO SCH ×2 (08:52→21:41)
[2022-09-01] MEDS: HEPARIN SOD (PORCINE) 5000UNITS/ML 1ML VIAL/SYRINGE SQ SCH ×2 (08:52→21:43)
[2022-09-01] MEDS: CARBAMIDE PEROXIDE 6.5% OTIC SOLN 15ML AU SCH ×2 (08:53→21:42)
[2022-09-01 11:57] LABS: FREE T4 1.69 NG/DL (0.89-1.76)
[2022-09-01 14:00] VITALS: BP 145/71
[2022-09-01 20:00] VITALS: BP 184/82
[2022-09-01] MEDS: GABAPENTIN 300 MG CAP PO SCH (21:40)
[2022-09-01] MEDS: RANOLAZINE 500MG ER TAB PO SCH (21:40)
[2022-09-01] MEDS: amLODIPine 5 MG TAB PO SCH (21:41)
[2022-09-01] MEDS: EZETIMIBE 10MG TABLET (ZETIA) PO SCH (21:41)
[2022-09-01] MEDS: ATORVASTATIN 20 MG TAB PO SCH (21:42)
[2022-09-01] MEDS: SERTRALINE HCL 25 MG TABLET PO SCH (21:43)
[2022-09-01] MEDS ORDERED: FIORICET TAB PO ONE (22:25)
[2022-09-01 23:49] VITALS: BP 148/72
[2022-09-02] VITALS (8 sets, daily range): BP systolic 134–171; BP diastolic 68–87
[2022-09-02 05:42] LABS: HEMATOCRIT 32.4 % (36.0-47.0); MEAN CORPUSCULAR HEMOGLOBIN 23.7 pg (27.0-33.0); MEAN CORPUSCULAR HGB CONC 30.9 g/dl (32.0-36.5); MEAN CORPUSCULAR VOLUME 76.8 fl (80.0-96.0); PLATELET COUNT, AUTOMATED 160 10^3/uL (150-450); RED BLOOD COUNT 4.22 10^6/uL (4.00-5.40); WHITE BLOOD COUNT 9.5 10^3/uL (4.0-10.0)
[2022-09-02 06:18] LABS: BLOOD UREA NITROGEN 37 MG/DL (9-23); CALCIUM LEVEL 8.9 MG/DL (8.3-10.6); CARBON DIOXIDE LEVEL 32 MMOL/L (20-31); CHLORIDE LEVEL 101 MMOL/L (98-107); CREATININE FOR GFR 1.84 MG/DL (0.55-1.30); GLOMERULAR FILTRATION RATE 27.8 (>32); GLUCOSE, FASTING 100 MG/DL (74-106); POTASSIUM SERUM 3.2 MMOL/L (3.5-5.1); SODIUM LEVEL 140 MMOL/L (136-145)
[2022-09-02] MEDS: LEVOTHYROXINE 100MCG TABLET (0.1MG) PO SCH (06:31)
[2022-09-02] MEDS: INSULIN LISPRO (NovoLOG) PER UNIT SC SCH ×4 (07:30→21:00)
[2022-09-02] MEDS: HEPARIN SOD (PORCINE) 5000UNITS/ML 1ML VIAL/SYRINGE SQ SCH ×2 (08:27→22:04)
[2022-09-02] MEDS: POTASSIUM CHLORIDE 10MEQ SR TABLET PO SCH ×2 (08:28→22:02)
[2022-09-02] MEDS: CARBAMIDE PEROXIDE 6.5% OTIC SOLN 15ML AU SCH ×2 (08:28→22:04)
[2022-09-02] MEDS: LABETALOL 100MG TAB PO SCH ×2 (08:29→22:03)
[2022-09-02] MEDS: PANTOPRAZOLE 40MG TAB (PROTONIX) PO SCH (08:29)
[2022-09-02 14:53] LABS: IRON (FE) 29 UG/DL (50-170); PERCENT SATURATION 10.3 % (13.2-45.0); TOTAL IRON BINDING CAPACITY 282 UG/DL (250-425)
[2022-09-02 14:55] LABS: FERRITIN 82.7 NG/ML (7.3-270.7)
[2022-09-02 14:56] LABS: FOLATE > 24.0 NG/ML (>5.4); VITAMIN B12 LEVEL 1111 PG/ML (211-911)
[2022-09-02] MEDS ORDERED: LR 500 ML IV SCH (18:55)
[2022-09-02] MEDS ORDERED: FERRIC CARBOXYMALTOSE INJ 750 MG, VIAL MATE ADAPTER 1 EACH in NS 250 ML IV ONE (21:00)
[2022-09-02] MEDS: SERTRALINE HCL 25 MG TABLET PO SCH (22:02)
[2022-09-02] MEDS: RANOLAZINE 500MG ER TAB PO SCH (22:02)
[2022-09-02] MEDS: ATORVASTATIN 20 MG TAB PO SCH (22:02)
[2022-09-02] MEDS: EZETIMIBE 10MG TABLET (ZETIA) PO SCH (22:03)
[2022-09-02] MEDS: GABAPENTIN 300 MG CAP PO SCH (22:03)
[2022-09-02] MEDS: amLODIPine 5 MG TAB PO SCH (22:03)
[2022-09-03 00:12] VITALS: BP 150/70
[2022-09-03] MEDS: LEVOTHYROXINE 100MCG TABLET (0.1MG) PO SCH (05:34)
[2022-09-03 06:00] VITALS: BP 157/74
[2022-09-03 06:28] LABS: HEMATOCRIT 32.7 % (36.0-47.0); MEAN CORPUSCULAR HEMOGLOBIN 23.9 pg (27.0-33.0); MEAN CORPUSCULAR HGB CONC 30.6 g/dl (32.0-36.5); PLATELET COUNT, AUTOMATED 148 10^3/uL (150-450); RED BLOOD COUNT 4.19 10^6/uL (4.00-5.40); WHITE BLOOD COUNT 8.3 10^3/uL (4.0-10.0)
[2022-09-03 06:57] LABS: CREATININE FOR GFR 1.82 MG/DL (0.55-1.30); GLOMERULAR FILTRATION RATE 28.2 (>32); POTASSIUM SERUM 4.2 MMOL/L (3.5-5.1)
[2022-09-03] MEDS: INSULIN LISPRO (NovoLOG) PER UNIT SC SCH ×4 (07:30→21:00)
[2022-09-03] MEDS: PANTOPRAZOLE 40MG TAB (PROTONIX) PO SCH (08:34)
[2022-09-03] MEDS: HEPARIN SOD (PORCINE) 5000UNITS/ML 1ML VIAL/SYRINGE SQ SCH ×2 (08:34→21:18)
[2022-09-03] MEDS: CARBAMIDE PEROXIDE 6.5% OTIC SOLN 15ML AU SCH ×2 (08:35→21:18)
[2022-09-03] MEDS: LABETALOL 100MG TAB PO SCH ×2 (08:35→21:17)
[2022-09-03] MEDS ORDERED: SENNA 8.6 MG TAB (SENOKOT) PO PRN (10:40)
[2022-09-03] MEDS: METAMUCIL (PSYLLIUM) PACKET PO SCH ×2 (11:17→21:17)
[2022-09-03] MEDS: MIRALAX *UNIT DOSE* 17GM PACKET PO SCH ×2 (11:18→21:17)
[2022-09-03 14:00] VITALS: BP 160/77
[2022-09-03] MEDS: RANOLAZINE 500MG ER TAB PO SCH (21:16)
[2022-09-03] MEDS: SERTRALINE HCL 25 MG TABLET PO SCH (21:16)
[2022-09-03] MEDS: EZETIMIBE 10MG TABLET (ZETIA) PO SCH (21:16)
[2022-09-03] MEDS: ATORVASTATIN 20 MG TAB PO SCH (21:16)
[2022-09-03] MEDS: GABAPENTIN 300 MG CAP PO SCH (21:18)
[2022-09-03] MEDS: amLODIPine 5 MG TAB PO SCH (21:18)
[2022-09-03 22:00] VITALS: BP 163/71
[2022-09-04] MEDS: LEVOTHYROXINE 100MCG TABLET (0.1MG) PO SCH (05:47)
[2022-09-04 05:48] VITALS: BP 161/69
[2022-09-04 06:24] LABS: HEMATOCRIT 30.8 % (36.0-47.0); HEMOGLOBIN 9.5 g/dl (12.0-15.5); MEAN CORPUSCULAR HEMOGLOBIN 24.1 pg (27.0-33.0); MEAN CORPUSCULAR HGB CONC 30.8 g/dl (32.0-36.5); PLATELET COUNT, AUTOMATED 129 10^3/uL (150-450); RED BLOOD COUNT 3.95 10^6/uL (4.00-5.40); WHITE BLOOD COUNT 8.6 10^3/uL (4.0-10.0)
[2022-09-04 06:52] LABS: CALCIUM LEVEL 8.7 MG/DL (8.3-10.6); CREATININE FOR GFR 1.42 MG/DL (0.55-1.30); GLOMERULAR FILTRATION RATE 37.5 (>32); POTASSIUM SERUM 4.1 MMOL/L (3.5-5.1)
[2022-09-04 08:50] VITALS: BP 157/87
[2022-09-04] MEDS: LABETALOL 100MG TAB PO SCH (08:50)
[2022-09-04] MEDS: PANTOPRAZOLE 40MG TAB (PROTONIX) PO SCH (08:50)
[2022-09-04] MEDS: INSULIN LISPRO (NovoLOG) PER UNIT SC SCH ×2 (08:51→11:49)
[2022-09-04] MEDS: METAMUCIL (PSYLLIUM) PACKET PO SCH (08:52)
[2022-09-04] MEDS: HEPARIN SOD (PORCINE) 5000UNITS/ML 1ML VIAL/SYRINGE SQ SCH (08:52)
[2022-09-04] MEDS: MIRALAX *UNIT DOSE* 17GM PACKET PO SCH (08:52)
[2022-09-04] MEDS: CARBAMIDE PEROXIDE 6.5% OTIC SOLN 15ML AU SCH (08:53)
[2022-09-04] MEDS ORDERED: LACTULOSE 20GM/30ML SYRUP UDC PO SCH (09:00)
[2022-09-04] MEDS ORDERED: SENNA 8.6 MG TAB (SENOKOT) PO SCH (09:00)
[2022-09-04] MEDS ORDERED: FURO80TA2 PO (09:15)
[2022-09-04] MEDS ORDERED: MIRA1POW3 PO (09:15)
[2022-09-04] MEDS ORDERED: META1POW PO (09:15)
[2022-09-04] MEDS ORDERED: ATOR1TAB21 PO (15:41)
== END 2022-09-04 13:44 | disposition home or self-care (01) | DRG 291 ==
LOC: M ED 10:51 → M ED INP 10:52 → ENRESERV 16:08 → M MSPAV 17:18 → OBSVTOIN 18:23
PROVIDERS: ADMIT Internal Medicine; ATTEND Student in an Organized Health Care Education/Training Program
PROC: B246ZZZ Ultrasonography of Right and Left Heart (ICD-10-PCS; principal; 2022-09-03)
DX: I13.0 Hypertensive heart and chronic kidney disease with heart failure and stage 1 through stage 4 chronic kidney disease, or unspecified chronic kidney disease (principal); I50.33 Acute on chronic diastolic (congestive) heart failure; C93.10 Chronic myelomonocytic leukemia not having achieved remission; N17.9 Acute kidney failure, unspecified; J96.11 Chronic respiratory failure with hypoxia; K21.9 Gastro-esophageal reflux disease without esophagitis; I25.10 Atherosclerotic heart disease of native coronary artery without angina pectoris; N18.30 Chronic kidney disease, stage 3 unspecified; E11.22 Type 2 diabetes mellitus with diabetic chronic kidney disease; E78.5 Hyperlipidemia, unspecified; R07.89 Other chest pain; I48.91 Unspecified atrial fibrillation; D50.9 Iron deficiency anemia, unspecified; F32.A Depression, unspecified; I36.1 Nonrheumatic tricuspid (valve) insufficiency; I27.20 Pulmonary hypertension, unspecified; E03.9 Hypothyroidism, unspecified; Z95.2 Presence of prosthetic heart valve; Z90.49 Acquired absence of other specified parts of digestive tract; Z98.49 Cataract extraction status, unspecified eye; Z96.653 Presence of artificial knee joint, bilateral; Z87.891 Personal history of nicotine dependence; Z79.890 Hormone replacement therapy; Z79.899 Other long term (current) drug therapy; Z79.84 Long term (current) use of oral hypoglycemic drugs; Z20.822 Contact with and (suspected) exposure to COVID-19

== ENCOUNTER → 2022-09-07 | Outpatient (REF) | payer MEDICARE, MEDICAID ==
[~2022-09-07] MED LIST changes: +ACET-897 PO; +FURO80TA2 PO; +META1POW PO; +MIRA1POW3 PO
[2022-09-07 13:23] LABS: CALCIUM LEVEL 8.8 MG/DL (8.3-10.6); CREATININE FOR GFR 1.46 MG/DL (0.55-1.30); GLOMERULAR FILTRATION RATE 36.3 (>32); POTASSIUM SERUM 5.2 MMOL/L (3.5-5.1)
== END ==
LOC: M SHH 12:21
PROVIDERS: ATTEND Student in an Organized Health Care Education/Training Program
DX: I50.9 Heart failure, unspecified (principal)

== ENCOUNTER → 2022-11-24 | Outpatient (REF) | payer MEDICARE, MEDICAID ==
[2022-11-24 14:58] LABS: HEMATOCRIT 30.8 % (36.0-47.0); HEMOGLOBIN 9.5 g/dl (12.0-15.5); MEAN CORPUSCULAR HEMOGLOBIN 24.9 pg (27.0-33.0); MEAN CORPUSCULAR HGB CONC 30.8 g/dl (32.0-36.5); MEAN CORPUSCULAR VOLUME 80.8 fl (80.0-96.0); PLATELET COUNT, AUTOMATED 114 10^3/uL (150-450); RED BLOOD COUNT 3.81 10^6/uL (4.00-5.40); WHITE BLOOD COUNT 6.4 10^3/uL (4.0-10.0)
[2022-11-24 15:32] LABS: ALBUMIN 3.8 G/DL (3.2-5.2); BILIRUBIN,TOTAL 0.6 MG/DL (0.3-1.2); CALCIUM LEVEL 8.8 MG/DL (8.3-10.6); CREATININE FOR GFR 1.54 MG/DL (0.55-1.30); GLOMERULAR FILTRATION RATE 34.2 (>32); TOTAL PROTEIN 6.6 G/DL (5.7-8.2)
== END ==
LOC: M SHH 13:54
PROVIDERS: ATTEND Internal Medicine Cardiovascular Disease
DX: I50.9 Heart failure, unspecified (principal); I27.20 Pulmonary hypertension, unspecified

== ENCOUNTER → 2022-12-08 | Outpatient (REF) | payer MEDICARE, MEDICAID ==
[2022-12-08 17:07] LABS: HEMATOCRIT 32.6 % (36.0-47.0); HEMOGLOBIN 10.3 g/dl (12.0-15.5); MEAN CORPUSCULAR HGB CONC 31.6 g/dl (32.0-36.5); MEAN CORPUSCULAR VOLUME 79.1 fl (80.0-96.0); RED BLOOD COUNT 4.12 10^6/uL (4.00-5.40); WHITE BLOOD COUNT 4.9 10^3/uL (4.0-10.0)
[2022-12-08 17:27] LABS: PLATELET COUNT, AUTOMATED 96 10^3/uL (150-450)
[2022-12-08 17:31] LABS: ALBUMIN 3.9 G/DL (3.2-5.2); BILIRUBIN,TOTAL 0.4 MG/DL (0.3-1.2); CALCIUM LEVEL 9.2 MG/DL (8.3-10.6); CREATININE FOR GFR 1.85 MG/DL (0.55-1.30); GLOMERULAR FILTRATION RATE 27.6 (>32); TOTAL PROTEIN 6.4 G/DL (5.7-8.2)
== END ==
LOC: M SHH 15:22
PROVIDERS: ATTEND Internal Medicine Cardiovascular Disease
DX: I50.9 Heart failure, unspecified (principal)

== ENCOUNTER → 2022-12-21 | Outpatient (REF) | payer MEDICARE, MEDICAID ==
[~2022-12-21] MED LIST changes: +BACL5TAB2; +BUME1TAB3; +ESSE250T PO; +FERR324T21 PO; +HYDR-3910; +HYDR100T PO; +METF500T13; +POTA10808 PO; +RANO500T2; +SILD20TA11; +SPIR-10; +VITA500C24 PO
[2022-12-21 15:54] LABS: HEMOGLOBIN 10.4 g/dl (12.0-15.5); MEAN CORPUSCULAR HEMOGLOBIN 24.9 pg (27.0-33.0); MEAN CORPUSCULAR HGB CONC 31.5 g/dl (32.0-36.5); MEAN CORPUSCULAR VOLUME 79.1 fl (80.0-96.0); PLATELET COUNT, AUTOMATED 112 10^3/uL (150-450); RED BLOOD COUNT 4.17 10^6/uL (4.00-5.40); WHITE BLOOD COUNT 6.9 10^3/uL (4.0-10.0)
[2022-12-21 16:11] LABS: ALBUMIN 3.9 G/DL (3.2-5.2); BILIRUBIN,TOTAL 0.5 MG/DL (0.3-1.2); CALCIUM LEVEL 8.3 MG/DL (8.3-10.6); CREATININE FOR GFR 1.63 MG/DL (0.55-1.30); POTASSIUM SERUM 3.6 MMOL/L (3.5-5.1); TOTAL PROTEIN 6.7 G/DL (5.7-8.2)
== END ==
LOC: M SHH 15:22
PROVIDERS: ATTEND Internal Medicine Cardiovascular Disease
DX: D64.9 Anemia, unspecified (principal)

== ENCOUNTER → 2022-12-22 | Outpatient (CLI) | payer MEDICARE, MEDICAID | LOC: M RAD 13:18 | PROVIDERS: ATTEND Surgery Vascular Surgery | DX: I65.23 Occlusion and stenosis of bilateral carotid arteries (principal) ==

== ENCOUNTER → 2023-01-18 | Outpatient (REF) | payer MEDICARE, MEDICAID ==
[~2023-01-18] MED LIST changes: -K-TA10TA2 PO; +POTA-165 PO
[2023-01-18 15:31] LABS: HEMATOCRIT 34.5 % (36.0-47.0); HEMOGLOBIN 10.7 g/dl (12.0-15.5); MEAN CORPUSCULAR HEMOGLOBIN 24.7 pg (27.0-33.0); MEAN CORPUSCULAR VOLUME 79.7 fl (80.0-96.0); PLATELET COUNT, AUTOMATED 100 10^3/uL (150-450); RED BLOOD COUNT 4.33 10^6/uL (4.00-5.40); WHITE BLOOD COUNT 7.9 10^3/uL (4.0-10.0)
[2023-01-18 15:56] LABS: ALBUMIN 4.2 G/DL (3.2-5.2); ALKALINE PHOSPHATASE 56 U/L (46-116); ALT/SGPT < 9 U/L (7.0-40); AST/SGOT 22 U/L (<34); BILIRUBIN,TOTAL 0.4 MG/DL (0.3-1.2); BLOOD UREA NITROGEN 31 MG/DL (9-23); CALCIUM LEVEL 9.3 MG/DL (8.3-10.6); CARBON DIOXIDE LEVEL 29 MMOL/L (20-31); CHLORIDE LEVEL 103 MMOL/L (98-107); CREATININE FOR GFR 1.44 MG/DL (0.55-1.30); GLOMERULAR FILTRATION RATE 36.9 (>32); GLUCOSE, FASTING 90 MG/DL (74-106); POTASSIUM SERUM 4.4 MMOL/L (3.5-5.1); SODIUM LEVEL 140 MMOL/L (136-145); TOTAL PROTEIN 6.9 G/DL (5.7-8.2)
== END ==
LOC: M SHH 14:33
PROVIDERS: ATTEND Internal Medicine Cardiovascular Disease
DX: I50.810 Right heart failure, unspecified (principal); I27.20 Pulmonary hypertension, unspecified

== ENCOUNTER → 2023-02-01 | Outpatient (REF) | payer MEDICARE, MEDICAID ==
[2023-02-01 15:53] LABS: HEMATOCRIT 33.3 % (36.0-47.0); HEMOGLOBIN 10.3 g/dl (12.0-15.5); MEAN CORPUSCULAR HEMOGLOBIN 24.5 pg (27.0-33.0); MEAN CORPUSCULAR HGB CONC 30.9 g/dl (32.0-36.5); MEAN CORPUSCULAR VOLUME 79.1 fl (80.0-96.0); PLATELET COUNT, AUTOMATED 117 10^3/uL (150-450); RED BLOOD COUNT 4.21 10^6/uL (4.00-5.40); WHITE BLOOD COUNT 6.8 10^3/uL (4.0-10.0)
[2023-02-01 16:07] LABS: ALBUMIN 3.9 G/DL (3.2-5.2); BILIRUBIN,TOTAL 0.4 MG/DL (0.3-1.2); CALCIUM LEVEL 9.9 MG/DL (8.3-10.6); CREATININE FOR GFR 1.73 MG/DL (0.55-1.30); GLOMERULAR FILTRATION RATE 29.9 (>32); TOTAL PROTEIN 6.8 G/DL (5.7-8.2)
== END ==
LOC: M SHH 15:08
PROVIDERS: ATTEND Internal Medicine Cardiovascular Disease
DX: I50.810 Right heart failure, unspecified (principal); I27.20 Pulmonary hypertension, unspecified; Z79.899 Other long term (current) drug therapy

== ENCOUNTER → 2023-02-15 | Outpatient (REF) | payer MEDICARE, MEDICAID ==
[2023-02-15 15:33] LABS: HEMATOCRIT 34.9 % (36.0-47.0); HEMOGLOBIN 11.1 g/dl (12.0-15.5); MEAN CORPUSCULAR HEMOGLOBIN 25.1 pg (27.0-33.0); MEAN CORPUSCULAR HGB CONC 31.8 g/dl (32.0-36.5); PLATELET COUNT, AUTOMATED 113 10^3/uL (150-450); RED BLOOD COUNT 4.42 10^6/uL (4.00-5.40); WHITE BLOOD COUNT 7.4 10^3/uL (4.0-10.0)
[2023-02-15 15:58] LABS: ALBUMIN 4.3 G/DL (3.2-5.2); BILIRUBIN,TOTAL 0.5 MG/DL (0.3-1.2); CALCIUM LEVEL 9.5 MG/DL (8.3-10.6); CREATININE FOR GFR 1.7 MG/DL (0.55-1.30); GLOMERULAR FILTRATION RATE 30.5 (>32); POTASSIUM SERUM 3.9 MMOL/L (3.5-5.1); TOTAL PROTEIN 7.1 G/DL (5.7-8.2)
== END ==
LOC: M SHH 15:13
PROVIDERS: ATTEND Internal Medicine Cardiovascular Disease
DX: I50.810 Right heart failure, unspecified (principal); I27.20 Pulmonary hypertension, unspecified

== ENCOUNTER → 2023-03-01 | Outpatient (REF) | payer MEDICARE, MEDICAID ==
[2023-03-01 16:34] LABS: HEMATOCRIT 33.4 % (36.0-47.0); HEMOGLOBIN 10.6 g/dl (12.0-15.5); MEAN CORPUSCULAR HEMOGLOBIN 24.8 pg (27.0-33.0); MEAN CORPUSCULAR HGB CONC 31.7 g/dl (32.0-36.5); PLATELET COUNT, AUTOMATED 111 10^3/uL (150-450); RED BLOOD COUNT 4.28 10^6/uL (4.00-5.40); WHITE BLOOD COUNT 8.8 10^3/uL (4.0-10.0)
[2023-03-01 17:12] LABS: ALBUMIN 4.3 G/DL (3.2-5.2); BILIRUBIN,TOTAL 0.4 MG/DL (0.3-1.2); CALCIUM LEVEL 9.4 MG/DL (8.3-10.6); CREATININE FOR GFR 1.82 MG/DL (0.55-1.30); GLOMERULAR FILTRATION RATE 28.1 (>32); POTASSIUM SERUM 4.3 MMOL/L (3.5-5.1); TOTAL PROTEIN 7.2 G/DL (5.7-8.2)
== END ==
LOC: M SHH 15:17
PROVIDERS: ATTEND Internal Medicine Cardiovascular Disease
DX: I50.810 Right heart failure, unspecified (principal); I27.20 Pulmonary hypertension, unspecified; Z79.899 Other long term (current) drug therapy

== ENCOUNTER → 2023-03-15 | Outpatient (REF) | payer MEDICARE, MEDICAID ==
[2023-03-15 16:04] LABS: HEMATOCRIT 33.7 % (36.0-47.0); HEMOGLOBIN 10.5 g/dl (12.0-15.5); MEAN CORPUSCULAR HEMOGLOBIN 24.6 pg (27.0-33.0); MEAN CORPUSCULAR HGB CONC 31.2 g/dl (32.0-36.5); MEAN CORPUSCULAR VOLUME 79.1 fl (80.0-96.0); PLATELET COUNT, AUTOMATED 110 10^3/uL (150-450); RED BLOOD COUNT 4.26 10^6/uL (4.00-5.40); WHITE BLOOD COUNT 7.8 10^3/uL (4.0-10.0)
[2023-03-15 16:44] LABS: ALBUMIN 4.1 G/DL (3.2-5.2); BILIRUBIN,TOTAL 0.4 MG/DL (0.3-1.2); CALCIUM LEVEL 9.5 MG/DL (8.3-10.6); CREATININE FOR GFR 1.96 MG/DL (0.55-1.30); GLOMERULAR FILTRATION RATE 25.8 (>32); TOTAL PROTEIN 7.2 G/DL (5.7-8.2)
== END ==
LOC: M SHH 15:32
PROVIDERS: ATTEND Internal Medicine Cardiovascular Disease
DX: I50.810 Right heart failure, unspecified (principal); I27.20 Pulmonary hypertension, unspecified; Z79.899 Other long term (current) drug therapy

== ENCOUNTER → 2023-03-29 | Outpatient (REF) | payer MEDICARE, MEDICAID ==
[2023-03-29 14:35] LABS: HEMATOCRIT 33.4 % (36.0-47.0); HEMOGLOBIN 10.5 g/dl (12.0-15.5); MEAN CORPUSCULAR HEMOGLOBIN 24.8 pg (27.0-33.0); MEAN CORPUSCULAR HGB CONC 31.4 g/dl (32.0-36.5); PLATELET COUNT, AUTOMATED 110 10^3/uL (150-450); RED BLOOD COUNT 4.23 10^6/uL (4.00-5.40); WHITE BLOOD COUNT 7.8 10^3/uL (4.0-10.0)
[2023-03-29 14:52] LABS: BILIRUBIN,TOTAL 0.5 MG/DL (0.3-1.2); CALCIUM LEVEL 9.1 MG/DL (8.3-10.6); CREATININE FOR GFR 1.67 MG/DL (0.55-1.30); POTASSIUM SERUM 4.4 MMOL/L (3.5-5.1); TOTAL PROTEIN 6.9 G/DL (5.7-8.2)
== END ==
LOC: M LAB REF 11:42 → M SHH 11:42
PROVIDERS: ATTEND Internal Medicine Cardiovascular Disease
DX: I50.810 Right heart failure, unspecified (principal); I27.20 Pulmonary hypertension, unspecified

== ENCOUNTER 2023-05-15 18:20 | Inpatient (IN) | payer MEDICARE, MEDICAID ==
[~2023-05-15] VITALS: Ht 144.8 cm; Wt 52.3 kg
[2023-05-15] MEDS ORDERED: VERI2.5T PO (18:49)
[2023-05-15] MEDS ORDERED: SILD1TAB8 PO (18:49)
[2023-05-15] MEDS ORDERED: SLOW142T5 PO (18:49)
[2023-05-15 19:10] LABS: VENOUS BASE EXCESS 3.1 (-2.0-2.0); VENOUS HCO3 28.1 MMOL/L (23.0-27.0); VENOUS O2 SATURATION 96.7 % (60.0-80.0); VENOUS PARTIAL PRESSURE CO2 44.9 mmHg (38.0-50.0); VENOUS PARTIAL PRESSURE O2 87.7 mmHg (30.0-50.0); VENOUS PH 7.415 UNITS (7.330-7.430); VENOUS STANDARD HCO3 27.3 MMOL/L; VENOUS TOTAL CO2 29.5 MMOL/L (24.0-28.0)
[2023-05-15] MEDS ORDERED: FUROSEMIDE 100MG/10ML VIAL IV ONE (19:10)
[2023-05-15 19:18] LABS: BASO % 0.1 % (0.0-1.0); EOS % 0.2 % (0.0-3.0); HEMATOCRIT 30.4 % (36.0-47.0); HEMOGLOBIN 9.8 g/dl (12.0-15.5); LYMPH # 1.1 10^3/uL (1.5-5.0); LYMPH % 13.7 % (24.0-44.0); MEAN CORPUSCULAR HEMOGLOBIN 25.3 pg (27.0-33.0); MEAN CORPUSCULAR HGB CONC 32.2 g/dl (32.0-36.5); MEAN CORPUSCULAR VOLUME 78.6 fl (80.0-96.0); MONO % 53.2 % (2.0-8.0); NEUTROPHILS # 2.6 10^3/uL (1.5-8.5); NEUTROPHILS % 31.5 % (36.0-66.0); PLATELET COUNT, AUTOMATED 110 10^3/uL (150-450); RED BLOOD COUNT 3.87 10^6/uL (4.00-5.40); WHITE BLOOD COUNT 8.2 10^3/uL (4.0-10.0)
[2023-05-15] MEDS ORDERED: MAGN400T2 PO (19:28)
[2023-05-15] MEDS ORDERED: BACL10TA2 PO ×2 (19:28→22:31)
[2023-05-15] MEDS ORDERED: VITA500T73 PO (19:28)
[2023-05-15] MEDS ORDERED: SPIR-10 PO (19:28)
[2023-05-15] MEDS ORDERED: FOLI1TAB11 PO (19:28)
[2023-05-15] MEDS ORDERED: BUME1TAB3 PO ×2 (19:28→22:31)
[2023-05-15 19:43] LABS: ALBUMIN 3.8 G/DL (3.2-5.2); BILIRUBIN,DIRECT 0.1 MG/DL (<0.4); BILIRUBIN,TOTAL 0.4 MG/DL (0.3-1.2); CALCIUM LEVEL 8.9 MG/DL (8.3-10.6); CK-MB VALUE MASS 1.4 NG/ML (<3.6); CREATININE FOR GFR 1.74 MG/DL (0.55-1.30); GLOMERULAR FILTRATION RATE 29.6 (>32); MB/CK RELATIVE INDEX 1.86 (< OR =4); POTASSIUM SERUM 3.8 MMOL/L (3.5-5.1)
[2023-05-15 19:47] LABS: THYROID STIMULATING HORMONE 1.434 uIU/ML (0.55-4.78)
[2023-05-15 19:53] LABS: MONO # 4.4 10^3/uL (0.0-0.8)
[2023-05-15 19:56] LABS: PROCALCITONIN 0.13 ng/ml
[2023-05-15 20:24] LABS: INR 0.99; PROTHROMBIN TIME 12.8 SECONDS (12.5-14.5)
[2023-05-15 20:32] LABS: CK-MB VALUE MASS 1.5 NG/ML (<3.6)
[2023-05-15 20:36] LABS: MB/CK RELATIVE INDEX 1.74 (< OR =4)
[2023-05-15] MEDS ORDERED: NITROGLYCERIN 2% OINT 1 GM *U/D* PKT TOP ONE (22:30)
[2023-05-15] MEDS ORDERED: SEMA0.257 SQ (22:31)
[2023-05-15] MEDS ORDERED: ATOR1TAB21 PO (22:31)
[2023-05-15] MEDS ORDERED: HYDR-3910 PO (22:31)
[2023-05-15] MEDS ORDERED: LEVO100T5 PO (22:34)
[2023-05-15] MEDS ORDERED: HOME MED LIST COMPLETE! XX SCH (22:35)
[2023-05-15] MEDS ORDERED: ACETAMINOPHEN 500 MG TAB PO PRN (23:10)
[2023-05-15] MEDS ORDERED: DEXTROSE 50% 50ML SYRINGE IV PRN (23:10)
[2023-05-15] MEDS ORDERED: GLUCAGON INJ 1MG VIAL SC PRN (23:10)
[2023-05-15] MEDS ORDERED: GLUCOSE 4GM CHEW TABLET PO PRN (23:10)
[2023-05-15] MEDS ORDERED: ALBUTEROL SULFATE 2.5MG/0.5ML INH NEB SOLN NEB PRN (23:10)
[2023-05-15] MEDS ORDERED: LOSARTAN 25 MG TAB PO ONE (23:40)
[2023-05-16] VITALS (9 sets, daily range): BP systolic 108–220; BP diastolic 54–82; TEMP 97.5–98; O2SAT 94–99
[2023-05-16] MEDS: **hydrALAZINE HCL** 25 MG TAB PO SCH ×4 (00:01→22:00)
[2023-05-16] MEDS: IPRATROPIUM 0.5MG/ALBUTEROL 2.5MG INH SOL UD 3ML (DUONEB) NEB SCH ×4 (01:14→19:19)
[2023-05-16] MEDS ORDERED: amLODIPine 5 MG TAB PO ONE (01:45)
[2023-05-16] MEDS ORDERED: LOSARTAN 50MG TABLET PO ONE (01:45)
[2023-05-16 05:31] LABS: HEMATOCRIT 30.4 % (36.0-47.0); HEMOGLOBIN 9.7 g/dl (12.0-15.5); MEAN CORPUSCULAR HEMOGLOBIN 25.1 pg (27.0-33.0); MEAN CORPUSCULAR HGB CONC 31.9 g/dl (32.0-36.5); MEAN CORPUSCULAR VOLUME 78.6 fl (80.0-96.0); PLATELET COUNT, AUTOMATED 108 10^3/uL (150-450); RED BLOOD COUNT 3.87 10^6/uL (4.00-5.40); WHITE BLOOD COUNT 8.7 10^3/uL (4.0-10.0)
[2023-05-16 05:55] LABS: BLOOD UREA NITROGEN 30 MG/DL (9-23); CARBON DIOXIDE LEVEL 31 MMOL/L (20-31); CHLORIDE LEVEL 100 MMOL/L (98-107); CREATININE FOR GFR 1.68 MG/DL (0.55-1.30); GLOMERULAR FILTRATION RATE 30.8 (>32); GLUCOSE, FASTING 115 MG/DL (74-106); POTASSIUM SERUM 3.4 MMOL/L (3.5-5.1); SODIUM LEVEL 141 MMOL/L (136-145)
[2023-05-16] MEDS: LEVOTHYROXINE 100MCG TABLET (0.1MG) PO SCH (06:03)
[2023-05-16] MEDS ORDERED: POTASSIUM CHLORIDE 10MEQ SR TABLET PO ONE (06:20)
[2023-05-16 07:18] LABS: IRON (FE) 29 UG/DL (50-170); PERCENT SATURATION 9.8 % (13.2-45.0); TOTAL IRON BINDING CAPACITY 296 UG/DL (250-425)
[2023-05-16 07:21] LABS: FERRITIN 273.5 NG/ML (7.3-270.7); FOLATE > 24.0 NG/ML (>5.4); VITAMIN B12 LEVEL 1074 PG/ML (211-911)
[2023-05-16] MEDS ORDERED: LOSARTAN 50MG TABLET PO SCH (09:00)
[2023-05-16] MEDS ORDERED: LOSARTAN 25 MG TAB PO SCH (09:00)
[2023-05-16] MEDS: FUROSEMIDE 40MG/4ML VIAL IV SCH (09:20)
[2023-05-16] MEDS: HEPARIN SOD (PORCINE) 5000UNITS/ML 1ML VIAL/SYRINGE SC SCH ×2 (09:20→22:00)
[2023-05-16] MEDS: LABETALOL 200 MG TAB PO SCH ×2 (09:21→22:01)
[2023-05-16] MEDS: SPIRONOLACTONE 25 MG TAB PO SCH ×3 (09:21→16:29)
[2023-05-16] MEDS: SERTRALINE HCL 50 MG TAB PO SCH (09:21)
[2023-05-16] MEDS: PANTOPRAZOLE 40MG TAB (PROTONIX) PO SCH (09:21)
[2023-05-16] MEDS: FERROUS SULFATE 325MG TAB PO SCH (09:21)
[2023-05-16] MEDS: INSULIN LISPRO (NovoLOG) PER UNIT SC SCH ×3 (09:29→16:27)
[2023-05-16] MEDS ORDERED: INSULIN LISPRO (NovoLOG) PER UNIT SC SCH (21:00)
[2023-05-16] MEDS ORDERED: ATORVASTATIN 20 MG TAB PO SCH (21:00)
[2023-05-16] MEDS ORDERED: BACLOFEN 5MG PER 1/2 TABLET PO SCH (21:00)
[2023-05-16] MEDS ORDERED: GABAPENTIN 300 MG CAP PO SCH (21:00)
[2023-05-16] MEDS ORDERED: amLODIPine 5 MG TAB PO SCH (21:00)
[2023-05-17] MEDS: IPRATROPIUM 0.5MG/ALBUTEROL 2.5MG INH SOL UD 3ML (DUONEB) NEB SCH ×2 (01:05→07:55)
[2023-05-17 03:44] VITALS: BP 141/67; TEMP 97.4; O2SAT 100
[2023-05-17] MEDS: LEVOTHYROXINE 100MCG TABLET (0.1MG) PO SCH (06:12)
[2023-05-17 06:19] LABS: BASO % 0.1 % (0.0-1.0); EOS % 0.2 % (0.0-3.0); HEMATOCRIT 31.4 % (36.0-47.0); HEMOGLOBIN 9.9 g/dl (12.0-15.5); LYMPH # 1.3 10^3/uL (1.5-5.0); LYMPH % 15.9 % (24.0-44.0); MEAN CORPUSCULAR HEMOGLOBIN 24.9 pg (27.0-33.0); MEAN CORPUSCULAR HGB CONC 31.5 g/dl (32.0-36.5); MEAN CORPUSCULAR VOLUME 78.9 fl (80.0-96.0); MONO % 52.1 % (2.0-8.0); NEUTROPHILS # 2.5 10^3/uL (1.5-8.5); NEUTROPHILS % 30.7 % (36.0-66.0); PLATELET COUNT, AUTOMATED 121 10^3/uL (150-450); RED BLOOD COUNT 3.98 10^6/uL (4.00-5.40); WHITE BLOOD COUNT 8.3 10^3/uL (4.0-10.0)
[2023-05-17 06:43] LABS: CALCIUM LEVEL 8.9 MG/DL (8.3-10.6); CREATININE FOR GFR 1.88 MG/DL (0.55-1.30); GLOMERULAR FILTRATION RATE 27.1 (>32); POTASSIUM SERUM 4.3 MMOL/L (3.5-5.1)
[2023-05-17 07:02] LABS: MONO # 4.3 10^3/uL (0.0-0.8)
[2023-05-17 07:49] VITALS: BP 160/74; TEMP 97.6; O2SAT 99
[2023-05-17] MEDS: FERROUS SULFATE 325MG TAB PO SCH (08:43)
[2023-05-17] MEDS: SPIRONOLACTONE 25 MG TAB PO SCH (08:43)
[2023-05-17] MEDS: **hydrALAZINE HCL** 25 MG TAB PO SCH (08:43)
[2023-05-17 08:44] VITALS: BP 160/74
[2023-05-17] MEDS: LABETALOL 200 MG TAB PO SCH (08:44)
[2023-05-17] MEDS: SERTRALINE HCL 50 MG TAB PO SCH (08:44)
[2023-05-17] MEDS: INSULIN LISPRO (NovoLOG) PER UNIT SC SCH (08:44)
[2023-05-17] MEDS: PANTOPRAZOLE 40MG TAB (PROTONIX) PO SCH (08:44)
[2023-05-17] MEDS: FUROSEMIDE 40MG/4ML VIAL IV SCH (08:45)
[2023-05-17] MEDS: HEPARIN SOD (PORCINE) 5000UNITS/ML 1ML VIAL/SYRINGE SC SCH (08:45)
[2023-05-17] MEDS ORDERED: AMLO1TAB25 PO (08:58)
[2023-05-17] MEDS ORDERED: METO25TA PO (08:58)
[2023-05-17] MEDS ORDERED: TORS20TA2 PO (08:58)
[2023-05-17] MEDS ORDERED: HYDR-3911 PO (10:15)
== END 2023-05-17 11:14 | disposition home health service (06) | DRG 291 ==
LOC: M ED 18:20 → M ED INP 22:31 → M PCU 05-16 00:07
PROVIDERS: ADMIT Internal Medicine; ATTEND Internal Medicine
PROC: B246ZZZ Ultrasonography of Right and Left Heart (ICD-10-PCS; principal; 2023-05-16)
DX: I13.0 Hypertensive heart and chronic kidney disease with heart failure and stage 1 through stage 4 chronic kidney disease, or unspecified chronic kidney disease (principal); I50.33 Acute on chronic diastolic (congestive) heart failure; N18.4 Chronic kidney disease, stage 4 (severe); J96.11 Chronic respiratory failure with hypoxia; D69.3 Immune thrombocytopenic purpura; Z66 Do not resuscitate; J44.9 Chronic obstructive pulmonary disease, unspecified; I27.20 Pulmonary hypertension, unspecified; E03.9 Hypothyroidism, unspecified; K21.9 Gastro-esophageal reflux disease without esophagitis; E78.00 Pure hypercholesterolemia, unspecified; I16.0 Hypertensive urgency; I70.1 Atherosclerosis of renal artery; D50.9 Iron deficiency anemia, unspecified; E11.22 Type 2 diabetes mellitus with diabetic chronic kidney disease; Z79.890 Hormone replacement therapy; Z79.899 Other long term (current) drug therapy; Z20.822 Contact with and (suspected) exposure to COVID-19; Z95.2 Presence of prosthetic heart valve; Z99.81 Dependence on supplemental oxygen

== ENCOUNTER 2023-07-10 10:11 | Inpatient (IN) | payer MEDICARE, MEDICAID ==
[~2023-07-10] VITALS: Ht 144.8 cm; Wt 51.5 kg
[~2023-07-10 10:11] MED LIST changes: +AMLO1TAB25 PO; +BUME1TAB3 PO; +HYDR-3911 PO; +MAGN400T2 PO; +METO25TA PO; +SEMA0.257 SQ; +SILD1TAB8 PO; +SLOW142T5 PO; +SPIR-10 PO; +VITA500T73 PO
[2023-07-10] MEDS ORDERED: NS 1,000 ML IV ONE (10:55)
[2023-07-10] MEDS ORDERED: ALBUTEROL SULFATE 2.5MG/0.5ML INH NEB SOLN INH ONE (10:55)
[2023-07-10] MEDS ORDERED: IPRATROPIUM 0.5MG/ALBUTEROL 2.5MG INH SOL UD 3ML (DUONEB) NEB ONE ×2 (10:55→13:55)
[2023-07-10] MEDS ORDERED: ACETAMINOPHEN 325 MG TAB PO ONE (10:55)
[2023-07-10] MEDS ORDERED: methylPREDNISolone 125MG 2ML VIAL IV ONE (10:55)
[2023-07-10 11:04] LABS: HEMATOCRIT 30.8 % (36.0-47.0); HEMOGLOBIN 9.6 g/dl (12.0-15.5); MEAN CORPUSCULAR HEMOGLOBIN 24.5 pg (27.0-33.0); MEAN CORPUSCULAR HGB CONC 31.2 g/dl (32.0-36.5); MEAN CORPUSCULAR VOLUME 78.6 fl (80.0-96.0); RED BLOOD COUNT 3.92 10^6/uL (4.00-5.40); WHITE BLOOD COUNT 15.3 10^3/uL (4.0-10.0)
[2023-07-10 11:06] LABS: VENOUS BASE EXCESS -1.3 (-2.0-2.0); VENOUS HCO3 24.4 MMOL/L (23.0-27.0); VENOUS PARTIAL PRESSURE CO2 44.9 mmHg (38.0-50.0); VENOUS PARTIAL PRESSURE O2 32.1 mmHg (30.0-50.0); VENOUS PH 7.353 UNITS (7.330-7.430); VENOUS STANDARD HCO3 22.7 MMOL/L; VENOUS TOTAL CO2 25.8 MMOL/L (24.0-28.0)
[2023-07-10 11:09] LABS: PLATELET COUNT, AUTOMATED 88 10^3/uL (150-450)
[2023-07-10 11:23] LABS: CK-MB VALUE MASS < 1.0 NG/ML (<3.6)
[2023-07-10 11:26] LABS: ALBUMIN 4.4 G/DL (3.2-5.2); ALKALINE PHOSPHATASE 80 U/L (46-116); ALT/SGPT 26 U/L (7.0-40); AST/SGOT 34 U/L (<34); BILIRUBIN,DIRECT 0.3 MG/DL (<0.4); BILIRUBIN,TOTAL 0.7 MG/DL (0.3-1.2); BLOOD UREA NITROGEN 35 MG/DL (9-23); CALCIUM LEVEL 9.8 MG/DL (8.3-10.6); CARBON DIOXIDE LEVEL 25 MMOL/L (20-31); CHLORIDE LEVEL 101 MMOL/L (98-107); CPK CREATINE PHOSPHOKINASE 151 U/L (34-145); CREATININE FOR GFR 2.16 MG/DL (0.55-1.30); GLOMERULAR FILTRATION RATE 23.1 (>32); GLUCOSE, FASTING 142 MG/DL (74-106); MB/CK RELATIVE INDEX 0.66 (< OR =4); POTASSIUM SERUM 3.9 MMOL/L (3.5-5.1); SODIUM LEVEL 138 MMOL/L (136-145); TOTAL PROTEIN 7.7 G/DL (5.7-8.2)
[2023-07-10 11:29] LABS: THYROID STIMULATING HORMONE 0.722 uIU/ML (0.55-4.78)
[2023-07-10 11:32] LABS: ATYPICAL LYMPH 6 % (0-5); LYMPHOCYTES 4 % (16-44); MONOCYTES 45 % (0-5); MYELOCYTES 1 % (0-0); NEUTROPHILS 43 % (28-66)
[2023-07-10 11:33] LABS: PROCALCITONIN 0.44 ng/ml
[2023-07-10 11:34] LABS: ANISOCYTOSIS 1+; PLATELET ESTIMATE DECREASED (NORMAL)
[2023-07-10] MEDS ORDERED: FERR324T21 PO (11:36)
[2023-07-10] MEDS ORDERED: DOXYCYCLINE HYCLATE 100 MG in D5W MINI-BAG PLUS 100 ML IV ONE (11:45)
[2023-07-10] MEDS ORDERED: CEFEPIME HCL 2 GM in D5W MINI-BAG PLUS 50 ML IV ONE (11:45)
[2023-07-10 12:32] LABS: CK-MB VALUE MASS < 1.0 NG/ML (<3.6)
[2023-07-10 12:33] LABS: CPK CREATINE PHOSPHOKINASE 132 U/L (34-145); MB/CK RELATIVE INDEX 0.75 (< OR =4)
[2023-07-10] MEDS: IPRATROPIUM 0.5MG/ALBUTEROL 2.5MG INH SOL UD 3ML (DUONEB) NEB SCH ×2 (14:00→21:31)
[2023-07-10] MEDS ORDERED: MED REC IN PROGRESS XX SCH (14:10)
[2023-07-10] MEDS ORDERED: METO5TA PO (14:48)
[2023-07-10] MEDS ORDERED: HYDR-3911 PO (14:48)
[2023-07-10] MEDS ORDERED: BUME1TAB3 PO (14:48)
[2023-07-10] MEDS ORDERED: AMLO1TAB25 PO (14:48)
[2023-07-10] MEDS ORDERED: HOME MED LIST COMPLETE! XX SCH (14:55)
[2023-07-10] MEDS ORDERED: CEFEPIME HCL 2 GM in D5W MINI-BAG PLUS 50 ML IV SCH (15:15)
[2023-07-10 15:16] VITALS: BP 123/54; TEMP 97.2; O2SAT 97
[2023-07-10] MEDS ORDERED: ACETAMINOPHEN TAB 650MG DOSE (2X325MG) PO PRN (15:25)
[2023-07-10] MEDS ORDERED: DOCUSATE SODIUM 100MG CAPSULE PO PRN (15:25)
[2023-07-10] MEDS ORDERED: REMDESIVIR 200 MG in NS 250 ML IV ONE (16:00)
[2023-07-10] MEDS: **hydrALAZINE** 50 MG TAB PO SCH ×2 (17:26→20:24)
[2023-07-10] MEDS: FOLIC ACID 1MG TAB PO SCH (17:26)
[2023-07-10 20:19] VITALS: BP 115/51; TEMP 98.6; O2SAT 95
[2023-07-10] MEDS: SPIRONOLACTONE 25 MG TAB PO SCH (20:23)
[2023-07-10] MEDS: BACLOFEN 5MG PER 1/2 TABLET PO SCH (20:23)
[2023-07-10] MEDS: BUMETANIDE 1 MG TAB PO SCH (20:23)
[2023-07-10] MEDS: MAGNESIUM OXIDE 400MG TAB (MAG-OX) PO SCH (20:24)
[2023-07-10] MEDS: LABETALOL 200 MG TAB PO SCH (20:24)
[2023-07-10] MEDS: ATORVASTATIN 20 MG TAB PO SCH (20:25)
[2023-07-10] MEDS: DOXYCYCLINE HYCLATE 100MG TABLET PO SCH (20:25)
[2023-07-10 20:31] VITALS: O2SAT 96
[2023-07-10 20:59] VITALS: O2SAT 94
[2023-07-10] MEDS ORDERED: SILDENAFIL XX SCH (21:00)
[2023-07-10 21:58] VITALS: O2SAT 93
[2023-07-10] MEDS: HEPARIN SOD (PORCINE) 5000UNITS/ML 1ML VIAL/SYRINGE SC SCH (22:05)
[2023-07-10 23:35] VITALS: O2SAT 93
[2023-07-11] MEDS: IPRATROPIUM 0.5MG/ALBUTEROL 2.5MG INH SOL UD 3ML (DUONEB) NEB SCH ×4 (01:39→19:20)
[2023-07-11 05:58] VITALS: BP 129/56; TEMP 98.6; O2SAT 93
[2023-07-11] MEDS: HEPARIN SOD (PORCINE) 5000UNITS/ML 1ML VIAL/SYRINGE SC SCH ×3 (05:58→22:18)
[2023-07-11] MEDS: LEVOTHYROXINE 100MCG TABLET (0.1MG) PO SCH (05:58)
[2023-07-11 06:36] LABS: HEMATOCRIT 25.9 % (36.0-47.0); HEMOGLOBIN 8.2 g/dl (12.0-15.5); MEAN CORPUSCULAR HEMOGLOBIN 24.8 pg (27.0-33.0); MEAN CORPUSCULAR HGB CONC 31.7 g/dl (32.0-36.5); MEAN CORPUSCULAR VOLUME 78.2 fl (80.0-96.0); RED BLOOD COUNT 3.31 10^6/uL (4.00-5.40); WHITE BLOOD COUNT 14.6 10^3/uL (4.0-10.0)
[2023-07-11 06:45] LABS: PLATELET COUNT, AUTOMATED 69 10^3/uL (150-450)
[2023-07-11 07:22] LABS: ALBUMIN 3.7 G/DL (3.2-5.2); BILIRUBIN,TOTAL 0.4 MG/DL (0.3-1.2); CALCIUM LEVEL 9.2 MG/DL (8.3-10.6); CREATININE FOR GFR 2.31 MG/DL (0.55-1.30); GLOMERULAR FILTRATION RATE 21.3 (>32); POTASSIUM SERUM 4.3 MMOL/L (3.5-5.1); TOTAL PROTEIN 6.5 G/DL (5.7-8.2)
[2023-07-11] MEDS: SPIRONOLACTONE 25 MG TAB PO SCH ×3 (09:00→17:23)
[2023-07-11] MEDS: BUMETANIDE 1 MG TAB PO SCH ×2 (09:00→10:10)
[2023-07-11] MEDS: metOLazone 5 MG TAB PO SCH ×2 (09:00→10:09)
[2023-07-11] MEDS: MAGNESIUM OXIDE 400MG TAB (MAG-OX) PO SCH ×2 (10:10→20:19)
[2023-07-11] MEDS: PANTOPRAZOLE 40MG TAB (PROTONIX) PO SCH (10:10)
[2023-07-11] MEDS: FOLIC ACID 1MG TAB PO SCH (10:10)
[2023-07-11] MEDS: **hydrALAZINE** 50 MG TAB PO SCH ×3 (10:10→20:19)
[2023-07-11] MEDS: LABETALOL 200 MG TAB PO SCH ×2 (10:11→20:19)
[2023-07-11] MEDS: DOXYCYCLINE HYCLATE 100MG TABLET PO SCH ×2 (10:11→20:19)
[2023-07-11] MEDS: SERTRALINE HCL 50 MG TAB PO SCH (10:11)
[2023-07-11] MEDS: ASCORBIC ACID 500 MG TAB PO SCH (10:11)
[2023-07-11] MEDS: CEFEPIME HCL 1 GM in D5W MINI-BAG PLUS 50 ML IV SCH ×2 (10:24→20:18)
[2023-07-11] MEDS: dexAMETHasone 20MG/5ML VIAL IV SCH (12:11)
[2023-07-11 14:00] VITALS: BP 116/78; TEMP 98.5; O2SAT 91
[2023-07-11] MEDS ORDERED: BUMETANIDE 1 MG TAB PO ONE (15:00)
[2023-07-11] MEDS: REMDESIVIR 100 MG in NS 250 ML IV SCH (17:24)
[2023-07-11 20:10] VITALS: BP 169/75; TEMP 97.9; O2SAT 94
[2023-07-11] MEDS: ATORVASTATIN 20 MG TAB PO SCH (20:19)
[2023-07-11] MEDS: GABAPENTIN 300 MG CAP PO SCH (20:19)
[2023-07-11] MEDS: CYANOCOBALAMIN 500 MCG TAB PO SCH (20:19)
[2023-07-11] MEDS: BACLOFEN 5MG PER 1/2 TABLET PO SCH (20:19)
[2023-07-12] MEDS: IPRATROPIUM 0.5MG/ALBUTEROL 2.5MG INH SOL UD 3ML (DUONEB) NEB SCH ×4 (02:00→19:50)
[2023-07-12] MEDS: LEVOTHYROXINE 100MCG TABLET (0.1MG) PO SCH (05:28)
[2023-07-12] MEDS: HEPARIN SOD (PORCINE) 5000UNITS/ML 1ML VIAL/SYRINGE SC SCH ×3 (05:29→21:08)
[2023-07-12 05:30] VITALS: BP 124/71; TEMP 98.1; O2SAT 93
[2023-07-12 07:53] LABS: HEMATOCRIT 29.1 % (36.0-47.0); HEMOGLOBIN 9.3 g/dl (12.0-15.5); MEAN CORPUSCULAR HEMOGLOBIN 24.5 pg (27.0-33.0); MEAN CORPUSCULAR VOLUME 76.8 fl (80.0-96.0); RED BLOOD COUNT 3.79 10^6/uL (4.00-5.40)
[2023-07-12 07:57] LABS: PLATELET COUNT, AUTOMATED 85 10^3/uL (150-450)
[2023-07-12 08:20] LABS: CALCIUM LEVEL 10.1 MG/DL (8.3-10.6); CREATININE FOR GFR 1.96 MG/DL (0.55-1.30); GLOMERULAR FILTRATION RATE 25.8 (>32); PHOSPHORUS LEVEL 3.7 MG/DL (2.4-5.1); POTASSIUM SERUM 3.8 MMOL/L (3.5-5.1)
[2023-07-12] MEDS: CEFEPIME HCL 1 GM in D5W MINI-BAG PLUS 50 ML IV SCH ×2 (09:28→21:21)
[2023-07-12] MEDS: MAGNESIUM OXIDE 400MG TAB (MAG-OX) PO SCH ×2 (09:29→21:08)
[2023-07-12] MEDS: DOXYCYCLINE HYCLATE 100MG TABLET PO SCH ×2 (09:29→21:10)
[2023-07-12] MEDS: dexAMETHasone 20MG/5ML VIAL IV SCH (09:29)
[2023-07-12] MEDS: **hydrALAZINE** 50 MG TAB PO SCH ×3 (09:30→21:10)
[2023-07-12] MEDS: LABETALOL 200 MG TAB PO SCH ×2 (09:30→21:10)
[2023-07-12] MEDS: ASCORBIC ACID 500 MG TAB PO SCH (09:30)
[2023-07-12] MEDS: FOLIC ACID 1MG TAB PO SCH (09:30)
[2023-07-12] MEDS: SPIRONOLACTONE 25 MG TAB PO SCH ×2 (09:30→16:11)
[2023-07-12] MEDS: PANTOPRAZOLE 40MG TAB (PROTONIX) PO SCH (09:31)
[2023-07-12] MEDS: BUMETANIDE 1 MG TAB PO SCH (09:33)
[2023-07-12] MEDS: SERTRALINE HCL 50 MG TAB PO SCH (09:34)
[2023-07-12 14:00] VITALS: BP 145/74; TEMP 98.1; O2SAT 90
[2023-07-12] MEDS: REMDESIVIR 100 MG in NS 250 ML IV SCH (17:05)
[2023-07-12] MEDS: ATORVASTATIN 20 MG TAB PO SCH (21:08)
[2023-07-12] MEDS: GABAPENTIN 300 MG CAP PO SCH (21:09)
[2023-07-12] MEDS: BACLOFEN 5MG PER 1/2 TABLET PO SCH (21:09)
[2023-07-12] MEDS: CYANOCOBALAMIN 500 MCG TAB PO SCH (21:10)
[2023-07-12 22:30] VITALS: BP 157/62; TEMP 98.1; O2SAT 96
[2023-07-13] MEDS: IPRATROPIUM 0.5MG/ALBUTEROL 2.5MG INH SOL UD 3ML (DUONEB) NEB SCH ×2 (02:00→09:24)
[2023-07-13] MEDS: HEPARIN SOD (PORCINE) 5000UNITS/ML 1ML VIAL/SYRINGE SC SCH ×2 (05:40→14:00)
[2023-07-13] MEDS: LEVOTHYROXINE 100MCG TABLET (0.1MG) PO SCH (05:40)
[2023-07-13 05:50] VITALS: BP 166/69; TEMP 98.1; O2SAT 95
[2023-07-13 06:08] LABS: BASO % 0.3 % (0.0-1.0); HEMATOCRIT 30.1 % (36.0-47.0); HEMOGLOBIN 9.6 g/dl (12.0-15.5); LYMPH # 0.7 10^3/uL (1.5-5.0); MEAN CORPUSCULAR HEMOGLOBIN 24.1 pg (27.0-33.0); MEAN CORPUSCULAR HGB CONC 31.9 g/dl (32.0-36.5); MEAN CORPUSCULAR VOLUME 75.6 fl (80.0-96.0); MONO % 49.3 % (2.0-8.0); NEUTROPHILS # 4.6 10^3/uL (1.5-8.5); NEUTROPHILS % 40.1 % (36.0-66.0); RED BLOOD COUNT 3.98 10^6/uL (4.00-5.40); WHITE BLOOD COUNT 11.6 10^3/uL (4.0-10.0)
[2023-07-13 06:39] LABS: CALCIUM LEVEL 10.1 MG/DL (8.3-10.6); CREATININE FOR GFR 1.92 MG/DL (0.55-1.30); GLOMERULAR FILTRATION RATE 26.4 (>32); POTASSIUM SERUM 3.9 MMOL/L (3.5-5.1)
[2023-07-13 06:55] LABS: MONO # 5.7 10^3/uL (0.0-0.8)
[2023-07-13 06:56] LABS: PLATELET COUNT, AUTOMATED 107 10^3/uL (150-450)
[2023-07-13 09:24] VITALS: O2SAT 95
[2023-07-13] MEDS: CEFEPIME HCL 1 GM in D5W MINI-BAG PLUS 50 ML IV SCH (10:04)
[2023-07-13] MEDS: BUMETANIDE 1 MG TAB PO SCH (10:05)
[2023-07-13] MEDS: PANTOPRAZOLE 40MG TAB (PROTONIX) PO SCH (10:06)
[2023-07-13] MEDS: SERTRALINE HCL 50 MG TAB PO SCH (10:06)
[2023-07-13] MEDS: DOXYCYCLINE HYCLATE 100MG TABLET PO SCH (10:06)
[2023-07-13] MEDS: FOLIC ACID 1MG TAB PO SCH (10:06)
[2023-07-13] MEDS: MAGNESIUM OXIDE 400MG TAB (MAG-OX) PO SCH (10:06)
[2023-07-13] MEDS: ASCORBIC ACID 500 MG TAB PO SCH (10:06)
[2023-07-13] MEDS: SPIRONOLACTONE 25 MG TAB PO SCH (10:06)
[2023-07-13 10:07] VITALS: BP 166/69
[2023-07-13] MEDS: LABETALOL 200 MG TAB PO SCH (10:07)
[2023-07-13] MEDS: **hydrALAZINE** 50 MG TAB PO SCH (10:07)
[2023-07-13] MEDS ORDERED: BUME2TAB3 PO (11:11)
[2023-07-13] MEDS ORDERED: DEXA4TA PO ×2 (11:16→11:19)
[2023-07-13] MEDS ORDERED: AMOX500T2 PO (11:17)
== END 2023-07-13 14:07 | disposition home or self-care (01) | DRG 177 ==
LOC: M ED 10:11 → M ED INP 13:55 → ENRESERV 14:43 → M MSPAV 15:15
PROVIDERS: ADMIT Internal Medicine; ATTEND Student in an Organized Health Care Education/Training Program
PROC: XW033E5 Introduction of Remdesivir Anti-infective into Peripheral Vein, Percutaneous Approach, New Technology Group 5 (ICD-10-PCS; 2023-07-10)
PROC: 3E0333Z Introduction of Anti-inflammatory into Peripheral Vein, Percutaneous Approach (ICD-10-PCS; principal; 2023-07-11)
DX: U07.1 COVID-19 (principal); J96.21 Acute and chronic respiratory failure with hypoxia; J12.82 Pneumonia due to coronavirus disease 2019; J15.9 Unspecified bacterial pneumonia; I50.33 Acute on chronic diastolic (congestive) heart failure; I13.0 Hypertensive heart and chronic kidney disease with heart failure and stage 1 through stage 4 chronic kidney disease, or unspecified chronic kidney disease; D69.3 Immune thrombocytopenic purpura; N17.9 Acute kidney failure, unspecified; N18.30 Chronic kidney disease, stage 3 unspecified; J44.9 Chronic obstructive pulmonary disease, unspecified; I27.20 Pulmonary hypertension, unspecified; I70.1 Atherosclerosis of renal artery; E03.9 Hypothyroidism, unspecified; K21.9 Gastro-esophageal reflux disease without esophagitis; E78.5 Hyperlipidemia, unspecified; M54.9 Dorsalgia, unspecified; G89.29 Other chronic pain; K59.09 Other constipation; F39 Unspecified mood [affective] disorder; Z66 Do not resuscitate; Z79.890 Hormone replacement therapy; Z79.899 Other long term (current) drug therapy; Z99.81 Dependence on supplemental oxygen; D64.9 Anemia, unspecified

== ENCOUNTER 2023-08-14 21:20 | Inpatient (IN) | payer MEDICARE, MEDICAID ==
[~2023-08-14] VITALS: Ht 144.8 cm; Wt 54.2 kg
[~2023-08-14 21:20] MED LIST changes: +AMOX500T2 PO; +BUME2TAB3 PO; +DEXA4TA PO; -HYDR-3911 PO; +HYDR50TA46 PO; +METO5TA PO
[2023-08-14 22:22] LABS: BASO % 0.1 % (0.0-1.0); EOS % 0.1 % (0.0-3.0); HEMATOCRIT 34.2 % (36.0-47.0); HEMOGLOBIN 10.9 g/dl (12.0-15.5); LYMPH # 0.8 10^3/uL (1.5-5.0); LYMPH % 5.1 % (24.0-44.0); MEAN CORPUSCULAR HEMOGLOBIN 24.4 pg (27.0-33.0); MEAN CORPUSCULAR HGB CONC 31.9 g/dl (32.0-36.5); MEAN CORPUSCULAR VOLUME 76.7 fl (80.0-96.0); MONO % 45.4 % (2.0-8.0); NEUTROPHILS # 7.4 10^3/uL (1.5-8.5); NEUTROPHILS % 48.1 % (36.0-66.0); PLATELET COUNT, AUTOMATED 141 10^3/uL (150-450); RED BLOOD COUNT 4.46 10^6/uL (4.00-5.40); WHITE BLOOD COUNT 15.4 10^3/uL (4.0-10.0)
[2023-08-14 23:32] LABS: VENOUS HCO3 24.1 MMOL/L (23.0-27.0); VENOUS O2 SATURATION 83.7 % (60.0-80.0); VENOUS PARTIAL PRESSURE CO2 41.6 mmHg (38.0-50.0); VENOUS PH 7.381 UNITS (7.330-7.430); VENOUS STANDARD HCO3 23.4 MMOL/L; VENOUS TOTAL CO2 25.4 MMOL/L (24.0-28.0)
[2023-08-14] MEDS: MORPHINE 2 MG/ML 1ML VIAL IV PRN (23:43)
[2023-08-15] MEDS ORDERED: cefTRIAXone SOD 2 GM in D5W MINI-BAG PLUS 50 ML IV ONE ×2
[2023-08-15 00:01] LABS: CK-MB VALUE MASS 1.9 NG/ML (<3.6)
[2023-08-15 00:05] LABS: THYROID STIMULATING HORMONE 0.881 uIU/ML (0.55-4.78)
[2023-08-15 00:09] LABS: PROCALCITONIN 0.18 ng/ml
[2023-08-15 00:54] LABS: ALBUMIN 3.9 G/DL (3.2-5.2); BILIRUBIN,DIRECT 0.1 MG/DL (<0.4); BILIRUBIN,TOTAL 0.3 MG/DL (0.3-1.2); CALCIUM LEVEL 9.4 MG/DL (8.3-10.6); CREATININE FOR GFR 1.81 MG/DL (0.55-1.30); GLOMERULAR FILTRATION RATE 28.3 (>32); MB/CK RELATIVE INDEX 1.79 (< OR =4); POTASSIUM SERUM 4.8 MMOL/L (3.5-5.1); TOTAL PROTEIN 7.2 G/DL (5.7-8.2)
[2023-08-15] MEDS ORDERED: LABETALOL 100MG/20ML VIAL IV STA (01:09)
[2023-08-15] MEDS: MORPHINE 2 MG/ML 1ML VIAL IV PRN (01:42)
[2023-08-15] MEDS ORDERED: ALBUTEROL SULFATE 2.5MG/0.5ML INH NEB SOLN NEB PRN (04:25)
[2023-08-15] MEDS ORDERED: GLUCAGON INJ 1MG VIAL SC PRN (04:25)
[2023-08-15] MEDS ORDERED: hydrALAZINE 20MG/ML 1ML VIAL IV PRN (04:25)
[2023-08-15] MEDS ORDERED: ACETAMINOPHEN TAB 650MG DOSE (2X325MG) PO PRN (04:25)
[2023-08-15] MEDS ORDERED: DEXTROSE 50% 50ML SYRINGE IV PRN (04:25)
[2023-08-15] MEDS ORDERED: GLUCOSE 4GM CHEW TABLET PO PRN (04:25)
[2023-08-15] MEDS ORDERED: HYDROMORPHONE HCL 0.5 MG/ 0.5 ML SYRINGE IV PRN (04:25)
[2023-08-15] MEDS ORDERED: SLOW142T5 PO (04:36)
[2023-08-15] MEDS ORDERED: AMLO1TAB24 PO (04:36)
[2023-08-15] MEDS ORDERED: VERI2.5T PO (04:36)
[2023-08-15] MEDS ORDERED: BUME2TAB3 PO (04:36)
[2023-08-15] MEDS ORDERED: HOME MED LIST COMPLETE! XX SCH (04:40)
[2023-08-15] MEDS: AZITHROMYCIN 250MG TABLET PO SCH (04:51)
[2023-08-15 05:46] VITALS: BP 175/65; TEMP 98.8; O2SAT 88
[2023-08-15 06:44] VITALS: BP 175/65; TEMP 98.8
[2023-08-15] MEDS ORDERED: cloNIDine 0.1MG TABLET PO ONE (07:00)
[2023-08-15] MEDS: IPRATROPIUM 0.5MG/ALBUTEROL 2.5MG INH SOL UD 3ML (DUONEB) NEB SCH ×3 (07:16→19:57)
[2023-08-15 07:46] LABS: BASO % 0.1 % (0.0-1.0); EOS % 0.1 % (0.0-3.0); HEMOGLOBIN 9.7 g/dl (12.0-15.5); LYMPH # 2.2 10^3/uL (1.5-5.0); LYMPH % 12.9 % (24.0-44.0); MEAN CORPUSCULAR HEMOGLOBIN 24.1 pg (27.0-33.0); MEAN CORPUSCULAR HGB CONC 31.3 g/dl (32.0-36.5); MEAN CORPUSCULAR VOLUME 77.1 fl (80.0-96.0); MONO % 32.6 % (2.0-8.0); NEUTROPHILS # 8.8 10^3/uL (1.5-8.5); NEUTROPHILS % 53.1 % (36.0-66.0); PLATELET COUNT, AUTOMATED 143 10^3/uL (150-450); RED BLOOD COUNT 4.02 10^6/uL (4.00-5.40); WHITE BLOOD COUNT 16.6 10^3/uL (4.0-10.0)
[2023-08-15 08:04] LABS: CALCIUM LEVEL 8.9 MG/DL (8.3-10.6); CREATININE FOR GFR 1.6 MG/DL (0.55-1.30); GLOMERULAR FILTRATION RATE 32.6 (>32); POTASSIUM SERUM 4.7 MMOL/L (3.5-5.1)
[2023-08-15 08:11] LABS: MONO # 5.4 10^3/uL (0.0-0.8)
[2023-08-15] MEDS: SERTRALINE HCL 25 MG TABLET PO SCH (09:24)
[2023-08-15] MEDS: MULTIVITAMINS/MINERALS THERAP 1 TAB PO SCH (09:25)
[2023-08-15] MEDS: DOCUSATE SODIUM 100MG CAPSULE PO SCH ×2 (09:26→20:25)
[2023-08-15] MEDS: SPIRONOLACTONE 25 MG TAB PO SCH ×2 (09:26→20:26)
[2023-08-15] MEDS: FOLIC ACID 1MG TAB PO SCH (09:26)
[2023-08-15] MEDS: ASCORBIC ACID 500 MG TAB PO SCH (09:26)
[2023-08-15] MEDS: PANTOPRAZOLE 40MG TAB (PROTONIX) PO SCH (09:26)
[2023-08-15] MEDS: MAGNESIUM OXIDE 400MG TAB (MAG-OX) PO SCH ×2 (09:26→20:26)
[2023-08-15] MEDS: **hydrALAZINE** 50 MG TAB PO SCH ×3 (09:26→20:25)
[2023-08-15] MEDS: HEPARIN SOD (PORCINE) 5000UNITS/ML 1ML VIAL/SYRINGE SC SCH ×2 (09:26→20:24)
[2023-08-15] MEDS: INSULIN LISPRO (NovoLOG) PER UNIT SC SCH ×4 (09:27→21:00)
[2023-08-15] MEDS: LEVOTHYROXINE 100MCG TABLET (0.1MG) PO SCH (09:33)
[2023-08-15] MEDS: BUMETANIDE 1 MG TAB PO SCH (10:27)
[2023-08-15] MEDS: LABETALOL 200 MG TAB PO SCH ×2 (10:27→20:25)
[2023-08-15] MEDS: BACLOFEN 5MG PER 1/2 TABLET PO PRN (10:29)
[2023-08-15] MEDS: HYDROMORPHONE HCL 0.5 MG/ 0.5 ML SYRINGE IV PRN ×2 (13:04→19:49)
[2023-08-15] MEDS ORDERED: [UNRECOGNIZED DRUG - OTHER] TOP PRN (13:15)
[2023-08-15 14:10] VITALS: BP 131/53; TEMP 98.2; O2SAT 92
[2023-08-15] MEDS: SILDENAFIL 20 MG PO SCH (20:23)
[2023-08-15] MEDS: CYANOCOBALAMIN 500 MCG TAB PO SCH (20:25)
[2023-08-15] MEDS: amLODIPine 5 MG TAB PO SCH (20:25)
[2023-08-15] MEDS: ATORVASTATIN 20 MG TAB PO SCH (20:26)
[2023-08-15] MEDS: GABAPENTIN 300 MG CAP PO SCH (20:26)
[2023-08-15 21:00] VITALS: BP 184/76; TEMP 98.1; O2SAT 91
[2023-08-15] MEDS ORDERED: cloNIDine 0.1MG TABLET PO SCH (21:00)
[2023-08-15] MEDS ORDERED: BACLOFEN 5MG PER 1/2 TABLET PO SCH (21:00)
[2023-08-15 21:32] VITALS: BP 184/76; TEMP 98.1
[2023-08-15 23:00] VITALS: BP 155/61
[2023-08-15] MEDS: cefTRIAXone SOD 1 GM in D5W MINI-BAG PLUS 50 ML IV SCH (23:02)
[2023-08-15] MEDS ORDERED: MOM 30ML SUSPENSION UDC PO PRN (23:45)
[2023-08-16] MEDS: HYDROMORPHONE HCL 0.5 MG/ 0.5 ML SYRINGE IV PRN ×4 (02:17→22:24)
[2023-08-16] MEDS: IPRATROPIUM 0.5MG/ALBUTEROL 2.5MG INH SOL UD 3ML (DUONEB) NEB SCH ×4 (02:52→19:41)
[2023-08-16 05:22] VITALS: BP 148/61; TEMP 98.1; O2SAT 95
[2023-08-16] MEDS: AZITHROMYCIN 250MG TABLET PO SCH (06:08)
[2023-08-16] MEDS: LEVOTHYROXINE 100MCG TABLET (0.1MG) PO SCH (06:08)
[2023-08-16 06:16] LABS: BASO % 0.1 % (0.0-1.0); EOS % 0.1 % (0.0-3.0); HEMATOCRIT 29.4 % (36.0-47.0); HEMOGLOBIN 9.2 g/dl (12.0-15.5); LYMPH # 0.8 10^3/uL (1.5-5.0); LYMPH % 7.3 % (24.0-44.0); MEAN CORPUSCULAR HEMOGLOBIN 24.2 pg (27.0-33.0); MEAN CORPUSCULAR HGB CONC 31.3 g/dl (32.0-36.5); MEAN CORPUSCULAR VOLUME 77.4 fl (80.0-96.0); MONO % 50.6 % (2.0-8.0); NEUTROPHILS # 4.7 10^3/uL (1.5-8.5); PLATELET COUNT, AUTOMATED 131 10^3/uL (150-450); WHITE BLOOD COUNT 11.5 10^3/uL (4.0-10.0)
[2023-08-16 06:46] LABS: CALCIUM LEVEL 8.9 MG/DL (8.3-10.6); CREATININE FOR GFR 1.7 MG/DL (0.55-1.30); GLOMERULAR FILTRATION RATE 30.4 (>32); POTASSIUM SERUM 3.8 MMOL/L (3.5-5.1)
[2023-08-16 06:58] LABS: MONO # 5.8 10^3/uL (0.0-0.8)
[2023-08-16] MEDS: INSULIN LISPRO (NovoLOG) PER UNIT SC SCH ×4 (07:06→20:56)
[2023-08-16] MEDS: FOLIC ACID 1MG TAB PO SCH (08:27)
[2023-08-16] MEDS: SERTRALINE HCL 25 MG TABLET PO SCH (08:27)
[2023-08-16] MEDS: PANTOPRAZOLE 40MG TAB (PROTONIX) PO SCH (08:27)
[2023-08-16] MEDS: SPIRONOLACTONE 25 MG TAB PO SCH ×2 (08:27→20:44)
[2023-08-16] MEDS: MAGNESIUM OXIDE 400MG TAB (MAG-OX) PO SCH ×2 (08:28→20:43)
[2023-08-16] MEDS: DOCUSATE SODIUM 100MG CAPSULE PO SCH ×2 (08:28→20:43)
[2023-08-16] MEDS: ASCORBIC ACID 500 MG TAB PO SCH (08:28)
[2023-08-16] MEDS: MULTIVITAMINS/MINERALS THERAP 1 TAB PO SCH (08:28)
[2023-08-16] MEDS: **hydrALAZINE** 50 MG TAB PO SCH ×3 (08:28→20:45)
[2023-08-16] MEDS: SILDENAFIL 20 MG PO SCH ×2 (08:29→20:45)
[2023-08-16] MEDS: BUMETANIDE 1 MG TAB PO SCH (08:29)
[2023-08-16] MEDS: LABETALOL 200 MG TAB PO SCH ×2 (08:29→20:43)
[2023-08-16] MEDS: HEPARIN SOD (PORCINE) 5000UNITS/ML 1ML VIAL/SYRINGE SC SCH ×2 (08:30→20:45)
[2023-08-16] MEDS: BACLOFEN 5MG PER 1/2 TABLET PO PRN ×2 (10:09→21:46)
[2023-08-16 14:00] VITALS: BP 147/63; TEMP 97.2; O2SAT 91
[2023-08-16 20:02] VITALS: BP 143/74; TEMP 98.1; O2SAT 92
[2023-08-16 20:32] VITALS: BP 157/68
[2023-08-16] MEDS ORDERED: PILL CUTTER 1 EACH XX ONE (20:42)
[2023-08-16] MEDS: GABAPENTIN 300 MG CAP PO SCH (20:43)
[2023-08-16] MEDS: CYANOCOBALAMIN 500 MCG TAB PO SCH (20:43)
[2023-08-16] MEDS: ATORVASTATIN 20 MG TAB PO SCH (20:43)
[2023-08-16] MEDS: amLODIPine 5 MG TAB PO SCH (20:44)
[2023-08-16] MEDS: cefTRIAXone SOD 1 GM in D5W MINI-BAG PLUS 50 ML IV SCH (23:43)
[2023-08-17] MEDS: IPRATROPIUM 0.5MG/ALBUTEROL 2.5MG INH SOL UD 3ML (DUONEB) NEB SCH ×3 (01:50→14:09)
[2023-08-17 05:32] VITALS: BP 148/67; TEMP 97.4; O2SAT 95
[2023-08-17] MEDS: AZITHROMYCIN 250MG TABLET PO SCH (05:33)
[2023-08-17] MEDS: LEVOTHYROXINE 100MCG TABLET (0.1MG) PO SCH (05:33)
[2023-08-17] MEDS ORDERED: PERCOCET 5MG/325MG TAB PO PRN (06:25)
[2023-08-17 06:44] LABS: EOS % 0.2 % (0.0-3.0); HEMATOCRIT 28.1 % (36.0-47.0); LYMPH # 0.9 10^3/uL (1.5-5.0); LYMPH % 9.4 % (24.0-44.0); MEAN CORPUSCULAR HEMOGLOBIN 24.7 pg (27.0-33.0); MONO % 52.8 % (2.0-8.0); NEUTROPHILS # 3.6 10^3/uL (1.5-8.5); NEUTROPHILS % 36.8 % (36.0-66.0); PLATELET COUNT, AUTOMATED 118 10^3/uL (150-450); RED BLOOD COUNT 3.65 10^6/uL (4.00-5.40); WHITE BLOOD COUNT 9.8 10^3/uL (4.0-10.0)
[2023-08-17 07:03] LABS: CALCIUM LEVEL 8.9 MG/DL (8.3-10.6); CREATININE FOR GFR 1.82 MG/DL (0.55-1.30); GLOMERULAR FILTRATION RATE 28.1 (>32); MAGNESIUM LEVEL 2.5 MG/DL (1.8-2.4); POTASSIUM SERUM 4.7 MMOL/L (3.5-5.1)
[2023-08-17] MEDS: INSULIN LISPRO (NovoLOG) PER UNIT SC SCH ×2 (07:30→12:59)
[2023-08-17 07:33] LABS: MONO # 5.2 10^3/uL (0.0-0.8)
[2023-08-17 08:00] VITALS: BP 160/77; TEMP 98.1; O2SAT 95
[2023-08-17] MEDS: SPIRONOLACTONE 25 MG TAB PO SCH (09:00)
[2023-08-17] MEDS: MAGNESIUM OXIDE 400MG TAB (MAG-OX) PO SCH (09:00)
[2023-08-17] MEDS ORDERED: MIRALAX *UNIT DOSE* 17GM PACKET PO SCH (09:00)
[2023-08-17] MEDS: MULTIVITAMINS/MINERALS THERAP 1 TAB PO SCH (09:49)
[2023-08-17] MEDS: SILDENAFIL 20 MG PO SCH (09:49)
[2023-08-17] MEDS: BUMETANIDE 1 MG TAB PO SCH (09:51)
[2023-08-17] MEDS: FOLIC ACID 1MG TAB PO SCH (09:53)
[2023-08-17] MEDS: DOCUSATE SODIUM 100MG CAPSULE PO SCH (09:53)
[2023-08-17] MEDS: ASCORBIC ACID 500 MG TAB PO SCH (09:53)
[2023-08-17] MEDS: PANTOPRAZOLE 40MG TAB (PROTONIX) PO SCH (09:54)
[2023-08-17] MEDS: **hydrALAZINE** 50 MG TAB PO SCH ×2 (09:56→15:09)
[2023-08-17] MEDS: SERTRALINE HCL 25 MG TABLET PO SCH (09:56)
[2023-08-17] MEDS: LABETALOL 200 MG TAB PO SCH (09:57)
[2023-08-17] MEDS: HEPARIN SOD (PORCINE) 5000UNITS/ML 1ML VIAL/SYRINGE SC SCH (10:55)
[2023-08-17] MEDS ORDERED: SENNA 8.6 MG TAB (SENOKOT) PO STA (11:20)
[2023-08-17] MEDS ORDERED: MOM 30ML SUSPENSION UDC PO PRN (11:20)
[2023-08-17] MEDS ORDERED: PREVNAR-20 VACCINE 0.5ML SYRINGE IM.IMMUN ONE (13:00)
[2023-08-17 14:00] VITALS: BP 137/62; TEMP 97.7; O2SAT 100
[2023-08-17] MEDS ORDERED: BACL10TA2 PO (14:38)
[2023-08-17] MEDS ORDERED: CEFD300CAP PO (14:38)
[2023-08-17] MEDS ORDERED: SENN-52 PO (14:38)
[2023-08-17] MEDS ORDERED: AZIT-12 PO (14:38)
[2023-08-17] MEDS ORDERED: PERCOCET PO (14:38)
[2023-08-17] MEDS ORDERED: MOM30SS2 PO (14:38)
[2023-08-17] MEDS ORDERED: MIRA1POW3 PO (14:38)
[2023-08-17] MEDS ORDERED: CEFDINIR 300 MG CAP (OMNICEF) PO STA (14:41)
[2023-08-17] MEDS ORDERED: PRED20TA PO (14:58)
[2023-08-17] MEDS ORDERED: ALBU2.5V10 INH (14:58)
[2023-08-17] MEDS ORDERED: IPRA0.00 INH (14:58)
[2023-08-17] MEDS ORDERED: PERC5TAB12 PO (14:58)
[2023-08-17] MEDS ORDERED: ALBU8.5H INH (14:58)
[2023-08-17 15:09] VITALS: BP 135/58
[2023-08-17] MEDS ORDERED: SENOKOT S TAB PO SCH (21:00)
== END 2023-08-17 16:05 | disposition home health service (06) | DRG 551 ==
LOC: M ED 21:20 → M ED INP 08-15 04:21 → ENRESERV 08-15 04:52 → M MSPAV 08-15 05:37
PROVIDERS: ADMIT Internal Medicine; ATTEND Internal Medicine
DX: S22.080A Wedge compression fracture of T11-T12 vertebra, initial encounter for closed fracture (principal); J18.9 Pneumonia, unspecified organism; J44.0 Chronic obstructive pulmonary disease with (acute) lower respiratory infection; I50.32 Chronic diastolic (congestive) heart failure; I13.0 Hypertensive heart and chronic kidney disease with heart failure and stage 1 through stage 4 chronic kidney disease, or unspecified chronic kidney disease; J96.11 Chronic respiratory failure with hypoxia; I70.1 Atherosclerosis of renal artery; E11.22 Type 2 diabetes mellitus with diabetic chronic kidney disease; K21.9 Gastro-esophageal reflux disease without esophagitis; E11.42 Type 2 diabetes mellitus with diabetic polyneuropathy; F32.A Depression, unspecified; R59.9 Enlarged lymph nodes, unspecified; D64.9 Anemia, unspecified; D69.6 Thrombocytopenia, unspecified; E03.9 Hypothyroidism, unspecified; I27.20 Pulmonary hypertension, unspecified; N18.30 Chronic kidney disease, stage 3 unspecified; Z79.890 Hormone replacement therapy; Z79.84 Long term (current) use of oral hypoglycemic drugs; Z79.899 Other long term (current) drug therapy; Z20.822 Contact with and (suspected) exposure to COVID-19; Z99.81 Dependence on supplemental oxygen; Z86.16 Personal history of COVID-19; Z95.2 Presence of prosthetic heart valve; Z90.49 Acquired absence of other specified parts of digestive tract; Z90.79 Acquired absence of other genital organ(s); Z66 Do not resuscitate; K59.00 Constipation, unspecified

== ENCOUNTER → 2023-09-01 | Outpatient (REF) ==
[~2023-09-01] MED LIST changes: +ALBU2.5V10 INH; +ALBU8.5H INH; +AZIT-12 PO; +CEFD300CAP PO; -HYDR-3910; -HYDR-3910 PO; +HYDR25TA87; +HYDR25TA87 PO; +IPRA0.00 INH; -MIRA1POW3 PO; +MIRA33506 PO; +MOM30SS2 PO; +PRED20TA PO; +SENN-52 PO
[2023-09-01 10:44] LABS: HEMATOCRIT 30.4 % (36.0-47.0); HEMOGLOBIN 9.6 g/dl (12.0-15.5); MEAN CORPUSCULAR HEMOGLOBIN 24.6 pg (27.0-33.0); MEAN CORPUSCULAR HGB CONC 31.6 g/dl (32.0-36.5); MEAN CORPUSCULAR VOLUME 77.9 fl (80.0-96.0); PLATELET COUNT, AUTOMATED 155 10^3/uL (150-450); WHITE BLOOD COUNT 17.7 10^3/uL (4.0-10.0)
[2023-09-01 11:08] LABS: CALCIUM LEVEL 8.8 MG/DL (8.3-10.6); CREATININE FOR GFR 2.08 MG/DL (0.55-1.30); GLOMERULAR FILTRATION RATE 24.1 (>32); POTASSIUM SERUM 4.2 MMOL/L (3.5-5.1)
== END ==
PROVIDERS: ATTEND Physician Assistant
DX: I50.9 Heart failure, unspecified (principal)

== ENCOUNTER 2023-09-03 04:39 | Emergency (ER) | payer MEDICARE, MEDICAID ==
[~2023-09-03] VITALS: Ht 144.8 cm; Wt 54.0 kg
[2023-09-03 06:18] LABS: BASO % 0.2 % (0.0-1.0); EOS % 0.1 % (0.0-3.0); HEMATOCRIT 28.9 % (36.0-47.0); HEMOGLOBIN 9.3 g/dl (12.0-15.5); LYMPH # 1.4 10^3/uL (1.5-5.0); LYMPH % 7.6 % (24.0-44.0); MEAN CORPUSCULAR HEMOGLOBIN 24.4 pg (27.0-33.0); MEAN CORPUSCULAR HGB CONC 32.2 g/dl (32.0-36.5); MEAN CORPUSCULAR VOLUME 75.9 fl (80.0-96.0); MONO % 42.7 % (2.0-8.0); NEUTROPHILS # 8.2 10^3/uL (1.5-8.5); NEUTROPHILS % 44.7 % (36.0-66.0); PLATELET COUNT, AUTOMATED 147 10^3/uL (150-450); RED BLOOD COUNT 3.81 10^6/uL (4.00-5.40); WHITE BLOOD COUNT 18.4 10^3/uL (4.0-10.0)
[2023-09-03 06:29] LABS: INR 1.06; PROTHROMBIN TIME 13.5 SECONDS (12.5-14.5)
[2023-09-03 06:30] LABS: PARTIAL THROMBOPLASTIN TIME 26.7 SECONDS (24.8-34.2)
[2023-09-03 06:48] LABS: CALCIUM LEVEL 9.1 MG/DL (8.3-10.6); CREATININE FOR GFR 2.14 MG/DL (0.55-1.30); GLOMERULAR FILTRATION RATE 23.3 (>32); MONO # 7.9 10^3/uL (0.0-0.8)
[2023-09-03 08:35] VITALS: BP 154/67; TEMP 97.9; O2SAT 98
== END 2023-09-03 12:04 | disposition home or self-care (01) ==
LOC: M ED 04:39
DX: R04.0 Epistaxis (principal); I10 Essential (primary) hypertension; K21.9 Gastro-esophageal reflux disease without esophagitis; N18.30 Chronic kidney disease, stage 3 unspecified; Z86.79 Personal history of other diseases of the circulatory system; Z79.52 Long term (current) use of systemic steroids; Z79.811 Long term (current) use of aromatase inhibitors; Z79.891 Long term (current) use of opiate analgesic; Z79.899 Other long term (current) drug therapy

== ENCOUNTER → 2023-09-08 | Outpatient (REF) ==
[2023-09-08 10:35] LABS: HEMATOCRIT 30.5 % (36.0-47.0); HEMOGLOBIN 9.5 g/dl (12.0-15.5); MEAN CORPUSCULAR HEMOGLOBIN 24.5 pg (27.0-33.0); MEAN CORPUSCULAR HGB CONC 31.1 g/dl (32.0-36.5); MEAN CORPUSCULAR VOLUME 78.8 fl (80.0-96.0); PLATELET COUNT, AUTOMATED 107 10^3/uL (150-450); RED BLOOD COUNT 3.87 10^6/uL (4.00-5.40); WHITE BLOOD COUNT 11.9 10^3/uL (4.0-10.0)
[2023-09-08 11:13] LABS: CALCIUM LEVEL 9.4 MG/DL (8.3-10.6); CREATININE FOR GFR 1.96 MG/DL (0.55-1.30); GLOMERULAR FILTRATION RATE 25.8 (>32); POTASSIUM SERUM 4.1 MMOL/L (3.5-5.1)
== END ==
PROVIDERS: ATTEND Physician Assistant
DX: I50.9 Heart failure, unspecified (principal)

== ENCOUNTER → 2023-09-15 | Outpatient (REF) ==
[2023-09-15 10:34] LABS: THYROID STIMULATING HORMONE 0.522 uIU/ML (0.55-4.78)
== END ==
PROVIDERS: ATTEND Physician Assistant
DX: E03.9 Hypothyroidism, unspecified (principal); G40.909 Epilepsy, unspecified, not intractable, without status epilepticus; Z79.899 Other long term (current) drug therapy

== ENCOUNTER → 2023-09-22 | Outpatient (REF) | payer MEDICARE, MEDICAID | PROVIDERS: ATTEND Physician Assistant | DX: G40.909 Epilepsy, unspecified, not intractable, without status epilepticus (principal) ==

== ENCOUNTER → 2023-09-30 | Outpatient (REF) | payer MEDICARE, MEDICAID | PROVIDERS: ATTEND Physician Assistant | DX: K52.9 Noninfective gastroenteritis and colitis, unspecified (principal); Z53.8 Procedure and treatment not carried out for other reasons ==

== ENCOUNTER → 2023-10-01 | Outpatient (REF) | PROVIDERS: ATTEND Physician Assistant | DX: Z53.8 Procedure and treatment not carried out for other reasons (principal) ==

== ENCOUNTER → 2023-10-01 | Outpatient (REF) | PROVIDERS: ATTEND Physician Assistant | DX: Z53.8 Procedure and treatment not carried out for other reasons (principal) ==

== ENCOUNTER → 2023-10-04 | Outpatient (REF) | payer MEDICARE, MEDICAID ==
[2023-10-04 12:27] LABS: HEMATOCRIT 29.5 % (36.0-47.0); HEMOGLOBIN 9.4 g/dl (12.0-15.5); MEAN CORPUSCULAR HEMOGLOBIN 24.7 pg (27.0-33.0); MEAN CORPUSCULAR HGB CONC 31.9 g/dl (32.0-36.5); MEAN CORPUSCULAR VOLUME 77.4 fl (80.0-96.0); RED BLOOD COUNT 3.81 10^6/uL (4.00-5.40); WHITE BLOOD COUNT 7.1 10^3/uL (4.0-10.0)
[2023-10-04 12:47] LABS: PLATELET COUNT, AUTOMATED 97 10^3/uL (150-450)
[2023-10-04 12:57] LABS: CALCIUM LEVEL 9.2 MG/DL (8.3-10.6); CREATININE FOR GFR 1.9 MG/DL (0.55-1.30); GLOMERULAR FILTRATION RATE 26.7 (>32); POTASSIUM SERUM 4.5 MMOL/L (3.5-5.1)
== END ==
PROVIDERS: ATTEND Physician Assistant
DX: I50.9 Heart failure, unspecified (principal)

== ENCOUNTER → 2023-10-11 | Outpatient (REF) | payer MEDICARE, MEDICAID | PROVIDERS: ATTEND Internal Medicine | DX: G40.909 Epilepsy, unspecified, not intractable, without status epilepticus (principal); Z53.8 Procedure and treatment not carried out for other reasons ==

== ENCOUNTER → 2023-10-11 | Outpatient (REF) | payer MEDICARE, MEDICAID | PROVIDERS: ATTEND Internal Medicine | DX: I50.9 Heart failure, unspecified (principal); Z53.8 Procedure and treatment not carried out for other reasons ==

== ENCOUNTER → 2023-10-11 | Outpatient (REF) | payer MEDICARE, MEDICAID | PROVIDERS: ATTEND Physician Assistant | DX: E03.9 Hypothyroidism, unspecified (principal); Z53.8 Procedure and treatment not carried out for other reasons ==